=== PATIENT | male | born 1990 | race Two or more races ===

== ENCOUNTER 2020-05-30 14:29 | Inpatient (IN) | payer MEDICAID ==
[~2020-05-30] VITALS: Ht 177.8 cm; Wt 74.0 kg
[2020-05-30] MEDS ORDERED: CARAFATE1 G1 GT (14:49)
[2020-05-30] MEDS ORDERED: PROPRANOLOL HCL10 MG GT (14:49)
[2020-05-30] MEDS ORDERED: FAMOTIDINE20 MG GT (14:49)
[2020-05-30] MEDS ORDERED: ACIDOPHILUS1 EAC7 GT (14:49)
[2020-05-30] MEDS ORDERED: LOVENOX10 M2 SUBQ (14:49)
[2020-05-30] MEDS ORDERED: LISINOPRIL5 MG GT (14:49)
[2020-05-30] MEDS ORDERED: ARMOUR THYROID30 MG GT (14:49)
[2020-05-30] MEDS ORDERED: levaquin (14:49)
[2020-05-30] MEDS ORDERED: RENAGEL800 MG GT (14:49)
[2020-05-30] MEDS ORDERED: KEPPRA750 MG ORAL (14:49)
[2020-05-30] MEDS ORDERED: VIMPAT50 MG GT (14:49)
[2020-05-30] MEDS ORDERED: Acetaminophen 650mg/20.3ml GT ONE (15:00)
--- NOTE | 2020-05-30 15:00 | NUR ---
ED Nurse Note:pt. was BIBA from SNF with fever,ALOC and tahycardia, pt. was not alert on arrival, has tracheostomy with t-piece at 2L O2, skin is intact with perianal redness, fever 101.2, pt. has right upper arm PICC line with is patent, blood and covid swab with cultures was sent to labs, pt given IV fluids and tylenol
--- NOTE | 2020-05-30 15:10 | NUR ---
ED Nurse Note:pt. has abrasion on left knee from traumatic injury
[2020-05-30 15:17] LABS: HEMATOCRIT 32.4 % (42.0-52.0); HEMOGLOBIN 10.8 G/DL (14.2-18.0); MEAN CORPUSCULAR VOLUME 88 FL (80-99); PLATELET COUNT 315 K/UL (150-450); RED CELL DISTRIBUTION WIDTH 14.8 % (11.6-14.8)
[2020-05-30 15:18] VITALS: BP 102/68
[2020-05-30 15:18] LABS: WHITE BLOOD COUNT 25.7 K/UL (4.8-10.8)
[2020-05-30 15:27] LABS: INR 1.2 (0.9-1.1)
[2020-05-30 15:29] LABS: ANION GAP 14 mmol/L (5-15); BLOOD UREA NITROGEN 32 mg/dL (7-18); CALCIUM 9.3 MG/DL (8.5-10.1); CARBON DIOXIDE 23 MMOL/L (21-32); CHLORIDE 94 MMOL/L (98-107); CREATININE 1.2 MG/DL (0.55-1.30); POTASSIUM 4.7 MMOL/L (3.5-5.1); SODIUM 131 MMOL/L (136-145)
--- NOTE | 2020-05-30 15:30 | NUR ---
ED Nurse Note:condom catheter placed on pt for urine collection
[2020-05-30 15:45] LABS: ALANINE AMINOTRANSFERASE 80 U/L (12-78); ALBUMIN 2.9 G/DL (3.4-5.0); ALBUMIN/GLOBULIN RATIO 0.6 (1.0-2.7); ALKALINE PHOSPHATASE 211 U/L (46-116); ASPARTATE AMINO TRANSFERASE 40 U/L (15-37); BILIRUBIN,TOTAL 0.8 MG/DL (0.2-1.0); FERRITIN 1470 NG/ML (8-388); LACTATE DEHYDROGENASE 289 U/L (81-234)
[2020-05-30] MEDS ORDERED: Piperacillin/Tazobactam 3.375 GM in NS 110 ML IVPB ONE (15:45)
[2020-05-30] MEDS ORDERED: Azithromycin 500 MG in NS 275 ML IV ONE (15:45)
--- NOTE | 2020-05-30 16:35 | NUR ---
ED Nurse Note:swabs and lactic reflax sent to labs
[2020-05-30 16:45] VITALS: BP 107/73
--- NOTE | 2020-05-30 17:00 | NUR ---
ED Nurse Note:placed morales cath for urinary retention, urine sent to labs
[2020-05-30 17:14] LABS: APPEARANCE,URINE SLIGHTLY CLOUDY; BILIRUBIN, URINE NEGATIVE (NEGATIVE); GLUCOSE, URINE (UA) NEGATIVE (NEGATIVE); KETONES,URINE NEGATIVE (NEGATIVE); LEUKOCYTE ESTERASE ,URINE 1+ (NEGATIVE); NITRITE,URINE NEGATIVE (NEGATIVE); PH,URINE 5 (4.5-8.0); PROTEIN,URINE 2+ (NEGATIVE); UROBILINOGEN,URINE NORMAL MG/DL (0.0-1.0)
[2020-05-30 17:16] LABS: COLOR,URINE YELLOW
--- NOTE | 2020-05-30 17:22 | NUR ---
ED Nurse Note:called report to tele- given to wil Adame. is stable for transfer to [facility]
--- NOTE | 2020-05-30 17:23 | Emergency Room Report ---
History of Present Illness General Chief Complaint: Altered Mental Status Source: Patient, Medical Record, EMS Present Illness HPI 29-year-old male presents the ED for evaluation. Brought in by EMS for tachycardia. From senior care facility. Status post TBI. Nonverbal. Trach to collar. Noted by nursing staff today to be tachycardic. Patient unable to provide any additional history at this time. No signs of distress on arrival. No other aggravating relieving factors. No other associated symptoms Allergies: Coded Allergies: No Known Allergies (Unverified , 05/30/20) COVID-19 Screening Contact w/high risk pt: No Experienced COVID-19 symptoms?: No COVID-19 Testing performed CAR JOCKEY: No Patient History Past Medical History: GERD, other - TBI Pertinent Family History: none Social History: Denies: smoking, alcohol use, drug use Immunizations: UTD Reviewed Nursing Documentation: PMH: Agreed; PSxH: Agreed Nursing Documentation-PMH Hx Gastrointestinal Problems: Yes - GERD, hypothyroidism Hx Neurological Problems: Yes Hx Seizures: Yes Review of Systems All Other Systems: limited Physical Exam Vital Signs Date Time Temp Pulse Resp B/P (MAP) Pulse Ox O2 Delivery O2 Flow Rate FiO2 05/30/20 14:37 97.9 120 22 102/68 (79 96 T-piece 2.0 Sp02 EP Interpretation: reviewed, normal General Appearance: no apparent distress, other - nonverbal Head: normocephalic Eyes: bilateral eye normal inspection, bilateral eye PERRL ENT: normal ENT inspection Neck: tracheotomy Respiratory: chest non-tender, crackles Cardiovascular #1: no edema, tachycardia Gastrointestinal: normal bowel sounds, non tender, soft, non-distended, no guarding, no rebound Rectal: deferred Genitourinary: no CVA tenderness Musculoskeletal: back normal Neurologic: other - nonverbal Psychiatric: other - nonverbal Skin: other - see nursing notes Lymphatic: normal inspection Procedures Critical Care Time Critical Care Time i. I feel this is a highly complex case requiring extensive working including EKG/Rhythm strip, Xray/CT/US, Blood/urine lab work, repeat exams while in ED, and administration of strong opiates/narcotics for pain control, admission to hospital or close patient follow up. Total time: 45 min bedside evaluation and treatment excludes procedures (EKG). Reason for critical care: tachycardia, sepsis Possible complications: hypotension, hypertension, NM, shock, arrhythmias, metabolic acidosis, end organ damage, respiratory failure. Interventions: labs, IVFs, EKG, tylenol, COVID swab, broad spectrum abx Course: Presenting with tachycardia. Fever. Status post TBI from senior care facility. Given via G-tube. Given 30 cc/kg fluid bolus. Significant leukocytosis. Hemoglobin/hematocrit within normal limits. Lactic 2.4. LFTs elevated. UA shows UTI. covid negative. given fluids. given abx. tachycardia improving. EKG - sinus tachycardia no acute ischemic changes interpreted by me CXR - no consolidation noted Consultations: nursing staff, EMS, family Performed by: Dr Hickman Tolerated well condition = serious j. because of unstable vital signs this patient had a condition that could potentially threaten life or limb. I feel this is a critical patient who required my full attention while patient was considered critical. Total Critical Care Time excluding procedures was greater than 35 minutes Medical Decision Making Diagnostic Impression: Primary Impression: Sepsis Qualified Codes: A41.9 - Sepsis, unspecified organism Additional Impression: Tachycardia ER Course Hospital Course 29-year-old male presenting to ED with tachycardia fever Differential diagnoses include: Pneumonia, UTI, sepsis, dehydration, NM/unstable angina Clinical course Patient placed on stretcher. in isolation. I wore full PPE. On color television console monitor with tachycardia. After initial history and physical, I ordered labs, IV fluids, EKG, chest x-ray, blood cultures, UA. given tylenol. given 30cc/kg fluid bolus Labs - electrolytes ok, marked leukocytosis, LFTS elevated, lactic elevated UA grossly positive for UTI EKG -sinus tachycardia no acute ischemic change sinterpreed by me CXR - no acute process COVID negative broad spectrum Abx given. Given 30 cc/kg fluid bolus. Tachycardia improving. Case discussed with Dr Higgins and they agreed to admit patient to their service for further care and support I feel this is a highly complex case requiring extensive working including EKG/Rhythm strip, Xray/CT/US, Blood/urine lab work, repeat exams while in ED, and administration of strong opiates/narcotics for pain control, admission to hospital or close patient follow up. Diagnosis - sepsis, tachycardia Patient admitted to telemetry in serious condition Laboratory Tests Test 05/30/20 15:00 05/30/20 16:30 05/30/20 17:00 White Blood Count 25.7 K/UL (4.8-10.8) *H Red Blood Count 3.70 M/UL (4.70-6.10) L Hemoglobin 10.8 G/DL (14.2-18.0) L Hematocrit 32.4 % (42.0-52.0) L Mean Corpuscular Volume 88 FL (80-99) Mean Corpuscular Hemoglobin 29.1 PG (27.0-31.0) Mean Corpuscular Hemoglobin Concent 33.3 G/DL (32.0-36.0) Red Cell Distribution Width 14.8 % (11.6-14.8) Platelet Count 315 K/UL (150-450) Mean Platelet Volume 8.1 FL (6.5-10.1) Neutrophils (%) (Auto) % (45.0-75.0) Lymphocytes (%) (Auto) % (20.0-45.0) Monocytes (%) (Auto) % (1.0-10.0) Eosinophils (%) (Auto) % (0.0-3.0) Basophils (%) (Auto) % (0.0-2.0) Differential Total Cells Counted 100 Neutrophils % (Manual) 86 % (45-75) H Lymphocytes % (Manual) 8 % (20-45) L Monocytes % (Manual) 2 % (1-10) Eosinophils % (Manual) 0 % (0-3) Basophils % (Manual) 0 % (0-2) Band Neutrophils 4 % (0-8) Platelet Estimate Adequate Platelet Morphology Normal Polychromasia 1+ Anisocytosis 1+ Prothrombin Time 13.4 SEC (9.30-11.50) H Prothromb Time International Ratio 1.2 (0.9-1.1) H Activated Partial Thromboplast Time 34 SEC (23-33) H D-Dimer 2.43 mg/L FEU (0.00-0.49) H Sodium Level 131 MMOL/L (136-145) L Potassium Level 4.7 MMOL/L (3.5-5.1) Chloride Level 94 MMOL/L (98-107) L Carbon Dioxide Level 23 MMOL/L (21-32) Anion Gap 14 mmol/L (5-15) Blood Urea Nitrogen 32 mg/dL (7-18) H Creatinine 1.2 MG/DL (0.55-1.30) Estimat Glomerular Filtration Rate > 60 mL/min (>60) Glucose Level 131 MG/DL (74-106) H Lactic Acid Level 2.40 mmol/L (0.4-2.0) H Pending Calcium Level 9.3 MG/DL (8.5-10.1) Ferritin 1470 NG/ML (8-388) H Total Bilirubin 0.8 MG/DL (0.2-1.0) Aspartate Amino Transf (AST/SGOT) 40 U/L (15-37) H Alanine Aminotransferase (ALT/SGPT) 80 U/L (12-78) H Alkaline Phosphatase 211 U/L (46-116) H Lactate Dehydrogenase 289 U/L (81-234) H Troponin I 0.000 ng/mL (0.000-0.056) C-Reactive Protein, Quantitative 4.4 mg/dL (0.00-0.90) H Pro-B-Type Natriuretic Peptide 74 pg/mL (0-125) Total Protein 7.4 G/DL (6.4-8.2) Albumin 2.9 G/DL (3.4-5.0) L Globulin 4.5 g/dL Albumin/Globulin Ratio 0.6 (1.0-2.7) L Lipase 106 U/L (73-393) Urine Color Pending Urine Appearance Pending Urine pH Pending Urine Specific [place] Pending Urine Protein Pending Urine Glucose (UA) Pending Urine Ketones Pending Urine Blood Pending Urine Nitrite Pending Urine Bilirubin Pending Urine Urobilinogen Pending Urine Leukocyte Esterase Pending EKG Diagnostic Results Rate: tachycardiac Rhythm: NSR ST Segments: no acute changes ASA given to the pt in ED: No Rhythm Strip Diag. Results EP Interpretation: yes Rhythm: NSR, no PVC's Chest X-Ray Diagnostic Results Chest X-Ray Diagnostic Results : Chest X-Ray Ordered: Yes # of Views/Limited/Complete: 1 View Indication: Other EP Interpretation: Yes Interpretation: no consolidation, no effusion, no pneumothorax, no acute cardiopulmonary disease Impression: No acute disease Electronically Signed by: Electronically signed by Dawit Hickman MD Last Vital Signs Date Time Temp Pulse Resp B/P (MAP) Pulse Ox O2 Delivery O2 Flow Rate FiO2 05/30/20 16:47 99.9 9/28/20 16:45 120 35 107/73 97 T-piece 2.0 Status: improved Disposition: ADMITTED INPATIENT Condition: Serious Referrals: Aime Higgins MD (PCP) Dawit Hickman MD May 30, 2020 17:23
--- NOTE | 2020-05-30 17:45 | NUR ---
NURSE NOTES: Pt arrived in the unit, receive report from Carole ED RN. Pt awake, A/O x0, non-verbal, no s/sx of acute distress, on 4L t-piece. Pt has PICC line, patent and asymptomatic. VS checked (O2 99%, HR 123, BP 122/69, Temp 98.4, RR 26). Admission assessment performed. Pt has GT and morales cath. Pt noted to have sacral DTI, and wounds on B knees, L dunn, L elbow, r/t accident, WCP uploaded. Bed on lowest position, call light within reach. Will get admission orders from .
--- NOTE | 2020-05-30 17:59 | Diagnostic Imaging Report ---
Indication: Cough Technique: One view of the chest Comparison: none Findings: The heart is borderline enlarged. There is a right arm PICC, tip of which projects somewhat deep within the right atrium. There is a tracheostomy. Lungs pleural spaces are clear. Impression: No acute process
--- NOTE | 2020-05-30 18:35 | History & Physical ---
History and Physical History & Physicial History and Physical HPI 29-year-old male presents the ED for evaluation. Prior history of AMS, seizures, admitted with sepsis, tachycardia. Lives in a fdc facility. Status post TBI. Nonverbal. Trach to collar. Noted by nursing staff today to be tachycardic. Patient unable to provide any additional history at this time. No signs of distress on arrival. No other aggravating relieving factors. No other associated symptoms Allergies: No Known Allergies Past Medical History: GERD, TBI, Seizures, Hypothyroidism Social History: NA Family History: NA All Other Systems: limited Physical Exam Vital Signs noted Date Time Temp Pulse Resp B/P (MAP) Pulse Ox O2 Delivery O2 Flow Rate FiO2 05/30/20 14:37 97.9 120 22 102/68 (79) 96 T-piece 2.0 General Appearance: no apparent distress, other - nonverbal Head: normocephalic Eyes: bilateral eye normal inspection, bilateral eye PERRL ENT: normal ENT inspection, moist mm Neck: tracheotomy Respiratory: chest non-tender, CTAB Cardiovascular : HS1, HS2, RRR, no edema, tachycardia Gastrointestinal: normal bowel sounds, non tender, soft, non-distended, no guarding, no rebound, gtube noted cdi Genitourinary: no CVA tenderness Musculoskeletal: back normal Neurologic: other - nonverbal EKG - sinus tachycardia no acute ischemic changes interpreted by me CXR - no consolidation noted Consultations: nursing staff, EMS, family Performed by: Dr Hickman Tolerated well condition = serious Impression: Sepsis Urinary Tract Infection Sepsis, unspecified organism TBI Seizures Hypothyroidism Sinus Tachycardia Hypertension Plan: IV Antibiotics IVF O2 PRN TC PPX Monitor labs [employer] medications Laboratory Tests COVID negative UA grossly positive for UTI Test 05/30/20 15:00 05/30/20 16:30 05/30/20 17:00 White Blood Count 25.7 K/UL (4.8-10.8) *H Red Blood Count 3.70 M/UL (4.70-6.10) L Hemoglobin 10.8 G/DL (14.2-18.0) L Hematocrit 32.4 % (42.0-52.0) L Mean Corpuscular Volume 88 FL (80-99) Mean Corpuscular Hemoglobin 29.1 PG (27.0-31.0) Mean Corpuscular Hemoglobin Concent 33.3 G/DL (32.0-36.0) Red Cell Distribution Width 14.8 % (11.6-14.8) Platelet Count 315 K/UL (150-450) Mean Platelet Volume 8.1 FL (6.5-10.1) Neutrophils (%) (Auto) % (45.0-75.0) Lymphocytes (%) (Auto) % (20.0-45.0) Monocytes (%) (Auto) % (1.0-10.0) Eosinophils (%) (Auto) % (0.0-3.0) Basophils (%) (Auto) % (0.0-2.0) Differential Total Cells Counted 100 Neutrophils % (Manual) 86 % (45-75) H Lymphocytes % (Manual) 8 % (20-45) L Monocytes % (Manual) 2 % (1-10) Eosinophils % (Manual) 0 % (0-3) Basophils % (Manual) 0 % (0-2) Band Neutrophils 4 % (0-8) Platelet Estimate Adequate Platelet Morphology Normal Polychromasia 1+ Anisocytosis 1+ Prothrombin Time 13.4 SEC (9.30-11.50) H Prothromb Time International Ratio 1.2 (0.9-1.1) H Activated Partial Thromboplast Time 34 SEC (23-33) H D-Dimer 2.43 mg/L FEU (0.00-0.49) H Sodium Level 131 MMOL/L (136-145) L Potassium Level 4.7 MMOL/L (3.5-5.1) Chloride Level 94 MMOL/L (98-107) L Carbon Dioxide Level 23 MMOL/L (21-32) Anion Gap 14 mmol/L (5-15) Blood Urea Nitrogen 32 mg/dL (7-18) H Creatinine 1.2 MG/DL (0.55-1.30) Estimat Glomerular Filtration Rate > 60 mL/min (>60) Glucose Level 131 MG/DL (74-106) H Lactic Acid Level 2.40 mmol/L (0.4-2.0) H Pending Calcium Level 9.3 MG/DL (8.5-10.1) Ferritin 1470 NG/ML (8-388) H Total Bilirubin 0.8 MG/DL (0.2-1.0) Aspartate Amino Transf (AST/SGOT) 40 U/L (15-37) H Alanine Aminotransferase (ALT/SGPT) 80 U/L (12-78) H Alkaline Phosphatase 211 U/L (46-116) H Lactate Dehydrogenase 289 U/L (81-234) H Troponin I 0.000 ng/mL (0.000-0.056) C-Reactive Protein, Quantitative 4.4 mg/dL (0.00-0.90) H Pro-B-Type Natriuretic Peptide 74 pg/mL (0-125) Total Protein 7.4 G/DL (6.4-8.2) Albumin 2.9 G/DL (3.4-5.0) L Globulin 4.5 g/dL Albumin/Globulin Ratio 0.6 (1.0-2.7) L Lipase 106 U/L (73-393) Urine Color Pending Urine Appearance Pending Urine pH Pending Urine Specific [place] Pending Urine Protein Pending Urine Glucose (UA) Pending Urine Ketones Pending Urine Blood Pending Urine Nitrite Pending Urine Bilirubin Pending Urine Urobilinogen Pending Urine Leukocyte Esterase Pending EKG: Rate: tachycardiac Rhythm: NSR ST Segments: no acute changes Chest X-Ray: no consolidation, no effusion, no pneumothorax, no acute cardiopulmonary disease Garcia Vasquez MD May 30, 2020 18:35
[2020-05-30] MEDS ORDERED: KEPPRA750 MG GT (18:38)
--- NOTE | 2020-05-30 19:40 | NUR ---
NURSE NOTES: Received report from KADEEM Ireland. Pt in bed, on trach collar with O2 at 4L/min, no resp distress noted. Trach in place & patent. radiology transcriptionist in place. GT n place & patent. F/C in place &patent darning to gravity, yellow urine. PICC line in place & patent on right upper arm flushed. Bed in low position & locked, side rails up x2. bed alarm on. Call light with in reach.
--- NOTE | 2020-05-30 19:57 | NUR ---
NURSE HAND-OFF REPORT: Important Events on Shift: New admit Patient Status: stable Diet: jevity 1.2 at 70 Pending Orders: labs tomorrow Pending Results/Labs: Pending MD notification: Latest Vital Signs: Temperature 99.9 , Pulse 120 , B/P 107 /73 , Respiratory Rate 35 , O2 SAT 97 , T-piece, O2 Flow Rate 4.0 . Vital Sign Comment: EKG Rhythm: Rhythm change?: MD Notified?: - MD Response: Latest Whitley Fall Score: 50 Fall Risk: High Risk Safety Measures: Call light Within Reach, Bed Alarm Zone 1, Side Rails Side Rails x3, Bed position Low and Locked. Fall Precautions: Yellow Socks Yellow Gown Door Sign Patient Fall Education Report given to KADEEM Soto
[2020-05-30 20:00] VITALS: BP 109/64
[2020-05-30] MEDS ORDERED: Vancomycin 1.5gm/NS Premix IVPB ONE (20:00)
[2020-05-30] MEDS ORDERED: Sodium Chloride 550 ML IV ONE (20:00)
[2020-05-30] MEDS: Enoxaparin 80mg Inj SUBQ SCH (20:51)
--- NOTE | 2020-05-30 23:00 | NUR ---
NURSE NOTES: Notified Dr. Mccarthy about temp of 102.9 & heart rate of 140. No new orders noted given at this time.
[2020-05-30] MEDS: Piperacillin/Tazobactam 3.375 GM in NS 110 ML IVPB SCH (23:04)
[2020-05-31] VITALS: BP 119/75
[2020-05-31 04:00] VITALS: BP 144/89
[2020-05-31] MEDS: Piperacillin/Tazobactam 3.375 GM in NS 110 ML IVPB SCH ×3 (05:00→22:01)
[2020-05-31 06:07] LABS: HEMOGLOBIN 9.6 G/DL (14.2-18.0); MEAN CORPUSCULAR VOLUME 85 FL (80-99); PLATELET COUNT 245 K/UL (150-450); RED BLOOD COUNT 3.18 M/UL (4.70-6.10); RED CELL DISTRIBUTION WIDTH 14.2 % (11.6-14.8)
[2020-05-31 06:12] LABS: ANION GAP 13 mmol/L (5-15); CHLORIDE 99 MMOL/L (98-107); POTASSIUM 4.2 MMOL/L (3.5-5.1); SODIUM 134 MMOL/L (136-145)
[2020-05-31 06:13] LABS: CARBON DIOXIDE 23 MMOL/L (21-32)
[2020-05-31 06:46] LABS: ALANINE AMINOTRANSFERASE 67 U/L (12-78); ALBUMIN 2.7 G/DL (3.4-5.0); ALBUMIN/GLOBULIN RATIO 0.6 (1.0-2.7); ALKALINE PHOSPHATASE 180 U/L (46-116); ASPARTATE AMINO TRANSFERASE 35 U/L (15-37); BILIRUBIN,TOTAL 0.8 MG/DL (0.2-1.0); BLOOD UREA NITROGEN 23 mg/dL (7-18); CALCIUM 8.9 MG/DL (8.5-10.1); CREATININE 0.8 MG/DL (0.55-1.30)
--- NOTE | 2020-05-31 07:00 | NUR ---
NURSE NOTES: Notified Dr. Alvarenga regarding WBC results, HR of 142, new orders noted and carried out.
[2020-05-31] MEDS ORDERED: Ipratropium 0.02% Inh Soln 2.5ml UD HHN PRN (07:15)
--- NOTE | 2020-05-31 07:15 | NUR ---
NURSE NOTES: pt in bed and on cooling blanket t100.3. HR 143, pt on school bus monitor. No signs of respiratory distress. Pt AOx0 opens up eyes but is non verbal. Bed locked and in lowest position, call light within reach. will continue to monitor pt.
--- NOTE | 2020-05-31 07:31 | Pulmonology Progress Note ---
Subjective ROS Limited/Unobtainable: Yes Allergies: Coded Allergies: No Known Allergies (Unverified , 05/30/20) Subjective d/w sister Objective Last 24 Hour Vital Signs Date Time Temp Pulse Resp B/P (MAP) Pulse Ox O2 Delivery O2 Flow Rate FiO2 05/31/20 04:00 102.0 140 22 144/89 (107) 99 05/31/20 04:00 131 05/31/20 00:00 137 05/31/20 00:00 101.7 136 18 119/75 (90) 96 05/30/20 22:39 101.9 05/30/20 21:00 Trach Collar 4.0 05/30/20 20:00 99.1 130 18 109/64 (79) 96 05/30/20 20:00 134 05/30/20 18:12 T-Piece 4.0 05/30/20 17:21 99.9 120 35 107/73 97 T-piece 4.0 05/30/20 16:47 99.9 05/30/20 16:45 99.9 120 35 107/73 97 T-piece 2.0 05/30/20 15:18 101.2 123 24 102/68 96 T-piece 2.0 05/30/20 15:14 120 22 T-piece 2.0 05/30/20 14:37 97.9 120 22 102/68 (79) 96 T-piece 2.0 Intake and Output 05/30/20 05/31/20 19:00 07:00 Output Total 220 ml 1100 ml Balance -220 ml -1100 ml Output Urine Total 220 ml 1100 ml # Voids 1 # Bowel Movements 1 Objective WDWN NAD clear breath sounds bilaterally without rhonchi or wheeze [id number] tachy without MRG NABS nontender GT no CCE nonfocal trach poor LOC Microbiology Date/Time Source Procedure Growth Status 05/30/20 17:00 Urine,Clean Catch Urine Culture - Preliminary NO GROWTH Resulted 05/30/20 15:00 Nasopharynx SARS-CoV-2 RdRp Gene Assay - Final Complete 05/30/20 00:00 Rectum Ordered Laboratory Tests 05/30/20 15:00: White Blood Count 25.7*H, Red Blood Count 3.70L, Hemoglobin 10.8L, Hematocrit 32.4L, Mean Corpuscular Volume 88, Mean Corpuscular Hemoglobin 29.1, Mean Corpuscular Hemoglobin Concent 33.3, Red Cell Distribution Width 14.8, Platelet Count 315, Mean Platelet Volume 8.1, Neutrophils (%) (Auto) , Lymphocytes (%) (Auto) , Monocytes (%) (Auto) , Eosinophils (%) (Auto) , Basophils (%) (Auto) , Differential Total Cells Counted 100, Neutrophils % (Manual) 86H, Lymphocytes % (Manual) 8L, Monocytes % (Manual) 2, Eosinophils % (Manual) 0, Basophils % (Manual) 0, Band Neutrophils 4, Platelet Estimate Adequate, Platelet Morphology Normal, Polychromasia 1+, Anisocytosis 1+, Prothrombin Time 13.4H, Prothromb Time International Ratio 1.2H, Activated Partial Thromboplast Time 34H, D-Dimer 2.43H, Sodium Level 131L, Potassium Level 4.7, Chloride Level 94L, Carbon Dioxide Level 23, Anion Gap 14, Blood Urea Nitrogen 32H, Creatinine 1.2, Estimat Glomerular Filtration Rate > 60, Glucose Level 131H, Lactic Acid Level 2.40H, Calcium Level 9.3, Ferritin 1470H, Total Bilirubin 0.8, Aspartate Amino Transf (AST/SGOT) 40H, Alanine Aminotransferase (ALT/SGPT) 80H, Alkaline Phosphatase 211H, Lactate Dehydrogenase 289H, Troponin I 0.000, C-Reactive Protein, Quantitative 4.4H, Pro-B-Type Natriuretic Peptide 74, Total Protein 7.4, Albumin 2.9L, Globulin 4.5, Albumin/Globulin Ratio 0.6L, Lipase 106 05/30/20 16:30: Lactic Acid Level 2.70H 05/30/20 17:00: Urine Color Yellow, Urine Appearance Slightly cloudy, Urine pH 5, Urine Specific [place] 1.020, Urine Protein 2+H, Urine Glucose (UA) Negative, Urine Ketones Negative, Urine Blood 2+H, Urine Nitrite Negative, Urine Bilirubin Negative, Urine Urobilinogen Normal, Urine Leukocyte Esterase 1+H, Urine RBC 5-10H, Urine WBC 0-2, Urine Squamous Epithelial Cells None, Urine Amorphous Sediment ModerateH, Urine Bacteria ModerateH 05/31/20 04:10: White Blood Count 25.0*H, Red Blood Count 3.18L, Hemoglobin 9.6L, Hematocrit 27.0L, Mean Corpuscular Volume 85, Mean Corpuscular Hemoglobin 30.2, Mean Corpuscular Hemoglobin Concent 35.7, Red Cell Distribution Width 14.2, Platelet Count 245, Mean Platelet Volume 7.2, Neutrophils (%) (Auto) , Lymphocytes (%) (Auto) , Monocytes (%) (Auto) , Eosinophils (%) (Auto) , Basophils (%) (Auto) , Neutrophils % (Manual) [Pending], Lymphocytes % (Manual) [Pending], Platelet Estimate [Pending], Platelet Morphology [Pending], Sodium Level 134L, Potassium Level 4.2, Chloride Level 99, Carbon Dioxide Level 23, Anion Gap 13, Blood Urea Nitrogen 23H, Creatinine 0.8, Estimat Glomerular Filtration Rate > 60, Glucose Level 135H, Lactic Acid Level 1.90, Calcium Level 8.9, Total Bilirubin 0.8, Aspartate Amino Transf (AST/SGOT) 35, Alanine Aminotransferase (ALT/SGPT) 67, Alkaline Phosphatase 180H, Total Protein 6.9, Albumin 2.7L, Globulin 4.3, Albumin/Globulin Ratio 0.6L, Thyroid Stimulating Hormone (TSH) [Pending], Levetiracetam (Keppra) Level [Pending] Current Medications Medications (Trade) Dose Ordered Sig/Anuj Route PRN Reason Start Time Stop Time Status Last Admin Dose Admin Acetaminophen (Tylenol) 650 mg Q6H PRN ORAL Temp >100.5 05/30/20 18:45 06/29/20 18:44 05/31/20 04:58 Enoxaparin Sodium (Lovenox) 80 mg EVERY 12 HOURS SUBQ 05/30/20 21:00 08/28/20 20:59 05/30/20 20:51 Famotidine (Pepcid) 20 mg DAILY GT 05/31/20 09:00 08/29/20 08:59 Ipratropium [place] (Atrovent) 500 mcg Q6H PRN HHN Shortness of Breath 05/31/20 07:15 06/05/20 07:14 Lacosamide (Vimpat) 50 mg BID ORAL 05/31/20 09:00 08/29/20 08:59 Lactobacillus Acidophilus (Culturelle) 1 tab DAILY GT 05/31/20 09:00 08/29/20 08:59 Lisinopril (ZestriL) 5 mg BID GT 05/31/20 18:00 06/30/20 17:59 Piperacillin Sod/ Tazobactam Sod 3.375 gm/Sodium Chloride 110 ml @ 27.5 mls/hr Q8HR IVPB 05/30/20 22:00 06/06/20 21:59 05/31/20 05:00 Propranolol HCl (Inderal) 10 mg THREE TIMES A DAY ORAL 05/31/20 09:00 06/30/20 08:59 Sevelamer Carbonate (Renvela) 800 mg THREE TIMES A DAY GT 05/31/20 09:00 08/29/20 08:59 Sodium Chloride 1,000 ml @ 100 mls/hr Q10H IV 05/31/20 00:00 06/30/20 00:00 05/31/20 00:31 Sucralfate (Carafate) 1 gm BID ORAL 05/31/20 09:00 08/29/20 08:59 Thyroid ([place] Thyroid) 15 mg DAILY GT 05/31/20 09:00 06/30/20 08:59 Vancomycin HCl (Vanco pharmacy to dose) 1 ea DAILY PRN MISC Per rx protocol 05/30/20 18:45 06/29/20 18:44 Vancomycin HCl 750 mg/Sodium Chloride 275 ml @ 183.333 mls/hr Q12H IVPB 05/31/20 08:00 06/05/20 07:59 Assessment/Plan Assessment/Plan Impression: Sepsis Urinary Tract Infection TBI Seizures Hypothyroidism Sinus Tachycardia Hypertension Plan: IV Antibiotics IVF O2 PRN TC PPX Monitor labs adjust beta blockade DVT prophylaxis ID evaluation impression, plan, and exam edited and reviewed in detail care discussed with Aime Browne MD May 31, 2020 07:31
--- NOTE | 2020-05-31 07:45 | NUR ---
NURSE HAND-OFF REPORT: Important Events on Shift:[eleavted temp, heart rate in 140's Patient Status: stable Diet: jevity 1.2 at 70cc Pending Orders: [] Pending Results/Labs:[] Pending MD notification:[] Latest Vital Signs: Temperature 101.2 , Pulse 140 , B/P 144 /89 , Respiratory Rate 22 , O2 SAT 99 , Trach Collar, O2 Flow Rate 4.0 . Vital Sign Comment: [] EKG Rhythm: Sinus Tachycardia Rhythm change?: N MD Notified?: Zeynep WAGNER MD Response: No New Orders Received Latest Whitley Fall Score: 50 Fall Risk: High Risk Safety Measures: Call light Within Reach, Bed Alarm Zone 2, Side Rails Side Rails x2, Bed position Low and Locked. Fall Precautions: Yellow Socks Yellow Gown Door Sign Patient Fall Education Report given to
[2020-05-31 08:00] VITALS: BP 118/72
[2020-05-31] MEDS: Sucralfate 1gm tab ORAL SCH ×2 (08:49→18:14)
[2020-05-31] MEDS: Propranolol 10mg tab ORAL SCH ×3 (08:51→18:15)
[2020-05-31] MEDS: Lacosamide 50mg tablet ORAL SCH ×2 (08:51→18:15)
[2020-05-31] MEDS: Lactobacillus-GG tablet GT SCH (08:51)
[2020-05-31] MEDS: Renvela 800mg Pkt GT SCH ×3 (08:51→18:13)
[2020-05-31] MEDS: Enoxaparin 80mg Inj SUBQ SCH ×2 (08:54→20:45)
[2020-05-31] MEDS: Vancomycin 750mg/NS 275ml IVPB SCH ×4 (08:55→20:44)
[2020-05-31] MEDS ORDERED: Propranolol 10mg tab ORAL SCH (09:00)
--- NOTE | 2020-05-31 09:13 | NUR ---
RD ASSESSMENT & RECOMMENDATIONS SEE CARE ACTIVITY FOR COMPLETE ASSESSMENT DAILY ESTIMATED NEEDS: Needs based on Pulmonary, 68kg 25-30 kcals/kg 4760-5186 total kcals 1.25-1.5 g protein/kg 85-102 g total protein 25-30 mL/kg 3277-1037 total fluid mLs NUTRITION DIAGNOSIS: Swallowing difficulty r/t TBI and resp distress, as evidenced by pt is vent dep via T-collar, PEG dep. CURRENT TF:Jevity 1.2 @70 ml x20 hrs ENTERAL NUTRITION RECOMMENDATIONS: Increase TF to goal of 75ml/hr x20 hrs to provide 1500ml, 1800 kcal, 83g pro, 1211ml free H2O - Rec to INCREASE TF by 5ml/hr to better meet est kcal and pro needs. - Flush per MD/ HOB over 30 degrees ADDITIONAL RECOMMENDATIONS: 1) Skin integrity: add CATALINA BID via PEG (added 5g pro to meet est pro needs) 2) Wound care eval 3) Per SNF: 5'5" and 150#, maintain calibrated bed scale wts 4) F/up w/ H&P
--- NOTE | 2020-05-31 11:30 | NUR ---
NURSE NOTES: pt on cooling blanket T99.2 room is too hot.
[2020-05-31 12:00] VITALS: BP 141/90
--- NOTE | 2020-05-31 12:18 | NUR ---
CASE MANAGEMENT: INITIAL REVIEW 29 YR OLD MALE BIBA FROM [facility] CC:AMS .FEVER . TACHY ; PICC LINE IN PLACE WHEN ARRIVED TO ER SI:SEPSIS . 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
[2020-05-31] MEDS ORDERED: Lice Treatment Shampoo 4oz Bottle TOPIC SCH (13:00)
--- NOTE | 2020-05-31 13:44 | Cardiology Report ---
APPROVED REPORT EKG Measurement Heart [id number] NC [id number] [id number] <Conclusion> Sinus tachycardia Otherwise normal ECG
--- NOTE | 2020-05-31 14:12 | Consultation ---
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 Patient was identified to have tachycardia abnormal labs and admitted further care and management. On admission identified to have sutures around his tracheostomy and some drainage. Surgery was called to evaluate and assist with care. Patient seen, patient evaluated, chart reviewed. Patient identified to have deep tissue injury in the sacral region. Patient unable to provide history or participate examination. His eyes were open but he does not respond to command. He has significant secretions. Labs and chest x- rays reviewed Allergies: Coded Allergies: No Known Allergies (Unverified , 05/30/20) Medication History Scheduled Enoxaparin* (Lovenox*), 80 MG SUBQ EVERY 12 HOURS, (Reported) Famotidine* (Pepcid 20mg tablet*), 20 MG ORAL DAILY, (Reported) Lacosamide (Vimpat), 50 MG PO BID, (Reported) Levetiracetam (Keppra), 750 MG ORAL BID, (Reported) Levetiracetam (Keppra), 750 MG GT BID, (Reported) Lisinopril (Lisinopril*), 5 MG ORAL BID, (Reported) Propranolol Hcl* (Inderal*), 10 MG ORAL THREE TIMES A DAY, (Reported) Sevelamer Hcl (Renagel), 800 MG ORAL THREE TIMES A DAY, (Reported) Sucralfate* (Carafate*), 1 GM ORAL BID, (Reported) Thyroid* ([place] Thyroid*), 15 MG ORAL DAILY, (Reported) [levaquin], 750 MG BID, (Reported) Miscellaneous Medications Lactobacillus Acidophilus (Acidophilus), 1 EACH PO, (Reported) Patient History Limited by: medical condition History Provided By: Medical Record, PMD Healthcare decision maker N Resuscitation status Advanced Directive on File Past Medical/Surgical History Past Medical/Surgical History: (1) Sepsis (2) Tachycardia Review of Systems ROS Narrative Unable to obtain from patient given his current medical condition Physical Exam General Appearance: no apparent distress Lines, tubes and drains: peripheral HEENT: other - Right cranial elevation Neck: trach Respiratory/Chest: decreased breath sounds, other - Tracheostomy secretions Cardiovascular/Chest: tachycardia Abdomen: soft, no organomegaly, no mass, feeding tube Extremities: normal inspection, no calf tenderness, other Skin Exam: warm/dry Neurologic: unresponsiveness, aphasia Last 24 Hour Vital Signs Date Time Temp Pulse Resp B/P (MAP) Pulse Ox O2 Delivery O2 Flow Rate FiO2 05/31/20 09:00 Trach Collar 4.0 05/31/20 08:51 144 118/72 05/31/20 08:00 101.5 144 21 118/72 (87) 100 05/31/20 07:00 98 T-Piece 2.0 28 05/31/20 05:28 100.5 05/31/20 04:00 102.0 140 22 144/89 (107) 99 05/31/20 04:00 131 05/31/20 00:00 137 05/31/20 00:00 101.7 136 18 119/75 (90) 96 05/30/20 22:39 101.9 05/30/20 21:00 Trach Collar 4.0 05/30/20 20:00 99.1 130 18 109/64 (79) 96 05/30/20 20:00 134 05/30/20 18:12 T-Piece 4.0 05/30/20 17:21 99.9 120 35 107/73 97 T-piece 4.0 05/30/20 16:47 99.9 05/30/20 16:45 99.9 120 35 107/73 97 T-piece 2.0 05/30/20 15:18 101.2 123 24 102/68 96 T-piece 2.0 05/30/20 15:14 120 22 T-piece 2.0 05/30/20 14:37 97.9 120 22 102/68 (79) 96 T-piece 2.0 Intake and Output 05/30/20 05/31/20 18:59 06:59 Output Total 220 ml 1100 ml Balance -220 ml -1100 ml Output Urine Total 220 ml 1100 ml # Voids 1 # Bowel Movements 1 Laboratory Tests Test 05/30/20 15:00 05/30/20 16:30 05/30/20 17:00 05/31/20 04:10 White Blood Count 25.7 K/UL (4.8-10.8) *H 25.0 K/UL (4.8-10.8) *H Red Blood Count 3.70 M/UL (4.70-6.10) L 3.18 M/UL (4.70-6.10) L Hemoglobin 10.8 G/DL (14.2-18.0) L 9.6 G/DL (14.2-18.0) L Hematocrit 32.4 % (42.0-52.0) L 27.0 % (42.0-52.0) L Mean Corpuscular Volume 88 FL (80-99) 85 FL (80-99) Mean Corpuscular Hemoglobin 29.1 PG (27.0-31.0) 30.2 PG (27.0-31.0) Mean Corpuscular Hemoglobin Concent 33.3 G/DL (32.0-36.0) 35.7 G/DL (32.0-36.0) Red Cell Distribution Width 14.8 % (11.6-14.8) 14.2 % (11.6-14.8) Platelet Count 315 K/UL (150-450) 245 K/UL (150-450) Mean Platelet Volume 8.1 FL (6.5-10.1) 7.2 FL (6.5-10.1) Neutrophils (%) (Auto) % (45.0-75.0) % (45.0-75.0) Lymphocytes (%) (Auto) % (20.0-45.0) % (20.0-45.0) Monocytes (%) (Auto) % (1.0-10.0) % (1.0-10.0) Eosinophils (%) (Auto) % (0.0-3.0) % (0.0-3.0) Basophils (%) (Auto) % (0.0-2.0) % (0.0-2.0) Differential Total Cells Counted 100 100 Neutrophils % (Manual) 86 % (45-75) H 89 % (45-75) H Lymphocytes % (Manual) 8 % (20-45) L 8 % (20-45) L Monocytes % (Manual) 2 % (1-10) 3 % (1-10) Eosinophils % (Manual) 0 % (0-3) 0 % (0-3) Basophils % (Manual) 0 % (0-2) 0 % (0-2) Band Neutrophils 4 % (0-8) 0 % (0-8) Platelet Estimate Adequate Adequate Platelet Morphology Normal Normal Polychromasia 1+ Anisocytosis 1+ 1+ Prothrombin Time 13.4 SEC (9.30-11.50) H Prothromb Time International Ratio 1.2 (0.9-1.1) H Activated Partial Thromboplast Time 34 SEC (23-33) H D-Dimer 2.43 mg/L FEU (0.00-0.49) H Sodium Level 131 MMOL/L (136-145) L 134 MMOL/L (136-145) L Potassium Level 4.7 MMOL/L (3.5-5.1) 4.2 MMOL/L (3.5-5.1) Chloride Level 94 MMOL/L (98-107) L 99 MMOL/L (98-107) Carbon Dioxide Level 23 MMOL/L (21-32) 23 MMOL/L (21-32) Anion Gap 14 mmol/L (5-15) 13 mmol/L (5-15) Blood Urea Nitrogen 32 mg/dL (7-18) H 23 mg/dL (7-18) H Creatinine 1.2 MG/DL (0.55-1.30) 0.8 MG/DL (0.55-1.30) Estimat Glomerular Filtration Rate > 60 mL/min (>60) > 60 mL/min (>60) Glucose Level 131 MG/DL (74-106) H 135 MG/DL (74-106) H Lactic Acid Level 2.40 mmol/L (0.4-2.0) H 2.70 mmol/L (0.66-2.22) H 1.90 mmol/L (0.4-2.0) Calcium Level 9.3 MG/DL (8.5-10.1) 8.9 MG/DL (8.5-10.1) Ferritin 1470 NG/ML (8-388) H Total Bilirubin 0.8 MG/DL (0.2-1.0) 0.8 MG/DL (0.2-1.0) Aspartate Amino Transf (AST/SGOT) 40 U/L (15-37) H 35 U/L (15-37) Alanine Aminotransferase (ALT/SGPT) 80 U/L (12-78) H 67 U/L (12-78) Alkaline Phosphatase 211 U/L (46-116) H 180 U/L (46-116) H Lactate Dehydrogenase 289 U/L (81-234) H Troponin I 0.000 ng/mL (0.000-0.056) C-Reactive Protein, Quantitative 4.4 mg/dL (0.00-0.90) H Pro-B-Type Natriuretic Peptide 74 pg/mL (0-125) Total Protein 7.4 G/DL (6.4-8.2) 6.9 G/DL (6.4-8.2) Albumin 2.9 G/DL (3.4-5.0) L 2.7 G/DL (3.4-5.0) L Globulin 4.5 g/dL 4.3 g/dL Albumin/Globulin Ratio 0.6 (1.0-2.7) L 0.6 (1.0-2.7) L Lipase 106 U/L (73-393) Urine Color Yellow Urine Appearance Slightly cloudy Urine pH 5 (4.5-8.0) Urine Specific Clay 1.020 (1.005-1.035) Urine Protein 2+ (NEGATIVE) H Urine Glucose (UA) Negative (NEGATIVE) Urine Ketones Negative (NEGATIVE) Urine Blood 2+ (NEGATIVE) H Urine Nitrite Negative (NEGATIVE) Urine Bilirubin Negative (NEGATIVE) Urine Urobilinogen Normal MG/DL (0.0-1.0) Urine Leukocyte Esterase 1+ (NEGATIVE) H Urine RBC 5-10 /HPF (0 - 0) H Urine WBC 0-2 /HPF (0 - 0) Urine Squamous Epithelial Cells None /LPF (NONE/OCC) Urine Amorphous Sediment Moderate /LPF (NONE) H Urine Bacteria Moderate /HPF (NONE) H Thyroid Stimulating Hormone (TSH) 1.255 uiU/mL (0.358-3.740) Levetiracetam (Keppra) Level Pending Test 05/31/20 08:59 Arterial Blood pH 7.479 (7.350-7.450) Arterial Blood Partial Pressure CO2 28.9 mmHg (35.0-45.0) L Arterial Blood Partial Pressure O2 79.6 mmHg (75.0-100.0) Arterial Blood HCO3 21.0 mmol/L (22.0-26.0) L Arterial Blood Oxygen Saturation 95.1 % (95-100) Arterial Blood Base Excess -1.7 (-2-2) Seth Test Positive Microbiology Date/Time Source Procedure Growth Status 05/30/20 17:00 Urine,Clean Catch Urine Culture - Preliminary NO GROWTH Resulted 05/30/20 15:00 Nasopharynx SARS-CoV-2 RdRp Gene Assay - Final Complete Height (Feet): 5 Height (Inches): 10.00 Weight (Pounds): 160 Medications Current Medications Medications (Trade) Dose Ordered Sig/Anuj Route PRN Reason Start Time Stop Time Status Last Admin Dose Admin Acetaminophen (Tylenol) 650 mg Q6H PRN ORAL Temp >100.5 05/30/20 18:45 06/29/20 18:44 05/31/20 04:58 Enoxaparin Sodium (Lovenox) 80 mg EVERY 12 HOURS SUBQ 05/30/20 21:00 08/28/20 20:59 05/31/20 08:54 Famotidine (Pepcid) 20 mg DAILY GT 05/31/20 09:00 08/29/20 08:59 05/31/20 08:49 Ipratropium Abie (Atrovent) 500 mcg Q6H PRN HHN Shortness of Breath 05/31/20 07:15 06/05/20 07:14 Lacosamide (Vimpat) 50 mg BID ORAL 05/31/20 09:00 08/29/20 08:59 05/31/20 08:51 Lactobacillus Acidophilus (Culturelle) 1 tab DAILY GT 05/31/20 09:00 08/29/20 08:59 05/31/20 08:51 Lisinopril (ZestriL) 5 mg BID GT 05/31/20 18:00 06/30/20 17:59 Piperacillin Sod/ Tazobactam Sod 3.375 gm/Sodium Chloride 110 ml @ 27.5 mls/hr Q8HR IVPB 05/30/20 22:00 06/06/20 21:59 05/31/20 05:00 Propranolol HCl (Inderal) 20 mg THREE TIMES A DAY ORAL 05/31/20 09:00 06/30/20 08:59 05/31/20 08:51 Pyrethrins/ Piperonyl Butoxide (Lice Treatment Soln) 1 applic ONCE TOPIC 05/31/20 13:00 05/31/20 23:59 Sevelamer Carbonate (Renvela) 800 mg THREE TIMES A DAY GT 05/31/20 09:00 08/29/20 08:59 05/31/20 08:51 Sodium Chloride 1,000 ml @ 100 mls/hr Q10H IV 05/31/20 00:00 06/30/20 00:00 05/31/20 11:06 Sucralfate (Carafate) 1 gm BID ORAL 05/31/20 09:00 08/29/20 08:59 05/31/20 08:49 Thyroid ([place] Thyroid) 15 mg DAILY GT 05/31/20 09:00 06/30/20 08:59 05/31/20 08:49 Vancomycin HCl (Vanco pharmacy to dose) 1 ea DAILY PRN MISC Per rx protocol 05/30/20 18:45 06/29/20 18:44 Vancomycin HCl 750 mg/Sodium Chloride 275 ml @ 183.333 mls/hr Q12H IVPB 05/31/20 08:00 06/05/20 07:59 05/31/20 08:55 Assessment/Plan Problem List: (1) Tachycardia ICD Codes: R00.0 - Tachycardia, unspecified SNOMED: 2332792 (2) Sepsis Assessment & Plan: 29-year-old male with leukocytosis anemia lactic acidosis. Patient admitted further care management identified to have significant secretions from tracheostomy trach collar with sutures in place causing distortion. Abdominal G-tube in place. Patient forming deep tissue injury. BMI 22 labs noted. Patient a phasic unable to respond to commands and in a vegetative state at this time. Patient with a UTI on antibiotics. Right PIC in place may need to be replaced. Turn every 2 hours offload pressure with air mattress and pillows. Trach sutures removed trach tie evaluated trach in place secretions suction. Continue with secretions chest x-ray reviewed no acute infiltrative process Leukocytosis trending down lactic acid is improving continue fluid resuscitation IV antibiotics Thank you will follow with recommendations DAILY ESTIMATED NEEDS: Needs based on Pulmonary, 68kg 25-30 kcals/kg 0059-0706 total kcals 1.25-1.5 g protein/kg 85-102 g total protein 25-30 mL/kg 3616-9572 total fluid mLs NUTRITION DIAGNOSIS: Swallowing difficulty r/t TBI and resp distress, as evidenced by pt is vent dep via T-collar, PEG dep. CURRENT TF:Jevity 1.2 @70 ml x20 hrs ENTERAL NUTRITION RECOMMENDATIONS: Increase TF to goal of 75ml/hr x20 hrs to provide 1500ml, 1800 kcal, 83g pro, 1211ml free H2O - Rec to INCREASE TF by 5ml/hr to better meet est kcal and pro needs. - Flush per MD/ HOB over 30 degrees ADDITIONAL RECOMMENDATIONS: 1) Skin integrity: add CATALINA BID via PEG (added 5g pro to meet est pro needs) 2) Wound care eval 3) Per SNF: 5'5" and 150#, maintain calibrated bed scale wts ICD Codes: A41.9 - Sepsis, unspecified organism SNOMED: 12887649 Qualifiers: Qualified Codes: A41.9 - Sepsis, unspecified organism Carl Hernandez May 31, 2020 14:12
--- NOTE | 2020-05-31 14:45 | Consultation ---
DATE OF CONSULTATION: 05/31/2020 INFECTIOUS DISEASE CONSULTATION CONSULTING PHYSICIAN: Dl Mcgowan MD. REFERRING PHYSICIAN: Aime Higgins MD. REASON FOR CONSULTATION: Urinary tract infection. HISTORY OF PRESENTING ILLNESS: This is a 29-year-old gentleman with history of traumatic brain injury, seizures, hypothyroidism, GERD, who came in with tachycardia. He was found to have an urinary tract infection and an Infectious Diseases consultation has been obtained for antibiotics. PAST MEDICAL HISTORY: 1. History of traumatic brain injury. 2. GERD. 3. Seizures. 4. Hypothyroidism. SOCIAL HISTORY: Unknown. FAMILY HISTORY: Unknown. REVIEW OF SYSTEMS: Unable to obtain currently. MEDICATIONS: As an inpatient, he is on lisinopril, propranolol, Renvela, Lactobacillus, [place] Thyroid, sucralfate, lacosamide, famotidine, IV vancomycin, Atrovent, Zosyn, enoxaparin, Tylenol. ALLERGIES: No known drug allergies. PHYSICAL EXAMINATION: VITAL SIGNS: Temperature 101.5, T-max of 102, pulse of 144, respiratory rate 21, blood pressure 118/72, O2 saturation of 100%. HEENT: Pupils equally reactive to light and accommodation. Mouth appears clean without thrush. NECK: Supple. No adenopathy. No JVD. CARDIOVASCULAR: Regular rate and rhythm. No murmurs. LUNGS: Clear to auscultation bilaterally. No crackles. No wheezes. ABDOMEN: Soft, nontender. G-tube site appears clean. EXTREMITIES: No cyanosis, no clubbing, no edema. SKIN: Erythematous rash noted on the chest and legs. LABORATORY AND DIAGNOSTIC DATA: White count 25, hemoglobin 9.6, hematocrit 27, MCV 85, platelet count 245. Sodium 134, potassium 4.2, chloride 99, bicarb 23, BUN 23, creatinine 0.8, glucose 135, calcium 8.9. Total bilirubin 0.8. AST 35, ALT 67, alkaline phosphatase . Total protein 6.9. Albumin 2.7. UA showing 0 to 2 white cells. Urine cultures are negative. COVID-19 test is negative. Chest x-ray is showing no acute process. ASSESSMENT: This is a 29-year-old gentleman with history of traumatic brain injury, seizures, GERD, hypothyroidism, who comes in with tachycardia and was found to have. 1. Fever, would like to rule out urinary tract infection as a possibility. He does not have any sign of pneumonia currently. 2. Traumatic brain injury. 3. Seizures. 4. Leukocytosis. 5. Possible scabies. PLAN: 1. Continue IV vancomycin and Zosyn. 2. We will treat with Elimite. 3. Continue isolation. I would like to thank, Dr. Higgins for this consultation. Dl Mcgowan M.D. DR: JONAS JOB#: [id number] CC: Aime Higgins MD.; Fax#: [phone]
--- NOTE | 2020-05-31 15:45 | NUR ---
NURSE NOTES: pt on cooling blanket T 99.2 when blanket is turned off pt temperature increases. Pt was given a special bath for lies and scabies.
[2020-05-31 16:00] VITALS: BP 143/87
[2020-05-31] MEDS: Lisinopril 2.5mg tab GT SCH (18:14)
--- NOTE | 2020-05-31 19:47 | NUR ---
NURSE NOTES: Received report from KADEEM Guadarrama. Patient is awake on bed, alert and oriented x 0, non-verbal and open her eyes spontaneously. security monitor is in place, shows sinus tachycardia. With trache collar to t-piece @ 4Liters, sating 95%. With g-tube, jevity goal of 70cc/hour, at this time running 55 cc/hour. With rectal tube. On fall and aspiration precaution, padded side rails. Patient is on cooling blanket. With double PICC line on right upper arm. Safety measures are in place, bed in lowest and locked position, side rails up x 2. Bed alarm is on. Will continue plan of care.
[2020-05-31 20:00] VITALS: BP 136/86
--- NOTE | 2020-05-31 20:09 | NUR ---
NURSE HAND-OFF REPORT: Important Events on Shift:pt was given a bath for lies, and scabies, pt needs to be suctioned frequently, on cooling blanket t 99.6 Patient Status: full code Diet: gtube Jevity,55ml goal is 70ml. Increasing 5ml pt had residual earlier Pending Orders: Pending Results/Labs: Pending MD notification: Latest Vital Signs: Temperature 99.7 , Pulse 116 , B/P 143 /87 , Respiratory Rate 21 , O2 SAT 100 , Trach Collar, O2 Flow Rate 2.0 . Vital Sign Comment: EKG Rhythm: Sinus Tachycardia Rhythm change?: N MD Notified?: Zeynep Valverde MD Response: No New Orders Received Latest Whitley Fall Score: 50 Fall Risk: High Risk Safety Measures: Call light Within Reach, Bed Alarm Zone 2, Side Rails Side Rails x2, Bed position Low and Locked. Fall Precautions: y Yellow Socks y Yellow Gown y Door Sign Patient Fall Education Report given to Aleida/RN.
[2020-06-01] VITALS: BP 121/67
--- NOTE | 2020-06-01 01:00 | NUR ---
NURSE NOTES: Noted that patient has loose bowel movement. Brownish in color, moderate in amount. Collected specimen and sent to lab. for C.diff. Will follow up.
[2020-06-01 04:00] VITALS: BP 145/95
[2020-06-01] MEDS: Piperacillin/Tazobactam 3.375 GM in NS 110 ML IVPB SCH ×3 (05:41→22:00)
--- NOTE | 2020-06-01 07:15 | NUR ---
NURSE HAND-OFF REPORT: Important Events on Shift: Patient had a losse bowel movement, specimen collected and sent to lab. Patient has been sinus tachycardia since the start of the shift. Patient Status: Patient is awake om bed, in stable condition, laterst temp 100.1, Plan of care endorsed. Diet: Jevity 1.2 @ 70 cc/hour Pending Orders: none Pending Results/Labs:Amylase, lipase, BMP, CBC, PT,PTT, Lactic, vanco through, xray of abdomen and chest Pending MD notification:none Latest Vital Signs: Temperature 100.2 , Pulse 137 , B/P 145 /95 , Respiratory Rate 22 , O2 SAT 96 , Trach Collar, O2 Flow Rate 2.0 . Vital Sign Comment: stable EKG Rhythm: Sinus Tachycardia Rhythm change?: N Notified?: Zeynep WAGNER MD Response: No New Orders Received Latest Whitley Fall Score: 70 Fall Risk: High Risk Safety Measures: Call light Within Reach, Bed Alarm Zone 1, Side Rails Side Rails x2, Bed position Low and Locked. Fall Precautions: Yellow Socks Yellow Gown Door Sign Patient Fall Education Report given to KADEEM Gracia.
--- NOTE | 2020-06-01 07:30 | NUR ---
NURSE NOTES: Received patient in bed. Patient is nonverbal. On T-piece oxygen. No signs of pain noted at this time. Gt patent and flushed, running feeding as ordered, sitting in semi-fowlers. PICC line in HELIO, infusing IVF as ordered. F/C in place draining yellow urine. Patient is a high fall risk d/t Whitley fall score of 70. Patient placed close to the nurse's station for safety and close monitoring. Yellow socks on, yellow gown on, bed placed at the lowest position, bed alarm on high sensitivity, side rails up x3, call light within reach - unable to return demonstration.
[2020-06-01 08:00] VITALS: BP 151/93
[2020-06-01 08:08] LABS: HEMATOCRIT 27.1 % (42.0-52.0); HEMOGLOBIN 9.4 G/DL (14.2-18.0); MEAN CORPUSCULAR VOLUME 85 FL (80-99); PLATELET COUNT 255 K/UL (150-450); RED BLOOD COUNT 3.19 M/UL (4.70-6.10); RED CELL DISTRIBUTION WIDTH 14.5 % (11.6-14.8); WHITE BLOOD COUNT 20.3 K/UL (4.8-10.8)
[2020-06-01 08:16] LABS: INR 1.1 (0.9-1.1)
[2020-06-01 08:25] LABS: ALANINE AMINOTRANSFERASE 48 U/L (12-78); ALBUMIN 2.5 G/DL (3.4-5.0); ALBUMIN/GLOBULIN RATIO 0.5 (1.0-2.7); ALKALINE PHOSPHATASE 185 U/L (46-116); ANION GAP 10 mmol/L (5-15); ASPARTATE AMINO TRANSFERASE 23 U/L (15-37); BILIRUBIN,TOTAL 0.6 MG/DL (0.2-1.0); BLOOD UREA NITROGEN 14 mg/dL (7-18); CALCIUM 8.6 MG/DL (8.5-10.1); CARBON DIOXIDE 25 MMOL/L (21-32); CHLORIDE 100 MMOL/L (98-107); CREATININE 0.6 MG/DL (0.55-1.30); POTASSIUM 4.2 MMOL/L (3.5-5.1); SODIUM 135 MMOL/L (136-145)
[2020-06-01] MEDS: Sucralfate 1gm tab ORAL SCH ×2 (08:55→17:03)
[2020-06-01] MEDS: Lisinopril 2.5mg tab GT SCH ×2 (08:55→17:03)
[2020-06-01] MEDS: Renvela 800mg Pkt GT SCH ×3 (08:56→17:03)
[2020-06-01] MEDS: Lactobacillus-GG tablet GT SCH (08:56)
[2020-06-01] MEDS: Lacosamide 50mg tablet ORAL SCH ×2 (08:56→17:03)
[2020-06-01] MEDS: Propranolol 10mg tab ORAL SCH ×3 (08:56→17:03)
[2020-06-01] MEDS: Enoxaparin 80mg Inj SUBQ SCH ×2 (08:57→20:41)
[2020-06-01] MEDS: Vancomycin 1gm in Dextrose 275ml IVPB SCH ×2 (09:50→17:03)
--- NOTE | 2020-06-01 10:36 | NUR ---
RADIOLOGY DEPT., CHEST AND ABDOMEN X-RAYS COMPLETED.-P.DYE
[2020-06-01 12:00] VITALS: BP 143/94
--- NOTE | 2020-06-01 12:36 | Surgery Progress Note ---
Surgery Progress Note Subjective Additional Comments febrile wbc trending down thick secretions no n/v Objective Last 24 Hour Vital Signs Date Time Temp Pulse Resp B/P (MAP) Pulse Ox O2 Delivery O2 Flow Rate FiO2 06/01/20 08:56 123 151/93 06/01/20 08:55 151/93 06/01/20 08:00 98.1 123 18 151/93 (112) 100 06/01/20 08:00 Trach Collar 4.0 06/01/20 08:00 125 06/01/20 07:25 100 T-Piece 2.0 28 06/01/20 04:34 100.2 06/01/20 04:00 100.8 137 22 145/95 (112) 96 06/01/20 03:50 138 06/01/20 01:08 99 T-Piece 2.0 28 06/01/20 00:00 111 06/01/20 00:00 99.9 115 18 121/67 (85) 96 05/31/20 21:14 100.1 05/31/20 21:00 Trach Collar 4.0 05/31/20 20:00 122 05/31/20 20:00 101.8 116 16 136/86 (103) 100 05/31/20 18:32 100 T-Piece 2.0 28 05/31/20 18:15 116 143/87 05/31/20 18:14 143/87 05/31/20 16:00 99.7 116 21 143/87 (105) 97 05/31/20 16:00 121 05/31/20 14:17 132 148/82 05/31/20 13:00 98 T-Piece 2.0 28 I&O Intake and Output 05/31/20 06/01/20 18:59 06:59 Intake Total 235 ml 1630 ml Output Total 825 ml Balance -590 ml 1630 ml Intake Free Water 180 ml 100 ml IV Total 900 ml Tube Feeding 55 ml 630 ml Output Urine Total 825 ml # Bowel Movements 1 Dressing: saturated Cardiovascular: RSR Respiratory: decreased breath sounds Abdomen: soft, non-tender, present bowel sounds Extremities: no edema, no tenderness, no cyanosis Laboratory Tests Test 06/01/20 07:20 White Blood Count 20.3 K/UL (4.8-10.8) H Red Blood Count 3.19 M/UL (4.70-6.10) L Hemoglobin 9.4 G/DL (14.2-18.0) L Hematocrit 27.1 % (42.0-52.0) L Mean Corpuscular Volume 85 FL (80-99) Mean Corpuscular Hemoglobin 29.6 PG (27.0-31.0) Mean Corpuscular Hemoglobin Concent 34.8 G/DL (32.0-36.0) Red Cell Distribution Width 14.5 % (11.6-14.8) Platelet Count 255 K/UL (150-450) Mean Platelet Volume 6.8 FL (6.5-10.1) Neutrophils (%) (Auto) % (45.0-75.0) Lymphocytes (%) (Auto) % (20.0-45.0) Monocytes (%) (Auto) % (1.0-10.0) Eosinophils (%) (Auto) % (0.0-3.0) Basophils (%) (Auto) % (0.0-2.0) Differential Total Cells Counted 100 Neutrophils % (Manual) 90 % (45-75) H Lymphocytes % (Manual) 6 % (20-45) L Monocytes % (Manual) 1 % (1-10) Eosinophils % (Manual) 3 % (0-3) Basophils % (Manual) 0 % (0-2) Band Neutrophils 0 % (0-8) Platelet Estimate Adequate Platelet Morphology Normal [place] Bodies Erythrocyte Sedimentation Rate 110 MM/HR (0-15) H Prothrombin Time 12.0 SEC (9.30-11.50) H Prothromb Time International Ratio 1.1 (0.9-1.1) Activated Partial Thromboplast Time 25 SEC (23-33) Sodium Level 135 MMOL/L (136-145) L Potassium Level 4.2 MMOL/L (3.5-5.1) Chloride Level 100 MMOL/L (98-107) Carbon Dioxide Level 25 MMOL/L (21-32) Anion Gap 10 mmol/L (5-15) Blood Urea Nitrogen 14 mg/dL (7-18) Creatinine 0.6 MG/DL (0.55-1.30) Estimat Glomerular Filtration Rate > 60 mL/min (>60) Glucose Level 118 MG/DL (74-106) H Lactic Acid Level 1.70 mmol/L (0.4-2.0) Calcium Level 8.6 MG/DL (8.5-10.1) Total Bilirubin 0.6 MG/DL (0.2-1.0) Aspartate Amino Transf (AST/SGOT) 23 U/L (15-37) Alanine Aminotransferase (ALT/SGPT) 48 U/L (12-78) Alkaline Phosphatase 185 U/L (46-116) H C-Reactive Protein, Quantitative 21.2 mg/dL (0.00-0.90) H Total Protein 7.6 G/DL (6.4-8.2) Albumin 2.5 G/DL (3.4-5.0) L Globulin 5.1 g/dL Albumin/Globulin Ratio 0.5 (1.0-2.7) L Amylase Level 60 U/L (25-115) Lipase 179 U/L (73-393) Vancomycin Level Trough 4.8 ug/mL (5.0-12.0) L Plan Problems: (1) Tachycardia (2) Sepsis Assessment & Plan: 29-year-old male with leukocytosis anemia lactic acidosis. Patient admitted further care management identified to have significant secretions from tracheostomy trach collar with sutures in place causing distortion. Abdominal G-tube in place. Patient forming deep tissue injury. BMI 22 labs noted. Patient a phasic unable to respond to commands and in a vegetative state at this time. Patient with a UTI on antibiotics. Right PIC in place may need to be replaced. Turn every 2 hours offload pressure with air mattress and pillows. Trach sutures removed trach tie evaluated trach in place secretions suction. Continue with secretions chest x-ray reviewed no acute infiltrative process Leukocytosis trending down lactic acid is improving continue fluid resuscitation IV antibiotics Thank you will follow with recommendations DAILY ESTIMATED NEEDS: Needs based on Pulmonary, 68kg 25-30 kcals/kg 7793-3202 total kcals 1.25-1.5 g protein/kg 85-102 g total protein 25-30 mL/kg 9949-0064 total fluid mLs NUTRITION DIAGNOSIS: Swallowing difficulty r/t TBI and resp distress, as evidenced by pt is vent dep via T-collar, PEG dep. CURRENT TF:Jevity 1.2 @70 ml x20 hrs ENTERAL NUTRITION RECOMMENDATIONS: Increase TF to goal of 75ml/hr x20 hrs to provide 1500ml, 1800 kcal, 83g pro, 1211ml free H2O - Rec to INCREASE TF by 5ml/hr to better meet est kcal and pro needs. - Flush per MD/ HOB over 30 degrees ADDITIONAL RECOMMENDATIONS: 1) Skin integrity: add CATALINA BID via PEG (added 5g pro to meet est pro needs) 2) Wound care eval 3) Per SNF: 5'5" and 150#, maintain calibrated bed scale wts Carl Hernanedz Jun 01, 2020 12:36
--- NOTE | 2020-06-01 13:36 | NUR ---
NURSE NOTES:WOUND ASSESSMENT PATIENT UNABLE TO REPOSITION SELF IN BED. LEFT KNEE -SKIN ABRASION 10x7.0x0.1cm. NO DRAINAGE NOTED. RIGHT KNEE - SKIN ABRASION 3.5x5.0x0.1cm NO DRAINAGE NOTED RECOMMEND - KEEP AREAS CLEAN AND DRY. SACRUM/LEFT BUTTOCK - DEEP TISSUE INJURY 3.5x1.5X0.1cm. SKIN DARK PURPLE, NON-BLANCHABLE. RECOMMEND - CLEAN WITH SALINE, PAT DRY, APPLY CALAZINE AND COVER WITH OPTIFOAM. EXAMINE DAILY REPLACE DRESSING EVERY 3 DAYS AND PRN. APM/TITI MATTRESS OVERLAY, OFF-LOAD/FLOAT HEELS WITH PILLOWS. REPOSITION AT LEAST EVERY 2 HOURS TOLERATED.
--- NOTE | 2020-06-01 14:15 | NUR ---
CASE MANAGEMENT:REVIEW 06/01/20 SI: SEPSIS 101.4 123 18 143/94 100% ON T-PIECE WBC+20.3 ESR+110 IS: IV VANCOMYCIN Q8HRS IV ZOSYN Q8HRS LISINOPRIL GT BID INDERAL GT TID LACTOBACILLUS GT QD THYROID GT QD CARAFATE GT BID VIMPAT PO BID LOVENOX SQ Q12 : TELEMETRY STATUS DCP; FROM [facility]
--- NOTE | 2020-06-01 15:28 | Diagnostic Imaging Report ---
Indication: Abdominal tenderness Technique: One view of the abdomen Comparison: none Findings: There is a gastrostomy in place. There is what appears to be a rectal catheter in place. Bowel gas pattern is unremarkable. No masses or unusual calcifications. The included thorax demonstrates bilateral parenchymal disease and a PICC Impression: No acute process. Findings as noted
--- NOTE | 2020-06-01 15:29 | Diagnostic Imaging Report ---
Indication: Shortness of breath Technique: One view of the chest Comparison: 05/30/2020 Findings: Tracheostomy remains. Right arm PICC remains. The lungs and pleural spaces remain clear. The heart size is normal. No significant change Impression: Unchanged, over one day, findings as above.
[2020-06-01 16:00] VITALS: BP 157/81
--- NOTE | 2020-06-01 17:19 | Pulmonology Progress Note ---
Subjective ROS Limited/Unobtainable: Yes Allergies: Coded Allergies: No Known Allergies (Unverified , 05/30/20) Subjective d/w RN Objective Last 24 Hour Vital Signs Date Time Temp Pulse Resp B/P (MAP) Pulse Ox O2 Delivery O2 Flow Rate FiO2 06/01/20 17:03 108 157/81 06/01/20 17:03 157/81 06/01/20 16:00 108 06/01/20 16:00 99.5 108 20 157/81 (106) 100 06/01/20 13:16 99.0 06/01/20 12:46 102 143/94 06/01/20 12:21 99 T-Piece 2.0 28 06/01/20 12:00 101.4 102 18 143/94 (110) 100 06/01/20 12:00 112 06/01/20 08:56 123 151/93 06/01/20 08:55 151/93 06/01/20 08:00 98.1 123 18 151/93 (112) 100 06/01/20 08:00 Trach Collar 4.0 06/01/20 08:00 125 06/01/20 07:25 100 T-Piece 2.0 28 06/01/20 04:34 100.2 06/01/20 04:00 100.8 137 22 145/95 (112) 96 06/01/20 03:50 138 06/01/20 01:08 99 T-Piece 2.0 28 06/01/20 00:00 111 06/01/20 00:00 99.9 115 18 121/67 (85) 96 05/31/20 21:14 100.1 05/31/20 21:00 Trach Collar 4.0 05/31/20 20:00 122 05/31/20 20:00 101.8 116 16 136/86 (103) 100 05/31/20 18:32 100 T-Piece 2.0 28 05/31/20 18:15 116 143/87 05/31/20 18:14 143/87 Intake and Output 05/31/20 06/01/20 19:00 07:00 Intake Total 405 ml 1460 ml Output Total 825 ml Balance -420 ml 1460 ml Intake Free Water 180 ml 100 ml IV Total 100 ml 800 ml Tube Feeding 125 ml 560 ml Output Urine Total 825 ml # Bowel Movements 1 Objective WDWN NAD clear breath sounds bilaterally without rhonchi or wheeze S1S2RR tachy without MRG NABS nontender GT no CCE nonfocal trach poor LOC Microbiology Date/Time Source Procedure Growth Status 05/30/20 17:00 Urine,Clean Catch Urine Culture - Final NO GROWTH AFTER 48 HOURS Complete 05/30/20 16:28 Nasal Nares MRSA Culture - Final NO METHICILLIN RESISTANT STAPH AUREUS... Complete 05/30/20 15:00 Nasopharynx SARS-CoV-2 RdRp Gene Assay - Final Complete 05/30/20 15:00 Blood Blood Culture - Preliminary NO GROWTH AFTER 24 HOURS Resulted 05/30/20 14:50 Blood Blood Culture - Preliminary NO GROWTH AFTER 24 HOURS Resulted 05/30/20 00:00 Rectum VRE Culture - Final NO VANCOMYCIN RESISTANT ENTEROCOCCUS ... Complete Laboratory Tests 06/01/20 07:20: White Blood Count 20.3H, Red Blood Count 3.19L, Hemoglobin 9.4L, Hematocrit 27.1L, Mean Corpuscular Volume 85, Mean Corpuscular Hemoglobin 29.6, Mean Corpuscular Hemoglobin Concent 34.8, Red Cell Distribution Width 14.5, Platelet Count 255, Mean Platelet Volume 6.8, Neutrophils (%) (Auto) , Lymphocytes (%) (Auto) , Monocytes (%) (Auto) , Eosinophils (%) (Auto) , Basophils (%) (Auto) , Differential Total Cells Counted 100, Neutrophils % (Manual) 90H, Lymphocytes % (Manual) 6L, Monocytes % (Manual) 1, Eosinophils % (Manual) 3, Basophils % (Manual) 0, Band Neutrophils 0, Platelet Estimate Adequate, Platelet Morphology Normal, [place] Bodies , Erythrocyte Sedimentation Rate 110H, Prothrombin Time 12.0H, Prothromb Time International Ratio 1.1, Activated Partial Thromboplast Time 25, Sodium Level 135L, Potassium Level 4.2, Chloride Level 100, Carbon Dioxide Level 25, Anion Gap 10, Blood Urea Nitrogen 14, Creatinine 0.6, Estimat Glomerular Filtration Rate > 60, Glucose Level 118H, Lactic Acid Level 1.70, Calcium Level 8.6, Total Bilirubin 0.6, Aspartate Amino Transf (AST/SGOT) 23, Alanine Aminotransferase (ALT/SGPT) 48, Alkaline Phosphatase 185H , C-Reactive Protein, Quantitative 21.2H, Total Protein 7.6, Albumin 2.5L, Globulin 5.1, Albumin/Globulin Ratio 0.5L, Amylase Level 60, Lipase 179, Vancomycin Level Trough 4.8L Current Medications Medications (Trade) Dose Ordered Sig/Anuj Route PRN Reason Start Time Stop Time Status Last Admin Dose Admin Acetaminophen (Tylenol) 650 mg Q6H PRN ORAL Temp >100.5 05/30/20 18:45 06/29/20 18:44 06/01/20 12:46 Enoxaparin Sodium (Lovenox) 80 mg EVERY 12 HOURS SUBQ 05/30/20 21:00 08/28/20 20:59 06/01/20 08:57 Famotidine (Pepcid) 20 mg DAILY GT 05/31/20 09:00 08/29/20 08:59 06/01/20 08:55 Ipratropium [place] (Atrovent) 500 mcg Q6H PRN HHN Shortness of Breath 05/31/20 07:15 06/05/20 07:14 Lacosamide (Vimpat) 50 mg BID ORAL 05/31/20 09:00 08/29/20 08:59 06/01/20 17:03 Lactobacillus Acidophilus (Culturelle) 1 tab DAILY GT 05/31/20 09:00 08/29/20 08:59 06/01/20 08:56 Lisinopril (ZestriL) 5 mg BID GT 05/31/20 18:00 06/30/20 17:59 06/01/20 17:03 Piperacillin Sod/ Tazobactam Sod 3.375 gm/Sodium Chloride 110 ml @ 27.5 mls/hr Q8HR IVPB 05/30/20 22:00 06/06/20 21:59 06/01/20 13:32 Propranolol HCl (Inderal) 20 mg THREE TIMES A DAY ORAL 05/31/20 09:00 06/30/20 08:59 06/01/20 17:03 Sevelamer Carbonate (Renvela) 800 mg THREE TIMES A DAY GT 05/31/20 09:00 08/29/20 08:59 06/01/20 17:03 Sodium Chloride 1,000 ml @ 100 mls/hr Q10H IV 05/31/20 00:00 06/30/20 00:00 06/01/20 15:24 Sucralfate (Carafate) 1 gm BID ORAL 05/31/20 09:00 08/29/20 08:59 06/01/20 17:03 Thyroid ([place] Thyroid) 15 mg DAILY GT 05/31/20 09:00 06/30/20 08:59 06/01/20 08:55 Vancomycin HCl (Vanco pharmacy to dose) 1 ea DAILY PRN MISC Per rx protocol 05/30/20 18:45 06/29/20 18:44 Vancomycin HCl 1 gm/Dextrose 275 ml @ 183.708 mls/hr Q8H IVPB 06/01/20 10:00 06/06/20 09:59 06/01/20 17:03 Assessment/Plan Assessment/Plan Impression: Sepsis Urinary Tract Infection TBI Seizures Hypothyroidism Sinus Tachycardia Hypertension Plan: IV Antibiotics IVF O2 PRN TC PPX Monitor labs adjust beta blockade DVT prophylaxis ID evaluation noted await cultures repeat wbc full dose lovenox impression, plan, and exam edited and reviewed in detail care discussed with Aime Browne MD Jun 01, 2020 17:19
[2020-06-01] MEDS ORDERED: Propranolol 10mg tab ORAL SCH ×2 (17:45→18:00)
--- NOTE | 2020-06-01 18:58 | NUR ---
NURSE HAND-OFF REPORT: Important Events on Shift:[wound eval, fever - tylenol given] Patient Status: [FULL CODE] Diet: [jevity 1.2 at 70 cc/hr x20 hours] Pending Orders: [] Pending Results/Labs:[] Pending MD notification:[] Latest Vital Signs: Temperature 99.5 , Pulse 108 , B/P 157 /81 , Respiratory Rate 20 , O2 SAT 100 , Trach Collar, O2 Flow Rate 2.0 . Vital Sign Comment: [] EKG Rhythm: Sinus Tachycardia Rhythm change?: N MD Notified?: Zeynep WAGNER MD Response: No New Orders Received Latest Whitley Fall Score: 70 Fall Risk: High Risk Safety Measures: Call light Within Reach, Bed Alarm Zone 1, Side Rails Side Rails x3, Bed position Low and Locked. Fall Precautions: Yellow Socks Yellow Gown Door Sign Patient Fall Education Report given to [SHIREEN QUAN].
--- NOTE | 2020-06-01 19:58 | NUR ---
NURSE NOTES: Received pt from KADEEM Gracia. Pt asleep and connected to cooling blanket. Bed in lowest position. Call light within reach. IV fluids running into central line. Will continue to monitor.
[2020-06-01 20:00] VITALS: BP 141/93
[2020-06-01] MEDS: Dyna-Hex 2% Top Sol 2oz TOPIC SCH (20:40)
[2020-06-02] VITALS: BP 148/90
[2020-06-02] MEDS: Vancomycin 1gm in Dextrose 275ml IVPB SCH (02:00)
--- NOTE | 2020-06-02 03:28 | Cardiology Progress Note ---
Subjective DATE OF SERVICE: Jun 01, 2020 Remains tachycardic On anti-microbials Still with significant leukocytosis Objective Last 24 Hour Vital Signs Date Time Temp Pulse Resp B/P (MAP) Pulse Ox O2 Delivery O2 Flow Rate FiO2 06/02/20 00:00 115 06/02/20 00:00 99.8 111 22 148/90 (109) 100 06/01/20 21:00 Trach Collar 4.0 06/01/20 20:00 104 06/01/20 20:00 100.0 105 20 141/93 (109) 99 06/01/20 19:21 99 T-Piece 2.0 28 06/01/20 17:58 108 157/81 06/01/20 17:03 108 157/81 06/01/20 17:03 157/81 06/01/20 16:00 108 06/01/20 16:00 99.5 108 20 157/81 (106) 100 06/01/20 13:16 99.0 06/01/20 12:46 102 143/94 06/01/20 12:21 99 T-Piece 2.0 28 06/01/20 12:00 101.4 102 18 143/94 (110) 100 06/01/20 12:00 112 06/01/20 08:56 123 151/93 06/01/20 08:55 151/93 06/01/20 08:00 98.1 123 18 151/93 (112) 100 06/01/20 08:00 Trach Collar 4.0 06/01/20 08:00 125 06/01/20 07:25 100 T-Piece 2.0 28 06/01/20 04:34 100.2 06/01/20 04:00 100.8 137 22 145/95 (112) 96 06/01/20 03:50 138 HEENT: Thin Trach secretions RHYTHM: ST LUNGS: lungs clear bilaterally CARDIAC: normal S1 and S2, rapid rate, tachycardia ABDOMEN: normal bowel sounds, non tender, no organomegaly, no mass EXTREMITIES: no calf tenderness, No edema Laboratory Tests Test 06/01/20 07:20 White Blood Count 20.3 K/UL (4.8-10.8) H Red Blood Count 3.19 M/UL (4.70-6.10) L Hemoglobin 9.4 G/DL (14.2-18.0) L Hematocrit 27.1 % (42.0-52.0) L Mean Corpuscular Volume 85 FL (80-99) Mean Corpuscular Hemoglobin 29.6 PG (27.0-31.0) Mean Corpuscular Hemoglobin Concent 34.8 G/DL (32.0-36.0) Red Cell Distribution Width 14.5 % (11.6-14.8) Platelet Count 255 K/UL (150-450) Mean Platelet Volume 6.8 FL (6.5-10.1) Neutrophils (%) (Auto) % (45.0-75.0) Lymphocytes (%) (Auto) % (20.0-45.0) Monocytes (%) (Auto) % (1.0-10.0) Eosinophils (%) (Auto) % (0.0-3.0) Basophils (%) (Auto) % (0.0-2.0) Differential Total Cells Counted 100 Neutrophils % (Manual) 90 % (45-75) H Lymphocytes % (Manual) 6 % (20-45) L Monocytes % (Manual) 1 % (1-10) Eosinophils % (Manual) 3 % (0-3) Basophils % (Manual) 0 % (0-2) Band Neutrophils 0 % (0-8) Platelet Estimate Adequate Platelet Morphology Normal [place] Bodies Erythrocyte Sedimentation Rate 110 MM/HR (0-15) H Prothrombin Time 12.0 SEC (9.30-11.50) H Prothromb Time International Ratio 1.1 (0.9-1.1) Activated Partial Thromboplast Time 25 SEC (23-33) Sodium Level 135 MMOL/L (136-145) L Potassium Level 4.2 MMOL/L (3.5-5.1) Chloride Level 100 MMOL/L (98-107) Carbon Dioxide Level 25 MMOL/L (21-32) Anion Gap 10 mmol/L (5-15) Blood Urea Nitrogen 14 mg/dL (7-18) Creatinine 0.6 MG/DL (0.55-1.30) Estimat Glomerular Filtration Rate > 60 mL/min (>60) Glucose Level 118 MG/DL (74-106) H Lactic Acid Level 1.70 mmol/L (0.4-2.0) Calcium Level 8.6 MG/DL (8.5-10.1) Total Bilirubin 0.6 MG/DL (0.2-1.0) Aspartate Amino Transf (AST/SGOT) 23 U/L (15-37) Alanine Aminotransferase (ALT/SGPT) 48 U/L (12-78) Alkaline Phosphatase 185 U/L (46-116) H C-Reactive Protein, Quantitative 21.2 mg/dL (0.00-0.90) H Total Protein 7.6 G/DL (6.4-8.2) Albumin 2.5 G/DL (3.4-5.0) L Globulin 5.1 g/dL Albumin/Globulin Ratio 0.5 (1.0-2.7) L Amylase Level 60 U/L (25-115) Lipase 179 U/L (73-393) Vancomycin Level Trough 4.8 ug/mL (5.0-12.0) L Microbiology Date/Time Source Procedure Growth Status 06/01/20 01:15 Stool Clostridium difficile Toxin Assay - Final Complete 05/30/20 17:00 Urine,Clean Catch Urine Culture - Final NO GROWTH AFTER 48 HOURS Complete 05/30/20 16:28 Nasal Nares MRSA Culture - Final NO METHICILLIN RESISTANT STAPH AUREUS... Complete 05/30/20 15:00 Nasopharynx SARS-CoV-2 RdRp Gene Assay - Final Complete 05/30/20 15:00 Blood Blood Culture - Preliminary NO GROWTH AFTER 48 HOURS Resulted 05/30/20 14:50 Blood Blood Culture - Preliminary NO GROWTH AFTER 48 HOURS Resulted Assessment/Plan Assessment/Plan Severe sepsis Sinus tachycardia Hypertension/HHD Hx hypothyroidism Toxic encephalopathy IVF hydration Antimicrobials Titrate antiHTN regimen Maintain beta jocelyn and titrate Full thyroid panel DVT prophyl Continue cardiac monitoring Garcia Valverde MD Jun 02, 2020 03:28
[2020-06-02 04:00] VITALS: BP 120/56
[2020-06-02] MEDS: Piperacillin/Tazobactam 3.375 GM in NS 110 ML IVPB SCH ×3 (06:11→21:05)
--- NOTE | 2020-06-02 07:08 | NUR ---
NURSE HAND-OFF REPORT: Important Events on Shift: pt remained stable. No new updates Patient Status: stable Diet: tube feeding Pending Orders: y Pending Results/Labs:y Pending notification:y Latest Vital Signs: Temperature 97.6 , Pulse 111 , B/P 120 /56 , Respiratory Rate 22 , O2 SAT 98 , Trach Collar, O2 Flow Rate 4.0 . Vital Sign Comment: stable EKG Rhythm: Sinus Tachycardia Rhythm change?: N MD Notified?: Y -DR.BALFE BO Response: No New Orders Received Latest Whitley Fall Score: 70 Fall Risk: High Risk Safety Measures: Call light Within Reach, Bed Alarm Zone 1, Side Rails Side Rails x3, Bed position Low and Locked. Fall Precautions: Yellow Socks Yellow Gown Door Sign Patient Fall Education y Report given to KADEEM Henson. Pt stable.
--- NOTE | 2020-06-02 07:30 | NUR ---
NURSE NOTES: Received patient in bed. Patient is nonverbal. On T-piece oxygen, 2 L. No signs of pain noted. GT patent and flushed, running feeding as ordered, sitting in semi-fowlers. PICC line in HELIO, infusing IVF as ordered. F/C in place draining yellow urine, Daniels anchor in place. Patient is a high fall risk d/t Whitley fall score of 70. Patient placed close to the nurse's station for safety and close monitoring. Yellow socks on, yellow gown on, bed placed at the lowest position, bed alarm on high sensitivity, side rails up x2, call light within reach - unable to return demonstration.
[2020-06-02 08:00] VITALS: BP 157/79
[2020-06-02] MEDS ORDERED: LEVOFLOXACIN750 MG GT (08:15)
[2020-06-02] MEDS: Sucralfate 1gm tab ORAL SCH ×2 (08:48→17:51)
[2020-06-02] MEDS: Renvela 800mg Pkt GT SCH ×3 (08:48→17:51)
[2020-06-02] MEDS: Lisinopril 10mg tab GT SCH ×2 (08:49→17:51)
[2020-06-02] MEDS: Lactobacillus-GG tablet GT SCH (08:49)
[2020-06-02] MEDS: Lacosamide 50mg tablet ORAL SCH ×2 (08:49→17:51)
[2020-06-02] MEDS: Propranolol 10mg tab ORAL SCH ×3 (08:50→17:51)
[2020-06-02] MEDS: Enoxaparin 80mg Inj SUBQ SCH ×2 (08:51→21:06)
[2020-06-02 09:59] LABS: HEMATOCRIT 27.6 % (42.0-52.0); HEMOGLOBIN 9.6 G/DL (14.2-18.0); MEAN CORPUSCULAR VOLUME 83 FL (80-99); PLATELET COUNT 304 K/UL (150-450); RED BLOOD COUNT 3.31 M/UL (4.70-6.10); RED CELL DISTRIBUTION WIDTH 13.7 % (11.6-14.8); WHITE BLOOD COUNT 13.4 K/UL (4.8-10.8)
--- NOTE | 2020-06-02 10:27 | Pulmonology Progress Note ---
Subjective ROS Limited/Unobtainable: Yes Allergies: Coded Allergies: No Known Allergies (Unverified , 05/30/20) Subjective d/w RN Objective Last 24 Hour Vital Signs Date Time Temp Pulse Resp B/P (MAP) Pulse Ox O2 Delivery O2 Flow Rate FiO2 06/02/20 08:50 120 141/84 06/02/20 08:49 141/84 06/02/20 08:00 98.5 96 18 157/79 (105) 100 06/02/20 07:20 98 T-Piece 2.0 28 06/02/20 06:24 97.6 06/02/20 04:00 111 06/02/20 04:00 100.2 97 22 120/56 (77) 98 06/02/20 00:00 115 06/02/20 00:00 99.8 111 22 148/90 (109) 100 06/01/20 21:00 Trach Collar 4.0 06/01/20 20:00 104 06/01/20 20:00 100.0 105 20 141/93 (109) 99 06/01/20 19:21 99 T-Piece 2.0 28 06/01/20 17:58 108 157/81 06/01/20 17:03 108 157/81 06/01/20 17:03 157/81 06/01/20 16:00 108 06/01/20 16:00 99.5 108 20 157/81 (106) 100 06/01/20 13:16 99.0 06/01/20 12:46 102 143/94 06/01/20 12:21 99 T-Piece 2.0 28 06/01/20 12:00 101.4 102 18 143/94 (110) 100 06/01/20 12:00 112 Intake and Output 06/01/20 06/02/20 19:00 07:00 Intake Total 1690 ml Output Total 900 ml 3400 ml Balance 790 ml -3400 ml Intake Free Water 300 ml IV Total 900 ml Tube Feeding 490 ml Output Urine Total 900 ml 3400 ml # Voids 1 # Bowel Movements 1 Objective WDWN NAD clear breath sounds bilaterally without rhonchi or wheeze S1S2RR tachy without MRG NABS nontender GT no CCE nonfocal trach poor LOC Microbiology Date/Time Source Procedure Growth Status 06/01/20 01:15 Stool Clostridium difficile Toxin Assay - Final Complete 05/30/20 17:00 Urine,Clean Catch Urine Culture - Final NO GROWTH AFTER 48 HOURS Complete 05/30/20 16:28 Rectum - Final NO CARBAPENEM-RESISTANT ENTEROBACTERI... Complete 05/30/20 16:28 Nasal Nares MRSA Culture - Final NO METHICILLIN RESISTANT STAPH AUREUS... Complete 05/30/20 15:00 Nasopharynx SARS-CoV-2 RdRp Gene Assay - Final Complete 05/30/20 15:00 Blood Blood Culture - Preliminary NO GROWTH AFTER 48 HOURS Resulted 05/30/20 14:50 Blood Blood Culture - Preliminary NO GROWTH AFTER 48 HOURS Resulted Laboratory Tests 06/02/20 09:15: White Blood Count 13.4H, Red Blood Count 3.31L, Hemoglobin 9.6L, Hematocrit 27.6L, Mean Corpuscular Volume 83, Mean Corpuscular Hemoglobin 29.1, Mean Corpuscular Hemoglobin Concent 35.0, Red Cell Distribution Width 13.7, Platelet Count 304, Mean Platelet Volume 7.5, Neutrophils (%) (Auto) , Lymphocytes (%) (Auto) , Monocytes (%) (Auto) , Eosinophils (%) (Auto) , Basophils (%) (Auto) , Neutrophils % (Manual) [Pending], Lymphocytes % (Manual) [Pending], Platelet Estimate [Pending], Platelet Morphology [Pending], Vancomycin Level Trough 11.8 Current Medications Medications (Trade) Dose Ordered Sig/Anuj Route PRN Reason Start Time Stop Time Status Last Admin Dose Admin Acetaminophen (Tylenol) 650 mg Q6H PRN ORAL Temp >100.5 05/30/20 18:45 06/29/20 18:44 06/01/20 12:46 Chlorhexidine Gluconate (Laura-Hex 2%) 1 applic DAILY@1999 TOPIC 06/01/20 20:00 08/30/20 19:59 06/01/20 20:40 Enoxaparin Sodium (Lovenox) 80 mg EVERY 12 HOURS SUBQ 05/30/20 21:00 08/28/20 20:59 06/02/20 08:51 Famotidine (Pepcid) 20 mg DAILY GT 05/31/20 09:00 08/29/20 08:59 06/02/20 08:48 Ipratropium [place] (Atrovent) 500 mcg Q6H PRN HHN Shortness of Breath 05/31/20 07:15 06/05/20 07:14 Lacosamide (Vimpat) 50 mg BID ORAL 05/31/20 09:00 08/29/20 08:59 06/02/20 08:49 Lactobacillus Acidophilus (Culturelle) 1 tab DAILY GT 05/31/20 09:00 08/29/20 08:59 06/02/20 08:49 Lisinopril (ZestriL) 10 mg BID GT 06/02/20 09:00 07/02/20 08:59 06/02/20 08:49 Piperacillin Sod/ Tazobactam Sod 3.375 gm/Sodium Chloride 110 ml @ 27.5 mls/hr Q8HR IVPB 05/30/20 22:00 06/06/20 21:59 06/02/20 06:11 Propranolol HCl (Inderal) 30 mg THREE TIMES A DAY ORAL 06/02/20 09:00 07/02/20 08:59 06/02/20 08:50 Sevelamer Carbonate (Renvela) 800 mg THREE TIMES A DAY GT 05/31/20 09:00 08/29/20 08:59 06/02/20 08:48 Sodium Chloride 1,000 ml @ 100 mls/hr Q10H IV 05/31/20 00:00 06/30/20 00:00 06/02/20 02:00 Sucralfate (Carafate) 1 gm BID ORAL 05/31/20 09:00 08/29/20 08:59 06/02/20 08:48 Thyroid ([place] Thyroid) 15 mg DAILY GT 05/31/20 09:00 06/30/20 08:59 06/02/20 08:49 Vancomycin HCl (Vanco pharmacy to dose) 1 ea DAILY PRN MISC Per rx protocol 05/30/20 18:45 06/29/20 18:44 Vancomycin HCl 1 gm/Dextrose 275 ml @ 183.708 mls/hr Q8H IVPB 06/01/20 10:00 06/06/20 09:59 06/02/20 02:00 Assessment/Plan Assessment/Plan Impression: Sepsis Urinary Tract Infection TBI Seizures Hypothyroidism Sinus Tachycardia Hypertension Plan: IV Antibiotics IVF O2 PRN TC PPX Monitor labs adjust beta blockade DVT prophylaxis ID evaluation noted await cultures repeat wbc full dose lovenox impression, plan, and exam edited and reviewed in detail care discussed with Aime Browne MD Jun 02, 2020 10:27
[2020-06-02] MEDS ORDERED: Vancomycin 1gm in Dextrose 275ml IVPB SCH (11:00)
--- NOTE | 2020-06-02 11:48 | NUR ---
CASE MANAGEMENT: REVIEW SI: SEPSIS . SEIZURE T 98.5 HR 120 RR 18 BP 141/84 SAT 98% TRACH COLLAR FIO2 28 WBC 13.4 H/H 9.6/27.6 IS: VANCOMYCIN IV Q8HR ZOSYN IV Q8HR LOVENOX SUBQ Q12HR NS IVF @ 100ML/HR ATROVENT HHN Q6HR PRN TELEMETRY UNIT STATUS DCP: PATIENT IS FROM [facility]
--- NOTE | 2020-06-02 11:48 | Surgery Progress Note ---
Surgery Progress Note Subjective Additional Comments afebrile HD stable improved wbc trending down comfortable secretions improved Objective Last 24 Hour Vital Signs Date Time Temp Pulse Resp B/P (MAP) Pulse Ox O2 Delivery O2 Flow Rate FiO2 06/02/20 09:00 Trach Collar 2.0 06/02/20 08:50 120 141/84 06/02/20 08:49 141/84 06/02/20 08:00 98.5 96 18 157/79 (105) 100 06/02/20 07:20 98 T-Piece 2.0 28 06/02/20 06:24 97.6 06/02/20 04:00 111 06/02/20 04:00 100.2 97 22 120/56 (77) 98 06/02/20 00:00 115 06/02/20 00:00 99.8 111 22 148/90 (109) 100 06/01/20 21:00 Trach Collar 4.0 06/01/20 20:00 104 06/01/20 20:00 100.0 105 20 141/93 (109) 99 06/01/20 19:21 99 T-Piece 2.0 28 06/01/20 17:58 108 157/81 06/01/20 17:03 108 157/81 06/01/20 17:03 157/81 06/01/20 16:00 108 06/01/20 16:00 99.5 108 20 157/81 (106) 100 06/01/20 13:16 99.0 06/01/20 12:46 102 143/94 06/01/20 12:21 99 T-Piece 2.0 28 06/01/20 12:00 101.4 102 18 143/94 (110) 100 06/01/20 12:00 112 I&O Intake and Output 06/01/20 06/02/20 19:00 07:00 Intake Total 1690 ml Output Total 900 ml 3400 ml Balance 790 ml -3400 ml Intake Free Water 300 ml IV Total 900 ml Tube Feeding 490 ml Output Urine Total 900 ml 3400 ml # Voids 1 # Bowel Movements 1 Dressing: other Wound: other Cardiovascular: RSR Respiratory: decreased breath sounds Abdomen: soft, non-tender, present bowel sounds Extremities: no tenderness, no cyanosis Laboratory Tests Test 06/02/20 09:15 White Blood Count 13.4 K/UL (4.8-10.8) H Red Blood Count 3.31 M/UL (4.70-6.10) L Hemoglobin 9.6 G/DL (14.2-18.0) L Hematocrit 27.6 % (42.0-52.0) L Mean Corpuscular Volume 83 FL (80-99) Mean Corpuscular Hemoglobin 29.1 PG (27.0-31.0) Mean Corpuscular Hemoglobin Concent 35.0 G/DL (32.0-36.0) Red Cell Distribution Width 13.7 % (11.6-14.8) Platelet Count 304 K/UL (150-450) Mean Platelet Volume 7.5 FL (6.5-10.1) Neutrophils (%) (Auto) % (45.0-75.0) Lymphocytes (%) (Auto) % (20.0-45.0) Monocytes (%) (Auto) % (1.0-10.0) Eosinophils (%) (Auto) % (0.0-3.0) Basophils (%) (Auto) % (0.0-2.0) Differential Total Cells Counted 100 Neutrophils % (Manual) 83 % (45-75) H Lymphocytes % (Manual) 8 % (20-45) L Monocytes % (Manual) 2 % (1-10) Eosinophils % (Manual) 6 % (0-3) H Basophils % (Manual) 1 % (0-2) Band Neutrophils 0 % (0-8) Platelet Estimate Adequate Platelet Morphology Normal Hypochromasia 2+ Anisocytosis 1+ Vancomycin Level Trough 11.8 ug/mL (5.0-12.0) Plan Problems: (1) Tachycardia (2) Sepsis Assessment & Plan: 29-year-old male with leukocytosis anemia lactic acidosis. Patient admitted further care management identified to have significant secretions from tracheostomy trach collar with sutures in place causing distortion. Abdominal G-tube in place. Patient forming deep tissue injury. BMI 22 labs noted. Patient a phasic unable to respond to commands and in a vegetative state at this time. Patient with a UTI on antibiotics. Right PIC in place may need to be replaced. Turn every 2 hours offload pressure with air mattress and pillows. Trach sutures removed trach tie evaluated trach in place secretions suction. Continue with secretions chest x-ray reviewed no acute infiltrative process Leukocytosis trending down lactic acid is improving continue fluid resuscitation IV antibiotics improving labs improved cont current care trach care Thank you will follow with recommendations DAILY ESTIMATED NEEDS: Needs based on Pulmonary, 68kg 25-30 kcals/kg [phone] total kcals 1.25-1.5 g protein/kg 85-102 g total protein 25-30 mL/kg [id number] total fluid mLs NUTRITION DIAGNOSIS: Swallowing difficulty r/t TBI and resp distress, as evidenced by pt is vent dep via T-collar, PEG dep. CURRENT TF:Jevity 1.2 @70 ml x20 hrs ENTERAL NUTRITION RECOMMENDATIONS: Increase TF to goal of 75ml/hr x20 hrs to provide 1500ml, 1800 kcal, 83g pro, 1211ml free H2O - Rec to INCREASE TF by 5ml/hr to better meet est kcal and pro needs. - Flush per MD/ HOB over 30 degrees ADDITIONAL RECOMMENDATIONS: 1) Skin integrity: add CATALINA BID via PEG (added 5g pro to meet est pro needs) 2) Wound care eval 3) Per SNF: 5'5" and 150#, maintain calibrated bed scale Carl Francois Jun 02, 2020 11:47
[2020-06-02 12:00] VITALS: BP 146/99
[2020-06-02] MEDS ORDERED: Vancomycin 1.25gm/NS Premix q24h IVPB SCH (12:00)
--- NOTE | 2020-06-02 12:31 | Infectious Diseases Prog Note ---
Assessment/Plan Assessment/Plan A; 1. Fever,improving 2. Traumatic brain injury. 3. Seizures. 4. Leukocytosis, improving 5. Possible scabies, treated 6. Anemia PLAN: 1. Discontinue IV vancomycin 2. Continue Zosyn. Subjective ROS Limited/Unobtainable: Yes Constitutional: Reports: fever, other - Ay=260.2 Allergies: Coded Allergies: No Known Allergies (Unverified , 05/30/20) Objective Last 24 Hour Vital Signs Date Time Temp Pulse Resp B/P (MAP) Pulse Ox O2 Delivery O2 Flow Rate FiO2 06/02/20 09:00 Trach Collar 2.0 06/02/20 08:50 120 141/84 06/02/20 08:49 141/84 06/02/20 08:00 98.5 96 18 157/79 (105) 100 06/02/20 07:20 98 T-Piece 2.0 28 06/02/20 06:24 97.6 06/02/20 04:00 111 06/02/20 04:00 100.2 97 22 120/56 (77) 98 06/02/20 00:00 115 06/02/20 00:00 99.8 111 22 148/90 (109) 100 06/01/20 21:00 Trach Collar 4.0 06/01/20 20:00 104 06/01/20 20:00 100.0 105 20 141/93 (109) 99 06/01/20 19:21 99 T-Piece 2.0 28 06/01/20 17:58 108 157/81 06/01/20 17:03 108 157/81 06/01/20 17:03 157/81 06/01/20 16:00 108 06/01/20 16:00 99.5 108 20 157/81 (106) 100 06/01/20 13:16 99.0 06/01/20 12:46 102 143/94 Height (Feet): 5 Height (Inches): 10.00 Weight (Pounds): 160 HEENT: status post trach, other - s/p craniotomyin R side Respiratory/Chest: lungs clear, other - on T bar Cardiovascular: normal rate Abdomen: soft, non tender, other - GT feeding Extremities: no edema Neurologic/Psychiatric: unresponsiveness, other - left hemiplegia Microbiology Date/Time Source Procedure Growth Status 06/01/20 01:15 Stool Clostridium difficile Toxin Assay - Final Complete 05/30/20 17:00 Urine,Clean Catch Urine Culture - Final NO GROWTH AFTER 48 HOURS Complete 05/30/20 16:28 Rectum - Final NO CARBAPENEM-RESISTANT ENTEROBACTERI... Complete 05/30/20 16:28 Nasal Nares MRSA Culture - Final NO METHICILLIN RESISTANT STAPH AUREUS... Complete 05/30/20 15:00 Nasopharynx SARS-CoV-2 RdRp Gene Assay - Final Complete 05/30/20 15:00 Blood Blood Culture - Preliminary NO GROWTH AFTER 48 HOURS Resulted 05/30/20 14:50 Blood Blood Culture - Preliminary NO GROWTH AFTER 48 HOURS Resulted Laboratory Tests Test 06/02/20 09:15 White Blood Count 13.4 K/UL (4.8-10.8) H Red Blood Count 3.31 M/UL (4.70-6.10) L Hemoglobin 9.6 G/DL (14.2-18.0) L Hematocrit 27.6 % (42.0-52.0) L Mean Corpuscular Volume 83 FL (80-99) Mean Corpuscular Hemoglobin 29.1 PG (27.0-31.0) Mean Corpuscular Hemoglobin Concent 35.0 G/DL (32.0-36.0) Red Cell Distribution Width 13.7 % (11.6-14.8) Platelet Count 304 K/UL (150-450) Mean Platelet Volume 7.5 FL (6.5-10.1) Neutrophils (%) (Auto) % (45.0-75.0) Lymphocytes (%) (Auto) % (20.0-45.0) Monocytes (%) (Auto) % (1.0-10.0) Eosinophils (%) (Auto) % (0.0-3.0) Basophils (%) (Auto) % (0.0-2.0) Differential Total Cells Counted 100 Neutrophils % (Manual) 83 % (45-75) H Lymphocytes % (Manual) 8 % (20-45) L Monocytes % (Manual) 2 % (1-10) Eosinophils % (Manual) 6 % (0-3) H Basophils % (Manual) 1 % (0-2) Band Neutrophils 0 % (0-8) Platelet Estimate Adequate Platelet Morphology Normal Hypochromasia 2+ Anisocytosis 1+ Vancomycin Level Trough 11.8 ug/mL (5.0-12.0) Current Medications Medications (Trade) Dose Ordered Sig/Anuj Route PRN Reason Start Time Stop Time Status Last Admin Dose Admin Acetaminophen (Tylenol) 650 mg Q6H PRN ORAL Temp >100.5 05/30/20 18:45 06/29/20 18:44 06/01/20 12:46 Chlorhexidine Gluconate (Laura-Hex 2%) 1 applic DAILY@2000 TOPIC 06/01/20 20:00 08/30/20 19:59 06/01/20 20:40 Enoxaparin Sodium (Lovenox) 80 mg EVERY 12 HOURS SUBQ 05/30/20 21:00 08/28/20 20:59 06/02/20 08:51 Famotidine (Pepcid) 20 mg DAILY GT 05/31/20 09:00 08/29/20 08:59 06/02/20 08:48 Ipratropium [place] (Atrovent) 500 mcg Q6H PRN HHN Shortness of Breath 05/31/20 07:15 06/05/20 07:14 Lacosamide (Vimpat) 50 mg BID ORAL 05/31/20 09:00 08/29/20 08:59 06/02/20 08:49 Lactobacillus Acidophilus (Culturelle) 1 tab DAILY GT 05/31/20 09:00 08/29/20 08:59 06/02/20 08:49 Lisinopril (ZestriL) 10 mg BID GT 06/02/20 09:00 07/02/20 08:59 06/02/20 08:49 Piperacillin Sod/ Tazobactam Sod 3.375 gm/Sodium Chloride 110 ml @ 27.5 mls/hr Q8HR IVPB 05/30/20 22:00 06/06/20 21:59 06/02/20 06:11 Propranolol HCl (Inderal) 30 mg THREE TIMES A DAY ORAL 06/02/20 09:00 07/02/20 08:59 06/02/20 08:50 Sevelamer Carbonate (Renvela) 800 mg THREE TIMES A DAY GT 05/31/20 09:00 08/29/20 08:59 06/02/20 08:48 Sodium Chloride 1,000 ml @ 100 mls/hr Q10H IV 05/31/20 00:00 06/30/20 00:00 06/02/20 12:00 Sucralfate (Carafate) 1 gm BID ORAL 05/31/20 09:00 08/29/20 08:59 06/02/20 08:48 Thyroid ([place] Thyroid) 15 mg DAILY GT 05/31/20 09:00 06/30/20 08:59 06/02/20 08:49 Vancomycin HCl (Vanco pharmacy to dose) 1 ea DAILY PRN MISC Per rx protocol 05/30/20 18:45 06/29/20 18:44 Vancomycin HCl 1 gm/Dextrose 275 ml @ 183.708 mls/hr Q8H IVPB 06/02/20 11:00 06/07/20 10:59 06/02/20 12:00 Tomás Shaffer MD Jun 02, 2020 12:31
[2020-06-02 16:00] VITALS: BP 148/106
--- NOTE | 2020-06-02 19:35 | NUR ---
NURSE NOTES: Patient received from Basil QUAN. Patient is stable. On T-piece @ 2L saturating well. No s/s of distress or pain. Gtube in place patent and intact running Jevity 1.2 @70cc/hr. Daniels catheter in place for retention patent and intact draining well to gravity. PICC line on Right upper arm running NS @ 100 mls /hr. Bed in lowest position and locked. Will continue plan of care.
--- NOTE | 2020-06-02 19:35 | NUR ---
NURSE HAND-OFF REPORT: Important Events on Shift:[incontinence care, TF] Patient Status: [FULL CODE] Diet: [jevity 1.2 at 70 mL/hr] Pending Orders: [] Pending Results/Labs:[] Pending MD notification:[] Latest Vital Signs: Temperature 99.0 , Pulse 108 , B/P 148 /106 , Respiratory Rate 17 , O2 SAT 95 , Trach Collar, O2 Flow Rate 2.0 . Vital Sign Comment: [] EKG Rhythm: Sinus Tachycardia Rhythm change?: N MD Notified?: Zeynep WAGNER MD Response: No New Orders Received Latest Whitley Fall Score: 70 Fall Risk: High Risk Safety Measures: Call light Within Reach, Bed Alarm Zone 1, Side Rails Side Rails x2, Bed position Low and Locked. Fall Precautions: Yellow Socks Yellow Gown Door Sign Patient Fall Education Report given to [Elvira RN].
[2020-06-02 20:00] VITALS: BP 136/96
[2020-06-02] MEDS: Dyna-Hex 2% Top Sol 2oz TOPIC SCH (21:04)
--- NOTE | 2020-06-02 23:00 | Cardiology Progress Note ---
Subjective DATE OF SERVICE: Jun 02, 2020 Remains tachycardic with rising BP parameters On anti-microbials Still with significant leukocytosis Objective Last 24 Hour Vital Signs Date Time Temp Pulse Resp B/P (MAP) Pulse Ox O2 Delivery O2 Flow Rate FiO2 06/02/20 20:00 98.9 117 24 136/96 (109) 100 06/02/20 20:00 117 06/02/20 19:42 100 T-Piece 2.0 28 06/02/20 17:51 148/106 06/02/20 17:51 108 148/106 06/02/20 16:00 108 06/02/20 16:00 99.0 108 17 148/106 (120) 95 06/02/20 13:00 98 T-Piece 2.0 28 06/02/20 12:28 111 146/99 06/02/20 12:00 98.7 111 21 146/99 (115) 97 06/02/20 12:00 106 06/02/20 09:00 Trach Collar 2.0 06/02/20 08:50 120 141/84 06/02/20 08:49 141/84 06/02/20 08:00 130 06/02/20 08:00 98.5 96 18 157/79 (105) 100 06/02/20 07:20 98 T-Piece 2.0 28 06/02/20 06:24 97.6 06/02/20 04:00 111 06/02/20 04:00 100.2 97 22 120/56 (77) 98 06/02/20 00:00 115 06/02/20 00:00 99.8 111 22 148/90 (109) 100 HEENT: Thin Trach secretions RHYTHM: ST LUNGS: lungs clear bilaterally CARDIAC: normal S1 and S2, rapid rate, tachycardia ABDOMEN: normal bowel sounds, non tender, no organomegaly, no mass EXTREMITIES: no calf tenderness, No edema Laboratory Tests Test 06/02/20 09:15 White Blood Count 13.4 K/UL (4.8-10.8) H Red Blood Count 3.31 M/UL (4.70-6.10) L Hemoglobin 9.6 G/DL (14.2-18.0) L Hematocrit 27.6 % (42.0-52.0) L Mean Corpuscular Volume 83 FL (80-99) Mean Corpuscular Hemoglobin 29.1 PG (27.0-31.0) Mean Corpuscular Hemoglobin Concent 35.0 G/DL (32.0-36.0) Red Cell Distribution Width 13.7 % (11.6-14.8) Platelet Count 304 K/UL (150-450) Mean Platelet Volume 7.5 FL (6.5-10.1) Neutrophils (%) (Auto) % (45.0-75.0) Lymphocytes (%) (Auto) % (20.0-45.0) Monocytes (%) (Auto) % (1.0-10.0) Eosinophils (%) (Auto) % (0.0-3.0) Basophils (%) (Auto) % (0.0-2.0) Differential Total Cells Counted 100 Neutrophils % (Manual) 83 % (45-75) H Lymphocytes % (Manual) 8 % (20-45) L Monocytes % (Manual) 2 % (1-10) Eosinophils % (Manual) 6 % (0-3) H Basophils % (Manual) 1 % (0-2) Band Neutrophils 0 % (0-8) Platelet Estimate Adequate Platelet Morphology Normal Hypochromasia 2+ Anisocytosis 1+ Vancomycin Level Trough 11.8 ug/mL (5.0-12.0) Microbiology Date/Time Source Procedure Growth Status 06/01/20 01:15 Stool Clostridium difficile Toxin Assay - Final Complete Assessment/Plan Assessment/Plan Severe sepsis Sinus tachycardia Hypertension/HHD Hx hypothyroidism Toxic encephalopathy Respiratory Failure with trach IVF hydration adjusted. Antimicrobials Titrate antiHTN regimen - meds advanced Maintain beta jocelyn and titrate upward DVT prophyl Continue cardiac monitoring Trach [facility] Garcia Valverde MD Jun 02, 2020 23:00
[2020-06-03] VITALS: BP 115/75
[2020-06-03 04:00] VITALS: BP 147/91
[2020-06-03] MEDS: Piperacillin/Tazobactam 3.375 GM in NS 110 ML IVPB SCH ×3 (05:23→22:28)
--- NOTE | 2020-06-03 05:52 | NUR ---
RD ASSESSMENT & RECOMMENDATIONS SEE CARE ACTIVITY FOR COMPLETE ASSESSMENT DAILY ESTIMATED NEEDS: Needs based on Pulmonary, 68kg 25-30 kcals/kg 2818-9656 total kcals 1.25-1.5 g protein/kg 85-102 g total protein 25-30 mL/kg 9267-5889 total fluid mLs NUTRITION DIAGNOSIS: Swallowing difficulty r/t TBI and resp distress, as evidenced by pt is vent dep via T-collar, PEG dep. CURRENT TF:Jevity 1.2 @70 ml x20 hrs ENTERAL NUTRITION RECOMMENDATIONS: Increase TF to goal of 75ml/hr x20 hrs to provide 1500ml, 1800 kcal, 83g pro, 1211ml free H2O - Rec to INCREASE TF by 5ml/hr to better meet esy kcal and pro needs. - Flush per MD/ HOB over 30 degrees ADDITIONAL RECOMMENDATIONS: 1) Wound Care: TF @ goal provides 100% RDI add CATALINA BID via PEG (also provides added 5g prot to meet est prot needs) add Vit C 250mg QD 2) Per SNF: 5'5" and 150#, maintain calibrated bed scale wts 3) Check phos level: pt on Renvela TID, renal fxn wnl
[2020-06-03 07:35] LABS: BASOPHILS % (AUTO) 0.6 % (0.0-2.0); EOSINOPHILS % (AUTO) 1.4 % (0.0-3.0); HEMATOCRIT 28.6 % (42.0-52.0); HEMOGLOBIN 10.1 G/DL (14.2-18.0); LYMPHOCYTES % (AUTO) 9.6 % (20.0-45.0); MEAN CORPUSCULAR VOLUME 84 FL (80-99); MONOCYTES % (AUTO) 6.4 % (1.0-10.0); NEUTROPHILS % (AUTO) 81.9 % (45.0-75.0); PLATELET COUNT 294 K/UL (150-450); RED BLOOD COUNT 3.42 M/UL (4.70-6.10); WHITE BLOOD COUNT 8.9 K/UL (4.8-10.8)
--- NOTE | 2020-06-03 07:35 | NUR ---
NURSE HAND-OFF REPORT: Important Events on Shift:[None] Patient Status: [Stale] Diet: [Jevity 1.2 @ 70cc/hr] Pending Orders: [] Pending Results/Labs:[] Pending MD notification:[] Latest Vital Signs: Temperature 98.9 , Pulse 127 , B/P 147 /91 , Respiratory Rate 30 , O2 SAT 100 , Trach Collar, O2 Flow Rate 2.0 . Vital Sign Comment: [] EKG Rhythm: Sinus Tachycardia Rhythm change?: N MD Notified?: Zeynep WAGNER MD Response: No New Orders Received Latest Whitley Fall Score: 70 Fall Risk: High Risk Safety Measures: Call light Within Reach, Bed Alarm Zone 1, Side Rails Side Rails x2, Bed position Low and Locked. Fall Precautions: Yellow Socks Yellow Gown Door Sign Patient Fall Education Report given to [Rahat RN].
[2020-06-03 07:37] LABS: ANION GAP 11 mmol/L (5-15); BLOOD UREA NITROGEN 10 mg/dL (7-18); CALCIUM 8.7 MG/DL (8.5-10.1); CARBON DIOXIDE 26 MMOL/L (21-32); CHLORIDE 98 MMOL/L (98-107); CREATININE 0.6 MG/DL (0.55-1.30); POTASSIUM 3.8 MMOL/L (3.5-5.1); SODIUM 135 MMOL/L (136-145)
[2020-06-03 08:00] VITALS: BP 140/105
--- NOTE | 2020-06-03 08:40 | Pulmonology Progress Note ---
Subjective ROS Limited/Unobtainable: Yes Constitutional: Reports: fever, other - Qj=687.2 Allergies: Coded Allergies: No Known Allergies (Unverified , 05/30/20) Subjective d/w RN Objective Last 24 Hour Vital Signs Date Time Temp Pulse Resp B/P (MAP) Pulse Ox O2 Delivery O2 Flow Rate FiO2 06/03/20 08:00 99.1 126 20 140/105 (117) 98 06/03/20 07:56 99 T-Piece 2.0 28 06/03/20 04:00 127 06/03/20 04:00 98.9 127 30 147/91 (109) 100 06/03/20 01:33 100 T-Piece 2.0 28 06/03/20 00:00 112 06/03/20 00:00 98.5 112 24 115/75 (88) 100 06/02/20 21:00 Trach Collar 2.0 06/02/20 20:00 98.9 117 24 136/96 (109) 100 06/02/20 20:00 117 06/02/20 19:42 100 T-Piece 2.0 28 06/02/20 17:51 148/106 06/02/20 17:51 108 148/106 06/02/20 16:00 108 06/02/20 16:00 99.0 108 17 148/106 (120) 95 06/02/20 13:00 98 T-Piece 2.0 28 06/02/20 12:28 111 146/99 06/02/20 12:00 98.7 111 21 146/99 (115) 97 06/02/20 12:00 106 06/02/20 09:00 Trach Collar 2.0 06/02/20 08:50 120 141/84 06/02/20 08:49 141/84 Intake and Output 06/02/20 06/03/20 19:00 07:00 Intake Total 70 ml Output Total 2200 ml 1800 ml Balance -2200 ml -1730 ml Tube Feeding 70 ml Output Urine Total 2200 ml 1800 ml # Bowel Movements 3 1 Objective WDWN NAD clear breath sounds bilaterally without rhonchi or wheeze [id number] tachy without MRG NABS nontender GT no CCE nonfocal trach poor LOC Microbiology Date/Time Source Procedure Growth Status 06/01/20 01:15 Stool Clostridium difficile Toxin Assay - Final Complete Laboratory Tests 06/02/20 09:15: White Blood Count 13.4H, Red Blood Count 3.31L, Hemoglobin 9.6L, Hematocrit 27.6L, Mean Corpuscular Volume 83, Mean Corpuscular Hemoglobin 29.1, Mean Corpuscular Hemoglobin Concent 35.0, Red Cell Distribution Width 13.7, Platelet Count 304, Mean Platelet Volume 7.5, Neutrophils (%) (Auto) , Lymphocytes (%) (Auto) , Monocytes (%) (Auto) , Eosinophils (%) (Auto) , Basophils (%) (Auto) , Differential Total Cells Counted 100, Neutrophils % (Manual) 83H, Lymphocytes % (Manual) 8L, Monocytes % (Manual) 2, Eosinophils % (Manual) 6H, Basophils % (Manual) 1, Band Neutrophils 0, Platelet Estimate Adequate, Platelet Morphology Normal, Hypochromasia 2+, Anisocytosis 1+, Vancomycin Level Trough 11.8 06/03/20 05:53: White Blood Count 8.9, Red Blood Count 3.42L, Hemoglobin 10.1L, Hematocrit 28.6L , Mean Corpuscular Volume 84, Mean Corpuscular Hemoglobin 29.7, Mean Corpuscular Hemoglobin Concent 35.4, Red Cell Distribution Width 14.0, Platelet Count 294, Mean Platelet Volume 6.6, Neutrophils (%) (Auto) 81.9H, Lymphocytes (%) (Auto) 9.6L, Monocytes (%) (Auto) 6.4, Eosinophils (%) (Auto) 1.4, Basophils (%) (Auto) 0.6, Sodium Level 135L, Potassium Level 3.8, Chloride Level 98, Carbon Dioxide Level 26, Anion Gap 11, Blood Urea Nitrogen 10, Creatinine 0.6, Estimat Glomerular Filtration Rate > 60, Glucose Level 123H, Calcium Level 8.7 Current Medications Medications (Trade) Dose Ordered Sig/Anuj Route PRN Reason Start Time Stop Time Status Last Admin Dose Admin Acetaminophen (Tylenol) 650 mg Q6H PRN ORAL Temp >100.5 05/30/20 18:45 06/29/20 18:44 06/01/20 12:46 Chlorhexidine Gluconate (Laura-Hex 2%) 1 applic DAILY@2000 TOPIC 06/01/20 20:00 08/30/20 19:59 06/02/20 21:04 Clonidine HCl (Catapres Tab) 0.1 mg Q4H PRN ORAL SBP above 150; DBP above 95 06/02/20 23:00 08/31/20 22:59 Enoxaparin Sodium (Lovenox) 80 mg EVERY 12 HOURS SUBQ 05/30/20 21:00 08/28/20 20:59 06/02/20 21:06 Famotidine (Pepcid) 20 mg DAILY GT 05/31/20 09:00 08/29/20 08:59 06/02/20 08:48 Ipratropium [place] (Atrovent) 500 mcg Q6H PRN HHN Shortness of Breath 05/31/20 07:15 06/05/20 07:14 Lacosamide (Vimpat) 50 mg BID ORAL 05/31/20 09:00 08/29/20 08:59 06/02/20 17:51 Lactobacillus Acidophilus (Culturelle) 1 tab DAILY GT 05/31/20 09:00 08/29/20 08:59 06/02/20 08:49 Lisinopril (ZestriL) 20 mg BID GT 06/03/20 09:00 07/03/20 08:59 Piperacillin Sod/ Tazobactam Sod 3.375 gm/Sodium Chloride 110 ml @ 27.5 mls/hr Q8HR IVPB 05/30/20 22:00 06/06/20 21:59 06/03/20 05:23 Propranolol HCl (Inderal) 40 mg THREE TIMES A DAY ORAL 06/03/20 09:00 07/03/20 08:59 Sevelamer Carbonate (Renvela) 800 mg THREE TIMES A DAY GT 05/31/20 09:00 08/29/20 08:59 06/02/20 17:51 Sodium Chloride 1,000 ml @ 50 mls/hr Q20H IV 05/31/20 00:00 06/30/20 00:00 06/02/20 21:05 Sucralfate (Carafate) 1 gm BID ORAL 05/31/20 09:00 08/29/20 08:59 06/02/20 17:51 Thyroid ([place] Thyroid) 15 mg DAILY GT 05/31/20 09:00 06/30/20 08:59 06/02/20 08:49 Assessment/Plan Assessment/Plan Impression: Sepsis Urinary Tract Infection TBI Seizures Hypothyroidism Sinus Tachycardia Hypertension Plan: IV Antibiotics IVF O2 PRN TC PPX Monitor labs adjust beta blockade as pulse and bp still high; consider cardizem DVT prophylaxis- full dose ID evaluation noted await cultures- negative repeat wbc- normal full dose lovenox impression, plan, and exam edited and reviewed in detail care discussed with Aime Browne MD Jun 03, 2020 08:40
[2020-06-03] MEDS: Propranolol 10mg tab ORAL SCH ×4 (08:44→21:11)
[2020-06-03] MEDS: Lactobacillus-GG tablet GT SCH (09:00)
[2020-06-03] MEDS: Enoxaparin 80mg Inj SUBQ SCH ×2 (09:00→22:27)
[2020-06-03] MEDS: Sucralfate 1gm tab ORAL SCH ×2 (09:00→17:37)
[2020-06-03] MEDS: Lacosamide 50mg tablet ORAL SCH ×2 (09:00→17:38)
[2020-06-03] MEDS: Renvela 800mg Pkt GT SCH ×3 (09:00→17:36)
[2020-06-03] MEDS: Lisinopril 10mg tab GT SCH ×2 (09:00→17:37)
[2020-06-03] MEDS ORDERED: Propranolol 10mg tab ORAL SCH (09:00)
--- NOTE | 2020-06-03 10:46 | Infectious Diseases Prog Note ---
Assessment/Plan Assessment/Plan antibiotics : zosyn A 1. fever improving COVID 19 negative 2. ? scabies s/p rx 3. leucocytosis improving 4. traumatic brain injury 5. seizures P 1. continue zosyn 2 more days 2. will follow up cultures Subjective Allergies: Coded Allergies: No Known Allergies (Unverified , 05/30/20) Objective Last 24 Hour Vital Signs Date Time Temp Pulse Resp B/P (MAP) Pulse Ox O2 Delivery O2 Flow Rate FiO2 06/03/20 09:00 140/105 06/03/20 08:44 126 140/105 06/03/20 08:35 Trach Collar 2.0 06/03/20 08:00 99.1 126 20 140/105 (117) 98 06/03/20 07:56 99 T-Piece 2.0 28 06/03/20 04:00 127 06/03/20 04:00 98.9 127 30 147/91 (109) 100 06/03/20 01:33 100 T-Piece 2.0 28 06/03/20 00:00 112 06/03/20 00:00 98.5 112 24 115/75 (88) 100 06/02/20 21:00 Trach Collar 2.0 06/02/20 20:00 98.9 117 24 136/96 (109) 100 06/02/20 20:00 117 06/02/20 19:42 100 T-Piece 2.0 28 06/02/20 17:51 148/106 06/02/20 17:51 108 148/106 06/02/20 16:00 108 06/02/20 16:00 99.0 108 17 148/106 (120) 95 06/02/20 13:00 98 T-Piece 2.0 28 06/02/20 12:28 111 146/99 06/02/20 12:00 98.7 111 21 146/99 (115) 97 06/02/20 12:00 106 Height (Feet): 5 Height (Inches): 10.00 Weight (Pounds): 160 HEENT: status post trach Respiratory/Chest: lungs clear Cardiovascular: normal rate, regular rhythm, no gallop/murmur Abdomen: soft, non tender, other - GT Extremities: no edema Microbiology Date/Time Source Procedure Growth Status 06/01/20 01:15 Stool Clostridium difficile Toxin Assay - Final Complete Laboratory Tests Test 06/03/20 05:53 White Blood Count 8.9 K/UL (4.8-10.8) Red Blood Count 3.42 M/UL (4.70-6.10) L Hemoglobin 10.1 G/DL (14.2-18.0) L Hematocrit 28.6 % (42.0-52.0) L Mean Corpuscular Volume 84 FL (80-99) Mean Corpuscular Hemoglobin 29.7 PG (27.0-31.0) Mean Corpuscular Hemoglobin Concent 35.4 G/DL (32.0-36.0) Red Cell Distribution Width 14.0 % (11.6-14.8) Platelet Count 294 K/UL (150-450) Mean Platelet Volume 6.6 FL (6.5-10.1) Neutrophils (%) (Auto) 81.9 % (45.0-75.0) H Lymphocytes (%) (Auto) 9.6 % (20.0-45.0) L Monocytes (%) (Auto) 6.4 % (1.0-10.0) Eosinophils (%) (Auto) 1.4 % (0.0-3.0) Basophils (%) (Auto) 0.6 % (0.0-2.0) Sodium Level 135 MMOL/L (136-145) L Potassium Level 3.8 MMOL/L (3.5-5.1) Chloride Level 98 MMOL/L (98-107) Carbon Dioxide Level 26 MMOL/L (21-32) Anion Gap 11 mmol/L (5-15) Blood Urea Nitrogen 10 mg/dL (7-18) Creatinine 0.6 MG/DL (0.55-1.30) Estimat Glomerular Filtration Rate > 60 mL/min (>60) Glucose Level 123 MG/DL (74-106) H Calcium Level 8.7 MG/DL (8.5-10.1) Current Medications Medications (Trade) Dose Ordered Sig/Anuj Route PRN Reason Start Time Stop Time Status Last Admin Dose Admin Acetaminophen (Tylenol) 650 mg Q6H PRN ORAL Temp >100.5 05/30/20 18:45 06/29/20 18:44 06/01/20 12:46 Chlorhexidine Gluconate (Laura-Hex 2%) 1 applic DAILY@1999 TOPIC 06/01/20 20:00 08/30/20 19:59 06/02/20 21:04 Clonidine HCl (Catapres Tab) 0.1 mg Q4H PRN ORAL SBP above 150; DBP above 95 06/02/20 23:00 08/31/20 22:59 Enoxaparin Sodium (Lovenox) 80 mg EVERY 12 HOURS SUBQ 05/30/20 21:00 08/28/20 20:59 06/03/20 09:00 Famotidine (Pepcid) 20 mg DAILY GT 05/31/20 09:00 08/29/20 08:59 06/03/20 09:00 Ipratropium [place] (Atrovent) 500 mcg Q6H PRN HHN Shortness of Breath 05/31/20 07:15 06/05/20 07:14 Lacosamide (Vimpat) 50 mg BID ORAL 05/31/20 09:00 08/29/20 08:59 06/03/20 09:00 Lactobacillus Acidophilus (Culturelle) 1 tab DAILY GT 05/31/20 09:00 08/29/20 08:59 06/03/20 09:00 Lisinopril (ZestriL) 20 mg BID GT 06/03/20 09:00 07/03/20 08:59 06/03/20 09:00 Piperacillin Sod/ Tazobactam Sod 3.375 gm/Sodium Chloride 110 ml @ 27.5 mls/hr Q8HR IVPB 05/30/20 22:00 06/06/20 21:59 06/03/20 05:23 Propranolol HCl (Inderal) 40 mg FOUR TIMES A DAY ORAL 06/03/20 08:44 07/03/20 08:43 06/03/20 08:44 Sevelamer Carbonate (Renvela) 800 mg THREE TIMES A DAY GT 05/31/20 09:00 08/29/20 08:59 06/03/20 09:00 Sodium Chloride 1,000 ml @ 50 mls/hr Q20H IV 05/31/20 00:00 06/30/20 00:00 06/02/20 21:05 Sucralfate (Carafate) 1 gm BID ORAL 05/31/20 09:00 08/29/20 08:59 06/03/20 09:00 Thyroid ([place] Thyroid) 15 mg DAILY GT 05/31/20 09:00 06/30/20 08:59 06/03/20 09:00 Dl Mcgowan MD Jun 03, 2020 10:46
--- NOTE | 2020-06-03 11:25 | Surgery Progress Note ---
Surgery Progress Note Subjective Additional Comments fevers resolved wbc resolved comfortable secretions improved comfortable Objective Last 24 Hour Vital Signs Date Time Temp Pulse Resp B/P (MAP) Pulse Ox O2 Delivery O2 Flow Rate FiO2 06/03/20 09:00 140/105 06/03/20 08:44 126 140/105 06/03/20 08:35 Trach Collar 2.0 06/03/20 08:00 99.1 126 20 140/105 (117) 98 06/03/20 08:00 127 06/03/20 07:56 99 T-Piece 2.0 28 06/03/20 04:00 127 06/03/20 04:00 98.9 127 30 147/91 (109) 100 06/03/20 01:33 100 T-Piece 2.0 28 06/03/20 00:00 112 06/03/20 00:00 98.5 112 24 115/75 (88) 100 06/02/20 21:00 Trach Collar 2.0 06/02/20 20:00 98.9 117 24 136/96 (109) 100 06/02/20 20:00 117 06/02/20 19:42 100 T-Piece 2.0 28 06/02/20 17:51 148/106 06/02/20 17:51 108 148/106 06/02/20 16:00 108 06/02/20 16:00 99.0 108 17 148/106 (120) 95 06/02/20 13:00 98 T-Piece 2.0 28 06/02/20 12:28 111 146/99 06/02/20 12:00 98.7 111 21 146/99 (115) 97 06/02/20 12:00 106 I&O Intake and Output 06/02/20 06/03/20 19:00 07:00 Intake Total 70 ml Output Total 2200 ml 1800 ml Balance -2200 ml -1730 ml Tube Feeding 70 ml Output Urine Total 2200 ml 1800 ml # Bowel Movements 3 1 Dressing: saturated Cardiovascular: RSR Respiratory: decreased breath sounds Abdomen: soft, non-tender, present bowel sounds Extremities: no edema, no tenderness, no cyanosis Laboratory Tests Test 06/03/20 05:53 White Blood Count 8.9 K/UL (4.8-10.8) Red Blood Count 3.42 M/UL (4.70-6.10) L Hemoglobin 10.1 G/DL (14.2-18.0) L Hematocrit 28.6 % (42.0-52.0) L Mean Corpuscular Volume 84 FL (80-99) Mean Corpuscular Hemoglobin 29.7 PG (27.0-31.0) Mean Corpuscular Hemoglobin Concent 35.4 G/DL (32.0-36.0) Red Cell Distribution Width 14.0 % (11.6-14.8) Platelet Count 294 K/UL (150-450) Mean Platelet Volume 6.6 FL (6.5-10.1) Neutrophils (%) (Auto) 81.9 % (45.0-75.0) H Lymphocytes (%) (Auto) 9.6 % (20.0-45.0) L Monocytes (%) (Auto) 6.4 % (1.0-10.0) Eosinophils (%) (Auto) 1.4 % (0.0-3.0) Basophils (%) (Auto) 0.6 % (0.0-2.0) Sodium Level 135 MMOL/L (136-145) L Potassium Level 3.8 MMOL/L (3.5-5.1) Chloride Level 98 MMOL/L (98-107) Carbon Dioxide Level 26 MMOL/L (21-32) Anion Gap 11 mmol/L (5-15) Blood Urea Nitrogen 10 mg/dL (7-18) Creatinine 0.6 MG/DL (0.55-1.30) Estimat Glomerular Filtration Rate > 60 mL/min (>60) Glucose Level 123 MG/DL (74-106) H Calcium Level 8.7 MG/DL (8.5-10.1) Plan Problems: (1) Tachycardia (2) Sepsis Assessment & Plan: 29-year-old male with leukocytosis anemia lactic acidosis. Patient admitted further care management identified to have significant secretions from tracheostomy trach collar with sutures in place causing distortion. Abdominal G-tube in place. Patient forming deep tissue injury. BMI 22 labs noted. Patient a phasic unable to respond to commands and in a vegetative state at this time. Patient with a UTI on antibiotics. Right PIC in place may need to be replaced. Turn every 2 hours offload pressure with air mattress and pillows. Trach sutures removed trach tie evaluated trach in place secretions suction. Continue with secretions chest x-ray reviewed no acute infiltrative process Leukocytosis trending down lactic acid is improving continue fluid resuscitation IV antibiotics improving labs improved cont current care trach care fevers resolved wbc resolved improved Thank you will follow with recommendations DAILY ESTIMATED NEEDS: Needs based on Pulmonary, 68kg 25-30 kcals/kg 5625-3491 total kcals 1.25-1.5 g protein/kg 85-102 g total protein 25-30 mL/kg 6883-6642 total fluid mLs NUTRITION DIAGNOSIS: Swallowing difficulty r/t TBI and resp distress, as evidenced by pt is vent dep via T-collar, PEG dep. CURRENT TF:Jevity 1.2 @70 ml x20 hrs ENTERAL NUTRITION RECOMMENDATIONS: Increase TF to goal of 75ml/hr x20 hrs to provide 1500ml, 1800 kcal, 83g pro, 1211ml free H2O - Rec to INCREASE TF by 5ml/hr to better meet est kcal and pro needs. - Flush per MD/ HOB over 30 degrees ADDITIONAL RECOMMENDATIONS: 1) Skin integrity: add CATALINA BID via PEG (added 5g pro to meet est pro needs) 2) Wound care eval 3) Per SNF: 5'5" and 150#, maintain calibrated bed scale wts Carl Hernandez Jun 03, 2020 11:25
[2020-06-03 12:00] VITALS: BP 125/77
--- NOTE | 2020-06-03 13:48 | NUR ---
CASE MANAGEMENT:REVIEW 06/03/20 SI: SEPSIS 99.1 126 20 140/105 100% ON T-PIECE H/H-.09/29.6 GLUCOSE+123 IS: IVF@50/HR IV ZOSYN Q8HRS LISINOPRIL GT BID INDERAL GT TID LACTOBACILLUS GT QD THYROID GT QD CARAFATE GT BID VIMPAT PO BID LOVENOX SQ Q12 : TELEMETRY STATUS DCP; FROM [facility]
[2020-06-03 15:46] VITALS: BP 138/100
--- NOTE | 2020-06-03 17:20 | Diagnostic Imaging Report ---
Indication: Leg pain Technique: Grayscale and duplex images of the bilateral lower extremity veins Comparison: Findings: Bilaterally, grayscale and duplex images demonstrate no evidence of intraluminal thrombus. Normal phasic Doppler waveforms, demonstrating normal augmentation response and no evidence of valvular insufficiency. Greater saphenous vein(s) and tibial veins are patent. Normal compressibility. Impression: Negative for evidence of lower extremity deep venous thrombosis bilaterally
--- NOTE | 2020-06-03 19:59 | Diagnostic Imaging Report ---
EXAM: CT Head Without Intravenous Contrast CLINICAL HISTORY: SWELL TECHNIQUE: Axial computed tomography images of the head/brain without intravenous contrast. CTDI is 7.5 mGy and DLP is 443 mGy-cm. One or more of the following dose reduction techniques were used: automated exposure control, adjustment of the mA and/or kV according to patient size, use of iterative reconstruction technique. COMPARISON: None available. FINDINGS: Brain: Extensive right hemispheric parenchymal volume loss and edema. Increased hyperdense of the right frontal parenchyma. Hypodensities of the left frontal, parietal, and temporal regions which may be sequela of prior infarct. No hemorrhage. No significant white matter disease. Midline shift: Mild, 6 mm, right to left midline shift. Ventricles: Exvacuodilatation of the ventricles. Bones/joints: Postsurgical changes from extensive prior right craniotomy. Large extra-axial fluid collection extending beyond the calvarium in region of prior craniotomy. The fluid extends beyond the calvarial region by approximately 4.0 cm in axial dimension No acute fracture. Soft tissues: Unremarkable. Sinuses: Unremarkable as visualized. No acute sinusitis. Mastoid air cells: Unremarkable as visualized. No mastoid effusion. IMPRESSION: 1. Large extra-axial fluid collection of the right hemisphere extending beyond the region of large frontal craniotomy. There is mild right to left midline shift measuring approximately 6 mm. 2. Hyperdensity of the residual right parenchyma suggestive of parenchymal contusion. 3. Extensive right parenchymal volume loss. May be sequela of prior infarct versus postsurgical change. 4. Hyperdensities throughout the left cerebellum, suggestive of prior ischemic process. <MYCVCSECTION> Communications: 06/03/20 20:34 Verify Receipt Verified receipt with KADEEM Ward on Tele on 06/03 20:34 (-07:00)
[2020-06-03 20:00] VITALS: BP 131/91
--- NOTE | 2020-06-03 20:00 | NUR ---
Patient received from Rahat. Patient had a CT of the head done due to head swelling. Patient is A/O x 0. Responds when physical stimulus is performed. Patient is on trach collar at 2 L/min. GT is patent and flushed with Jevity 1.2 running. Daniels is patent and flushed. P200 bed was placed on the patient. Patient has PICC line on his right upper arm, patent and running with NS at 50 ml/hr. Patient is on a cooling blanket. Bed is in the lowest position, call light within reach. Will continue to monitor.
[2020-06-03] MEDS: Dyna-Hex 2% Top Sol 2oz TOPIC SCH (21:04)
--- NOTE | 2020-06-03 21:09 | NUR ---
NURSE NOTES: Called and left a message to Dr. Higgins. Awaiting for call back.
[2020-06-04] VITALS: BP 143/88
--- NOTE | 2020-06-04 01:05 | Cardiology Progress Note ---
Subjective DATE OF SERVICE: Jun 03, 2020 Remains tachycardic with rising BP parameters On anti-microbials CT brain reveals fluid collection with shift; post surgical changes Objective Last 24 Hour Vital Signs Date Time Temp Pulse Resp B/P (MAP) Pulse Ox O2 Delivery O2 Flow Rate FiO2 06/04/20 01:00 99 T-Piece 2.0 28 06/03/20 21:11 100 131/91 06/03/20 21:00 Trach Collar 2.0 06/03/20 20:25 99 T-Piece 2.0 28 06/03/20 20:00 100.6 100 20 131/91 (104) 96 06/03/20 20:00 109 06/03/20 17:38 107 158/100 06/03/20 17:37 158/100 06/03/20 16:42 99.5 06/03/20 16:00 107 06/03/20 15:52 158/100 06/03/20 15:46 101.0 125 19 138/100 (113) 100 06/03/20 13:28 114 140/105 06/03/20 12:24 99 T-Piece 2.0 28 06/03/20 12:00 100.5 113 21 125/77 (93) 100 06/03/20 12:00 114 06/03/20 09:00 140/105 06/03/20 08:44 126 140/105 06/03/20 08:35 Trach Collar 2.0 06/03/20 08:00 99.1 126 20 140/105 (117) 98 06/03/20 08:00 127 06/03/20 07:56 99 T-Piece 2.0 28 06/03/20 04:00 127 06/03/20 04:00 98.9 127 30 147/91 (109) 100 06/03/20 01:33 100 T-Piece 2.0 28 HEENT: Thin Trach secretions RHYTHM: ST LUNGS: lungs clear bilaterally CARDIAC: normal S1 and S2, rapid rate, tachycardia ABDOMEN: normal bowel sounds, non tender, no organomegaly, no mass EXTREMITIES: no calf tenderness, No edema Laboratory Tests Test 06/03/20 05:53 White Blood Count 8.9 K/UL (4.8-10.8) Red Blood Count 3.42 M/UL (4.70-6.10) L Hemoglobin 10.1 G/DL (14.2-18.0) L Hematocrit 28.6 % (42.0-52.0) L Mean Corpuscular Volume 84 FL (80-99) Mean Corpuscular Hemoglobin 29.7 PG (27.0-31.0) Mean Corpuscular Hemoglobin Concent 35.4 G/DL (32.0-36.0) Red Cell Distribution Width 14.0 % (11.6-14.8) Platelet Count 294 K/UL (150-450) Mean Platelet Volume 6.6 FL (6.5-10.1) Neutrophils (%) (Auto) 81.9 % (45.0-75.0) H Lymphocytes (%) (Auto) 9.6 % (20.0-45.0) L Monocytes (%) (Auto) 6.4 % (1.0-10.0) Eosinophils (%) (Auto) 1.4 % (0.0-3.0) Basophils (%) (Auto) 0.6 % (0.0-2.0) Sodium Level 135 MMOL/L (136-145) L Potassium Level 3.8 MMOL/L (3.5-5.1) Chloride Level 98 MMOL/L (98-107) Carbon Dioxide Level 26 MMOL/L (21-32) Anion Gap 11 mmol/L (5-15) Blood Urea Nitrogen 10 mg/dL (7-18) Creatinine 0.6 MG/DL (0.55-1.30) Estimat Glomerular Filtration Rate > 60 mL/min (>60) Glucose Level 123 MG/DL (74-106) H Calcium Level 8.7 MG/DL (8.5-10.1) Microbiology Date/Time Source Procedure Growth Status 06/01/20 01:15 Stool Clostridium difficile Toxin Assay - Final Complete Assessment/Plan Assessment/Plan Severe sepsis Sinus tachycardia Hypertension/HHD Hx hypothyroidism Toxic encephalopathy Respiratory Failure with trach IVF hydration adjusted. Antimicrobials Titrate antiHTN regimen - meds advanced Maintain beta jocelyn and titrate upward again DVT prophyl Continue cardiac monitoring Trach Garcia Riggs MD Jun 04, 2020 01:05
[2020-06-04 04:00] VITALS: BP 152/83
[2020-06-04 05:13] LABS: BASOPHILS % (AUTO) 1.4 % (0.0-2.0); EOSINOPHILS % (AUTO) 2.9 % (0.0-3.0); HEMATOCRIT 29.1 % (42.0-52.0); HEMOGLOBIN 10.2 G/DL (14.2-18.0); LYMPHOCYTES % (AUTO) 12.8 % (20.0-45.0); MEAN CORPUSCULAR VOLUME 84 FL (80-99); MONOCYTES % (AUTO) 7.9 % (1.0-10.0); PLATELET COUNT 351 K/UL (150-450); RED BLOOD COUNT 3.45 M/UL (4.70-6.10); RED CELL DISTRIBUTION WIDTH 13.4 % (11.6-14.8); WHITE BLOOD COUNT 10.4 K/UL (4.8-10.8)
[2020-06-04 05:28] LABS: ANION GAP 8 mmol/L (5-15); BLOOD UREA NITROGEN 9 mg/dL (7-18); CARBON DIOXIDE 29 MMOL/L (21-32); CHLORIDE 97 MMOL/L (98-107); CREATININE 0.5 MG/DL (0.55-1.30); POTASSIUM 4.2 MMOL/L (3.5-5.1); SODIUM 133 MMOL/L (136-145)
[2020-06-04] MEDS: Piperacillin/Tazobactam 3.375 GM in NS 110 ML IVPB SCH ×3 (06:43→21:20)
[2020-06-04] MEDS: Propranolol 10mg tab ORAL SCH ×3 (06:54→22:00)
--- NOTE | 2020-06-04 07:47 | NUR ---
NURSE NOTES: Received report from KADEEM Whitney. Pt asleep w/ no s/s of acute distress. Noted swelling on right of head. IV fluids running on PICC line on right upper arm. G-tube feeding running. F/c draining by gravity. Cooling blanket on. Bed in low position, side rails up x3 and call light within reach. Will continue to monitor.
--- NOTE | 2020-06-04 07:50 | NUR ---
NURSE HAND-OFF REPORT: Important Events on Shift:[Patient had a stat CT done] Patient Status: [Stable] Diet: [Jevity 1.2 @ 70 ml/hr] Pending Orders: [] Pending Results/Labs:[MRE, VRE, CRE] Pending MD notification:[] Latest Vital Signs: Temperature 98.8 , Pulse 104 , B/P 152 /73 , Respiratory Rate 20 , O2 SAT 100 , Trach Collar, O2 Flow Rate 2.0 . Vital Sign Comment: [] EKG Rhythm: Sinus Rhythm Rhythm change?: N MD Notified?: N -DR.BALFE BO Response: No New Orders Received Latest Whitley Fall Score: 50 Fall Risk: High Risk Safety Measures: Call light Within Reach, Bed Alarm Zone 1, Side Rails Side Rails x2, Bed position Low and Locked. Fall Precautions: Yellow Socks Yellow Gown Door Sign Patient Fall Education Report given to [KADEEM Haynes].
[2020-06-04 08:00] VITALS: BP 152/83
[2020-06-04] MEDS: Enoxaparin 80mg Inj SUBQ SCH ×2 (08:48→21:20)
[2020-06-04] MEDS: Lacosamide 50mg tablet ORAL SCH ×2 (08:50→18:15)
[2020-06-04] MEDS: Lisinopril 10mg tab GT SCH ×2 (08:50→18:15)
[2020-06-04] MEDS: Sucralfate 1gm tab ORAL SCH ×2 (08:50→18:15)
[2020-06-04] MEDS: Renvela 800mg Pkt GT SCH ×3 (08:51→18:15)
[2020-06-04] MEDS: Lactobacillus-GG tablet GT SCH (08:51)
--- NOTE | 2020-06-04 09:04 | Surgery Progress Note ---
Surgery Progress Note Subjective Additional Comments CT head noted exam stable labs improved Objective Last 24 Hour Vital Signs Date Time Temp Pulse Resp B/P (MAP) Pulse Ox O2 Delivery O2 Flow Rate FiO2 06/04/20 08:50 152/83 06/04/20 08:00 96.4 95 20 152/83 (106) 96 06/04/20 08:00 96 06/04/20 06:54 104 152/73 06/04/20 04:00 98 06/04/20 04:00 98.8 104 20 152/83 (106) 100 06/04/20 01:00 99 T-Piece 2.0 28 06/04/20 00:00 94 06/04/20 00:00 99.4 102 19 143/88 (106) 100 06/03/20 21:11 100 131/91 06/03/20 21:00 Trach Collar 2.0 06/03/20 20:25 99 T-Piece 2.0 28 06/03/20 20:00 100.6 100 20 131/91 (104) 96 06/03/20 20:00 109 06/03/20 17:38 107 158/100 06/03/20 17:37 158/100 06/03/20 16:42 99.5 06/03/20 16:00 107 06/03/20 15:52 158/100 06/03/20 15:46 101.0 125 19 138/100 (113) 100 06/03/20 13:28 114 140/105 06/03/20 12:24 99 T-Piece 2.0 28 06/03/20 12:00 100.5 113 21 125/77 (93) 100 06/03/20 12:00 114 I&O Intake and Output 06/03/20 06/04/20 19:00 07:00 Intake Total 70 ml 770 ml Output Total 3400 ml 2000 ml Balance -3330 ml -1230 ml Tube Feeding 70 ml 770 ml Output Urine Total 3400 ml 2000 ml # Voids 1 2 Dressing: saturated Cardiovascular: RSR Respiratory: decreased breath sounds Abdomen: soft, non-tender, present bowel sounds Extremities: no edema, no tenderness, no cyanosis Laboratory Tests Test 06/04/20 04:30 White Blood Count 10.4 K/UL (4.8-10.8) Red Blood Count 3.45 M/UL (4.70-6.10) L Hemoglobin 10.2 G/DL (14.2-18.0) L Hematocrit 29.1 % (42.0-52.0) L Mean Corpuscular Volume 84 FL (80-99) Mean Corpuscular Hemoglobin 29.5 PG (27.0-31.0) Mean Corpuscular Hemoglobin Concent 35.0 G/DL (32.0-36.0) Red Cell Distribution Width 13.4 % (11.6-14.8) Platelet Count 351 K/UL (150-450) Mean Platelet Volume 6.2 FL (6.5-10.1) L Neutrophils (%) (Auto) 75.0 % (45.0-75.0) Lymphocytes (%) (Auto) 12.8 % (20.0-45.0) L Monocytes (%) (Auto) 7.9 % (1.0-10.0) Eosinophils (%) (Auto) 2.9 % (0.0-3.0) Basophils (%) (Auto) 1.4 % (0.0-2.0) Sodium Level 133 MMOL/L (136-145) L Potassium Level 4.2 MMOL/L (3.5-5.1) Chloride Level 97 MMOL/L (98-107) L Carbon Dioxide Level 29 MMOL/L (21-32) Anion Gap 8 mmol/L (5-15) Blood Urea Nitrogen 9 mg/dL (7-18) Creatinine 0.5 MG/DL (0.55-1.30) L Estimat Glomerular Filtration Rate > 60 mL/min (>60) Glucose Level 133 MG/DL (74-106) H Calcium Level 9.0 MG/DL (8.5-10.1) Plan Problems: (1) Tachycardia (2) Sepsis Assessment & Plan: 29-year-old male with leukocytosis anemia lactic acidosis. Patient admitted further care management identified to have significant secretions from tracheostomy trach collar with sutures in place causing distortion. Abdominal G-tube in place. Patient forming deep tissue injury. BMI 22 labs noted. Patient a phasic unable to respond to commands and in a vegetative state at this time. Patient with a UTI on antibiotics. Right PIC in place may need to be replaced. Turn every 2 hours offload pressure with air mattress and pillows. Trach sutures removed trach tie evaluated trach in place secretions suction. Continue with secretions chest x-ray reviewed no acute infiltrative process Leukocytosis trending down lactic acid is improving continue fluid resuscitation IV antibiotics improving labs improved cont current care trach care fevers resolved wbc resolved improved CT head noted neurosurg eval Thank you will follow with recommendations Brain: Extensive right hemispheric parenchymal volume loss and edema. Increased hyperdense of the right frontal parenchyma. Hypodensities of the left frontal, parietal, and temporal regions which may be sequela of prior infarct. No hemorrhage. No significant white matter disease. Midline shift: Mild, 6 mm, right to left midline shift. Ventricles: Exvacuodilatation of the ventricles. Bones/joints: Postsurgical changes from extensive prior right craniotomy. Large extra-axial fluid collection extending beyond the calvarium in region of prior craniotomy. The fluid extends beyond the calvarial region by approximately 4.0 cm in axial dimension No acute fracture. Soft tissues: Unremarkable. Sinuses: Unremarkable as visualized. No acute sinusitis. Mastoid air cells: Unremarkable as visualized. No mastoid effusion. IMPRESSION: 1. Large extra-axial fluid collection of the right hemisphere extending beyond the region of large frontal craniotomy. There is mild right to left midline shift measuring approximately 6 mm. 2. Hyperdensity of the residual right parenchyma suggestive of parenchymal contusion. 3. Extensive right parenchymal volume loss. May be sequela of prior infarct versus postsurgical change. 4. Hyperdensities throughout the left cerebellum, suggestive of prior ischemic process. DAILY ESTIMATED NEEDS: Needs based on Pulmonary, 68kg 25-30 kcals/kg 7301-7060 total kcals 1.25-1.5 g protein/kg 85-102 g total protein 25-30 mL/kg 4039-6540 total fluid mLs NUTRITION DIAGNOSIS: Swallowing difficulty r/t TBI and resp distress, as evidenced by pt is vent dep via T-collar, PEG dep. CURRENT TF:Jevity 1.2 @70 ml x20 hrs ENTERAL NUTRITION RECOMMENDATIONS: Increase TF to goal of 75ml/hr x20 hrs to provide 1500ml, 1800 kcal, 83g pro, 1211ml free H2O - Rec to INCREASE TF by 5ml/hr to better meet est kcal and pro needs. - Flush per MD/ HOB over 30 degrees ADDITIONAL RECOMMENDATIONS: 1) Skin integrity: add CATALINA BID via PEG (added 5g pro to meet est pro needs) 2) Wound care eval 3) Per SNF: 5'5" and 150#, maintain calibrated bed scale wts Carl Hernandez Jun 04, 2020 09:04
--- NOTE | 2020-06-04 09:49 | Pulmonology Progress Note ---
Subjective ROS Limited/Unobtainable: No Constitutional: Reports: fever, other - Fn=816.2 Allergies: Coded Allergies: No Known Allergies (Unverified , 05/30/20) Objective Last 24 Hour Vital Signs Date Time Temp Pulse Resp B/P (MAP) Pulse Ox O2 Delivery O2 Flow Rate FiO2 06/04/20 08:50 152/83 06/04/20 08:00 96.4 95 20 152/83 (106) 96 06/04/20 08:00 96 06/04/20 06:54 104 152/73 06/04/20 04:00 98 06/04/20 04:00 98.8 104 20 152/83 (106) 100 06/04/20 01:00 99 T-Piece 2.0 28 06/04/20 00:00 94 06/04/20 00:00 99.4 102 19 143/88 (106) 100 06/03/20 21:11 100 131/91 06/03/20 21:00 Trach Collar 2.0 06/03/20 20:25 99 T-Piece 2.0 28 06/03/20 20:00 100.6 100 20 131/91 (104) 96 06/03/20 20:00 109 06/03/20 17:38 107 158/100 06/03/20 17:37 158/100 06/03/20 16:42 99.5 06/03/20 16:00 107 06/03/20 15:52 158/100 06/03/20 15:46 101.0 125 19 138/100 (113) 100 06/03/20 13:28 114 140/105 06/03/20 12:24 99 T-Piece 2.0 28 06/03/20 12:00 100.5 113 21 125/77 (93) 100 06/03/20 12:00 114 Intake and Output 06/03/20 06/04/20 19:00 07:00 Intake Total 70 ml 770 ml Output Total 3400 ml 2000 ml Balance -3330 ml -1230 ml Tube Feeding 70 ml 770 ml Output Urine Total 3400 ml 2000 ml # Voids 1 2 Laboratory Tests 06/04/20 04:30: White Blood Count 10.4, Red Blood Count 3.45L, Hemoglobin 10.2L, Hematocrit 29.1L, Mean Corpuscular Volume 84, Mean Corpuscular Hemoglobin 29.5, Mean Corpuscular Hemoglobin Concent 35.0, Red Cell Distribution Width 13.4, Platelet Count 351, Mean Platelet Volume 6.2L, Neutrophils (%) (Auto) 75.0, Lymphocytes (%) (Auto) 12.8L, Monocytes (%) (Auto) 7.9, Eosinophils (%) (Auto) 2.9, Basophils (%) (Auto) 1.4, Sodium Level 133L, Potassium Level 4.2, Chloride Level 97L, Carbon Dioxide Level 29, Anion Gap 8, Blood Urea Nitrogen 9, Creatinine 0.5L, Estimat Glomerular Filtration Rate > 60, Glucose Level 133H, Calcium Level 9.0 Current Medications Medications (Trade) Dose Ordered Sig/Anuj Route PRN Reason Start Time Stop Time Status Last Admin Dose Admin Acetaminophen (Tylenol) 650 mg Q6H PRN ORAL Temp >100.5 05/30/20 18:45 06/29/20 18:44 06/03/20 15:50 Chlorhexidine Gluconate (Laura-Hex 2%) 1 applic DAILY@1999 TOPIC 06/01/20 20:00 08/30/20 19:59 06/03/20 21:04 Clonidine HCl (Catapres Tab) 0.1 mg Q4H PRN ORAL SBP above 150; DBP above 95 06/02/20 23:00 08/31/20 22:59 06/03/20 15:52 Enoxaparin Sodium (Lovenox) 80 mg EVERY 12 HOURS SUBQ 05/30/20 21:00 08/28/20 20:59 06/04/20 08:48 Famotidine (Pepcid) 20 mg DAILY GT 05/31/20 09:00 08/29/20 08:59 06/04/20 08:51 Ipratropium Wayan (Atrovent) 500 mcg Q6H PRN HHN Shortness of Breath 05/31/20 07:15 06/05/20 07:14 Lacosamide (Vimpat) 50 mg BID ORAL 05/31/20 09:00 08/29/20 08:59 06/04/20 08:50 Lactobacillus Acidophilus (Culturelle) 1 tab DAILY GT 05/31/20 09:00 08/29/20 08:59 06/04/20 08:51 Lisinopril (ZestriL) 20 mg BID GT 06/03/20 09:00 07/03/20 08:59 06/04/20 08:50 Piperacillin Sod/ Tazobactam Sod 3.375 gm/Sodium Chloride 110 ml @ 27.5 mls/hr Q8HR IVPB 05/30/20 22:00 06/06/20 21:59 06/04/20 06:43 Propranolol HCl (Inderal) 80 mg EVERY 8 HOURS ORAL 06/04/20 06:00 07/04/20 05:59 06/04/20 06:54 Sevelamer Carbonate (Renvela) 800 mg THREE TIMES A DAY GT 05/31/20 09:00 08/29/20 08:59 06/04/20 08:51 Sodium Chloride 1,000 ml @ 50 mls/hr Q20H IV 05/31/20 00:00 06/30/20 00:00 06/03/20 16:46 Sucralfate (Carafate) 1 gm BID ORAL 05/31/20 09:00 08/29/20 08:59 06/04/20 08:50 Thyroid (Law[place] Thyroid) 15 mg DAILY GT 05/31/20 09:00 06/30/20 08:59 06/04/20 08:51 Assessment/Plan Assessment/Plan Pulmonary Progress Note Subjective ROS Limited/Unobtainable: Yes Constitutional: Reports: fever, other - Yk=873.2 Allergies: Coded Allergies: No Known Allergies (Unverified , 05/30/20) Subjective d/w RN Objective Vital Signs noted Objective WDWN NAD clear breath sounds bilaterally without rhonchi or wheeze [id number] tachy without MRG NABS nontender GT no CCE nonfocal trach poor LOC Microbiology Date/Time Source Procedure Growth Status 06/01/20 01:15 Stool Clostridium difficile Toxin Assay - Final Complete Laboratory Tests noted Assessment/Plan Impression: Sepsis Urinary Tract Infection TBI Seizures Hypothyroidism Sinus Tachycardia Hypertension Plan: Neurology Consultation,case d/w Dr Kuhn IV Antibiotics IVF O2 PRN TC PPX Monitor labs adjust beta blockade as pulse and bp still high; consider cardizem DVT prophylaxis- full dose ID evaluation noted await cultures- negative repeat wbc- normal impression, plan, and exam edited and reviewed in detail care discussed with Garcia Hare MD Jun 04, 2020 09:49
[2020-06-04 12:00] VITALS: BP 147/83
[2020-06-04] MEDS ORDERED: Gadavist 7.5mMol/7.5ml vial IV PRN (13:00)
[2020-06-04 16:00] VITALS: BP 154/87
--- NOTE | 2020-06-04 18:58 | Diagnostic Imaging Report ---
EXAM: MR Head Without and With Intravenous Contrast CLINICAL HISTORY: AMS TECHNIQUE: Magnetic resonance images of the head/brain without and with intravenous contrast in multiple planes. COMPARISON: Head CT dated 06/03/2020 FINDINGS: Artifacts: Blooming artifact is noted within the right peripheral residual parenchyma likely representing hemosiderin deposition. Brain: Extensive right hemispheric parenchymal volume loss and edema. Mild encephalomalacia of the left hemisphere with expansion of the CSF containing spaces. No hemorrhage. Midline shift: There is proximal is 7 mm of right to left midline shift. Ventricles: Unremarkable. No ventriculomegaly. Bones/joints: There is significant expansion of the CSF containing spaces of the right hemisphere with extension beyond the calvarium through a craniotomy defect measuring approximately 4.3 cm. Sinuses: Unremarkable as visualized. No acute sinusitis. Mastoid air cells: Unremarkable as visualized. No mastoid effusion. Orbits: Unremarkable as visualized. Other vasculature: Following demonstration of intravenous contrast, there is no evidence of abnormal enhancement. IMPRESSION: 1. No obvious hemorrhage or stroke. Artifact on DWI sequence partially limits evaluation. Otherwise, no significant interval change from recent CT. 2. Large extra-axial fluid collection pending through craniotomy defect. There is mild right to left midline shift measuring in proximal 7 mm. 3. Extensive right parenchymal volume loss. May be sequela of prior infarct versus postsurgical/post traumatic change. 4. Encephalization of the left hemisphere with expansion of CSF containing spaces.
--- NOTE | 2020-06-04 19:23 | NUR ---
RESPIRATORY NOTE: Received pt on T-Piece via O2 line on 2L. Pt placed on 28% Cool Aerosol for humidification. Pt is trach-dependent w/ a cuffed, Shiley 8 tube. Cuff is currently deflated. Pt obtunded, responds to stimuli. B/S joseph. rhonchi, sxn moderate to large amounts of thick, lee-bloody secretions. [place] at bedside. RN aware of cool aerosol set up. Pt resting comfortably, in no apparent distress at this time. Will continue plan of care.
--- NOTE | 2020-06-04 19:27 | NUR ---
NURSE HAND-OFF REPORT: Important Events on Shift:[] Patient Status: [] Diet: [] Pending Orders: [] Pending Results/Labs:[] Pending MD notification:[] Latest Vital Signs: Temperature 98.1 , Pulse 115 , B/P 147 /83 , Respiratory Rate 22 , O2 SAT 98 , Trach Collar, O2 Flow Rate 2.0 . Vital Sign Comment: [] EKG Rhythm: Sinus Rhythm Rhythm change?: N MD Notified?: N -DR.BALFE BO Response: No New Orders Received Latest Whitley Fall Score: 50 Fall Risk: High Risk Safety Measures: Call light Within Reach, Bed Alarm Zone 1, Side Rails Side Rails x2, Bed position Low and Locked. Fall Precautions: Yellow Socks Yellow Gown Door Sign Patient Fall Education Report given to [KADEEM Marin].
[2020-06-04 20:00] VITALS: BP 117/45
[2020-06-04] MEDS: Dyna-Hex 2% Top Sol 2oz TOPIC SCH (21:19)
[2020-06-05] VITALS: BP 131/80
--- NOTE | 2020-06-05 02:05 | NUR ---
NURSE NOTES: Left voicemail for Dr Negro carbajal 18 beats of [facility], will also inform in the morning. Addendum: 06/05/20 at 0650 by Tania Cardozo RN wrong patient
--- NOTE | 2020-06-05 03:10 | Cardiology Progress Note ---
Subjective DATE OF SERVICE: Jun 05, 2020 Remains tachycardic withstable BP parameters On anti-microbials MRI brain confirms fluid collection with shift; post surgical changes Objective Last 24 Hour Vital Signs Date Time Temp Pulse Resp B/P (MAP) Pulse Ox O2 Delivery O2 Flow Rate FiO2 06/05/20 01:30 100 06/05/20 00:41 98 T-Piece 5.0 28 06/05/20 00:30 100 06/05/20 00:00 134 06/05/20 00:00 98.6 135 20 131/80 (97) 100 06/04/20 22:00 126 117/45 06/04/20 21:52 99.5 06/04/20 21:00 99.5 06/04/20 20:00 125 06/04/20 20:00 101.8 126 26 117/45 (69) 100 06/04/20 19:20 99 T-Piece 5.0 28 06/04/20 18:15 147/83 06/04/20 16:00 98.1 116 22 154/87 (109) 98 06/04/20 16:00 115 06/04/20 13:07 89 147/83 06/04/20 12:07 98 T-Piece 2.0 28 06/04/20 12:00 96.1 97 20 147/83 (104) 99 06/04/20 12:00 89 06/04/20 09:00 Trach Collar 2.0 06/04/20 08:50 152/83 06/04/20 08:00 96.4 95 20 152/83 (106) 96 06/04/20 08:00 96 06/04/20 06:54 104 152/73 06/04/20 04:00 98 06/04/20 04:00 98.8 104 20 152/83 (106) 100 HEENT: Thin Trach secretions RHYTHM: ST LUNGS: lungs clear bilaterally CARDIAC: normal S1 and S2, rapid rate, tachycardia ABDOMEN: normal bowel sounds, non tender, no organomegaly, no mass EXTREMITIES: no calf tenderness, No edema Laboratory Tests Test 06/04/20 04:30 White Blood Count 10.4 K/UL (4.8-10.8) Red Blood Count 3.45 M/UL (4.70-6.10) L Hemoglobin 10.2 G/DL (14.2-18.0) L Hematocrit 29.1 % (42.0-52.0) L Mean Corpuscular Volume 84 FL (80-99) Mean Corpuscular Hemoglobin 29.5 PG (27.0-31.0) Mean Corpuscular Hemoglobin Concent 35.0 G/DL (32.0-36.0) Red Cell Distribution Width 13.4 % (11.6-14.8) Platelet Count 351 K/UL (150-450) Mean Platelet Volume 6.2 FL (6.5-10.1) L Neutrophils (%) (Auto) 75.0 % (45.0-75.0) Lymphocytes (%) (Auto) 12.8 % (20.0-45.0) L Monocytes (%) (Auto) 7.9 % (1.0-10.0) Eosinophils (%) (Auto) 2.9 % (0.0-3.0) Basophils (%) (Auto) 1.4 % (0.0-2.0) Sodium Level 133 MMOL/L (136-145) L Potassium Level 4.2 MMOL/L (3.5-5.1) Chloride Level 97 MMOL/L (98-107) L Carbon Dioxide Level 29 MMOL/L (21-32) Anion Gap 8 mmol/L (5-15) Blood Urea Nitrogen 9 mg/dL (7-18) Creatinine 0.5 MG/DL (0.55-1.30) L Estimat Glomerular Filtration Rate > 60 mL/min (>60) Glucose Level 133 MG/DL (74-106) H Calcium Level 9.0 MG/DL (8.5-10.1) Vitamin B12 Level 644 PG/ML (193-986) Methylmalonic Acid Pending Assessment/Plan Assessment/Plan Severe sepsis Sinus tachycardia Hypertension/HHD Hx hypothyroidism Toxic encephalopathy Respiratory Failure with trach Intracerebral fluid collection with mdline shift IVF hydration adjusted. Antimicrobials Titrate antiHTN regimen - meds advanced Maintain beta jocelyn and titrate upward again - will switch to beta jocelyn with more cardiac effects DVT prophyl Continue cardiac monitoring Trach care Consider neuro Garcia Carrero MD Jun 05, 2020 03:10
[2020-06-05 04:00] VITALS: BP 112/67
[2020-06-05] MEDS: Piperacillin/Tazobactam 3.375 GM in NS 110 ML IVPB SCH ×2 (06:36→13:03)
--- NOTE | 2020-06-05 07:25 | NUR ---
NURSE HAND-OFF REPORT: Important Events on Shift:[Patient had a stat CT done] Patient Status: [Stable] Diet: [Jevity 1.2 @ 70 ml/hr- stopped at this time, had 120 ml residual, frequent trach suctioning Vital Sign Comment: temperature was 100.8 gave tylenol aakash reassess and reinsert rectal probe for temp monitoring EKG Rhythm: Sinus Rhythm to sinus tachycardia up to 125-130 overnight, now 100 /hour Latest Whitley Fall Score: 50 Fall Risk: High Risk Safety Measures: Call light Within Reach, Bed Alarm Zone 1, Side Rails Side Rails x2, Bed position Low and Locked. Fall Precautions: Yellow Socks Yellow Gown Door Sign Patient Fall Education Report given to [KADEEM Haynes]. Addendum: 06/05/20 at 0729 by Tania Cardozo RN incorrect info
--- NOTE | 2020-06-05 07:28 | NUR ---
NURSE HAND-OFF REPORT: Important Events on Shift: EEG done and showed R to left midline shift no seizure activity, temp upt to 101.8 down to 98.6, then 100.8 to 99.5 Patient Status: [Stable] Diet: [Jevity 1.2 @ 70 ml/hr- stopped at this time, had 120 ml residual, frequent trach suctioning Vital Sign Comment: temperature was 100.8 gave tylenol aakash reassess and reinsert rectal probe for temp monitoring EKG Rhythm: Sinus Rhythm to sinus tachycardia up to 125-130 overnight, now 100 /hour Latest Whitley Fall Score: 50 Fall Risk: High Risk Safety Measures: Call light Within Reach, Bed Alarm Zone 1, Side Rails Side Rails x2, Bed position Low and Locked. Fall Precautions: Yellow Socks Yellow Gown Door Sign Patient Fall Education Report given to [Ivy RN].
--- NOTE | 2020-06-05 07:55 | NUR ---
NURSE NOTES: Received pt from KADEEM Sethi. Pt obtunded. No s/s of acute distress. On trachea collar. Swelling on right head noted. G-tube feeding currently on hold. IVF infusing on HELIO PICC line. F/C draining by gravity. Bed in low position, side rails up x3 and call light within reach. Will continue to monitor.
[2020-06-05 08:00] VITALS: BP 127/77
[2020-06-05] MEDS: Metoprolol Tartrate 100mg tab ORAL SCH ×2 (08:55→20:33)
[2020-06-05] MEDS: Lacosamide 50mg tablet ORAL SCH ×2 (08:55→17:14)
[2020-06-05] MEDS: Lactobacillus-GG tablet GT SCH (08:55)
[2020-06-05] MEDS: Lisinopril 10mg tab GT SCH ×2 (08:55→17:14)
[2020-06-05] MEDS: Renvela 800mg Pkt GT SCH ×3 (08:56→17:14)
[2020-06-05] MEDS: Enoxaparin 80mg Inj SUBQ SCH ×2 (08:57→20:34)
[2020-06-05] MEDS: Sucralfate 1gm tab ORAL SCH ×2 (09:14→17:14)
[2020-06-05 11:53] VITALS: BP 153/109
--- NOTE | 2020-06-05 13:25 | NUR ---
AUTO BODY SERVICE MECHANIC NOTES RECIEVED ORDER FOR A HIGHER LEVEL OF CARE TO [facility] FOR ABNORMAL MRI. TRANSFER REQUEST COMPLETED AND FAXED TO [phone]. DR CALI MADE AWARE OF THE TRANSFER REQUESTED.WILL FOLLOW UP WITH ACCEPTANCE.
--- NOTE | 2020-06-05 13:28 | NUR ---
DESIGNER AND PATTERNMAKER NOTES SPOKE WITH SIRI FROM [facility], [facility] FACILITIES ARE CURRENTLY AT CAPACITY. HE WILL REVIEW THE CASE AND SEND TO NEURO. NO ACCEPTING MD OR FACILITY AT THIS TIME.
--- NOTE | 2020-06-05 15:17 | Infectious Diseases Prog Note ---
Assessment/Plan Assessment/Plan A; 1. Fever, 2. Traumatic brain injury. 3. Seizures. 4. Leukocytosis, improving 5. Possible scabies, treated 6. Anemia PLAN: 1. Discontinue Zosyn. 2. Repeat CXR, UA ,urine culture Subjective ROS Limited/Unobtainable: Yes Constitutional: Reports: fever, other - Fp=575.8 last night Allergies: Coded Allergies: No Known Allergies (Unverified , 05/30/20) Objective Last 24 Hour Vital Signs Date Time Temp Pulse Resp B/P (MAP) Pulse Ox O2 Delivery O2 Flow Rate FiO2 06/05/20 13:10 99 Cool Aerosol 5.0 28 06/05/20 12:00 99 06/05/20 11:53 99.3 113 26 153/109 (124) 96 06/05/20 09:00 Trach Collar 2.0 06/05/20 08:55 112 127/77 06/05/20 08:55 127/77 06/05/20 08:00 98.8 112 20 127/77 (94) 98 06/05/20 08:00 110 06/05/20 07:15 98 Cool Aerosol 5.0 28 06/05/20 07:06 99.0 06/05/20 04:00 100.8 101 18 112/67 (82) 99 06/05/20 04:00 98 06/05/20 01:30 100 06/05/20 00:41 98 T-Piece 5.0 28 06/05/20 00:30 100 06/05/20 00:00 134 06/05/20 00:00 98.6 135 20 131/80 (97) 100 06/04/20 22:00 126 117/45 06/04/20 21:52 99.5 06/04/20 21:00 Trach Collar 5.0 06/04/20 21:00 99.5 06/04/20 20:00 125 06/04/20 20:00 101.8 126 26 117/45 (69) 100 06/04/20 19:20 99 T-Piece 5.0 28 06/04/20 18:15 147/83 06/04/20 16:00 98.1 116 22 154/87 (109) 98 06/04/20 16:00 115 Height (Feet): 5 Height (Inches): 10.00 Weight (Pounds): 160 HEENT: status post trach, other - right craniotomy Respiratory/Chest: lungs clear, other - on Tbar Cardiovascular: tachycardia Abdomen: soft, non tender, other - GT feeding Extremities: no edema Neurologic/Psychiatric: unresponsiveness Current Medications Medications (Trade) Dose Ordered Sig/Anuj Route PRN Reason Start Time Stop Time Status Last Admin Dose Admin Acetaminophen (Tylenol) 650 mg Q6H PRN ORAL Temp >100.5 05/30/20 18:45 06/29/20 18:44 06/05/20 06:36 Chlorhexidine Gluconate (Laura-Hex 2%) 1 applic DAILY@1999 TOPIC 06/01/20 20:00 08/30/20 19:59 06/04/20 21:19 Clonidine HCl (Catapres Tab) 0.1 mg Q4H PRN ORAL SBP above 150; DBP above 95 06/02/20 23:00 08/31/20 22:59 06/03/20 15:52 Enoxaparin Sodium (Lovenox) 80 mg EVERY 12 HOURS SUBQ 05/30/20 21:00 08/28/20 20:59 06/05/20 08:57 Famotidine (Pepcid) 20 mg DAILY GT 05/31/20 09:00 08/29/20 08:59 06/05/20 08:55 Gadobutrol (Gadavist) 7.5 mmol NOW PRN IV Radiology Procedure 06/04/20 13:00 06/08/20 12:59 Lacosamide (Vimpat) 50 mg BID ORAL 05/31/20 09:00 08/29/20 08:59 06/05/20 08:55 Lactobacillus Acidophilus (Culturelle) 1 tab DAILY GT 05/31/20 09:00 08/29/20 08:59 06/05/20 08:55 Lisinopril (ZestriL) 20 mg BID GT 06/03/20 09:00 07/03/20 08:59 06/05/20 08:55 Metoprolol Tartrate (Lopressor) 100 mg EVERY 12 HOURS ORAL 06/05/20 09:00 09/03/20 08:59 06/05/20 08:55 Piperacillin Sod/ Tazobactam Sod 3.375 gm/Sodium Chloride 110 ml @ 27.5 mls/hr Q8HR IVPB 05/30/20 22:00 06/06/20 21:59 06/05/20 13:03 Sevelamer Carbonate (Renvela) 800 mg THREE TIMES A DAY GT 05/31/20 09:00 08/29/20 08:59 06/05/20 12:44 Sodium Chloride 1,000 ml @ 50 mls/hr Q20H IV 05/31/20 00:00 06/30/20 00:00 06/04/20 13:06 Sucralfate (Carafate) 1 gm BID ORAL 05/31/20 09:00 08/29/20 08:59 06/05/20 09:14 Thyroid (Wenden Thyroid) 15 mg DAILY GT 05/31/20 09:00 06/30/20 08:59 06/05/20 08:56 Tomás Shaffer MD Jun 05, 2020 15:17
--- NOTE | 2020-06-05 15:52 | Surgery Progress Note ---
Surgery Progress Note Subjective Additional Comments febrile 101.8 tachy MRI noted Objective Last 24 Hour Vital Signs Date Time Temp Pulse Resp B/P (MAP) Pulse Ox O2 Delivery O2 Flow Rate FiO2 06/05/20 13:10 99 Cool Aerosol 5.0 28 06/05/20 12:00 99 06/05/20 11:53 99.3 113 26 153/109 (124) 96 06/05/20 09:00 Trach Collar 2.0 06/05/20 08:55 112 127/77 06/05/20 08:55 127/77 06/05/20 08:00 98.8 112 20 127/77 (94) 98 06/05/20 08:00 110 06/05/20 07:15 98 Cool Aerosol 5.0 28 06/05/20 07:06 99.0 06/05/20 04:00 100.8 101 18 112/67 (82) 99 06/05/20 04:00 98 06/05/20 01:30 100 06/05/20 00:41 98 T-Piece 5.0 28 06/05/20 00:30 100 06/05/20 00:00 134 06/05/20 00:00 98.6 135 20 131/80 (97) 100 06/04/20 22:00 126 117/45 06/04/20 21:52 99.5 06/04/20 21:00 Trach Collar 5.0 06/04/20 21:00 99.5 06/04/20 20:00 125 06/04/20 20:00 101.8 126 26 117/45 (69) 100 06/04/20 19:20 99 T-Piece 5.0 28 06/04/20 18:15 147/83 06/04/20 16:00 98.1 116 22 154/87 (109) 98 06/04/20 16:00 115 I&O Intake and Output 06/04/20 06/05/20 19:00 07:00 Intake Total 700 ml Output Total 1400 ml 600 ml Balance -700 ml -600 ml Tube Feeding 700 ml Output Urine Total 1400 ml 600 ml # Bowel Movements 2 Dressing: saturated Cardiovascular: RSR Respiratory: decreased breath sounds Abdomen: soft, non-tender, present bowel sounds Extremities: no tenderness, no cyanosis Plan Problems: (1) Tachycardia (2) Sepsis Assessment & Plan: 29-year-old male with leukocytosis anemia lactic acidosis. Patient admitted further care management identified to have significant secretions from tracheostomy trach collar with sutures in place causing distortion. Abdominal G-tube in place. Patient forming deep tissue injury. BMI 22 labs noted. Patient a phasic unable to respond to commands and in a vegetative state at this time. Patient with a UTI on antibiotics. Right PIC in place may need to be replaced. Turn every 2 hours offload pressure with air mattress and pillows. Trach sutures removed trach tie evaluated trach in place secretions suction. Continue with secretions chest x-ray reviewed no acute infiltrative process Leukocytosis trending down lactic acid is improving continue fluid resuscitation IV antibiotics improving labs improved cont current care trach care fevers resolved wbc resolved improved CT head noted neurosurg eval Thank you will follow with recommendations Brain: Extensive right hemispheric parenchymal volume loss and edema. Increased hyperdense of the right frontal parenchyma. Hypodensities of the left frontal, parietal, and temporal regions which may be sequela of prior infarct. No hemorrhage. No significant white matter disease. Midline shift: Mild, 6 mm, right to left midline shift. Ventricles: Exvacuodilatation of the ventricles. Bones/joints: Postsurgical changes from extensive prior right craniotomy. Large extra-axial fluid collection extending beyond the calvarium in region of prior craniotomy. The fluid extends beyond the calvarial region by approximately 4.0 cm in axial dimension No acute fracture. Soft tissues: Unremarkable. Sinuses: Unremarkable as visualized. No acute sinusitis. Mastoid air cells: Unremarkable as visualized. No mastoid effusion. IMPRESSION: 1. Large extra-axial fluid collection of the right hemisphere extending beyond the region of large frontal craniotomy. There is mild right to left midline shift measuring approximately 6 mm. 2. Hyperdensity of the residual right parenchyma suggestive of parenchymal contusion. 3. Extensive right parenchymal volume loss. May be sequela of prior infarct versus postsurgical change. 4. Hyperdensities throughout the left cerebellum, suggestive of prior ischemic process. Artifacts: Blooming artifact is noted within the right peripheral residual parenchyma likely representing hemosiderin deposition. Brain: Extensive right hemispheric parenchymal volume loss and edema. Mild encephalomalacia of the left hemisphere with expansion of the CSF containing spaces. No hemorrhage. Midline shift: There is proximal is 7 mm of right to left midline shift. Ventricles: Unremarkable. No ventriculomegaly. Bones/joints: There is significant expansion of the CSF containing spaces of the right hemisphere with extension beyond the calvarium through a craniotomy defect measuring approximately 4.3 cm. Sinuses: Unremarkable as visualized. No acute sinusitis. Mastoid air cells: Unremarkable as visualized. No mastoid effusion. Orbits: Unremarkable as visualized. Other vasculature: Following demonstration of intravenous contrast, there is no evidence of abnormal enhancement. IMPRESSION: 1. No obvious hemorrhage or stroke. Artifact on DWI sequence partially limits evaluation. Otherwise, no significant interval change from recent CT. 2. Large extra-axial fluid collection pending through craniotomy defect. There is mild right to left midline shift measuring in proximal 7 mm. 3. Extensive right parenchymal volume loss. May be sequela of prior infarct versus postsurgical/post traumatic change. 4. Encephalization of the left hemisphere with expansion of CSF containing spaces. DAILY ESTIMATED NEEDS: Needs based on Pulmonary, 68kg 25-30 kcals/kg 7469-3748 total kcals 1.25-1.5 g protein/kg 85-102 g total protein 25-30 mL/kg 6227-2851 total fluid mLs NUTRITION DIAGNOSIS: Swallowing difficulty r/t TBI and resp distress, as evidenced by pt is vent dep via T-collar, PEG dep. CURRENT TF:Jevity 1.2 @70 ml x20 hrs ENTERAL NUTRITION RECOMMENDATIONS: Increase TF to goal of 75ml/hr x20 hrs to provide 1500ml, 1800 kcal, 83g pro, 1211ml free H2O - Rec to INCREASE TF by 5ml/hr to better meet est kcal and pro needs. - Flush per MD/ HOB over 30 degrees ADDITIONAL RECOMMENDATIONS: 1) Skin integrity: add CATALINA BID via PEG (added 5g pro to meet est pro needs) 2) Wound care eval 3) Per SNF: 5'5" and 150#, maintain calibrated bed scale wts Carl Hernandez Jun 05, 2020 15:52
[2020-06-05 16:00] VITALS: BP 159/108
--- NOTE | 2020-06-05 16:00 | Electroencephalogram ---
DATE OF PROCEDURE: 06/04/2020 REQUESTING PHYSICIAN: Glenn Kuhn MD READING PHYSICIAN: Harshad Hughes MD PROCEDURE PERFORMED: EEG. HISTORY: This EEG was performed on a 29-year-old gentleman with history of significant head trauma and a seizure disorder. The purpose of this EEG was to evaluate the patient for ongoing ictal or interictal phenomena. TECHNICAL NOTE: This EEG was performed on a [employer] Digital [employer] Unit with electrodes placed on the scalp according to the International 10-20 system. [id number] and [id number] montages were used. The EEG was technically satisfactory and was performed while the patient was in the reportedly awake state. OBSERVATIONS: In the reportedly awake state, the background activity consisted of 4-5 Hz theta with intermixed delta frequencies over the left hemisphere and 2-3 Hz delta activity of a significantly lower amplitude over the right hemisphere. No significant change in the EEG background was noted throughout the tracing. No definite epileptiform discharges were seen. IMPRESSION: This is an abnormal EEG characterized by: 1. Slowing of the background in the 4-5 Hz theta range with intermixed delta frequencies over the left hemisphere. 2. Slowing of the background in the 2-3 Hz delta range with significantly lower amplitudes over the right hemisphere. COMMENT: This study is consistent with: 1. Generalized cerebral dysfunction compatible with a significant generalized encephalopathy. 2. Right greater than left hemispheric dysfunction. Please note that no interictal discharges were seen during this EEG. Harshad Hughes M.D. M.S.P.H. Clinical Neurophysiologist DR: VIRAL/bela JOB#: [id number] MTDD
--- NOTE | 2020-06-05 16:23 | Pulmonology Progress Note ---
Subjective ROS Limited/Unobtainable: Yes Constitutional: Reports: fever, other - Pz=433.8 last night Allergies: Coded Allergies: No Known Allergies (Unverified , 05/30/20) Objective Last 24 Hour Vital Signs Date Time Temp Pulse Resp B/P (MAP) Pulse Ox O2 Delivery O2 Flow Rate FiO2 06/05/20 16:00 99.5 120 22 159/108 (125) 98 06/05/20 13:10 99 Cool Aerosol 5.0 28 06/05/20 12:00 99 06/05/20 11:53 99.3 113 26 153/109 (124) 96 06/05/20 09:00 Trach Collar 2.0 06/05/20 08:55 112 127/77 06/05/20 08:55 127/77 06/05/20 08:00 98.8 112 20 127/77 (94) 98 06/05/20 08:00 110 06/05/20 07:15 98 Cool Aerosol 5.0 28 06/05/20 07:06 99.0 06/05/20 04:00 100.8 101 18 112/67 (82) 99 06/05/20 04:00 98 06/05/20 01:30 100 06/05/20 00:41 98 T-Piece 5.0 28 06/05/20 00:30 100 06/05/20 00:00 134 06/05/20 00:00 98.6 135 20 131/80 (97) 100 06/04/20 22:00 126 117/45 06/04/20 21:52 99.5 06/04/20 21:00 Trach Collar 5.0 06/04/20 21:00 99.5 06/04/20 20:00 125 06/04/20 20:00 101.8 126 26 117/45 (69) 100 06/04/20 19:20 99 T-Piece 5.0 28 06/04/20 18:15 147/83 Intake and Output 06/04/20 06/05/20 19:00 07:00 Intake Total 700 ml Output Total 1400 ml 600 ml Balance -700 ml -600 ml Tube Feeding 700 ml Output Urine Total 1400 ml 600 ml # Bowel Movements 2 Current Medications Medications (Trade) Dose Ordered Sig/Anuj Route PRN Reason Start Time Stop Time Status Last Admin Dose Admin Acetaminophen (Tylenol) 650 mg Q6H PRN ORAL Temp >100.5 05/30/20 18:45 06/29/20 18:44 06/05/20 06:36 Chlorhexidine Gluconate (Laura-Hex 2%) 1 applic DAILY@2000 TOPIC 06/01/20 20:00 08/30/20 19:59 06/04/20 21:19 Clonidine HCl (Catapres Tab) 0.1 mg Q4H PRN ORAL SBP above 150; DBP above 95 06/02/20 23:00 08/31/20 22:59 06/03/20 15:52 Enoxaparin Sodium (Lovenox) 80 mg EVERY 12 HOURS SUBQ 05/30/20 21:00 08/28/20 20:59 06/05/20 08:57 Famotidine (Pepcid) 20 mg DAILY GT 05/31/20 09:00 08/29/20 08:59 06/05/20 08:55 Gadobutrol (Gadavist) 7.5 mmol NOW PRN IV Radiology Procedure 06/04/20 13:00 06/08/20 12:59 Lacosamide (Vimpat) 50 mg BID ORAL 05/31/20 09:00 08/29/20 08:59 06/05/20 08:55 Lactobacillus Acidophilus (Culturelle) 1 tab DAILY GT 05/31/20 09:00 08/29/20 08:59 06/05/20 08:55 Lisinopril (ZestriL) 20 mg BID GT 06/03/20 09:00 07/03/20 08:59 06/05/20 08:55 Metoprolol Tartrate (Lopressor) 100 mg EVERY 12 HOURS ORAL 06/05/20 09:00 09/03/20 08:59 06/05/20 08:55 Sevelamer Carbonate (Renvela) 800 mg THREE TIMES A DAY GT 05/31/20 09:00 08/29/20 08:59 06/05/20 12:44 Sodium Chloride 1,000 ml @ 50 mls/hr Q20H IV 05/31/20 00:00 06/30/20 00:00 06/04/20 13:06 Sucralfate (Carafate) 1 gm BID ORAL 05/31/20 09:00 08/29/20 08:59 06/05/20 09:14 Thyroid (Erick Thyroid) 15 mg DAILY GT 05/31/20 09:00 06/30/20 08:59 06/05/20 08:56 Assessment/Plan Assessment/Plan Pulmonary Progress Note Subjective ROS Limited/Unobtainable: Yes Constitutional: Allergies: Coded Allergies: No Known Allergies (Unverified , 05/30/20) Subjective d/w RN d/wNeurology Awaiting transfer to [facility] Neurosurgery when bed available Objective Vital Signs noted Objective WDWN NAD clear breath sounds bilaterally without rhonchi or wheeze [id number] tachy without MRG NABS nontender GT no CCE nonfocal trach poor LOC Microbiology Date/Time Source Procedure Growth Status 06/01/20 01:15 Stool Clostridium difficile Toxin Assay - Final Complete Laboratory Tests noted MRI: IMPRESSION: 1. No obvious hemorrhage or stroke. Artifact on DWI sequence partially limits evaluation. Otherwise, no significant interval change from recent CT. 2. Large extra-axial fluid collection pending through craniotomy defect. There is mild right to left midline shift measuring in proximal 7 mm. 3. Extensive right parenchymal volume loss. May be sequela of prior infarct versus postsurgical/post traumatic change. 4. Encephalization of the left hemisphere with expansion of CSF containing spaces. Assessment/Plan Impression: Sepsis Urinary Tract Infection TBI Extraaxial collection Seizures Hypothyroidism Sinus Tachycardia Hypertension Plan: Neurology Consultation,case d/w Dr Kuhn,awaiting to [facility] IV Antibiotics IVF O2 PRN TC PPX Monitor labs adjust beta blockade as pulse and bp still high; consider cardizem DVT prophylaxis- full dose ID evaluation noted await cultures- negative repeat wbc- normal impression, plan, and exam edited and reviewed in detail care discussed with Garcia Hare MD Jun 05, 2020 16:23
--- NOTE | 2020-06-05 16:58 | Diagnostic Imaging Report ---
FILM CXR 1 VIEW INDICATION: Infection COMPARISON: June 01, 2020 FINDINGS: Single frontal view demonstrates a normal cardiomediastinal silhouette. Improved appearance of the lungs from the prior exam with bilateral lower lobe infiltrates. No pleural effusions. The visualized osseous structures are within normal limits. Tracheostomy tube in place. Right-sided PICC line with tip in the superior vena cava. IMPRESSION: Bilateral lower lobe infiltrates with improved appearance from the prior study.
--- NOTE | 2020-06-05 19:16 | NUR ---
NURSE NOTES: Received report from KADEEM Haynes. Patient is on bed, alert and oriented x 0, obtunded, withdraws to pain. assurance senior manager is in place, shows sinus tachycardia. Patient is on t-piece, fio2 25%, 4Lpm. G-tube is in place, on jevity 1.2 @ 70 cc/hour for 20 hours. Off 8 a.m to 12 noon. Daniels catheter is in place, f-16, drained via gravity with yellow color urine output. With double lumen PICC line, running NS @ 50 cc/hour. With cooling blanket on. Safety measures are in place, bed in lowest and locked position, side rails up x 2. Will continue plan of care.
--- NOTE | 2020-06-05 19:22 | NUR ---
NURSE HAND-OFF REPORT: Important Events on Shift:[] Patient Status: [] Diet: [] Pending Orders: [] Pending Results/Labs:[] Pending MD notification:[] Latest Vital Signs: Temperature 99.5 , Pulse 99 , B/P 159 /108 , Respiratory Rate 22 , O2 SAT 98 , Trach Collar, O2 Flow Rate 5.0 . Vital Sign Comment: [] EKG Rhythm: Sinus Tachycardia Rhythm change?: Y MD Notified?: N -DR.BALFE BO Response: No New Orders Received Latest Whitley Fall Score: 50 Fall Risk: High Risk Safety Measures: Call light Within Reach, Bed Alarm Zone 1, Side Rails Side Rails x2, Bed position Low and Locked. Fall Precautions: Yellow Socks Yellow Gown Door Sign Patient Fall Education Report given to [KADEEM Mora].
[2020-06-05 20:00] VITALS: BP 143/99
[2020-06-05] MEDS: Dyna-Hex 2% Top Sol 2oz TOPIC SCH (20:32)
--- NOTE | 2020-06-05 21:30 | NUR ---
NURSE NOTES: Patient's sister called (Nusrat) and asking for a detailed explanation of MRI of the brain result that was done 06/04. Infromed Dr. Higgins/Dr. Vasquez, provided patient's sister contact number, and Dr. Vasquez states that he will call.
--- NOTE | 2020-06-05 21:35 | NUR ---
NURSE NOTES: Received an order from Dr. Vasquez, Will carry out.
[2020-06-06] VITALS: BP 155/92
[2020-06-06 04:00] VITALS: BP 152/93
[2020-06-06 07:15] LABS: BASOPHILS % (AUTO) 1.2 % (0.0-2.0); EOSINOPHILS % (AUTO) 2.5 % (0.0-3.0); HEMATOCRIT 33.5 % (42.0-52.0); HEMOGLOBIN 11.5 G/DL (14.2-18.0); LYMPHOCYTES % (AUTO) 13.6 % (20.0-45.0); MEAN CORPUSCULAR VOLUME 86 FL (80-99); MONOCYTES % (AUTO) 8.4 % (1.0-10.0); NEUTROPHILS % (AUTO) 74.4 % (45.0-75.0); PLATELET COUNT 444 K/UL (150-450); RED CELL DISTRIBUTION WIDTH 14.1 % (11.6-14.8); WHITE BLOOD COUNT 13.3 K/UL (4.8-10.8)
[2020-06-06 07:19] LABS: ANION GAP 7 mmol/L (5-15); BLOOD UREA NITROGEN 9 mg/dL (7-18); CALCIUM 9.2 MG/DL (8.5-10.1); CARBON DIOXIDE 27 MMOL/L (21-32); CHLORIDE 96 MMOL/L (98-107); CREATININE 0.5 MG/DL (0.55-1.30); POTASSIUM 4.3 MMOL/L (3.5-5.1); SODIUM 130 MMOL/L (136-145)
--- NOTE | 2020-06-06 07:25 | NUR ---
NURSE HAND-OFF REPORT: Important Events on Shift: Patient has on/off episode of fever. Sinus tachycardia Patient Status: Patient is on bed, had fever yesterday eveining. Diet: Jevity 1.2 @ 70 cc/hour for 20 hours Pending Orders: none Pending Results/Labs: Pending MD notification:none Latest Vital Signs: Temperature 99.5 , Pulse 121 , B/P 152 /93 , Respiratory Rate 18 , O2 SAT 100 , Trach Collar, O2 Flow Rate 2.0 . Vital Sign Comment: stable EKG Rhythm: Sinus Tachycardia Rhythm change?: N MD Notified?: N -DR.BALFE BO Response: No New Orders Received Latest Whitley Fall Score: 70 Fall Risk: High Risk Safety Measures: Call light Within Reach, Bed Alarm Zone 1, Side Rails Side Rails x2, Bed position Low and Locked. Fall Precautions: Yellow Socks Yellow Gown Door Sign Patient Fall Education Report given to KADEEM Leonardo.
[2020-06-06 08:00] VITALS: BP 155/102
--- NOTE | 2020-06-06 08:00 | Pulmonology Progress Note ---
Subjective ROS Limited/Unobtainable: Yes Constitutional: Reports: fever, other - Py=799.8 last night Allergies: Coded Allergies: No Known Allergies (Unverified , 05/30/20) Subjective weekend events noted neuro appreciated Objective Last 24 Hour Vital Signs Date Time Temp Pulse Resp B/P (MAP) Pulse Ox O2 Delivery O2 Flow Rate FiO2 06/06/20 04:00 120 06/06/20 04:00 99.5 121 18 152/93 (112) 100 06/06/20 00:58 155/92 06/06/20 00:00 114 06/06/20 00:00 99.2 116 18 155/92 (113) 96 06/05/20 21:33 100.1 06/05/20 21:00 100.5 06/05/20 21:00 Trach Collar 2.0 06/05/20 20:33 129 143/99 06/05/20 20:00 128 06/05/20 20:00 99.9 129 18 143/99 (114) 99 06/05/20 19:45 98 Cool Aerosol 5.0 28 06/05/20 17:14 159/108 06/05/20 16:00 99.5 120 22 159/108 (125) 98 06/05/20 16:00 99 06/05/20 13:10 99 Cool Aerosol 5.0 28 06/05/20 12:00 99 06/05/20 11:53 99.3 113 26 153/109 (124) 96 06/05/20 09:00 Trach Collar 2.0 06/05/20 08:55 112 127/77 06/05/20 08:55 127/77 06/05/20 08:00 98.8 112 20 127/77 (94) 98 06/05/20 08:00 110 Intake and Output 06/05/20 06/06/20 19:00 07:00 Intake Total 730 ml 1010 ml Output Total 1700 ml Balance -970 ml 1010 ml Intake Free Water 100 ml IV Total 660 ml 350 ml Tube Feeding 70 ml 560 ml Output Urine Total 1700 ml Objective WDWN bulging noted scalp clear breath sounds bilaterally without rhonchi or wheeze [id number] tachy without MRG NABS nontender GT no CCE nonfocal trach poor LOC Laboratory Tests 06/06/20 05:46: White Blood Count 13.3H, Red Blood Count 3.90L, Hemoglobin 11.5L, Hematocrit 33.5L, Mean Corpuscular Volume 86, Mean Corpuscular Hemoglobin 29.5, Mean Corpuscular Hemoglobin Concent 34.4, Red Cell Distribution Width 14.1, Platelet Count 444, Mean Platelet Volume 5.6L, Neutrophils (%) (Auto) 74.4, Lymphocytes (%) (Auto) 13.6L, Monocytes (%) (Auto) 8.4, Eosinophils (%) (Auto) 2.5, Basophils (%) (Auto) 1.2, Sodium Level 130L, Potassium Level 4.3, Chloride Level 96L, Carbon Dioxide Level 27, Anion Gap 7, Blood Urea Nitrogen 9, Creatinine 0.5L, Estimat Glomerular Filtration Rate > 60, Glucose Level 109H, Calcium Level 9.2 Current Medications Medications (Trade) Dose Ordered Sig/Anuj Route PRN Reason Start Time Stop Time Status Last Admin Dose Admin Acetaminophen (Tylenol) 650 mg Q6H PRN ORAL Temp >100.5 05/30/20 18:45 06/29/20 18:44 06/05/20 21:03 Chlorhexidine Gluconate (Laura-Hex 2%) 1 applic DAILY@1999 TOPIC 06/01/20 20:00 08/30/20 19:59 06/05/20 20:32 Clonidine HCl (Catapres Tab) 0.1 mg Q4H PRN ORAL SBP above 150; DBP above 95 06/02/20 23:00 08/31/20 22:59 06/06/20 00:58 Enoxaparin Sodium (Lovenox) 80 mg EVERY 12 HOURS SUBQ 05/30/20 21:00 08/28/20 20:59 06/05/20 20:34 Famotidine (Pepcid) 20 mg DAILY GT 05/31/20 09:00 08/29/20 08:59 06/05/20 08:55 Gadobutrol (Gadavist) 7.5 mmol NOW PRN IV Radiology Procedure 06/04/20 13:00 06/08/20 12:59 Lacosamide (Vimpat) 50 mg BID ORAL 05/31/20 09:00 08/29/20 08:59 06/05/20 17:14 Lactobacillus Acidophilus (Culturelle) 1 tab DAILY GT 05/31/20 09:00 08/29/20 08:59 06/05/20 08:55 Lisinopril (ZestriL) 20 mg BID GT 06/03/20 09:00 07/03/20 08:59 06/05/20 17:14 Metoprolol Tartrate (Lopressor) 100 mg EVERY 12 HOURS ORAL 06/05/20 09:00 09/03/20 08:59 06/05/20 20:33 Sevelamer Carbonate (Renvela) 800 mg THREE TIMES A DAY GT 05/31/20 09:00 08/29/20 08:59 06/05/20 17:14 Sodium Chloride 1,000 ml @ 50 mls/hr Q20H IV 05/31/20 00:00 06/30/20 00:00 06/05/20 20:36 Sucralfate (Carafate) 1 gm BID ORAL 05/31/20 09:00 08/29/20 08:59 06/05/20 17:14 Thyroid ([place] Thyroid) 15 mg DAILY GT 05/31/20 09:00 06/30/20 08:59 06/05/20 08:56 Assessment/Plan Assessment/Plan Impression: Sepsis Urinary Tract Infection TBI Seizures Hypothyroidism Sinus Tachycardia Hypertension abnormal MRI/ CT Plan: IV Antibiotics IVF O2 PRN TC PPX Monitor labs adjust bp and beta blockade as needed transfer to [facility] [place] for neurosurgery - d/w CM will update sister DVT prophylaxis- full dose ID evaluation noted await cultures- negative repeat wbc- normal full dose lovenox impression, plan, and exam edited and reviewed in detail care discussed with Aime Browne MD Jun 06, 2020 08:00
[2020-06-06] MEDS: Sucralfate 1gm tab ORAL SCH ×2 (08:21→17:38)
[2020-06-06] MEDS: Lactobacillus-GG tablet GT SCH (08:21)
[2020-06-06] MEDS: Lisinopril 10mg tab GT SCH ×2 (08:21→17:38)
[2020-06-06] MEDS: Metoprolol Tartrate 100mg tab ORAL SCH ×2 (08:22→20:49)
[2020-06-06] MEDS: Lacosamide 50mg tablet ORAL SCH ×2 (08:22→17:38)
[2020-06-06] MEDS: Renvela 800mg Pkt GT SCH ×3 (08:22→17:38)
[2020-06-06] MEDS: Enoxaparin 80mg Inj SUBQ SCH ×2 (08:23→20:48)
--- NOTE | 2020-06-06 08:30 | Consultation ---
DATE OF CONSULTATION: 06/04/2020 NEUROLOGICAL CONSULTATION CONSULTING PHYSICIAN: Glenn Kuhn MD HISTORY OF PRESENT ILLNESS: This is the first [facility] admission for this 29-year-old man with status post traumatic brain injury, with right-sided craniotomy, seizures, in a vegetative state. The patient was admitted from a long-term facility with altered mental status, sepsis, and tachycardia. He has a history of hypothyroidism mental status. The patient was admitted with a white count of over 20,000, hemoglobin of 9.4, normochromic normocytic indices with normal platelets, sedimentation rate of 110, and elevated C-reactive protein. Today his white count is normal. His initial chemistries revealed a sodium of 121 with a chloride of 94, BUN 22, creatinine of 1.2, elevated ferritin, elevated liver function tests including LDH, low albumin, normal lipase. The patient is on Keppra with a drug level of 4 on 05/30/2020. Urinalysis revealed some moderate bacteria in the urine 0-2 wbc's per high power field, leukocyte esterase, protein was +2. Rest of the study is unremarkable. ProTime is elevated at 38.4 with an INR of 1.2, aPTT is 34, D-dimer is 2.42. On 06/01/20, the aPTT was 25. Blood cultures had no growth after 48 hours. sarsnegative. Chest x-rays on 05/30/2020 were pretty much clear. The CT scan of the brain done yesterday was significantly abnormal. Of note, there is a brvyn-oh-ytor shift of 6 mm and a large extra-axial fluid collection extending beyond the calvaria in the region of the frontal craniotomy. No acute fracture is noted. There is extensive right hemispheric parenchymal volume loss and edema with increased hypodensities at the right frontal, parietal, and temporal regions were noted, which may be sequelae of prior infarct. No hemorrhage noted. Venous duplex scan negative for any lower extremity deep venous thrombosis bilaterally. Abdominal x-ray revealed a gastrostomy in place, rectal catheter in place. There is no acute process noted. Blood gas revealed low pCO2 of 28.9 and pO2 of 79.6, pH is 7.479 The patient acetaminophen, clonidine for hypertension, Lovenox 30 mg subcu every 12 hours, famotidine 20 mg daily, Vimpat 50 mg b.i.d., propranolol 80 mg q.8h., Renvela _ The patient is on keppra PAST MEDICAL HISTORY: 1. GERD. 2. Seizures, no obvious active seizures at this time. 3. Hypothyroidism. 4. Hypertension. ALLERGIES: No known allergies. HABITS: None available. FAMILY HISTORY: None available. REVIEW OF SYSTEMS: Unavailable. PHYSICAL EXAMINATION: GENERAL: He is a well-developed, well-nourished male with multiple tattoos, currently in the bed, intubated, traumatized with a bulging temporoparietal area. VITAL SIGNS: Temperature is 96.1 degrees, pulse is 97 and regular, respirations 20, blood pressure is 147/82, pulse oximetry is 98. HEENT: He has a large surgical scar on the top right parietal head and bulging right parietotemporal area. Poor dentition. NECK: He has a tracheostomy tube. His neck is stiff auscultated. LUNGS: Bilateral rhonchi noted . CARDIOVASCULAR: Heart tones not auscultated. ABDOMEN: He has a gastrostomy tube. There is no obvious tenderness, masses, or organomegaly. BACK: Could not be examined. EXTREMITIES: Multiple damages on his knees multiple tattoos noted. NEUROLOGIC: Mental Status: The patient is unresponsive to voice and pain CRANIAL NERVE EXAMINATION: CRANIAL NERVE II: Could not be examined. CRANIAL NERVES III, IV, AND : roving eye movements, especially the left side CRANIAL NERVE V: Corneals appeared to be decreased bilaterally. CRANIAL NERVE VII: Could not be determined. CRANIAL NERVE VIII: Could not be determined. CRANIAL NERVES IX AND X: Gagging response noted. CRANIAL NERVE XI: Could not be determined. CRANIAL NERVE XII: Could not be determined. MUSCLE EXAMINATION: Muscle tone was minimally increased in the left upper and both lower extremities, increased in the right upper extremity Reflexes, +1 in the biceps, brachioradialis, .0 at ankles and knees SENSORY EXAMINATION: little reaction todeep pain IMPRESSION: 1. The patient has altered mental status tbi mild idbjy-xh-mliu shift. possily to fluid collection 2. sepsisdue toabdominal sepsis of the biliary tract or hepatic sepsis He could also have infection in the area of the surgery. Did respond to antibiotics. The patient could be having nonconvulsive seizures, but I doubt as I could not see any flutter in his eyelids or a significant nystagmus. The question is what to do with this patient. He is responding to antibiotics, but continues to have a neurosurgical evaluation . He might need an EEG. However, we would like to transfer this patient if possible. PLAN: 1. Keppra 750 mg b.i.d. to continue mri before trying to get the patient transferred. 2. Neurosurgical evaluation. 3. B12, methylmalonic acid level. 4.EEG, which can be done after transfer . Thank you for this interesting case. Glenn Kuhn MD DR: RIKY JOB#: [id number] CC: NADEEM
--- NOTE | 2020-06-06 11:01 | Infectious Diseases Prog Note ---
Assessment/Plan Assessment/Plan antibiotics : none A 1. fever improving COVID 19 negative 2. ? scabies s/p rx 3. leucocytosis improving 4. traumatic brain injury 5. seizures P 1. continue off antibiotics 2. will follow up clinically Subjective ROS Limited/Unobtainable: Yes Allergies: Coded Allergies: No Known Allergies (Unverified , 05/30/20) Objective Last 24 Hour Vital Signs Date Time Temp Pulse Resp B/P (MAP) Pulse Ox O2 Delivery O2 Flow Rate FiO2 06/06/20 09:00 Trach Collar 2.0 06/06/20 08:22 129 155/102 06/06/20 08:21 155/102 06/06/20 08:16 155/102 06/06/20 08:00 123 06/06/20 08:00 99.2 129 20 155/102 (119) 100 06/06/20 07:59 98 Cool Aerosol 5.0 28 06/06/20 04:00 120 06/06/20 04:00 99.5 121 18 152/93 (112) 100 06/06/20 00:58 155/92 06/06/20 00:00 114 06/06/20 00:00 99.2 116 18 155/92 (113) 96 06/05/20 21:33 100.1 06/05/20 21:00 100.5 06/05/20 21:00 Trach Collar 2.0 06/05/20 20:33 129 143/99 06/05/20 20:00 128 06/05/20 20:00 99.9 129 18 143/99 (114) 99 06/05/20 19:45 98 Cool Aerosol 5.0 28 06/05/20 17:14 159/108 06/05/20 16:00 99.5 120 22 159/108 (125) 98 06/05/20 16:00 99 06/05/20 13:10 99 Cool Aerosol 5.0 28 06/05/20 12:00 99 06/05/20 11:53 99.3 113 26 153/109 (124) 96 Height (Feet): 5 Height (Inches): 10.00 Weight (Pounds): 160 HEENT: status post trach Respiratory/Chest: lungs clear Cardiovascular: normal rate, regular rhythm, no gallop/murmur Abdomen: soft, non tender, other - GT Extremities: no edema Laboratory Tests Test 06/06/20 05:46 White Blood Count 13.3 K/UL (4.8-10.8) H Red Blood Count 3.90 M/UL (4.70-6.10) L Hemoglobin 11.5 G/DL (14.2-18.0) L Hematocrit 33.5 % (42.0-52.0) L Mean Corpuscular Volume 86 FL (80-99) Mean Corpuscular Hemoglobin 29.5 PG (27.0-31.0) Mean Corpuscular Hemoglobin Concent 34.4 G/DL (32.0-36.0) Red Cell Distribution Width 14.1 % (11.6-14.8) Platelet Count 444 K/UL (150-450) Mean Platelet Volume 5.6 FL (6.5-10.1) L Neutrophils (%) (Auto) 74.4 % (45.0-75.0) Lymphocytes (%) (Auto) 13.6 % (20.0-45.0) L Monocytes (%) (Auto) 8.4 % (1.0-10.0) Eosinophils (%) (Auto) 2.5 % (0.0-3.0) Basophils (%) (Auto) 1.2 % (0.0-2.0) Sodium Level 130 MMOL/L (136-145) L Potassium Level 4.3 MMOL/L (3.5-5.1) Chloride Level 96 MMOL/L (98-107) L Carbon Dioxide Level 27 MMOL/L (21-32) Anion Gap 7 mmol/L (5-15) Blood Urea Nitrogen 9 mg/dL (7-18) Creatinine 0.5 MG/DL (0.55-1.30) L Estimat Glomerular Filtration Rate > 60 mL/min (>60) Glucose Level 109 MG/DL (74-106) H Calcium Level 9.2 MG/DL (8.5-10.1) Current Medications Medications (Trade) Dose Ordered Sig/Anuj Route PRN Reason Start Time Stop Time Status Last Admin Dose Admin Acetaminophen (Tylenol) 650 mg Q6H PRN ORAL Temp >100.5 05/30/20 18:45 06/29/20 18:44 06/05/20 21:03 Chlorhexidine Gluconate (Laura-Hex 2%) 1 applic DAILY@2000 TOPIC 06/01/20 20:00 08/30/20 19:59 06/05/20 20:32 Clonidine HCl (Catapres Tab) 0.1 mg Q4H PRN ORAL SBP above 150; DBP above 95 06/02/20 23:00 08/31/20 22:59 06/06/20 08:16 Enoxaparin Sodium (Lovenox) 80 mg EVERY 12 HOURS SUBQ 05/30/20 21:00 08/28/20 20:59 06/06/20 08:23 Famotidine (Pepcid) 20 mg DAILY GT 05/31/20 09:00 08/29/20 08:59 06/06/20 08:21 Gadobutrol (Gadavist) 7.5 mmol NOW PRN IV Radiology Procedure 06/04/20 13:00 06/08/20 12:59 Lacosamide (Vimpat) 50 mg BID ORAL 05/31/20 09:00 08/29/20 08:59 06/06/20 08:22 Lactobacillus Acidophilus (Culturelle) 1 tab DAILY GT 05/31/20 09:00 08/29/20 08:59 06/06/20 08:21 Lisinopril (ZestriL) 20 mg BID GT 06/03/20 09:00 07/03/20 08:59 06/06/20 08:21 Metoprolol Tartrate (Lopressor) 100 mg EVERY 12 HOURS ORAL 06/05/20 09:00 09/03/20 08:59 06/06/20 08:22 Sevelamer Carbonate (Renvela) 800 mg THREE TIMES A DAY GT 05/31/20 09:00 08/29/20 08:59 06/06/20 08:22 Sodium Chloride 1,000 ml @ 50 mls/hr Q20H IV 05/31/20 00:00 06/30/20 00:00 06/05/20 20:36 Sucralfate (Carafate) 1 gm BID ORAL 05/31/20 09:00 08/29/20 08:59 06/06/20 08:21 Thyroid ([place] Thyroid) 15 mg DAILY GT 05/31/20 09:00 06/30/20 08:59 06/06/20 08:24 Dl Mcgowan MD Jun 06, 2020 11:01
--- NOTE | 2020-06-06 11:23 | NUR ---
SPEECH THERAPY ASSISTANT NOTES [place]PO[place] MITZI [place] [facility] [place] [facility] ARE AT CAPACITY[place] [id number]WILL CONTINUE TO DCP TO AN ACCEPTING FACILITY. Addendum: 06/06/20 at 1145 by EVANS NAJERA RN RN SPOKE WITH KURT FROM [facility]SF[facility] FAXED. WAITING FOR CALL BACK. Addendum: 06/06/20 at 1216 by EVANS NAJERA RN RN SPOKE WITH LAUREN FROM [facility],FAX RECEIVED.LAUREN WILL PRESENT TO THE NEURO TEAM FOR ACCEPTANCE. WILL FOLLOW UP. Addendum: 06/06/20 at 1406 by EVANS NAJERA RN RN SPOKE WITH LAUREN FROM [facility], INQUIRY STILL UNDER REVIEW WITH . WILL FOLLOW UP.
[2020-06-06 12:00] VITALS: BP 145/90
--- NOTE | 2020-06-06 13:59 | Surgery Progress Note ---
Surgery Progress Note Subjective Additional Comments remains febrile. leukocytosis transfer to [facility] for neurosurgery eval initiated Objective Last 24 Hour Vital Signs Date Time Temp Pulse Resp B/P (MAP) Pulse Ox O2 Delivery O2 Flow Rate FiO2 06/06/20 12:00 99.5 106 22 145/90 (108) 100 06/06/20 09:00 Trach Collar 2.0 06/06/20 08:22 129 155/102 06/06/20 08:21 155/102 06/06/20 08:16 155/102 06/06/20 08:00 123 06/06/20 08:00 99.2 129 20 155/102 (119) 100 06/06/20 07:59 98 Cool Aerosol 5.0 28 06/06/20 04:00 120 06/06/20 04:00 99.5 121 18 152/93 (112) 100 06/06/20 00:58 155/92 06/06/20 00:00 114 06/06/20 00:00 99.2 116 18 155/92 (113) 96 06/05/20 21:33 100.1 06/05/20 21:00 100.5 06/05/20 21:00 Trach Collar 2.0 06/05/20 20:33 129 143/99 06/05/20 20:00 128 06/05/20 20:00 99.9 129 18 143/99 (114) 99 06/05/20 19:45 98 Cool Aerosol 5.0 28 06/05/20 17:14 159/108 06/05/20 16:00 99.5 120 22 159/108 (125) 98 06/05/20 16:00 99 I&O Intake and Output 06/05/20 06/06/20 19:00 07:00 Intake Total 730 ml 1010 ml Output Total 1700 ml Balance -970 ml 1010 ml Intake Free Water 100 ml IV Total 660 ml 350 ml Tube Feeding 70 ml 560 ml Output Urine Total 1700 ml Dressing: saturated Cardiovascular: RSR Respiratory: decreased breath sounds Abdomen: soft, non-tender, present bowel sounds, other, non-distended Extremities: no edema, no tenderness, no cyanosis Laboratory Tests Test 06/06/20 05:46 White Blood Count 13.3 K/UL (4.8-10.8) H Red Blood Count 3.90 M/UL (4.70-6.10) L Hemoglobin 11.5 G/DL (14.2-18.0) L Hematocrit 33.5 % (42.0-52.0) L Mean Corpuscular Volume 86 FL (80-99) Mean Corpuscular Hemoglobin 29.5 PG (27.0-31.0) Mean Corpuscular Hemoglobin Concent 34.4 G/DL (32.0-36.0) Red Cell Distribution Width 14.1 % (11.6-14.8) Platelet Count 444 K/UL (150-450) Mean Platelet Volume 5.6 FL (6.5-10.1) L Neutrophils (%) (Auto) 74.4 % (45.0-75.0) Lymphocytes (%) (Auto) 13.6 % (20.0-45.0) L Monocytes (%) (Auto) 8.4 % (1.0-10.0) Eosinophils (%) (Auto) 2.5 % (0.0-3.0) Basophils (%) (Auto) 1.2 % (0.0-2.0) Sodium Level 130 MMOL/L (136-145) L Potassium Level 4.3 MMOL/L (3.5-5.1) Chloride Level 96 MMOL/L (98-107) L Carbon Dioxide Level 27 MMOL/L (21-32) Anion Gap 7 mmol/L (5-15) Blood Urea Nitrogen 9 mg/dL (7-18) Creatinine 0.5 MG/DL (0.55-1.30) L Estimat Glomerular Filtration Rate > 60 mL/min (>60) Glucose Level 109 MG/DL (74-106) H Calcium Level 9.2 MG/DL (8.5-10.1) Plan Problems: (1) Tachycardia (2) Sepsis Assessment & Plan: 29-year-old male with leukocytosis anemia lactic acidosis. Patient admitted further care management identified to have significant secretions from tracheostomy trach collar with sutures in place causing distortion. Abdominal G-tube in place. Patient forming deep tissue injury. BMI 22 labs noted. Patient a phasic unable to respond to commands and in a vegetative state at this time. Patient with a UTI on antibiotics. Right PIC in place may need to be replaced. Turn every 2 hours offload pressure with air mattress and pillows. Trach sutures removed trach tie evaluated trach in place secretions suction. Continue with secretions chest x-ray reviewed no acute infiltrative process Leukocytosis trending down lactic acid is improving continue fluid resuscitation IV antibiotics improving labs improved cont current care trach care fevers resolved wbc resolved improved CT head noted neurosurg eval cxr improved fevers cont leukocytosis neuro input appreciate. possible infected collection transfer to neurosurgery hospital pending Thank you will follow with recommendations Brain: Extensive right hemispheric parenchymal volume loss and edema. Increased hyperdense of the right frontal parenchyma. Hypodensities of the left frontal, parietal, and temporal regions which may be sequela of prior infarct. No hemorrhage. No significant white matter disease. Midline shift: Mild, 6 mm, right to left midline shift. Ventricles: Exvacuodilatation of the ventricles. Bones/joints: Postsurgical changes from extensive prior right craniotomy. Large extra-axial fluid collection extending beyond the calvarium in region of prior craniotomy. The fluid extends beyond the calvarial region by approximately 4.0 cm in axial dimension No acute fracture. Soft tissues: Unremarkable. Sinuses: Unremarkable as visualized. No acute sinusitis. Mastoid air cells: Unremarkable as visualized. No mastoid effusion. IMPRESSION: 1. Large extra-axial fluid collection of the right hemisphere extending beyond the region of large frontal craniotomy. There is mild right to left midline shift measuring approximately 6 mm. 2. Hyperdensity of the residual right parenchyma suggestive of parenchymal contusion. 3. Extensive right parenchymal volume loss. May be sequela of prior infarct versus postsurgical change. 4. Hyperdensities throughout the left cerebellum, suggestive of prior ischemic process. Artifacts: Blooming artifact is noted within the right peripheral residual parenchyma likely representing hemosiderin deposition. Brain: Extensive right hemispheric parenchymal volume loss and edema. Mild encephalomalacia of the left hemisphere with expansion of the CSF containing spaces. No hemorrhage. Midline shift: There is proximal is 7 mm of right to left midline shift. Ventricles: Unremarkable. No ventriculomegaly. Bones/joints: There is significant expansion of the CSF containing spaces of the right hemisphere with extension beyond the calvarium through a craniotomy defect measuring approximately 4.3 cm. Sinuses: Unremarkable as visualized. No acute sinusitis. Mastoid air cells: Unremarkable as visualized. No mastoid effusion. Orbits: Unremarkable as visualized. Other vasculature: Following demonstration of intravenous contrast, there is no evidence of abnormal enhancement. IMPRESSION: 1. No obvious hemorrhage or stroke. Artifact on DWI sequence partially limits evaluation. Otherwise, no significant interval change from recent CT. 2. Large extra-axial fluid collection pending through craniotomy defect. There is mild right to left midline shift measuring in proximal 7 mm. 3. Extensive right parenchymal volume loss. May be sequela of prior infarct versus postsurgical/post traumatic change. 4. Encephalization of the left hemisphere with expansion of CSF containing spaces. DAILY ESTIMATED NEEDS: Needs based on Pulmonary, 68kg 25-30 kcals/kg 2313-6272 total kcals 1.25-1.5 g protein/kg 85-102 g total protein 25-30 mL/kg 3495-9483 total fluid mLs NUTRITION DIAGNOSIS: Swallowing difficulty r/t TBI and resp distress, as evidenced by pt is vent dep via T-collar, PEG dep. CURRENT TF:Jevity 1.2 @70 ml x20 hrs ENTERAL NUTRITION RECOMMENDATIONS: Increase TF to goal of 75ml/hr x20 hrs to provide 1500ml, 1800 kcal, 83g pro, 1211ml free H2O - Rec to INCREASE TF by 5ml/hr to better meet est kcal and pro needs. - Flush per MD/ HOB over 30 degrees ADDITIONAL RECOMMENDATIONS: 1) Skin integrity: add CATALINA BID via PEG (added 5g pro to meet est pro needs) 2) Wound care eval 3) Per SNF: 5'5" and 150#, maintain calibrated bed scale wts Carl Hernandez Jun 06, 2020 13:59
--- NOTE | 2020-06-06 14:52 | NUR ---
CASE MANAGEMENT: REVIEW SI: SEPSIS . SEIZURE T 99.5 HR 129 RR 22 BP 155/102 SAT 100% TRACH COLLAR 2.0 WBC 13.3 H/H 11.5/33.5 NA 130 CR 0.5 IS: NS IVF @ 50ML/HR LISINOPRIL GT BID LACOSAMIDE GT BID LOPRESSOR GT Q12HR LOVENOX SUBQ Q12HR NEUROSURGICAL EVALUATION TELEMETRY UNIT STATUS DCP: PATIENT IS FROM [facility]. AWAITING TRANSFER TO [facility] WHEN BED BECOMES AVAILABLE
[2020-06-06 16:00] VITALS: BP 146/58
--- NOTE | 2020-06-06 19:33 | NUR ---
NURSE HAND-OFF REPORT: Important Events on Shift: Temp continue to be 99.5 to 101.2 Patient Status: Stable Diet: Gtube Jevity 1.2 @70 Pending Orders: Pending Results/Labs: Pending MD notification: Latest Vital Signs: Temperature 99.5 , Pulse 120 , B/P 145 /90 , Respiratory Rate 22 , O2 SAT 100 , Trach Collar, O2 Flow Rate 5.0 . Vital Sign Comment: EKG Rhythm: Sinus Tachycardia Rhythm change?: N Notified?: N -DR.BALFE BO Response: No New Orders Received Latest Whitley Fall Score: 70 Fall Risk: High Risk Safety Measures: Call light Within Reach, Bed Alarm Zone 1, Side Rails Side Rails x2, Bed position Low and Locked. Fall Precautions: Yellow Socks Yellow Gown Door Sign Patient Fall Education Report given to
--- NOTE | 2020-06-06 19:38 | NUR ---
NURSE NOTES: Received patient from KADEEM Leonardo. Patient AOx0. On 2L oxygen per t-piece, fiO2 @ 25%. With double lumen PICC on right upper arm, with IVF running at a prescribed rate. Both lumens flushed and patent. On GT feeding, flushed and patent. Tube feeding also running at a prescribed rate, no residuals. Bed in lowest position, brakes engaged and bed alarm on. Bed rails raised x2. Call light placed within reach. With cooling blanket and rectal thermometer in place. Will continue to closely monitor.
[2020-06-06 20:00] VITALS: BP 138/84
[2020-06-06] MEDS: Dyna-Hex 2% Top Sol 2oz TOPIC SCH (20:20)
--- NOTE | 2020-06-06 20:55 | NUR ---
NURSE NOTES: Patient still febrile. Cooling measures initiated. Cannot give tylenol yet due to insufficient time from previous dose. Will continue to closely monitor.
[2020-06-07] VITALS: BP 161/95
[2020-06-07 04:00] VITALS: BP 155/106
[2020-06-07 06:45] LABS: BASOPHILS % (AUTO) 1.3 % (0.0-2.0); EOSINOPHILS % (AUTO) 1.5 % (0.0-3.0); HEMATOCRIT 32.7 % (42.0-52.0); HEMOGLOBIN 11.5 G/DL (14.2-18.0); LYMPHOCYTES % (AUTO) 11.5 % (20.0-45.0); MEAN CORPUSCULAR VOLUME 84 FL (80-99); MONOCYTES % (AUTO) 7.1 % (1.0-10.0); NEUTROPHILS % (AUTO) 78.6 % (45.0-75.0); PLATELET COUNT 524 K/UL (150-450); RED BLOOD COUNT 3.88 M/UL (4.70-6.10); RED CELL DISTRIBUTION WIDTH 13.8 % (11.6-14.8); WHITE BLOOD COUNT 14.3 K/UL (4.8-10.8)
[2020-06-07 07:16] LABS: ALANINE AMINOTRANSFERASE 80 U/L (12-78); ALBUMIN 2.9 G/DL (3.4-5.0); ALBUMIN/GLOBULIN RATIO 0.6 (1.0-2.7); ALKALINE PHOSPHATASE 195 U/L (46-116); BILIRUBIN,TOTAL 0.6 MG/DL (0.2-1.0); BLOOD UREA NITROGEN 13 mg/dL (7-18); CALCIUM 9.6 MG/DL (8.5-10.1); CHLORIDE 90 MMOL/L (98-107); CREATININE 0.6 MG/DL (0.55-1.30); POTASSIUM 4.2 MMOL/L (3.5-5.1); SODIUM 126 MMOL/L (136-145)
[2020-06-07 07:32] LABS: CARBON DIOXIDE 23 MMOL/L (21-32)
--- NOTE | 2020-06-07 07:48 | NUR ---
NURSE HAND-OFF REPORT: Important Events on Shift:[Still with febrile episodes. Clonidine given during the shift for elevated BP. Still waiting for updates from [facility]] Patient Status: [FC] Diet: [Jevity 1.2] Pending Orders: [] Pending Results/Labs:[] Pending MD notification:[] Latest Vital Signs: Temperature 100.4 , Pulse 140 , B/P 155 /106 , Respiratory Rate 24 , O2 SAT 97 , Trach Collar, O2 Flow Rate 5.0 . Vital Sign Comment: [] EKG Rhythm: Sinus Tachycardia Rhythm change?: N MD Notified?: N -DR.BALFE BO Response: No New Orders Received Latest Whitley Fall Score: 70 Fall Risk: High Risk Safety Measures: Call light Within Reach, Bed Alarm Zone 1, Side Rails Side Rails x2, Bed position Low and Locked. Fall Precautions: Yellow Socks Yellow Gown Door Sign Patient Fall Education Report given to [KADEEM Mandel].
--- NOTE | 2020-06-07 07:55 | NUR ---
NURSE NOTES: RECEIVED PATIENT FROM [facility] IN BED. NO S/S OF PAIN NOTED, NO S/S OF SHORTNESS OF BREATH NOTED. NOTED PATIENT HAS A T-PIECE ON 2L @ 25% FI02. PATIENT HAS G-TUBE RUNNING JEVITY 1.2 AT 70CC/HR, WITH RESIDUAL OF 10CC. G-TUBE IS TURNE OFF AT THIS TIME FROM 8AM - 12PM ORDERED. SKIN IS INTACT. NOTED PATIENT HAS RIGHT UPPER ARM DOUBLE LUMEN PICC WITH NS RUNNING AT 50CC/HR. NOTED RIGHT HEAD ENLARGED POSSIBLY DUE TO THE TRAUMATIC BRAIN INJURY THE PATIENT HAD SUFFERED. UPON READING THE CASE MANAGEMENT NOTE, AWAITING BED FOR PATIENT AT [facility]. BED IS ON LOWER EXTREMITIES WITH BEDSIDE RAILS UP X3 AND PADDED DUE TO SEIZURE PRECAUTION. BRAKES ENGAGED FOR SAFETY, CALL LIGHT IS WITHIN REACH. WILL CONTINUE WITH THE PLAN OF CARE.
--- NOTE | 2020-06-07 07:57 | Pulmonology Progress Note ---
Subjective ROS Limited/Unobtainable: Yes Constitutional: Reports: fever, other - Br=091.8 last night Allergies: Coded Allergies: No Known Allergies (Unverified , 05/30/20) Subjective still with fevers and tachycardia Objective Last 24 Hour Vital Signs Date Time Temp Pulse Resp B/P (MAP) Pulse Ox O2 Delivery O2 Flow Rate FiO2 06/07/20 04:00 100.4 140 24 155/106 (122) 97 06/07/20 04:00 136 06/07/20 01:10 99 Cool Aerosol 5.0 28 06/07/20 00:53 161/95 06/07/20 00:00 126 06/07/20 00:00 99.9 127 22 161/95 (117) 97 06/06/20 21:00 Trach Collar 2.0 06/06/20 20:49 136 138/84 06/06/20 20:17 99 Cool Aerosol 5.0 28 06/06/20 20:00 148 06/06/20 20:00 100.6 136 22 138/84 (102) 100 06/06/20 18:59 99.5 06/06/20 17:38 145/90 06/06/20 16:00 99.9 120 22 146/58 (87) 100 06/06/20 16:00 124 06/06/20 13:20 97 Cool Aerosol 5.0 28 06/06/20 12:00 99.5 106 22 145/90 (108) 100 06/06/20 12:00 100 06/06/20 09:00 Trach Collar 2.0 06/06/20 08:22 129 155/102 06/06/20 08:21 155/102 06/06/20 08:16 155/102 06/06/20 08:00 123 06/06/20 08:00 99.2 129 20 155/102 (119) 100 06/06/20 07:59 98 Cool Aerosol 5.0 28 Intake and Output 06/06/20 06/07/20 19:00 07:00 Intake Total 660 ml Output Total 1100 ml 1100 ml Balance -440 ml -1100 ml Intake Free Water 100 ml Tube Feeding 560 ml Output Urine Total 1100 ml 1100 ml # Voids 1 # Bowel Movements 1 Objective WDWN bulging noted scalp clear breath sounds bilaterally without rhonchi or wheeze [id number] tachy without MRG NABS nontender GT no CCE nonfocal trach poor LOC Laboratory Tests 06/07/20 05:50: White Blood Count 14.3H, Red Blood Count 3.88L, Hemoglobin 11.5L, Hematocrit 32.7L, Mean Corpuscular Volume 84, Mean Corpuscular Hemoglobin 29.6, Mean Corpuscular Hemoglobin Concent 35.0, Red Cell Distribution Width 13.8, Platelet Count 524H, Mean Platelet Volume 5.5L, Neutrophils (%) (Auto) 78.6H, Lymphocytes (%) (Auto) 11.5L, Monocytes (%) (Auto) 7.1, Eosinophils (%) (Auto) 1.5, Basophils (%) (Auto) 1.3, Erythrocyte Sedimentation Rate [Pending], Sodium Level 126L, Potassium Level 4.2, Chloride Level 90L, Carbon Dioxide Level 23, Blood Urea Nitrogen 13, Creatinine 0.6, Estimat Glomerular Filtration Rate > 60, Glucose Level 106, Calcium Level 9.6, Total Bilirubin 0.6, Aspartate Amino Transf (AST/SGOT) [Pending], Alanine Aminotransferase (ALT/SGPT) 80H, Alkaline Phosphatase 195H, C-Reactive Protein, Quantitative 2.6H, Total Protein 7.4, Albumin 2.9L, Globulin 4.5, Albumin/Globulin Ratio 0.6L Current Medications Medications (Trade) Dose Ordered Sig/Anuj Route PRN Reason Start Time Stop Time Status Last Admin Dose Admin Acetaminophen (Tylenol) 650 mg Q6H PRN ORAL Temp >100.5 05/30/20 18:45 06/29/20 18:44 06/06/20 18:29 Chlorhexidine Gluconate (Laura-Hex 2%) 1 applic DAILY@1999 TOPIC 06/01/20 20:00 08/30/20 19:59 06/06/20 20:20 Clonidine HCl (Catapres Tab) 0.1 mg Q4H PRN ORAL SBP above 150; DBP above 95 06/02/20 23:00 08/31/20 22:59 06/07/20 00:53 Enoxaparin Sodium (Lovenox) 80 mg EVERY 12 HOURS SUBQ 05/30/20 21:00 08/28/20 20:59 06/06/20 20:48 Famotidine (Pepcid) 20 mg DAILY GT 05/31/20 09:00 08/29/20 08:59 06/06/20 08:21 Gadobutrol (Gadavist) 7.5 mmol NOW PRN IV Radiology Procedure 06/04/20 13:00 06/08/20 12:59 Lacosamide (Vimpat) 50 mg BID ORAL 05/31/20 09:00 08/29/20 08:59 06/06/20 17:38 Lactobacillus Acidophilus (Culturelle) 1 tab DAILY GT 05/31/20 09:00 08/29/20 08:59 06/06/20 08:21 Lisinopril (ZestriL) 20 mg BID GT 06/03/20 09:00 07/03/20 08:59 06/06/20 17:38 Metoprolol Tartrate (Lopressor) 100 mg EVERY 12 HOURS ORAL 06/05/20 09:00 09/03/20 08:59 06/06/20 20:49 Sevelamer Carbonate (Renvela) 800 mg THREE TIMES A DAY GT 05/31/20 09:00 08/29/20 08:59 06/06/20 17:38 Sodium Chloride 1,000 ml @ 50 mls/hr Q20H IV 05/31/20 00:00 06/30/20 00:00 06/05/20 20:36 Sucralfate (Carafate) 1 gm BID ORAL 05/31/20 09:00 08/29/20 08:59 06/06/20 17:38 Thyroid (Geismar Thyroid) 15 mg DAILY GT 05/31/20 09:00 06/30/20 08:59 06/06/20 08:24 Assessment/Plan Assessment/Plan Impression: Sepsis Urinary Tract Infection TBI Seizures Hypothyroidism Sinus Tachycardia Hypertension abnormal MRI/ CT Plan: IV Antibiotics IVF O2 PRN TC PPX Monitor labs adjust bp and beta blockade as needed transfer to [facility] for neurosurgery - d/w CM updated sister DVT prophylaxis- full dose ID evaluation noted- off antibiotics await cultures- negative repeat wbc- normal full dose lovenox impression, plan, and exam edited and reviewed in detail care discussed with Aime Browne MD Jun 07, 2020 07:57
[2020-06-07 08:00] VITALS: BP 155/97
[2020-06-07 08:53] LABS: ASPARTATE AMINO TRANSFERASE 28 U/L (15-37)
[2020-06-07] MEDS: Lisinopril 10mg tab GT SCH (09:55)
[2020-06-07] MEDS: Metoprolol Tartrate 100mg tab ORAL SCH ×2 (09:55→21:04)
[2020-06-07] MEDS: Lactobacillus-GG tablet GT SCH (09:55)
[2020-06-07] MEDS: Lacosamide 50mg tablet ORAL SCH ×2 (09:56→17:53)
[2020-06-07] MEDS: Sucralfate 1gm tab ORAL SCH ×2 (09:56→17:53)
[2020-06-07] MEDS: Renvela 800mg Pkt GT SCH ×3 (09:56→17:54)
[2020-06-07] MEDS: Enoxaparin 80mg Inj SUBQ SCH ×2 (09:57→21:06)
--- NOTE | 2020-06-07 10:48 | NUR ---
RD ASSESSMENT & RECOMMENDATIONS SEE CARE ACTIVITY FOR COMPLETE ASSESSMENT DAILY ESTIMATED NEEDS: Needs based on Pulmonary, 68kg 25-30 kcals/kg 6377-9516 total kcals 1.25-1.5 g protein/kg 85-102 g total protein 25-30 mL/kg 9958-5937 total fluid mLs NUTRITION DIAGNOSIS: Swallowing difficulty r/t TBI and resp distress, as evidenced by pt is vent dep via T-collar, PEG dep. CURRENT TF:Jevity 1.2 @70 ml x20 hrs ENTERAL NUTRITION RECOMMENDATIONS: TF change to Osmolite 1.5 @ 50ml/hr x 24 hrs + Prosource 1pkt QD to provide 1200ml, 1800kcal, 75g +11g prot, 914ml free water - Rec TF change to Osmolite 1.5 for less free fluids: Na low, trending down - Initiate Osmolite 1.5 @ 30ml/hr x 4hrs, advance 10ml q 4hrs as tolerated to goal - Add Prosource 1pkt QD to meet protein needs - Flush per MD/ HOB over 30 degrees ADDITIONAL RECOMMENDATIONS: 1) Wound Care: TF @ goal provides 100% RDI add CATALINA BID via PEG (also provides added 5g prot to meet est prot needs) add Vit C 250mg QD 2) Per SNF: 5'5" and 150#, maintain calibrated bed scale wts 3) Check phos level: pt on Renvela TID, renal fxn wnl
--- NOTE | 2020-06-07 10:50 | Infectious Diseases Prog Note ---
Assessment/Plan Assessment/Plan antibiotics : none A 1. fever COVID 19 negative 2. ? scabies s/p rx 3. leucocytosis improving 4. traumatic brain injury 5. seizures 6. ? brain abscess 7. aspiration pneumonia P 1. start iv vancomycin, cefepime 2. will follow up clinically Subjective ROS Limited/Unobtainable: Yes Allergies: Coded Allergies: No Known Allergies (Unverified , 05/30/20) Objective Last 24 Hour Vital Signs Date Time Temp Pulse Resp B/P (MAP) Pulse Ox O2 Delivery O2 Flow Rate FiO2 06/07/20 09:55 136 155/97 06/07/20 09:55 155/97 06/07/20 07:02 98 Cool Aerosol 5.0 28 06/07/20 04:00 100.4 140 24 155/106 (122) 97 06/07/20 04:00 136 06/07/20 01:10 99 Cool Aerosol 5.0 28 06/07/20 00:53 161/95 06/07/20 00:00 126 06/07/20 00:00 99.9 127 22 161/95 (117) 97 06/06/20 21:00 Trach Collar 2.0 06/06/20 20:49 136 138/84 06/06/20 20:17 99 Cool Aerosol 5.0 28 06/06/20 20:00 148 06/06/20 20:00 100.6 136 22 138/84 (102) 100 06/06/20 18:59 99.5 06/06/20 17:38 145/90 06/06/20 16:00 99.9 120 22 146/58 (87) 100 06/06/20 16:00 124 06/06/20 13:20 97 Cool Aerosol 5.0 28 06/06/20 12:00 99.5 106 22 145/90 (108) 100 06/06/20 12:00 100 Height (Feet): 5 Height (Inches): 10.00 Weight (Pounds): 160 HEENT: status post trach Respiratory/Chest: crackles/rales Cardiovascular: normal rate, regular rhythm, no gallop/murmur Abdomen: soft, non tender, other - GT Extremities: no edema Laboratory Tests Test 06/07/20 05:50 White Blood Count 14.3 K/UL (4.8-10.8) H Red Blood Count 3.88 M/UL (4.70-6.10) L Hemoglobin 11.5 G/DL (14.2-18.0) L Hematocrit 32.7 % (42.0-52.0) L Mean Corpuscular Volume 84 FL (80-99) Mean Corpuscular Hemoglobin 29.6 PG (27.0-31.0) Mean Corpuscular Hemoglobin Concent 35.0 G/DL (32.0-36.0) Red Cell Distribution Width 13.8 % (11.6-14.8) Platelet Count 524 K/UL (150-450) H Mean Platelet Volume 5.5 FL (6.5-10.1) L Neutrophils (%) (Auto) 78.6 % (45.0-75.0) H Lymphocytes (%) (Auto) 11.5 % (20.0-45.0) L Monocytes (%) (Auto) 7.1 % (1.0-10.0) Eosinophils (%) (Auto) 1.5 % (0.0-3.0) Basophils (%) (Auto) 1.3 % (0.0-2.0) Erythrocyte Sedimentation Rate 97 MM/HR (0-15) H Sodium Level 126 MMOL/L (136-145) L Potassium Level 4.2 MMOL/L (3.5-5.1) Chloride Level 90 MMOL/L (98-107) L Carbon Dioxide Level 23 MMOL/L (21-32) Blood Urea Nitrogen 13 mg/dL (7-18) Creatinine 0.6 MG/DL (0.55-1.30) Estimat Glomerular Filtration Rate > 60 mL/min (>60) Glucose Level 106 MG/DL (74-106) Calcium Level 9.6 MG/DL (8.5-10.1) Total Bilirubin 0.6 MG/DL (0.2-1.0) Aspartate Amino Transf (AST/SGOT) 28 U/L (15-37) Alanine Aminotransferase (ALT/SGPT) 80 U/L (12-78) H Alkaline Phosphatase 195 U/L (46-116) H C-Reactive Protein, Quantitative 2.6 mg/dL (0.00-0.90) H Total Protein 7.4 G/DL (6.4-8.2) Albumin 2.9 G/DL (3.4-5.0) L Globulin 4.5 g/dL Albumin/Globulin Ratio 0.6 (1.0-2.7) L Current Medications Medications (Trade) Dose Ordered Sig/Anuj Route PRN Reason Start Time Stop Time Status Last Admin Dose Admin Acetaminophen (Tylenol) 650 mg Q6H PRN ORAL Temp >100.5 05/30/20 18:45 06/29/20 18:44 06/06/20 18:29 Chlorhexidine Gluconate (Laura-Hex 2%) 1 applic DAILY@2000 TOPIC 06/01/20 20:00 08/30/20 19:59 06/06/20 20:20 Clonidine HCl (Catapres Tab) 0.1 mg Q4H PRN ORAL SBP above 150; DBP above 95 06/02/20 23:00 08/31/20 22:59 06/07/20 00:53 Enoxaparin Sodium (Lovenox) 80 mg EVERY 12 HOURS SUBQ 05/30/20 21:00 08/28/20 20:59 06/07/20 09:57 Famotidine (Pepcid) 20 mg DAILY GT 05/31/20 09:00 08/29/20 08:59 06/07/20 10:04 Gadobutrol (Gadavist) 7.5 mmol NOW PRN IV Radiology Procedure 06/04/20 13:00 06/08/20 12:59 Lacosamide (Vimpat) 50 mg BID ORAL 05/31/20 09:00 08/29/20 08:59 06/07/20 09:56 Lactobacillus Acidophilus (Culturelle) 1 tab DAILY GT 05/31/20 09:00 08/29/20 08:59 06/07/20 09:55 Lisinopril (ZestriL) 20 mg BID GT 06/03/20 09:00 07/03/20 08:59 06/07/20 09:55 Metoprolol Tartrate (Lopressor) 100 mg EVERY 12 HOURS ORAL 06/05/20 09:00 09/03/20 08:59 06/07/20 09:55 Sevelamer Carbonate (Renvela) 800 mg THREE TIMES A DAY GT 05/31/20 09:00 08/29/20 08:59 06/07/20 09:56 Sodium Chloride 1,000 ml @ 50 mls/hr Q20H IV 05/31/20 00:00 06/30/20 00:00 06/05/20 20:36 Sucralfate (Carafate) 1 gm BID ORAL 05/31/20 09:00 08/29/20 08:59 06/07/20 09:56 Thyroid (Holcomb Thyroid) 15 mg DAILY GT 05/31/20 09:00 06/30/20 08:59 06/07/20 09:54 Dl Mcgowan MD Jun 07, 2020 10:50
[2020-06-07 12:00] VITALS: BP 148/109
[2020-06-07] MEDS: Cefepime HCl 2 GM in D5W 55 ML IVPB SCH ×2 (13:37→20:22)
--- NOTE | 2020-06-07 14:15 | Surgery Progress Note ---
Surgery Progress Note Subjective Additional Comments low grade fevers, leukocytosis, esr/crp noted exam stable Objective Last 24 Hour Vital Signs Date Time Temp Pulse Resp B/P (MAP) Pulse Ox O2 Delivery O2 Flow Rate FiO2 06/07/20 09:55 136 155/97 06/07/20 09:55 155/97 06/07/20 09:00 Trach Collar 2.0 06/07/20 08:00 140 06/07/20 08:00 98.1 140 22 155/97 (116) 97 06/07/20 07:02 98 Cool Aerosol 5.0 28 06/07/20 04:00 100.4 140 24 155/106 (122) 97 06/07/20 04:00 136 06/07/20 01:10 99 Cool Aerosol 5.0 28 06/07/20 00:53 161/95 06/07/20 00:00 126 06/07/20 00:00 99.9 127 22 161/95 (117) 97 06/06/20 21:00 Trach Collar 2.0 06/06/20 20:49 136 138/84 06/06/20 20:17 99 Cool Aerosol 5.0 28 06/06/20 20:00 148 06/06/20 20:00 100.6 136 22 138/84 (102) 100 06/06/20 18:59 99.5 06/06/20 17:38 145/90 06/06/20 16:00 99.9 120 22 146/58 (87) 100 06/06/20 16:00 124 I&O Intake and Output 06/06/20 06/07/20 19:00 07:00 Intake Total 660 ml Output Total 1100 ml 1100 ml Balance -440 ml -1100 ml Intake Free Water 100 ml Tube Feeding 560 ml Output Urine Total 1100 ml 1100 ml # Voids 1 # Bowel Movements 1 Cardiovascular: RSR Respiratory: decreased breath sounds Abdomen: soft, non-tender, present bowel sounds Extremities: no edema, no tenderness, no cyanosis Laboratory Tests Test 06/07/20 05:50 White Blood Count 14.3 K/UL (4.8-10.8) H Red Blood Count 3.88 M/UL (4.70-6.10) L Hemoglobin 11.5 G/DL (14.2-18.0) L Hematocrit 32.7 % (42.0-52.0) L Mean Corpuscular Volume 84 FL (80-99) Mean Corpuscular Hemoglobin 29.6 PG (27.0-31.0) Mean Corpuscular Hemoglobin Concent 35.0 G/DL (32.0-36.0) Red Cell Distribution Width 13.8 % (11.6-14.8) Platelet Count 524 K/UL (150-450) H Mean Platelet Volume 5.5 FL (6.5-10.1) L Neutrophils (%) (Auto) 78.6 % (45.0-75.0) H Lymphocytes (%) (Auto) 11.5 % (20.0-45.0) L Monocytes (%) (Auto) 7.1 % (1.0-10.0) Eosinophils (%) (Auto) 1.5 % (0.0-3.0) Basophils (%) (Auto) 1.3 % (0.0-2.0) Erythrocyte Sedimentation Rate 97 MM/HR (0-15) H Sodium Level 126 MMOL/L (136-145) L Potassium Level 4.2 MMOL/L (3.5-5.1) Chloride Level 90 MMOL/L (98-107) L Carbon Dioxide Level 23 MMOL/L (21-32) Blood Urea Nitrogen 13 mg/dL (7-18) Creatinine 0.6 MG/DL (0.55-1.30) Estimat Glomerular Filtration Rate > 60 mL/min (>60) Glucose Level 106 MG/DL (74-106) Calcium Level 9.6 MG/DL (8.5-10.1) Total Bilirubin 0.6 MG/DL (0.2-1.0) Aspartate Amino Transf (AST/SGOT) 28 U/L (15-37) Alanine Aminotransferase (ALT/SGPT) 80 U/L (12-78) H Alkaline Phosphatase 195 U/L (46-116) H C-Reactive Protein, Quantitative 2.6 mg/dL (0.00-0.90) H Total Protein 7.4 G/DL (6.4-8.2) Albumin 2.9 G/DL (3.4-5.0) L Globulin 4.5 g/dL Albumin/Globulin Ratio 0.6 (1.0-2.7) L Plan Problems: (1) Tachycardia (2) Sepsis Assessment & Plan: 29-year-old male with leukocytosis anemia lactic acidosis. Patient admitted further care management identified to have significant secretions from tracheostomy trach collar with sutures in place causing distortion. Abdominal G-tube in place. Patient forming deep tissue injury. BMI 22 labs noted. Patient a phasic unable to respond to commands and in a vegetative state at this time. Patient with a UTI on antibiotics. Right PIC in place may need to be replaced. Turn every 2 hours offload pressure with air mattress and pillows. Trach sutures removed trach tie evaluated trach in place secretions suction. Continue with secretions chest x-ray reviewed no acute infiltrative process Leukocytosis trending down lactic acid is improving continue fluid resuscitation IV antibiotics improving labs improved cont current care trach care fevers resolved wbc resolved improved CT head noted neurosurg eval cxr improved fevers cont leukocytosis neuro input appreciate. possible infected collection transfer to neurosurgery hospital pending Thank you will follow with recommendations Brain: Extensive right hemispheric parenchymal volume loss and edema. Increased hyperdense of the right frontal parenchyma. Hypodensities of the left frontal, parietal, and temporal regions which may be sequela of prior infarct. No hemorrhage. No significant white matter disease. Midline shift: Mild, 6 mm, right to left midline shift. Ventricles: Exvacuodilatation of the ventricles. Bones/joints: Postsurgical changes from extensive prior right craniotomy. Large extra-axial fluid collection extending beyond the calvarium in region of prior craniotomy. The fluid extends beyond the calvarial region by approximately 4.0 cm in axial dimension No acute fracture. Soft tissues: Unremarkable. Sinuses: Unremarkable as visualized. No acute sinusitis. Mastoid air cells: Unremarkable as visualized. No mastoid effusion. IMPRESSION: 1. Large extra-axial fluid collection of the right hemisphere extending beyond the region of large frontal craniotomy. There is mild right to left midline shift measuring approximately 6 mm. 2. Hyperdensity of the residual right parenchyma suggestive of parenchymal contusion. 3. Extensive right parenchymal volume loss. May be sequela of prior infarct versus postsurgical change. 4. Hyperdensities throughout the left cerebellum, suggestive of prior ischemic process. Artifacts: Blooming artifact is noted within the right peripheral residual parenchyma likely representing hemosiderin deposition. Brain: Extensive right hemispheric parenchymal volume loss and edema. Mild encephalomalacia of the left hemisphere with expansion of the CSF containing spaces. No hemorrhage. Midline shift: There is proximal is 7 mm of right to left midline shift. Ventricles: Unremarkable. No ventriculomegaly. Bones/joints: There is significant expansion of the CSF containing spaces of the right hemisphere with extension beyond the calvarium through a craniotomy defect measuring approximately 4.3 cm. Sinuses: Unremarkable as visualized. No acute sinusitis. Mastoid air cells: Unremarkable as visualized. No mastoid effusion. Orbits: Unremarkable as visualized. Other vasculature: Following demonstration of intravenous contrast, there is no evidence of abnormal enhancement. IMPRESSION: 1. No obvious hemorrhage or stroke. Artifact on DWI sequence partially limits evaluation. Otherwise, no significant interval change from recent CT. 2. Large extra-axial fluid collection pending through craniotomy defect. There is mild right to left midline shift measuring in proximal 7 mm. 3. Extensive right parenchymal volume loss. May be sequela of prior infarct versus postsurgical/post traumatic change. 4. Encephalization of the left hemisphere with expansion of CSF containing spaces. DAILY ESTIMATED NEEDS: Needs based on Pulmonary, 68kg 25-30 kcals/kg 5604-4119 total kcals 1.25-1.5 g protein/kg 85-102 g total protein 25-30 mL/kg 8140-9598 total fluid mLs NUTRITION DIAGNOSIS: Swallowing difficulty r/t TBI and resp distress, as evidenced by pt is vent dep via T-collar, PEG dep. CURRENT TF:Jevity 1.2 @70 ml x20 hrs ENTERAL NUTRITION RECOMMENDATIONS: Increase TF to goal of 75ml/hr x20 hrs to provide 1500ml, 1800 kcal, 83g pro, 1211ml free H2O - Rec to INCREASE TF by 5ml/hr to better meet est kcal and pro needs. - Flush per MD/ HOB over 30 degrees ADDITIONAL RECOMMENDATIONS: 1) Skin integrity: add CATALINA BID via PEG (added 5g pro to meet est pro needs) 2) Wound care eval 3) Per SNF: 5'5" and 150#, maintain calibrated bed scale wts Carl Hernandez Jun 07, 2020 14:15
[2020-06-07] MEDS: Vancomycin 1gm in Dextrose 275ml IVPB SCH ×2 (14:21→22:17)
[2020-06-07 16:00] VITALS: BP 154/107
--- NOTE | 2020-06-07 16:02 | Cardiology Report ---
APPROVED REPORT EXAM: Two-dimensional and M-mode echocardiogram with Doppler and color Doppler. INDICATION Hypertensive heart disease M-Mode DIMENSIONS IVSd1.3 (0.7-1.1cm)Left Atrium (MM)2.8 (1.6-4.0cm) LVDd4.1 (3.5-5.6cm)Aortic Root3.6 (2.0-3.7cm) PWd1.5 (0.7-1.1cm)Aortic Cusp Exc.1.7 (1.5-2.0cm) IVSs1.9 cmEPSS0.8 (>1.0cm) LVDs3.1 (2.5-4.0cm) PWs1.9 cm <Conclusion> Normal left ventricular chamber size, systolic function and wall motion. Left ventricular ejection fraction estimated to be 60-65%. Mild left ventricular hypertrophy. No evidence of pericardial effusion. All other cardiac chamber sizes are within normal limits. Focal aortic valve sclerosis with adequate cusp excursion. Thickened mitral valve leaflets with normal excursion. Mitral annulus and aortic root calcification. Normal pulmonic valve structure. Normal tricuspid valve structure. IVC measured at 1.8 cm and non-collapsing with respiration. A color flow and spectral Doppler study was performed and revealed: No aortic insufficiency. No sig mitral regurgitation. Cannot determine left ventricular diastolic function by mitral diastolic velocities due to tachycardia. Trace tricuspid regurgitation. Tricuspid systolic velocities suggests peak right ventricular systolic pressure of 14 mmHg. No pulmonic regurgitation present.
--- NOTE | 2020-06-07 16:23 | NUR ---
CASE MANAGEMENT: REVIEW SI: SEPSIS . SEIZURE T 98.7 HR 127 RR 22 BP 155/97 SAT 97% TRACH COLLAR 2.0 WBC 14.3 H/H 11.5/32.7 NA 126 ALT 80 ALK PHOS 195 IS: VANCOMYCIN IV Q8HR CEFEPIME IV Q12HR FLAGYL IV Q12HR NS IVF @ 50ML/HR TELEMETRY UNIT STATUS DCP: PATIENT IS FROM [facility]. AWAITING TRANSFER TO [facility] WHEN BED BECOMES AVAILABLE
[2020-06-07] MEDS: Lisinopril 20mg tab GT SCH (17:54)
--- NOTE | 2020-06-07 19:35 | NUR ---
NURSE HAND-OFF REPORT: Important Events on Shift:N Patient Status: Diet: Pending Orders: Pending Results/Labs: Pending MD notification: Latest Vital Signs: Temperature 97.1 , Pulse 109 , B/P 154 /107 , Respiratory Rate 21 , O2 SAT 99 , Trach Collar, O2 Flow Rate 5.0 . Vital Sign Comment: EKG Rhythm: Sinus Tachycardia Rhythm change?: N MD Notified?: N -DR.BALFE BO Response: No New Orders Received Latest Whitley Fall Score: 70 Fall Risk: High Risk Safety Measures: Call light Within Reach, Bed Alarm Zone 1, Side Rails Side Rails x2, Bed position Low and Locked. Fall Precautions: Yellow Socks Yellow Gown Door Sign Patient Fall Education Report given to .
[2020-06-07 20:00] VITALS: BP 138/96
--- NOTE | 2020-06-07 20:04 | NUR ---
NURSE NOTES: Received report from KADEEM Mandel. AOx0, aphasic. On trach collar, 2L oxygen, 25% fiO2, with suctioning PRN. With double lumen PICC, both with IVFs running at this time. Noted to have new orders of IV antibiotics during the shift. On GT feeding, running at a prescribed rate. GT flushed and patent with residual of 10cc. Patient still on cooling blanket. Bed in lowest position, brakes engaged and bed alarm on. Bed rails raised x2. Call light placed within reach. Environment kept clean and organized. Will continue to monitor.
[2020-06-07] MEDS: Dyna-Hex 2% Top Sol 2oz TOPIC SCH (20:22)
--- NOTE | 2020-06-07 23:30 | Cardiology Progress Note ---
Subjective DATE OF SERVICE: Jun 07, 2020 Remains tachycardic with high-normal BP parameters On anti-microbials MRI brain confirms fluid collection with shift; post surgical changes Neuro eval appreciated Objective Last 24 Hour Vital Signs Date Time Temp Pulse Resp B/P (MAP) Pulse Ox O2 Delivery O2 Flow Rate FiO2 06/07/20 21:04 129 138/96 06/07/20 21:04 138/96 06/07/20 21:00 Trach Collar 2.0 06/07/20 20:00 99.1 129 23 138/96 (110) 98 129 06/07/20 20:00 123 06/07/20 19:38 96 Cool Aerosol 5.0 28 06/07/20 17:54 154/107 06/07/20 16:00 127 06/07/20 16:00 97.1 109 21 154/107 (123) 99 109 06/07/20 14:18 148/109 06/07/20 13:02 99 Cool Aerosol 5.0 28 06/07/20 12:00 105 06/07/20 12:00 98.7 105 20 148/109 (122) 99 06/07/20 09:55 136 155/97 06/07/20 09:55 155/97 06/07/20 09:00 Trach Collar 2.0 06/07/20 08:00 140 06/07/20 08:00 98.1 140 22 155/97 (116) 97 06/07/20 07:02 98 Cool Aerosol 5.0 28 06/07/20 04:00 100.4 140 24 155/106 (122) 97 06/07/20 04:00 136 06/07/20 01:10 99 Cool Aerosol 5.0 28 06/07/20 00:53 161/95 06/07/20 00:00 126 06/07/20 00:00 99.9 127 22 161/95 (117) 97 HEENT: Thin Trach secretions RHYTHM: ST LUNGS: lungs clear bilaterally CARDIAC: normal S1 and S2, rapid rate, tachycardia ABDOMEN: normal bowel sounds, non tender, no organomegaly, no mass EXTREMITIES: no calf tenderness, No edema Laboratory Tests Test 06/07/20 05:50 White Blood Count 14.3 K/UL (4.8-10.8) H Red Blood Count 3.88 M/UL (4.70-6.10) L Hemoglobin 11.5 G/DL (14.2-18.0) L Hematocrit 32.7 % (42.0-52.0) L Mean Corpuscular Volume 84 FL (80-99) Mean Corpuscular Hemoglobin 29.6 PG (27.0-31.0) Mean Corpuscular Hemoglobin Concent 35.0 G/DL (32.0-36.0) Red Cell Distribution Width 13.8 % (11.6-14.8) Platelet Count 524 K/UL (150-450) H Mean Platelet Volume 5.5 FL (6.5-10.1) L Neutrophils (%) (Auto) 78.6 % (45.0-75.0) H Lymphocytes (%) (Auto) 11.5 % (20.0-45.0) L Monocytes (%) (Auto) 7.1 % (1.0-10.0) Eosinophils (%) (Auto) 1.5 % (0.0-3.0) Basophils (%) (Auto) 1.3 % (0.0-2.0) Erythrocyte Sedimentation Rate 97 MM/HR (0-15) H Sodium Level 126 MMOL/L (136-145) L Potassium Level 4.2 MMOL/L (3.5-5.1) Chloride Level 90 MMOL/L (98-107) L Carbon Dioxide Level 23 MMOL/L (21-32) Blood Urea Nitrogen 13 mg/dL (7-18) Creatinine 0.6 MG/DL (0.55-1.30) Estimat Glomerular Filtration Rate > 60 mL/min (>60) Glucose Level 106 MG/DL (74-106) Calcium Level 9.6 MG/DL (8.5-10.1) Total Bilirubin 0.6 MG/DL (0.2-1.0) Aspartate Amino Transf (AST/SGOT) 28 U/L (15-37) Alanine Aminotransferase (ALT/SGPT) 80 U/L (12-78) H Alkaline Phosphatase 195 U/L (46-116) H C-Reactive Protein, Quantitative 2.6 mg/dL (0.00-0.90) H Total Protein 7.4 G/DL (6.4-8.2) Albumin 2.9 G/DL (3.4-5.0) L Globulin 4.5 g/dL Albumin/Globulin Ratio 0.6 (1.0-2.7) L Assessment/Plan Assessment/Plan Severe sepsis Sinus tachycardia Hypertension/HHD Hx hypothyroidism Hyponatremia Toxic encephalopathy Respiratory Failure with trach Intracerebral fluid collection with mdline shift IVF hydration cont'd. Antimicrobials Titrate antiHTN regimen - meds advanced Maintain beta jcoelyn and titrate upward again. DVT prophyl Continue cardiac monitoring Trach care Possible transfer to higher level of care. Garcia Valverde MD Jun 07, 2020 23:30
[2020-06-08] VITALS: BP 118/82
--- NOTE | 2020-06-08 00:57 | NUR ---
NURSE NOTES: Lab auto-cancelled a urine culture ordered by Dr. Shaffer. Order re-entered. Urine sample brought down to lab.
[2020-06-08 04:00] VITALS: BP 166/92
[2020-06-08] MEDS: Vancomycin 1gm in Dextrose 275ml IVPB SCH (06:04)
[2020-06-08 06:38] LABS: BASOPHILS % (AUTO) 1.2 % (0.0-2.0); EOSINOPHILS % (AUTO) 1.8 % (0.0-3.0); HEMATOCRIT 29.2 % (42.0-52.0); HEMOGLOBIN 10.3 G/DL (14.2-18.0); LYMPHOCYTES % (AUTO) 10.1 % (20.0-45.0); MEAN CORPUSCULAR VOLUME 83 FL (80-99); NEUTROPHILS % (AUTO) 80.9 % (45.0-75.0); PLATELET COUNT 444 K/UL (150-450); RED BLOOD COUNT 3.51 M/UL (4.70-6.10); RED CELL DISTRIBUTION WIDTH 13.6 % (11.6-14.8); WHITE BLOOD COUNT 12.7 K/UL (4.8-10.8)
[2020-06-08 06:55] LABS: ANION GAP 11 mmol/L (5-15); BLOOD UREA NITROGEN 13 mg/dL (7-18); CALCIUM 8.4 MG/DL (8.5-10.1); CARBON DIOXIDE 23 MMOL/L (21-32); CHLORIDE 91 MMOL/L (98-107); CREATININE 0.5 MG/DL (0.55-1.30); POTASSIUM 3.8 MMOL/L (3.5-5.1); SODIUM 125 MMOL/L (136-145)
--- NOTE | 2020-06-08 07:13 | NUR ---
NURSE HAND-OFF REPORT: Important Events on Shift:[Urine sample sent to lab. No febrile episode during the shift. Endorsed Kitchen Porter's recs regarding a change in patient's tube feeding. Check Nutrition notes 06/06/20] Patient Status: [FC] Diet: [Jevity 1.2 @65] Pending Orders: [] Pending Results/Labs:[] Pending MD notification:[] Latest Vital Signs: Temperature 98.1 , Pulse 103 , B/P 166 /92 , Respiratory Rate 23 , O2 SAT 98 , Trach Collar, O2 Flow Rate 5.0 . Vital Sign Comment: [] EKG Rhythm: Sinus Tachycardia Rhythm change?: N Notified?: N -DR.BALFE BO Response: No New Orders Received Latest Whitley Fall Score: 70 Fall Risk: High Risk Safety Measures: Call light Within Reach, Bed Alarm Zone 1, Side Rails Side Rails x2, Bed position Low and Locked. Fall Precautions: Yellow Socks Yellow Gown Door Sign Patient Fall Education Report given to [KADEEM Mandel].
--- NOTE | 2020-06-08 07:25 | NUR ---
NURSE NOTES: RECEIVED PATIENT FROM RICHARD QUAN IN BED. NO S/S OF PAIN NOTED, PATIENT OPENS EYES, NO S/S OF SHORTNESS OF BREATH NOTED.PATIENT HAS A T-PIECE ON 2L @ 25% FI02. PATIENT HAS G-TUBE RUNNING JEVITY 1.2 AT 65CC/HR AT THIS TIME, WITH RESIDUAL OF 15CC. G-TUBE WILL BE TURNED OFF FROM 8AM - 12PM ORDERED. PATIENT HAS RIGHT UPPER ARM DOUBLE LUMEN PICC WITH NS RUNNING AT 50CC/HR. BED IS ON LOWER EXTREMITIES WITH BEDSIDE RAILS UP X3 AND PADDED DUE TO SEIZURE PRECAUTION. BRAKES ENGAGED FOR SAFETY, CALL LIGHT IS WITHIN REACH. WILL CONTINUE WITH THE PLAN OF CARE.
[2020-06-08 08:00] VITALS: BP 140/97
[2020-06-08] MEDS: Lacosamide 50mg tablet ORAL SCH ×2 (09:03→18:21)
[2020-06-08] MEDS: Sucralfate 1gm tab ORAL SCH ×2 (09:03→18:21)
[2020-06-08] MEDS: Lactobacillus-GG tablet GT SCH (09:03)
[2020-06-08] MEDS: Lisinopril 20mg tab GT SCH ×2 (09:05→18:21)
[2020-06-08] MEDS: Metoprolol Tartrate 100mg tab ORAL SCH ×2 (09:05→21:09)
[2020-06-08] MEDS: Renvela 800mg Pkt GT SCH ×3 (09:05→18:22)
[2020-06-08] MEDS: Enoxaparin 80mg Inj SUBQ SCH ×2 (09:07→21:16)
[2020-06-08] MEDS: Cefepime HCl 2 GM in D5W 55 ML IVPB SCH ×2 (09:19→21:00)
--- NOTE | 2020-06-08 09:22 | Pulmonology Progress Note ---
Subjective ROS Limited/Unobtainable: Yes Constitutional: Reports: fever, other - Zq=275.8 last night Allergies: Coded Allergies: No Known Allergies (Unverified , 05/30/20) Subjective no recent fevers + tachycardia Objective Last 24 Hour Vital Signs Date Time Temp Pulse Resp B/P (MAP) Pulse Ox O2 Delivery O2 Flow Rate FiO2 06/08/20 09:05 136 140/97 06/08/20 09:05 140/97 06/08/20 07:53 96 Cool Aerosol 5.0 28 06/08/20 04:56 166/92 06/08/20 04:00 103 06/08/20 04:00 98.1 118 23 166/92 (116) 98 118 06/08/20 01:02 98 Cool Aerosol 5.0 28 06/08/20 00:00 103 06/08/20 00:00 98.2 89 25 118/82 (94) 98 89 06/07/20 21:04 129 138/96 06/07/20 21:04 138/96 06/07/20 21:00 Trach Collar 2.0 06/07/20 20:00 99.1 129 23 138/96 (110) 98 129 06/07/20 20:00 123 06/07/20 19:38 96 Cool Aerosol 5.0 28 06/07/20 17:54 154/107 06/07/20 16:00 127 06/07/20 16:00 97.1 109 21 154/107 (123) 99 109 06/07/20 14:18 148/109 06/07/20 13:02 99 Cool Aerosol 5.0 28 06/07/20 12:00 105 06/07/20 12:00 98.7 105 20 148/109 (122) 99 06/07/20 09:55 136 155/97 06/07/20 09:55 155/97 Intake and Output 06/07/20 06/08/20 19:00 07:00 Intake Total 430 ml Output Total 600 ml 1100 ml Balance -600 ml -670 ml IV Total 430 ml Output Urine Total 600 ml 1100 ml # Voids 1 # Bowel Movements 2 Objective WDWN bulging noted scalp clear breath sounds bilaterally without rhonchi or wheeze [id number] tachy without MRG NABS nontender GT no CCE nonfocal trach poor LOC Laboratory Tests 06/08/20 05:53: White Blood Count 12.7H, Red Blood Count 3.51L, Hemoglobin 10.3L, Hematocrit 29.2L, Mean Corpuscular Volume 83, Mean Corpuscular Hemoglobin 29.4, Mean Corpuscular Hemoglobin Concent 35.4, Red Cell Distribution Width 13.6, Platelet Count 444, Mean Platelet Volume 5.5L, Neutrophils (%) (Auto) 80.9H, Lymphocytes (%) (Auto) 10.1L, Monocytes (%) (Auto) 6.0, Eosinophils (%) (Auto) 1.8, Basophils (%) (Auto) 1.2, Sodium Level 125L, Potassium Level 3.8, Chloride Level 91L, Carbon Dioxide Level 23, Anion Gap 11, Blood Urea Nitrogen 13, Creatinine 0.5L, Estimat Glomerular Filtration Rate > 60, Glucose Level 131H, Calcium Level 8.4L Current Medications Medications (Trade) Dose Ordered Sig/Anuj Route PRN Reason Start Time Stop Time Status Last Admin Dose Admin Acetaminophen (Tylenol) 650 mg Q6H PRN ORAL Temp >100.5 05/30/20 18:45 06/29/20 18:44 06/06/20 18:29 Cefepime HCl 2 gm/ Dextrose 55 ml @ 110 mls/hr EVERY 12 HOURS IVPB 06/07/20 12:00 06/14/20 11:59 06/08/20 09:19 Chlorhexidine Gluconate (Laura-Hex 2%) 1 applic DAILY@2000 TOPIC 06/01/20 20:00 08/30/20 19:59 06/07/20 20:22 Clonidine HCl (Catapres Tab) 0.1 mg Q4H PRN ORAL SBP above 150; DBP above 95 06/02/20 23:00 08/31/20 22:59 06/08/20 04:56 Enoxaparin Sodium (Lovenox) 80 mg EVERY 12 HOURS SUBQ 05/30/20 21:00 08/28/20 20:59 06/08/20 09:07 Famotidine (Pepcid) 20 mg DAILY GT 05/31/20 09:00 08/29/20 08:59 06/08/20 09:04 Gadobutrol (Gadavist) 7.5 mmol NOW PRN IV Radiology Procedure 06/04/20 13:00 06/08/20 12:59 Lacosamide (Vimpat) 50 mg BID ORAL 05/31/20 09:00 08/29/20 08:59 06/08/20 09:03 Lactobacillus Acidophilus (Culturelle) 1 tab DAILY GT 05/31/20 09:00 08/29/20 08:59 06/08/20 09:03 Lisinopril (PriniviL) 20 mg BID GT 06/07/20 18:00 07/03/20 17:59 06/08/20 09:05 Metoprolol Tartrate (Lopressor) 150 mg EVERY 12 HOURS ORAL 06/08/20 09:00 09/06/20 08:59 06/08/20 09:05 Metronidazole 100 ml @ 100 mls/hr Q8HR IVPB 06/07/20 10:53 06/14/20 10:52 06/08/20 04:58 Sevelamer Carbonate (Renvela) 800 mg THREE TIMES A DAY GT 05/31/20 09:00 08/29/20 08:59 06/08/20 09:05 Sodium Chloride 1,000 ml @ 50 mls/hr Q20H IV 05/31/20 00:00 06/30/20 00:00 06/07/20 18:04 Sucralfate (Carafate) 1 gm BID ORAL 05/31/20 09:00 08/29/20 08:59 06/08/20 09:03 Thyroid ([place] Thyroid) 15 mg DAILY GT 05/31/20 09:00 06/30/20 08:59 06/08/20 09:04 Vancomycin HCl (Vanco pharmacy to dose) 1 ea DAILY PRN MISC Per rx protocol 06/07/20 11:00 07/07/20 10:59 Vancomycin HCl 1 gm/Dextrose 275 ml @ 183.708 mls/hr Q8HR IVPB 06/07/20 14:00 06/12/20 13:59 06/08/20 06:04 Assessment/Plan Assessment/Plan Impression: Sepsis Urinary Tract Infection TBI Seizures Hypothyroidism Sinus Tachycardia Hypertension abnormal MRI/ CT Plan: IV Antibiotics IVF O2 PRN TC PPX Monitor labs adjust bp and beta blockade as needed ? CCB transfer to [facility] for neurosurgery - d/w neurosurgery and neurology update sister ID evaluation noted- on antibiotics await cultures- negative repeat wbc- normal full dose lovenox impression, plan, and exam edited and reviewed in detail care discussed with Aime Browne MD Jun 08, 2020 09:22
--- NOTE | 2020-06-08 10:35 | Infectious Diseases Prog Note ---
Assessment/Plan Assessment/Plan antibiotics : vancomycin iv, cefepime, flagyl A 1. fever improving COVID 19 negative 2. ? scabies s/p rx 3. leucocytosis improving 4. traumatic brain injury 5. seizures 6. ? brain abscess 7. aspiration pneumonia P 1. continue iv vancomycin, cefepime, flagyl 2. will follow up clinically 3. transfer pending Subjective ROS Limited/Unobtainable: Yes Allergies: Coded Allergies: No Known Allergies (Unverified , 05/30/20) Objective Last 24 Hour Vital Signs Date Time Temp Pulse Resp B/P (MAP) Pulse Ox O2 Delivery O2 Flow Rate FiO2 06/08/20 09:05 136 140/97 06/08/20 09:05 140/97 06/08/20 09:00 Trach Collar 2.0 06/08/20 08:00 98.9 126 20 140/97 (111) 98 06/08/20 08:00 126 06/08/20 07:53 96 Cool Aerosol 5.0 28 06/08/20 04:56 166/92 06/08/20 04:00 103 06/08/20 04:00 98.1 118 23 166/92 (116) 98 118 06/08/20 01:02 98 Cool Aerosol 5.0 28 06/08/20 00:00 103 06/08/20 00:00 98.2 89 25 118/82 (94) 98 89 06/07/20 21:04 129 138/96 06/07/20 21:04 138/96 06/07/20 21:00 Trach Collar 2.0 06/07/20 20:00 99.1 129 23 138/96 (110) 98 129 06/07/20 20:00 123 06/07/20 19:38 96 Cool Aerosol 5.0 28 06/07/20 17:54 154/107 06/07/20 16:00 127 06/07/20 16:00 97.1 109 21 154/107 (123) 99 109 06/07/20 14:18 148/109 06/07/20 13:02 99 Cool Aerosol 5.0 28 06/07/20 12:00 105 06/07/20 12:00 98.7 105 20 148/109 (122) 99 Height (Feet): 5 Height (Inches): 10.00 Weight (Pounds): 160 HEENT: status post trach, other - right head swelling Respiratory/Chest: lungs clear Cardiovascular: normal rate, regular rhythm, no gallop/murmur Abdomen: soft, non tender, other - GT Extremities: no edema Laboratory Tests Test 06/08/20 05:53 White Blood Count 12.7 K/UL (4.8-10.8) H Red Blood Count 3.51 M/UL (4.70-6.10) L Hemoglobin 10.3 G/DL (14.2-18.0) L Hematocrit 29.2 % (42.0-52.0) L Mean Corpuscular Volume 83 FL (80-99) Mean Corpuscular Hemoglobin 29.4 PG (27.0-31.0) Mean Corpuscular Hemoglobin Concent 35.4 G/DL (32.0-36.0) Red Cell Distribution Width 13.6 % (11.6-14.8) Platelet Count 444 K/UL (150-450) Mean Platelet Volume 5.5 FL (6.5-10.1) L Neutrophils (%) (Auto) 80.9 % (45.0-75.0) H Lymphocytes (%) (Auto) 10.1 % (20.0-45.0) L Monocytes (%) (Auto) 6.0 % (1.0-10.0) Eosinophils (%) (Auto) 1.8 % (0.0-3.0) Basophils (%) (Auto) 1.2 % (0.0-2.0) Sodium Level 125 MMOL/L (136-145) L Potassium Level 3.8 MMOL/L (3.5-5.1) Chloride Level 91 MMOL/L (98-107) L Carbon Dioxide Level 23 MMOL/L (21-32) Anion Gap 11 mmol/L (5-15) Blood Urea Nitrogen 13 mg/dL (7-18) Creatinine 0.5 MG/DL (0.55-1.30) L Estimat Glomerular Filtration Rate > 60 mL/min (>60) Glucose Level 131 MG/DL (74-106) H Calcium Level 8.4 MG/DL (8.5-10.1) L Current Medications Medications (Trade) Dose Ordered Sig/Anuj Route PRN Reason Start Time Stop Time Status Last Admin Dose Admin Acetaminophen (Tylenol) 650 mg Q6H PRN ORAL Temp >100.5 05/30/20 18:45 06/29/20 18:44 06/06/20 18:29 Cefepime HCl 2 gm/ Dextrose 55 ml @ 110 mls/hr EVERY 12 HOURS IVPB 06/07/20 12:00 06/14/20 11:59 06/08/20 09:19 Chlorhexidine Gluconate (Laura-Hex 2%) 1 applic DAILY@2000 TOPIC 06/01/20 20:00 08/30/20 19:59 06/07/20 20:22 Clonidine HCl (Catapres Tab) 0.1 mg Q4H PRN ORAL SBP above 150; DBP above 95 06/02/20 23:00 08/31/20 22:59 06/08/20 04:56 Enoxaparin Sodium (Lovenox) 80 mg EVERY 12 HOURS SUBQ 05/30/20 21:00 08/28/20 20:59 06/08/20 09:07 Famotidine (Pepcid) 20 mg DAILY GT 05/31/20 09:00 08/29/20 08:59 06/08/20 09:04 Gadobutrol (Gadavist) 7.5 mmol NOW PRN IV Radiology Procedure 06/04/20 13:00 06/08/20 12:59 Lacosamide (Vimpat) 50 mg BID ORAL 05/31/20 09:00 08/29/20 08:59 06/08/20 09:03 Lactobacillus Acidophilus (Culturelle) 1 tab DAILY GT 05/31/20 09:00 08/29/20 08:59 06/08/20 09:03 Lisinopril (PriniviL) 20 mg BID GT 06/07/20 18:00 07/03/20 17:59 06/08/20 09:05 Metoprolol Tartrate (Lopressor) 150 mg EVERY 12 HOURS ORAL 06/08/20 09:00 09/06/20 08:59 06/08/20 09:05 Metronidazole 100 ml @ 100 mls/hr Q8HR IVPB 06/07/20 10:53 06/14/20 10:52 06/08/20 04:58 Sevelamer Carbonate (Renvela) 800 mg THREE TIMES A DAY GT 05/31/20 09:00 08/29/20 08:59 06/08/20 09:05 Sodium Chloride 1,000 ml @ 50 mls/hr Q20H IV 05/31/20 00:00 06/30/20 00:00 06/07/20 18:04 Sucralfate (Carafate) 1 gm BID ORAL 05/31/20 09:00 08/29/20 08:59 06/08/20 09:03 Thyroid ([place] Thyroid) 15 mg DAILY GT 05/31/20 09:00 06/30/20 08:59 06/08/20 09:04 Vancomycin HCl (Vanco pharmacy to dose) 1 ea DAILY PRN MISC Per rx protocol 06/07/20 11:00 07/07/20 10:59 Vancomycin HCl 1 gm/Dextrose 275 ml @ 183.708 mls/hr Q8HR IVPB 06/07/20 14:00 06/12/20 13:59 06/08/20 06:04 Dl Mcgowan MD Jun 08, 2020 10:35
--- NOTE | 2020-06-08 10:50 | NUR ---
BATON TWIRLER NOTES SPOKE WITH LAUREN FROM [facility], DECLINED PATIENT AT THIS TIME. INQUIRY FAXED TO [facility]. WILL FOLLOW UP. Addendum: 06/08/20 at 1333 by EVANS NAJERA RN RN RECEIVED A CALL FROM MONO FROM [facility], REQUESTING ADDITIONAL INFORMATION. DOCUMENTS FAXED. WILL FOLLOW UP. MONO (P) [phone] (F) [phone] Addendum: 06/08/20 at 1557 by EVANS NAJERA RN RN RECEIVED A CALL FROM ASAEL FROM [facility], NO TELE BEDS AT THIS TIME. ASAEL WILL CALL WITH UPDATE ON A TELE BED.
[2020-06-08 12:00] VITALS: BP 130/98
--- NOTE | 2020-06-08 12:03 | NUR ---
*-*DISCHARGE PLANNING*-* PATIENT HAS BEEN REFERRED TO: [facility] P: [phone] S/W ASAEL, WILL CALL BACK. Addendum: 06/08/20 at 1209 by HEAVENLY BARBA CM PLACED A CALL TO ASAEL AT [facility] P:[phone], NO ANSWER, LEFT VOICE MESSAGE.
--- NOTE | 2020-06-08 15:16 | NUR ---
CASE MANAGEMENT: REVIEW SI: SEPSIS . SEIZURE T 98.1 HR 126 RR 20 BP 140/97 SAT 97% TRACH COLLAR 5.0 WBC 12.7 H/H 103./29.2 NA 125 GLUCOSE 131 IS: VANCOMYCIN IV Q8HR CEFEPIME IV Q12HR FLAGYL IV Q12HR NS IVF @ 50ML/HR TELEMETRY UNIT STATUS DCP: PATIENT IS FROM [facility]. AWAITING TRANSFER TO [facility] NEUROS[facility]ERY WHEN BED BECOMES AVAILABLE
[2020-06-08] MEDS: Vancomycin 1.25gm/NS Premix q24h IVPB SCH ×2 (15:50→22:56)
[2020-06-08 16:00] VITALS: BP 139/89
--- NOTE | 2020-06-08 16:14 | Cardiology Report ---
APPROVED REPORT EKG Measurement Heart [id number] <Conclusion> Sinus tachycardia Nonspecific ST and T wave abnormality Abnormal ECG
--- NOTE | 2020-06-08 17:18 | Surgery Progress Note ---
Surgery Progress Note Subjective Additional Comments fevers improved wbc improved exam stable Objective Last 24 Hour Vital Signs Date Time Temp Pulse Resp B/P (MAP) Pulse Ox O2 Delivery O2 Flow Rate FiO2 06/08/20 16:00 98.6 120 21 139/89 (106) 98 109 06/08/20 13:00 97 Cool Aerosol 5.0 28 06/08/20 12:00 112 06/08/20 12:00 98.1 112 20 130/98 (109) 100 06/08/20 09:05 136 140/97 06/08/20 09:05 140/97 06/08/20 09:00 Trach Collar 2.0 06/08/20 08:00 98.9 126 20 140/97 (111) 98 06/08/20 08:00 126 06/08/20 07:53 96 Cool Aerosol 5.0 28 06/08/20 04:56 166/92 06/08/20 04:00 103 06/08/20 04:00 98.1 118 23 166/92 (116) 98 118 06/08/20 01:02 98 Cool Aerosol 5.0 28 06/08/20 00:00 103 06/08/20 00:00 98.2 89 25 118/82 (94) 98 89 06/07/20 21:04 129 138/96 06/07/20 21:04 138/96 06/07/20 21:00 Trach Collar 2.0 06/07/20 20:00 99.1 129 23 138/96 (110) 98 129 06/07/20 20:00 123 06/07/20 19:38 96 Cool Aerosol 5.0 28 06/07/20 17:54 154/107 I&O Intake and Output 06/07/20 06/08/20 19:00 07:00 Intake Total 430 ml Output Total 600 ml 1100 ml Balance -600 ml -670 ml IV Total 430 ml Output Urine Total 600 ml 1100 ml # Voids 1 # Bowel Movements 2 Dressing: saturated Cardiovascular: RSR Respiratory: decreased breath sounds Abdomen: soft, non-tender, present bowel sounds, other Extremities: no tenderness, no cyanosis Laboratory Tests Test 06/08/20 05:53 06/08/20 13:00 White Blood Count 12.7 K/UL (4.8-10.8) H Red Blood Count 3.51 M/UL (4.70-6.10) L Hemoglobin 10.3 G/DL (14.2-18.0) L Hematocrit 29.2 % (42.0-52.0) L Mean Corpuscular Volume 83 FL (80-99) Mean Corpuscular Hemoglobin 29.4 PG (27.0-31.0) Mean Corpuscular Hemoglobin Concent 35.4 G/DL (32.0-36.0) Red Cell Distribution Width 13.6 % (11.6-14.8) Platelet Count 444 K/UL (150-450) Mean Platelet Volume 5.5 FL (6.5-10.1) L Neutrophils (%) (Auto) 80.9 % (45.0-75.0) H Lymphocytes (%) (Auto) 10.1 % (20.0-45.0) L Monocytes (%) (Auto) 6.0 % (1.0-10.0) Eosinophils (%) (Auto) 1.8 % (0.0-3.0) Basophils (%) (Auto) 1.2 % (0.0-2.0) Sodium Level 125 MMOL/L (136-145) L Potassium Level 3.8 MMOL/L (3.5-5.1) Chloride Level 91 MMOL/L (98-107) L Carbon Dioxide Level 23 MMOL/L (21-32) Anion Gap 11 mmol/L (5-15) Blood Urea Nitrogen 13 mg/dL (7-18) Creatinine 0.5 MG/DL (0.55-1.30) L Estimat Glomerular Filtration Rate > 60 mL/min (>60) Glucose Level 131 MG/DL (74-106) H Calcium Level 8.4 MG/DL (8.5-10.1) L Vancomycin Level Trough 12.2 ug/mL (5.0-12.0) H Plan Problems: (1) Tachycardia (2) Sepsis Assessment & Plan: 29-year-old male with leukocytosis anemia lactic acidosis. Patient admitted further care management identified to have significant secretions from tracheostomy trach collar with sutures in place causing distortion. Abdominal G-tube in place. Patient forming deep tissue injury. BMI 22 labs noted. Patient a phasic unable to respond to commands and in a vegetative state at this time. Patient with a UTI on antibiotics. Right PIC in place may need to be replaced. Turn every 2 hours offload pressure with air mattress and pillows. Trach sutures removed trach tie evaluated trach in place secretions suction. Continue with secretions chest x-ray reviewed no acute infiltrative process Leukocytosis trending down lactic acid is improving continue fluid resuscitation IV antibiotics improving labs improved cont current care trach care fevers resolved wbc resolved improved CT head noted neurosurg eval cxr improved fevers cont leukocytosis neuro input appreciate. possible infected collection transfer to neurosurgery hospital pending Thank you will follow with recommendations Brain: Extensive right hemispheric parenchymal volume loss and edema. Increased hyperdense of the right frontal parenchyma. Hypodensities of the left frontal, parietal, and temporal regions which may be sequela of prior infarct. No hemorrhage. No significant white matter disease. Midline shift: Mild, 6 mm, right to left midline shift. Ventricles: Exvacuodilatation of the ventricles. Bones/joints: Postsurgical changes from extensive prior right craniotomy. Large extra-axial fluid collection extending beyond the calvarium in region of prior craniotomy. The fluid extends beyond the calvarial region by approximately 4.0 cm in axial dimension No acute fracture. Soft tissues: Unremarkable. Sinuses: Unremarkable as visualized. No acute sinusitis. Mastoid air cells: Unremarkable as visualized. No mastoid effusion. IMPRESSION: 1. Large extra-axial fluid collection of the right hemisphere extending beyond the region of large frontal craniotomy. There is mild right to left midline shift measuring approximately 6 mm. 2. Hyperdensity of the residual right parenchyma suggestive of parenchymal contusion. 3. Extensive right parenchymal volume loss. May be sequela of prior infarct versus postsurgical change. 4. Hyperdensities throughout the left cerebellum, suggestive of prior ischemic process. Artifacts: Blooming artifact is noted within the right peripheral residual parenchyma likely representing hemosiderin deposition. Brain: Extensive right hemispheric parenchymal volume loss and edema. Mild encephalomalacia of the left hemisphere with expansion of the CSF containing spaces. No hemorrhage. Midline shift: There is proximal is 7 mm of right to left midline shift. Ventricles: Unremarkable. No ventriculomegaly. Bones/joints: There is significant expansion of the CSF containing spaces of the right hemisphere with extension beyond the calvarium through a craniotomy defect measuring approximately 4.3 cm. Sinuses: Unremarkable as visualized. No acute sinusitis. Mastoid air cells: Unremarkable as visualized. No mastoid effusion. Orbits: Unremarkable as visualized. Other vasculature: Following demonstration of intravenous contrast, there is no evidence of abnormal enhancement. IMPRESSION: 1. No obvious hemorrhage or stroke. Artifact on DWI sequence partially limits evaluation. Otherwise, no significant interval change from recent CT. 2. Large extra-axial fluid collection pending through craniotomy defect. There is mild right to left midline shift measuring in proximal 7 mm. 3. Extensive right parenchymal volume loss. May be sequela of prior infarct versus postsurgical/post traumatic change. 4. Encephalization of the left hemisphere with expansion of CSF containing spaces. DAILY ESTIMATED NEEDS: Needs based on Pulmonary, 68kg 25-30 kcals/kg 4417-0832 total kcals 1.25-1.5 g protein/kg 85-102 g total protein 25-30 mL/kg [id number] total fluid mLs NUTRITION DIAGNOSIS: Swallowing difficulty r/t TBI and resp distress, as evidenced by pt is vent dep via T-collar, PEG dep. CURRENT TF:Jevity 1.2 @70 ml x20 hrs ENTERAL NUTRITION RECOMMENDATIONS: Increase TF to goal of 75ml/hr x20 hrs to provide 1500ml, 1800 kcal, 83g pro, 1211ml free H2O - Rec to INCREASE TF by 5ml/hr to better meet est kcal and pro needs. - Flush per MD/ HOB over 30 degrees ADDITIONAL RECOMMENDATIONS: 1) Skin integrity: add CATALINA BID via PEG (added 5g pro to meet est pro needs) 2) Wound care eval 3) Per SNF: 5'5" and 150#, maintain calibrated bed scale wts Carl Hernandez Jun 08, 2020 17:18
[2020-06-08 20:00] VITALS: BP 149/116
--- NOTE | 2020-06-08 20:09 | NUR ---
NURSE NOTES: Pt. received from KADEEM Mandel. Pt. nonverbal, tracks with eyes to name, breathing even and unlabored on t-piece at 2L, no indications of respiratory distress, no indications of pain. Gtube intact, with Jevity 1.2 at 70cc/hr. Daniels intact and patent, draining yellow urine well. Picc HELIO noted, dressing clean dry and intact, with ND at 50cc/hr. Bed low and locked, head of bed elevated, upper side rails padded, side rails x3 up, bed alarm active, and call light in reach.
--- NOTE | 2020-06-08 20:18 | NUR ---
NURSE HAND-OFF REPORT: Important Events on Shift:N Patient Status: Diet: Pending Orders: Pending Results/Labs: Pending MD notification: Latest Vital Signs: Temperature 98.6 , Pulse 127 , B/P 139 /89 , Respiratory Rate 21 , O2 SAT 98 , Trach Collar, O2 Flow Rate 5.0 . Vital Sign Comment: EKG Rhythm: Sinus Tachycardia Rhythm change?: N MD Notified?: N -DR.BALFE BO Response: No New Orders Received Latest Whitley Fall Score: 70 Fall Risk: High Risk Safety Measures: Call light Within Reach, Bed Alarm Zone 1, Side Rails Side Rails x2, Bed position Low and Locked. Fall Precautions: Yellow Socks Yellow Gown Door Sign Patient Fall Education Report given to .
[2020-06-08] MEDS: Dyna-Hex 2% Top Sol 2oz TOPIC SCH (21:00)
[2020-06-09] VITALS (7 sets, daily range): BP systolic 119–156; BP diastolic 80–101
[2020-06-09] MEDS: Vancomycin 1.25gm/NS Premix q24h IVPB SCH ×2 (06:12→13:32)
[2020-06-09 07:05] LABS: BLOOD UREA NITROGEN 7 mg/dL (7-18); CALCIUM 8.3 MG/DL (8.5-10.1); CARBON DIOXIDE 26 MMOL/L (21-32); CHLORIDE 88 MMOL/L (98-107); CREATININE 0.4 MG/DL (0.55-1.30); POTASSIUM 3.7 MMOL/L (3.5-5.1); SODIUM 121 MMOL/L (136-145)
[2020-06-09 07:14] LABS: BASOPHILS % (AUTO) 0.9 % (0.0-2.0); EOSINOPHILS % (AUTO) 1.8 % (0.0-3.0); HEMATOCRIT 27.1 % (42.0-52.0); HEMOGLOBIN 9.9 G/DL (14.2-18.0); LYMPHOCYTES % (AUTO) 9.3 % (20.0-45.0); MEAN CORPUSCULAR VOLUME 82 FL (80-99); NEUTROPHILS % (AUTO) 82.1 % (45.0-75.0); PLATELET COUNT 448 K/UL (150-450); RED CELL DISTRIBUTION WIDTH 13.7 % (11.6-14.8); WHITE BLOOD COUNT 15.1 K/UL (4.8-10.8)
--- NOTE | 2020-06-09 07:25 | NUR ---
NURSE HAND-OFF REPORT: Important Events on Shift:[pt. hypertensive, x2 clonidine PRN given, BP now 139/95, suctioning performed via t-piece] Patient Status: stable Diet: jevity 1.2 at 70cc/hr Pending Orders: na Pending Results/Labs:BMP CBC Pending MD notification:na Latest Vital Signs: Temperature 96.7 , Pulse 109 , B/P 139 /95 , Respiratory Rate 26 , O2 SAT 96 , Trach Collar, O2 Flow Rate 5.0 . Vital Sign Comment: stable EKG Rhythm: Sinus Tachycardia Rhythm change?: N MD Notified?: N -DR.BALFE BO Response: No New Orders Received Latest Whitley Fall Score: 70 Fall Risk: High Risk Safety Measures: Call light Within Reach, Bed Alarm Zone 1, Side Rails Side Rails x2, Bed position Low and Locked. Fall Precautions: Yellow Socks Yellow Gown Door Sign Patient Fall Education Report given to Shu QUAN.
--- NOTE | 2020-06-09 07:51 | NUR ---
NURSE NOTES: Received report from KADEEM Torres. Observed pt sleeping, no s/sx of acute distress. Pt on T-piece 2L with 25% FiO2. PICC line patent and asymptomatic, running IVF as ordered. Pt on tube feeding, running Jevity 1.2 as ordered, will turn off at [phone] as scheduled. Bed on lowest position, call light within reach. Will continue plan of care. Addendum: 06/09/20 at 0821 by Shu Reese RN Pt noted to be on decerebrate posture.
--- NOTE | 2020-06-09 08:31 | Pulmonology Progress Note ---
Subjective ROS Limited/Unobtainable: Yes Constitutional: Reports: fever, other - Ba=916.8 last night Allergies: Coded Allergies: No Known Allergies (Unverified , 05/30/20) Subjective no recent fevers + tachycardia Objective Last 24 Hour Vital Signs Date Time Temp Pulse Resp B/P (MAP) Pulse Ox O2 Delivery O2 Flow Rate FiO2 06/09/20 08:00 96.8 109 20 135/85 (102) 96 06/09/20 06:16 139/95 (110) 06/09/20 05:02 152/93 06/09/20 04:00 109 06/09/20 04:00 96.7 109 26 152/93 (112) 96 06/09/20 01:00 98 Cool Aerosol 5.0 28 06/09/20 00:51 151/101 06/09/20 00:00 109 06/09/20 00:00 97.0 109 27 151/101 (118) 99 06/08/20 21:09 137 149/116 06/08/20 21:00 Trach Collar 2.0 06/08/20 20:00 98.3 136 28 149/116 (127) 98 06/08/20 20:00 137 06/08/20 20:00 99 Cool Aerosol 5.0 28 06/08/20 18:21 139/89 06/08/20 16:00 98.6 120 21 139/89 (106) 98 109 06/08/20 16:00 127 06/08/20 13:00 97 Cool Aerosol 5.0 28 06/08/20 12:00 112 06/08/20 12:00 98.1 112 20 130/98 (109) 100 06/08/20 09:05 136 140/97 06/08/20 09:05 140/97 06/08/20 09:00 Trach Collar 2.0 Intake and Output 06/08/20 06/09/20 18:59 06:59 Intake Total 1620.000 ml Output Total 2200 ml Balance -580.000 ml Intake Free Water 200 ml IV Total 930.000 ml Tube Feeding 490 ml Output Urine Total 2200 ml # Voids 2 Objective WDWN bulging noted scalp clear breath sounds bilaterally without rhonchi or wheeze [id number] tachy without MRG NABS nontender GT no CCE nonfocal trach poor LOC Microbiology Date/Time Source Procedure Growth Status 06/08/20 00:53 Indwelling Cath Urine Culture - Preliminary Gram Negative Misha Yeast Species Resulted 06/07/20 17:40 Sputum Gram Stain - Final Resulted 06/07/20 17:40 Sputum Culture - Preliminary Gram Negative Misha Resulted Laboratory Tests 06/08/20 13:00: Vancomycin Level Trough 12.2H 06/09/20 06:40: White Blood Count 15.1H, Red Blood Count 3.30L, Hemoglobin 9.9L, Hematocrit 27.1L, Mean Corpuscular Volume 82, Mean Corpuscular Hemoglobin 30.0, Mean Corpuscular Hemoglobin Concent 36.6H, Red Cell Distribution Width 13.7, Platelet Count 448, Mean Platelet Volume 5.4L, Neutrophils (%) (Auto) 82.1H, Lymphocytes (%) (Auto) 9.3L, Monocytes (%) (Auto) 6.0, Eosinophils (%) (Auto) 1.8, Basophils (%) (Auto) 0.9, Sodium Level 121L, Potassium Level 3.7, Chloride Level 88L, Carbon Dioxide Level 26, Blood Urea Nitrogen 7, Creatinine 0.4L, Estimat Glomerular Filtration Rate > 60, Glucose Level 138H, Calcium Level 8.3L Current Medications Medications (Trade) Dose Ordered Sig/Anuj Route PRN Reason Start Time Stop Time Status Last Admin Dose Admin Acetaminophen (Tylenol) 650 mg Q6H PRN ORAL Temp >100.5 05/30/20 18:45 06/29/20 18:44 06/06/20 18:29 Cefepime HCl 2 gm/ Dextrose 55 ml @ 110 mls/hr EVERY 12 HOURS IVPB 06/07/20 12:00 06/14/20 11:59 06/08/20 21:00 Chlorhexidine Gluconate (Laura-Hex 2%) 1 applic DAILY@2000 TOPIC 06/01/20 20:00 08/30/20 19:59 06/08/20 21:00 Clonidine HCl (Catapres Tab) 0.1 mg Q4H PRN ORAL SBP above 150; DBP above 95 06/02/20 23:00 08/31/20 22:59 06/09/20 05:02 Enoxaparin Sodium (Lovenox) 80 mg EVERY 12 HOURS SUBQ 05/30/20 21:00 08/28/20 20:59 06/08/20 21:16 Famotidine (Pepcid) 20 mg DAILY GT 05/31/20 09:00 08/29/20 08:59 06/08/20 09:04 Lacosamide (Vimpat) 50 mg BID ORAL 05/31/20 09:00 08/29/20 08:59 06/08/20 18:21 Lactobacillus Acidophilus (Culturelle) 1 tab DAILY GT 05/31/20 09:00 08/29/20 08:59 06/08/20 09:03 Lisinopril (PriniviL) 20 mg BID GT 06/07/20 18:00 07/03/20 17:59 06/08/20 18:21 Metoprolol Tartrate (Lopressor) 150 mg EVERY 12 HOURS ORAL 06/08/20 09:00 09/06/20 08:59 06/08/20 21:09 Metronidazole 100 ml @ 100 mls/hr Q8HR IVPB 06/07/20 10:53 06/14/20 10:52 06/09/20 05:01 Sevelamer Carbonate (Renvela) 800 mg THREE TIMES A DAY GT 05/31/20 09:00 08/29/20 08:59 06/08/20 18:22 Sodium Chloride 1,000 ml @ 50 mls/hr Q20H IV 05/31/20 00:00 06/30/20 00:00 06/08/20 15:57 Sucralfate (Carafate) 1 gm BID ORAL 05/31/20 09:00 08/29/20 08:59 06/08/20 18:21 Thyroid (Maxie Thyroid) 15 mg DAILY GT 05/31/20 09:00 06/30/20 08:59 06/08/20 09:04 Vancomycin HCl (Vanco pharmacy to dose) 1 ea DAILY PRN MISC Per rx protocol 06/07/20 11:00 07/07/20 10:59 Vancomycin/Sodium Chloride 275 ml @ 183.333 mls/hr Q8HR IVPB 06/08/20 15:00 06/13/20 14:59 06/09/20 06:12 Assessment/Plan Assessment/Plan Impression: Sepsis Urinary Tract Infection TBI Seizures Hypothyroidism Sinus Tachycardia Hypertension abnormal MRI/ CT hyponatremia leukocytosis Plan: IV Antibiotics IVF O2 PRN TC PPX Monitor labs monitor vitals renal eval transfer to [facility] for neurosurgery - d/w neurosurgery and neurology update sister ID follow up repeat wbc- now elevated full dose lovenox impression, plan, and exam edited and reviewed in detail care discussed with Aime Browne MD Jun 09, 2020 08:31
[2020-06-09] MEDS: Lisinopril 20mg tab GT SCH ×2 (09:47→18:03)
[2020-06-09] MEDS: Sucralfate 1gm tab ORAL SCH ×2 (09:47→18:02)
[2020-06-09] MEDS: Lacosamide 50mg tablet ORAL SCH ×2 (09:48→18:03)
[2020-06-09] MEDS: Lactobacillus-GG tablet GT SCH (09:48)
[2020-06-09] MEDS: Renvela 800mg Pkt GT SCH ×3 (09:49→18:03)
[2020-06-09] MEDS: Metoprolol Tartrate 100mg tab ORAL SCH ×2 (09:49→21:36)
[2020-06-09] MEDS: Cefepime HCl 2 GM in D5W 55 ML IVPB SCH ×2 (09:50→21:36)
[2020-06-09] MEDS: Enoxaparin 80mg Inj SUBQ SCH ×2 (09:54→21:44)
--- NOTE | 2020-06-09 10:06 | NUR ---
TRANSFER UPDATE SPOKE WITH ASAEL AT [facility] T: [phone] WHO STATED THEY ARE UNABLE TO ACCEPT PATIENT SPOKE WITH STORM [place] [facility] ~ THEY ARE FULL TO CAPACITY AND UNABLE TO ACCEPT ANY PATIENT'S MAC #[id number] SPOKE WITH CORIE AT [facility] T: [phone]...THEIR DR HERBER PAULSON(NEURO SURGEON) SPOKE WITH DR CALI AND EXPLAINED THERE IS NO NEED FOR HIGHER LEVEL OF CARE AND DOES NOT REQUIRE ANY INTERVENTION AT THIS TIME
--- NOTE | 2020-06-09 11:03 | NUR ---
CASE MANAGEMENT: REVIEW SI: SEPSIS . SEIZURE T 96.8 HR 109 RR 20 BP 152/93 SAT 96% ROOM AIR WBC 15.1 H/H 9.9/27.1 NA 121 URINE CULTURE -- GRAM NEGATIVE CHARLA IS: VANCOMYCIN IV Q8HR CEFEPIME IV Q12HR FLAGYL IV Q8HR NS IVF @ 50ML/HR VIMPAT PO BID TELEMETRY UNIT STATUS DCP: PATIENT IS FROM [facility]. AWAITING TRANSFER TO FOR HIGHER LEVEL OF CARE
--- NOTE | 2020-06-09 12:31 | NUR ---
DISCHARGE PLANNING MESSAGE LEFT FOR DR ROSE REGARDING DISCHARGE PLAN
--- NOTE | 2020-06-09 14:35 | Infectious Diseases Prog Note ---
Assessment/Plan Assessment/Plan A; 1. Fever, 2. Traumatic brain injury. 3. Seizures. 4. Leukocytosis, improving 5. Possible scabies, treated 6. Anemia 7. Pneumonia improving PLAN: 1. continue iv vancomycin, cefepime, Flagyl 2. Will f/u cultures Subjective ROS Limited/Unobtainable: Yes Constitutional: Denies: fever Allergies: Coded Allergies: No Known Allergies (Unverified , 05/30/20) Objective Last 24 Hour Vital Signs Date Time Temp Pulse Resp B/P (MAP) Pulse Ox O2 Delivery O2 Flow Rate FiO2 06/09/20 12:00 98.1 75 20 131/93 (106) 96 06/09/20 09:49 109 135/85 06/09/20 09:47 135/85 06/09/20 09:00 Trach Collar 2.0 06/09/20 08:00 96.8 109 20 135/85 (102) 96 06/09/20 07:29 109 06/09/20 07:11 99 Cool Aerosol 5.0 28 06/09/20 06:16 139/95 (110) 06/09/20 05:02 152/93 06/09/20 04:00 109 06/09/20 04:00 96.7 109 26 152/93 (112) 96 06/09/20 01:00 98 Cool Aerosol 5.0 28 06/09/20 00:51 151/101 06/09/20 00:00 109 06/09/20 00:00 97.0 109 27 151/101 (118) 99 06/08/20 21:09 137 149/116 06/08/20 21:00 Trach Collar 2.0 06/08/20 20:00 98.3 136 28 149/116 (127) 98 06/08/20 20:00 137 06/08/20 20:00 99 Cool Aerosol 5.0 28 06/08/20 18:21 139/89 06/08/20 16:00 98.6 120 21 139/89 (106) 98 109 06/08/20 16:00 127 Height (Feet): 5 Height (Inches): 10.00 Weight (Pounds): 160 HEENT: status post trach, other - R craniotomy Respiratory/Chest: lungs clear, other - on T bar Abdomen: soft, non tender, other - GT feeding Extremities: no edema Neurologic/Psychiatric: unresponsiveness Microbiology Date/Time Source Procedure Growth Status 06/08/20 00:53 Indwelling Cath Urine Culture - Preliminary Gram Negative Misha Yeast Species Resulted 06/07/20 17:40 Sputum Gram Stain - Final Resulted 06/07/20 17:40 Sputum Culture - Preliminary Gram Negative Misha Resulted Laboratory Tests Test 06/09/20 06:40 06/09/20 13:00 White Blood Count 15.1 K/UL (4.8-10.8) H Red Blood Count 3.30 M/UL (4.70-6.10) L Hemoglobin 9.9 G/DL (14.2-18.0) L Hematocrit 27.1 % (42.0-52.0) L Mean Corpuscular Volume 82 FL (80-99) Mean Corpuscular Hemoglobin 30.0 PG (27.0-31.0) Mean Corpuscular Hemoglobin Concent 36.6 G/DL (32.0-36.0) H Red Cell Distribution Width 13.7 % (11.6-14.8) Platelet Count 448 K/UL (150-450) Mean Platelet Volume 5.4 FL (6.5-10.1) L Neutrophils (%) (Auto) 82.1 % (45.0-75.0) H Lymphocytes (%) (Auto) 9.3 % (20.0-45.0) L Monocytes (%) (Auto) 6.0 % (1.0-10.0) Eosinophils (%) (Auto) 1.8 % (0.0-3.0) Basophils (%) (Auto) 0.9 % (0.0-2.0) Sodium Level 121 MMOL/L (136-145) L Potassium Level 3.7 MMOL/L (3.5-5.1) Chloride Level 88 MMOL/L (98-107) L Carbon Dioxide Level 26 MMOL/L (21-32) Blood Urea Nitrogen 7 mg/dL (7-18) Creatinine 0.4 MG/DL (0.55-1.30) L Estimat Glomerular Filtration Rate > 60 mL/min (>60) Glucose Level 138 MG/DL (74-106) H Calcium Level 8.3 MG/DL (8.5-10.1) L Vancomycin Level Trough 12.3 ug/mL (5.0-12.0) H Current Medications Medications (Trade) Dose Ordered Sig/Anuj Route PRN Reason Start Time Stop Time Status Last Admin Dose Admin Acetaminophen (Tylenol) 650 mg Q6H PRN ORAL Temp >100.5 05/30/20 18:45 06/29/20 18:44 06/06/20 18:29 Cefepime HCl 2 gm/ Dextrose 55 ml @ 110 mls/hr EVERY 12 HOURS IVPB 06/07/20 12:00 06/14/20 11:59 06/09/20 09:50 Chlorhexidine Gluconate (Laura-Hex 2%) 1 applic DAILY@2000 TOPIC 06/01/20 20:00 08/30/20 19:59 06/08/20 21:00 Clonidine HCl (Catapres Tab) 0.1 mg Q4H PRN ORAL SBP above 150; DBP above 95 06/02/20 23:00 08/31/20 22:59 06/09/20 05:02 Enoxaparin Sodium (Lovenox) 80 mg EVERY 12 HOURS SUBQ 05/30/20 21:00 08/28/20 20:59 06/09/20 09:54 Famotidine (Pepcid) 20 mg DAILY GT 05/31/20 09:00 08/29/20 08:59 06/09/20 09:47 Lacosamide (Vimpat) 50 mg BID ORAL 05/31/20 09:00 08/29/20 08:59 06/09/20 09:48 Lactobacillus Acidophilus (Culturelle) 1 tab DAILY GT 05/31/20 09:00 08/29/20 08:59 06/09/20 09:48 Lisinopril (PriniviL) 20 mg BID GT 06/07/20 18:00 07/03/20 17:59 06/09/20 09:47 Metoprolol Tartrate (Lopressor) 150 mg EVERY 12 HOURS ORAL 06/08/20 09:00 09/06/20 08:59 06/09/20 09:49 Metronidazole 100 ml @ 100 mls/hr Q8HR IVPB 06/07/20 10:53 06/14/20 10:52 06/09/20 13:32 Sevelamer Carbonate (Renvela) 800 mg THREE TIMES A DAY GT 05/31/20 09:00 08/29/20 08:59 06/09/20 13:32 Sodium Chloride 1,000 ml @ 100 mls/hr Q10H IV 06/09/20 08:30 07/09/20 08:29 06/09/20 09:51 Sucralfate (Carafate) 1 gm BID ORAL 05/31/20 09:00 08/29/20 08:59 06/09/20 09:47 Thyroid ([place]urn Thyroid) 15 mg DAILY GT 05/31/20 09:00 06/30/20 08:59 06/09/20 09:48 Vancomycin HCl (Vanco pharmacy to dose) 1 ea DAILY PRN MISC Per rx protocol 06/07/20 11:00 07/07/20 10:59 Vancomycin/Sodium Chloride 250 ml @ 125 mls/hr Q8H IVPB 06/09/20 20:00 06/14/20 19:59 Tomás Shaffer MD Jun 09, 2020 14:35
--- NOTE | 2020-06-09 14:54 | Surgery Progress Note ---
Surgery Progress Note Subjective Symptoms: tolerating diet Additional Comments leukocytosis fever improved case management notes reviewed Objective Last 24 Hour Vital Signs Date Time Temp Pulse Resp B/P (MAP) Pulse Ox O2 Delivery O2 Flow Rate FiO2 06/09/20 12:00 98.1 75 20 131/93 (106) 96 06/09/20 09:49 109 135/85 06/09/20 09:47 135/85 06/09/20 09:00 Trach Collar 2.0 06/09/20 08:00 96.8 109 20 135/85 (102) 96 06/09/20 07:29 109 06/09/20 07:11 99 Cool Aerosol 5.0 28 06/09/20 06:16 139/95 (110) 06/09/20 05:02 152/93 06/09/20 04:00 109 06/09/20 04:00 96.7 109 26 152/93 (112) 96 06/09/20 01:00 98 Cool Aerosol 5.0 28 06/09/20 00:51 151/101 06/09/20 00:00 109 06/09/20 00:00 97.0 109 27 151/101 (118) 99 06/08/20 21:09 137 149/116 06/08/20 21:00 Trach Collar 2.0 06/08/20 20:00 98.3 136 28 149/116 (127) 98 06/08/20 20:00 137 06/08/20 20:00 99 Cool Aerosol 5.0 28 06/08/20 18:21 139/89 06/08/20 16:00 98.6 120 21 139/89 (106) 98 109 06/08/20 16:00 127 I&O Intake and Output 06/08/20 06/09/20 19:00 07:00 Intake Total 1620.000 ml Output Total 2200 ml Balance -580.000 ml Intake Free Water 200 ml IV Total 930.000 ml Tube Feeding 490 ml Output Urine Total 2200 ml # Voids 2 Dressing: dry Cardiovascular: RSR Respiratory: decreased breath sounds Abdomen: soft, non-tender, present bowel sounds Extremities: no tenderness, no cyanosis Laboratory Tests Test 06/09/20 06:40 06/09/20 13:00 White Blood Count 15.1 K/UL (4.8-10.8) H Red Blood Count 3.30 M/UL (4.70-6.10) L Hemoglobin 9.9 G/DL (14.2-18.0) L Hematocrit 27.1 % (42.0-52.0) L Mean Corpuscular Volume 82 FL (80-99) Mean Corpuscular Hemoglobin 30.0 PG (27.0-31.0) Mean Corpuscular Hemoglobin Concent 36.6 G/DL (32.0-36.0) H Red Cell Distribution Width 13.7 % (11.6-14.8) Platelet Count 448 K/UL (150-450) Mean Platelet Volume 5.4 FL (6.5-10.1) L Neutrophils (%) (Auto) 82.1 % (45.0-75.0) H Lymphocytes (%) (Auto) 9.3 % (20.0-45.0) L Monocytes (%) (Auto) 6.0 % (1.0-10.0) Eosinophils (%) (Auto) 1.8 % (0.0-3.0) Basophils (%) (Auto) 0.9 % (0.0-2.0) Sodium Level 121 MMOL/L (136-145) L Potassium Level 3.7 MMOL/L (3.5-5.1) Chloride Level 88 MMOL/L (98-107) L Carbon Dioxide Level 26 MMOL/L (21-32) Blood Urea Nitrogen 7 mg/dL (7-18) Creatinine 0.4 MG/DL (0.55-1.30) L Estimat Glomerular Filtration Rate > 60 mL/min (>60) Glucose Level 138 MG/DL (74-106) H Calcium Level 8.3 MG/DL (8.5-10.1) L Vancomycin Level Trough 12.3 ug/mL (5.0-12.0) H Plan Problems: (1) Tachycardia (2) Sepsis Assessment & Plan: 29-year-old male with leukocytosis anemia lactic acidosis. Patient admitted further care management identified to have significant secretions from tracheostomy trach collar with sutures in place causing distortion. Abdominal G-tube in place. Patient forming deep tissue injury. BMI 22 labs noted. Patient a phasic unable to respond to commands and in a vegetative state at this time. Patient with a UTI on antibiotics. Right PIC in place may need to be replaced. Turn every 2 hours offload pressure with air mattress and pillows. Trach sutures removed trach tie evaluated trach in place secretions suction. Continue with secretions chest x-ray reviewed no acute infiltrative process Leukocytosis trending down lactic acid is improving continue fluid resuscitation IV antibiotics improving labs improved cont current care trach care fevers resolved wbc resolved improved CT head noted neurosurg eval cxr improved fevers cont leukocytosis neuro input appreciate. possible infected collection transfer to neurosurgery hospital pending Thank you will follow with recommendations Brain: Extensive right hemispheric parenchymal volume loss and edema. Increased hyperdense of the right frontal parenchyma. Hypodensities of the left frontal, parietal, and temporal regions which may be sequela of prior infarct. No hemorrhage. No significant white matter disease. Midline shift: Mild, 6 mm, right to left midline shift. Ventricles: Exvacuodilatation of the ventricles. Bones/joints: Postsurgical changes from extensive prior right craniotomy. Large extra-axial fluid collection extending beyond the calvarium in region of prior craniotomy. The fluid extends beyond the calvarial region by approximately 4.0 cm in axial dimension No acute fracture. Soft tissues: Unremarkable. Sinuses: Unremarkable as visualized. No acute sinusitis. Mastoid air cells: Unremarkable as visualized. No mastoid effusion. IMPRESSION: 1. Large extra-axial fluid collection of the right hemisphere extending beyond the region of large frontal craniotomy. There is mild right to left midline shift measuring approximately 6 mm. 2. Hyperdensity of the residual right parenchyma suggestive of parenchymal contusion. 3. Extensive right parenchymal volume loss. May be sequela of prior infarct versus postsurgical change. 4. Hyperdensities throughout the left cerebellum, suggestive of prior ischemic process. Artifacts: Blooming artifact is noted within the right peripheral residual parenchyma likely representing hemosiderin deposition. Brain: Extensive right hemispheric parenchymal volume loss and edema. Mild encephalomalacia of the left hemisphere with expansion of the CSF containing spaces. No hemorrhage. Midline shift: There is proximal is 7 mm of right to left midline shift. Ventricles: Unremarkable. No ventriculomegaly. Bones/joints: There is significant expansion of the CSF containing spaces of the right hemisphere with extension beyond the calvarium through a craniotomy defect measuring approximately 4.3 cm. Sinuses: Unremarkable as visualized. No acute sinusitis. Mastoid air cells: Unremarkable as visualized. No mastoid effusion. Orbits: Unremarkable as visualized. Other vasculature: Following demonstration of intravenous contrast, there is no evidence of abnormal enhancement. IMPRESSION: 1. No obvious hemorrhage or stroke. Artifact on DWI sequence partially limits evaluation. Otherwise, no significant interval change from recent CT. 2. Large extra-axial fluid collection pending through craniotomy defect. There is mild right to left midline shift measuring in proximal 7 mm. 3. Extensive right parenchymal volume loss. May be sequela of prior infarct versus postsurgical/post traumatic change. 4. Encephalization of the left hemisphere with expansion of CSF containing spaces. DAILY ESTIMATED NEEDS: Needs based on Pulmonary, 68kg 25-30 kcals/kg 6818-0977 total kcals 1.25-1.5 g protein/kg 85-102 g total protein 25-30 mL/kg 5369-0992 total fluid mLs NUTRITION DIAGNOSIS: Swallowing difficulty r/t TBI and resp distress, as evidenced by pt is vent dep via T-collar, PEG dep. CURRENT TF:Jevity 1.2 @70 ml x20 hrs ENTERAL NUTRITION RECOMMENDATIONS: Increase TF to goal of 75ml/hr x20 hrs to provide 1500ml, 1800 kcal, 83g pro, 1211ml free H2O - Rec to INCREASE TF by 5ml/hr to better meet est kcal and pro needs. - Flush per MD/ HOB over 30 degrees ADDITIONAL RECOMMENDATIONS: 1) Skin integrity: add CATALINA BID via PEG (added 5g pro to meet est pro needs) 2) Wound care eval 3) Per SNF: 5'5" and 150#, maintain calibrated bed scale wts Carl Hernandez Jun 09, 2020 14:54
--- NOTE | 2020-06-09 19:20 | NUR ---
NURSE HAND-OFF REPORT: Important Events on Shift: IVF changed to NS at 100ml/hr. Patient Status: fair Diet: Jevity 1.2 at 70 Pending Orders: Pending Results/Labs: Pending MD notification: Latest Vital Signs: Temperature 96.7 , Pulse 113 , B/P 119 /80 , Respiratory Rate 19 , O2 SAT 99 , Trach Collar, O2 Flow Rate 5.0 . Vital Sign Comment: EKG Rhythm: Sinus Tachycardia Rhythm change?: N MD Notified?: N -DR.BALFE BO Response: No New Orders Received Latest Whitley Fall Score: 70 Fall Risk: High Risk Safety Measures: Call light Within Reach, Bed Alarm Zone 1, Side Rails Side Rails x2, Bed position Low and Locked. Fall Precautions: Yellow Socks Yellow Gown Door Sign Patient Fall Education Report given to KADEEM Felix.
--- NOTE | 2020-06-09 19:25 | NUR ---
Patient received from Shu QUAN. Patient in stable condition. Saturating well on T-piece A&O x o non verbal. Patient is seen to be decerebrate. Responds to pain. IV site PICC line on Right upper arm patent and intact for the pink hub running NS @ 100mls/hr. Jevity 70cc/hr running for patient too. Sutioned frequently. Bein lowest postiiin. Will continue plan of care.
[2020-06-09] MEDS ORDERED: Vancomycin 1.5 GM in NS 275 ML IVPB SCH (20:00)
[2020-06-09] MEDS ORDERED: VANCOMYCIN IVPB SCH (20:00)
[2020-06-09] MEDS ORDERED: [UNRECOGNIZED DRUG - OTHER] IVPB SCH (20:00)
[2020-06-09] MEDS: Dyna-Hex 2% Top Sol 2oz TOPIC SCH (21:37)
[2020-06-10] VITALS: BP 136/90
[2020-06-10 04:00] VITALS: BP 130/85
[2020-06-10 07:13] LABS: ANION GAP 9 mmol/L (5-15); BLOOD UREA NITROGEN 8 mg/dL (7-18); CALCIUM 8.2 MG/DL (8.5-10.1); CARBON DIOXIDE 25 MMOL/L (21-32); CHLORIDE 88 MMOL/L (98-107); CREATININE 0.5 MG/DL (0.55-1.30); POTASSIUM 3.8 MMOL/L (3.5-5.1); SODIUM 122 MMOL/L (136-145)
--- NOTE | 2020-06-10 07:53 | NUR ---
NURSE HAND-OFF REPORT: Important Events on Shift:[None] Patient Status: [Stable] Diet: [Jevity 1.2 @ 70cc/hr on for 20hrs] Pending Orders: [] Pending Results/Labs:[] Pending MD notification:[] Latest Vital Signs: Temperature 98.3 , Pulse 123 , B/P 130 /85 , Respiratory Rate 30 , O2 SAT 100 , Trach Collar, O2 Flow Rate 5.0 . Vital Sign Comment: [] EKG Rhythm: Sinus Tachycardia Rhythm change?: N MD Notified?: N -DR.BALFE BO Response: No New Orders Received Latest Whitley Fall Score: 70 Fall Risk: High Risk Safety Measures: Call light Within Reach, Bed Alarm Zone 1, Side Rails Side Rails x2, Bed position Low and Locked. Fall Precautions: Yellow Socks Yellow Gown Door Sign Patient Fall Education Report given to [Shu QUAN].
[2020-06-10 08:00] VITALS: BP 154/91
--- NOTE | 2020-06-10 08:02 | NUR ---
NURSE NOTES: Received report from KADEEM Felix. Observed pt sleeping, no s/sx of acute distress, on T-piece 5L with 25% fio2. Tube feeding will be turned off, as ordered, from 0800 to 1200. PICC line patent and asymptomatic, running IVF as ordered. bed on lowest position, call light within reach. Will continue plan of care.
--- NOTE | 2020-06-10 08:23 | Pulmonology Progress Note ---
Subjective ROS Limited/Unobtainable: Yes Constitutional: Denies: fever Allergies: Coded Allergies: No Known Allergies (Unverified , 05/30/20) Subjective still tachycardic elevated wbc low sodium Objective Last 24 Hour Vital Signs Date Time Temp Pulse Resp B/P (MAP) Pulse Ox O2 Delivery O2 Flow Rate FiO2 06/10/20 08:00 98.2 137 22 154/91 (112) 98 06/10/20 04:00 98.3 123 30 130/85 (100) 100 06/10/20 04:00 123 06/10/20 00:42 99 Cool Aerosol 5.0 28 06/10/20 00:00 104 06/10/20 00:00 98.8 104 28 136/90 (105) 99 06/09/20 21:36 128 156/100 06/09/20 21:00 Trach Collar 5.0 06/09/20 20:00 97.2 135 30 156/100 (118) 96 06/09/20 20:00 135 06/09/20 19:01 99 Cool Aerosol 5.0 28 06/09/20 18:03 119/80 06/09/20 16:00 96.7 113 19 119/80 (93) 97 06/09/20 15:42 111 06/09/20 13:20 99 Cool Aerosol 5.0 28 06/09/20 12:00 98.1 75 20 131/93 (106) 96 06/09/20 11:41 90 06/09/20 09:49 109 135/85 06/09/20 09:47 135/85 06/09/20 09:00 Trach Collar 2.0 Intake and Output 06/09/20 06/10/20 19:00 07:00 Intake Total 490 ml 70 ml Output Total 1400 ml 2500 ml Balance -910 ml -2430 ml Tube Feeding 490 ml 70 ml Output Urine Total 1400 ml 2500 ml Objective WDWN bulging noted scalp clear breath sounds bilaterally without rhonchi or wheeze [id number] tachy without MRG NABS nontender GT no CCE nonfocal trach poor LOC Microbiology Date/Time Source Procedure Growth Status 06/08/20 00:53 Indwelling Cath Urine Culture - Preliminary Gram Negative Misha Yeast Species Resulted 06/07/20 17:40 Sputum Gram Stain - Final Resulted 06/07/20 17:40 Sputum Culture - Preliminary Gram Negative Misha Resulted Laboratory Tests 06/09/20 13:00: Vancomycin Level Trough 12.3H 06/10/20 05:40: Sodium Level 122L, Potassium Level 3.8, Chloride Level 88L, Carbon Dioxide Level 25, Anion Gap 9, Blood Urea Nitrogen 8, Creatinine 0.5L, Estimat Glomerular Filtration Rate > 60, Glucose Level 136H, Calcium Level 8.2L Current Medications Medications (Trade) Dose Ordered Sig/Anuj Route PRN Reason Start Time Stop Time Status Last Admin Dose Admin Acetaminophen (Tylenol) 650 mg Q6H PRN ORAL Temp >100.5 05/30/20 18:45 06/29/20 18:44 06/06/20 18:29 Cefepime HCl 2 gm/ Dextrose 55 ml @ 110 mls/hr EVERY 12 HOURS IVPB 06/07/20 12:00 06/14/20 11:59 06/09/20 21:36 Chlorhexidine Gluconate (Alura-Hex 2%) 1 applic DAILY@2000 TOPIC 06/01/20 20:00 08/30/20 19:59 06/09/20 21:37 Clonidine HCl (Catapres Tab) 0.1 mg Q4H PRN ORAL SBP above 150; DBP above 95 06/02/20 23:00 08/31/20 22:59 06/09/20 05:02 Enoxaparin Sodium (Lovenox) 80 mg EVERY 12 HOURS SUBQ 05/30/20 21:00 08/28/20 20:59 06/09/20 21:44 Famotidine (Pepcid) 20 mg DAILY GT 05/31/20 09:00 08/29/20 08:59 06/09/20 09:47 Lacosamide (Vimpat) 50 mg BID ORAL 05/31/20 09:00 08/29/20 08:59 06/09/20 18:03 Lactobacillus Acidophilus (Culturelle) 1 tab DAILY GT 05/31/20 09:00 08/29/20 08:59 06/09/20 09:48 Lisinopril (PriniviL) 20 mg BID GT 06/07/20 18:00 07/03/20 17:59 06/09/20 18:03 Metoprolol Tartrate (Lopressor) 150 mg EVERY 12 HOURS ORAL 06/08/20 09:00 09/06/20 08:59 06/09/20 21:36 Metronidazole 100 ml @ 100 mls/hr Q8HR IVPB 06/07/20 10:53 06/14/20 10:52 06/10/20 06:02 Sevelamer Carbonate (Renvela) 800 mg THREE TIMES A DAY GT 05/31/20 09:00 08/29/20 08:59 06/09/20 18:03 Sodium Chloride 1,000 ml @ 100 mls/hr Q10H IV 06/09/20 08:30 07/09/20 08:29 06/10/20 06:02 Sucralfate (Carafate) 1 gm BID ORAL 05/31/20 09:00 08/29/20 08:59 06/09/20 18:02 Thyroid ([place] Thyroid) 15 mg DAILY GT 05/31/20 09:00 06/30/20 08:59 06/09/20 09:48 Vancomycin HCl (Vanco pharmacy to dose) 1 ea DAILY PRN MISC Per rx protocol 06/07/20 11:00 07/07/20 10:59 Vancomycin/Sodium Chloride 250 ml @ 125 mls/hr Q8H IVPB 06/10/20 08:00 06/15/20 07:59 Assessment/Plan Assessment/Plan Impression: Sepsis Urinary Tract Infection TBI Seizures Hypothyroidism Sinus Tachycardia Hypertension abnormal MRI/ CT hyponatremia ?SIADH leukocytosis Plan: IV Antibiotics IVF and demeclocyline O2 PRN TC PPX Monitor labs monitor vitals renal eval [facility] refused transfer update sister ID follow up repeat wbc- now elevated full dose lovenox add cardizem to beta jocelyn for rate control impression, plan, and exam edited and reviewed in detail care discussed with Aime Browne MD Jun 10, 2020 08:23
--- NOTE | 2020-06-10 08:27 | NUR ---
RD ASSESSMENT & RECOMMENDATIONS SEE CARE ACTIVITY FOR COMPLETE ASSESSMENT DAILY ESTIMATED NEEDS: Needs based on Pulmonary, 68kg 25-30 kcals/kg 1685-6530 total kcals 1.25-1.5 g protein/kg 85-102 g total protein 20-25 mL/kg 6561-0259 total fluid mLs NUTRITION DIAGNOSIS: Swallowing difficulty r/t TBI and resp distress, as evidenced by pt is vent dep via T-collar, PEG dep. CURRENT TF:Jevity 1.2 @70 ml x20 hrs ENTERAL NUTRITION RECOMMENDATIONS: TF change to Two Mikhail HN @ 45ml/hr x 20 hrs + Prosource 1pkt QD to provide 900ml, 1800kcal, 75g prot+11g prot, 630ml free water - Rec TF change to TwoCal HN for less free fluid: consistent hyponatremia, Na trending down, will provide 500ml less free water than current TF - Initiate Two Mikhail HN @ 30ml/hr x 4hrs, advance 10ml q 4hrs as tolerated to goal - Add Prosource 1pkt QD to meet protein needs - Flush per MD/ HOB over 30 degrees ADDITIONAL RECOMMENDATIONS: 1) Wound Care: add MVI x 1 and Vit C 250mg QD add CATALINA BID via PEG (also provides added 5g prot to meet est prot needs) 2) Per SNF: 5'5" and 150#, maintain calibrated bed scale wts 3) Check phos level: pt on Renvela TID, renal fxn wnl .
[2020-06-10] MEDS: [UNRECOGNIZED DRUG - OTHER] IVPB SCH ×2 (08:37→15:52)
[2020-06-10] MEDS: VANCOMYCIN IVPB SCH ×2 (08:37→15:52)
[2020-06-10] MEDS: Sucralfate 1gm tab ORAL SCH ×2 (08:41→18:16)
[2020-06-10] MEDS: Lacosamide 50mg tablet ORAL SCH ×2 (08:41→18:15)
[2020-06-10] MEDS: Lisinopril 20mg tab GT SCH ×2 (08:43→18:15)
[2020-06-10] MEDS: Metoprolol Tartrate 100mg tab ORAL SCH ×2 (08:43→20:56)
[2020-06-10] MEDS: Lactobacillus-GG tablet GT SCH (08:43)
[2020-06-10] MEDS: Renvela 800mg Pkt GT SCH ×3 (08:44→18:16)
[2020-06-10] MEDS: Enoxaparin 80mg Inj SUBQ SCH ×3 (08:46→21:09)
--- NOTE | 2020-06-10 10:20 | Surgery Progress Note ---
Surgery Progress Note Subjective Additional Comments afebrile, remains tachy, no n/v Na 122 stable neuro input appreciated Objective Last 24 Hour Vital Signs Date Time Temp Pulse Resp B/P (MAP) Pulse Ox O2 Delivery O2 Flow Rate FiO2 06/10/20 08:43 137 154/91 06/10/20 08:43 154/91 06/10/20 08:00 98.2 137 22 154/91 (112) 98 06/10/20 04:00 98.3 123 30 130/85 (100) 100 06/10/20 04:00 123 06/10/20 00:42 99 Cool Aerosol 5.0 28 06/10/20 00:00 104 06/10/20 00:00 98.8 104 28 136/90 (105) 99 06/09/20 21:36 128 156/100 06/09/20 21:00 Trach Collar 5.0 06/09/20 20:00 97.2 135 30 156/100 (118) 96 06/09/20 20:00 135 06/09/20 19:01 99 Cool Aerosol 5.0 28 06/09/20 18:03 119/80 06/09/20 16:00 96.7 113 19 119/80 (93) 97 06/09/20 15:42 111 06/09/20 13:20 99 Cool Aerosol 5.0 28 06/09/20 12:00 98.1 75 20 131/93 (106) 96 06/09/20 11:41 90 I&O Intake and Output 06/09/20 06/10/20 19:00 07:00 Intake Total 490 ml 70 ml Output Total 1400 ml 2500 ml Balance -910 ml -2430 ml Tube Feeding 490 ml 70 ml Output Urine Total 1400 ml 2500 ml Cardiovascular: RSR Respiratory: decreased breath sounds Abdomen: soft, non-tender, present bowel sounds Extremities: no tenderness, no cyanosis Laboratory Tests Test 06/09/20 13:00 06/10/20 05:40 Vancomycin Level Trough 12.3 ug/mL (5.0-12.0) H Sodium Level 122 MMOL/L (136-145) L Potassium Level 3.8 MMOL/L (3.5-5.1) Chloride Level 88 MMOL/L (98-107) L Carbon Dioxide Level 25 MMOL/L (21-32) Anion Gap 9 mmol/L (5-15) Blood Urea Nitrogen 8 mg/dL (7-18) Creatinine 0.5 MG/DL (0.55-1.30) L Estimat Glomerular Filtration Rate > 60 mL/min (>60) Glucose Level 136 MG/DL (74-106) H Calcium Level 8.2 MG/DL (8.5-10.1) L Plan Problems: (1) Tachycardia (2) Sepsis Assessment & Plan: 29-year-old male with leukocytosis anemia lactic acidosis. Patient admitted further care management identified to have significant secretions from tracheostomy trach collar with sutures in place causing distortion. Abdominal G-tube in place. Patient forming deep tissue injury. BMI 22 labs noted. Patient a phasic unable to respond to commands and in a vegetative state at this time. Patient with a UTI on antibiotics. Right PIC in place may need to be replaced. Turn every 2 hours offload pressure with air mattress and pillows. Trach sutures removed trach tie evaluated trach in place secretions suction. Continue with secretions chest x-ray reviewed no acute infiltrative process Leukocytosis trending down lactic acid is improving continue fluid resuscitation IV antibiotics improving labs improved cont current care trach care fevers resolved wbc resolved improved CT head noted neurosurg eval cxr improved fevers cont leukocytosis neuro input appreciate. possible infected collection transfer to neurosurgery hospital pending Thank you will follow with recommendations Brain: Extensive right hemispheric parenchymal volume loss and edema. Increased hyperdense of the right frontal parenchyma. Hypodensities of the left frontal, parietal, and temporal regions which may be sequela of prior infarct. No hemorrhage. No significant white matter disease. Midline shift: Mild, 6 mm, right to left midline shift. Ventricles: Exvacuodilatation of the ventricles. Bones/joints: Postsurgical changes from extensive prior right craniotomy. Large extra-axial fluid collection extending beyond the calvarium in region of prior craniotomy. The fluid extends beyond the calvarial region by approximately 4.0 cm in axial dimension No acute fracture. Soft tissues: Unremarkable. Sinuses: Unremarkable as visualized. No acute sinusitis. Mastoid air cells: Unremarkable as visualized. No mastoid effusion. IMPRESSION: 1. Large extra-axial fluid collection of the right hemisphere extending beyond the region of large frontal craniotomy. There is mild right to left midline shift measuring approximately 6 mm. 2. Hyperdensity of the residual right parenchyma suggestive of parenchymal contusion. 3. Extensive right parenchymal volume loss. May be sequela of prior infarct versus postsurgical change. 4. Hyperdensities throughout the left cerebellum, suggestive of prior ischemic process. Artifacts: Blooming artifact is noted within the right peripheral residual parenchyma likely representing hemosiderin deposition. Brain: Extensive right hemispheric parenchymal volume loss and edema. Mild encephalomalacia of the left hemisphere with expansion of the CSF containing spaces. No hemorrhage. Midline shift: There is proximal is 7 mm of right to left midline shift. Ventricles: Unremarkable. No ventriculomegaly. Bones/joints: There is significant expansion of the CSF containing spaces of the right hemisphere with extension beyond the calvarium through a craniotomy defect measuring approximately 4.3 cm. Sinuses: Unremarkable as visualized. No acute sinusitis. Mastoid air cells: Unremarkable as visualized. No mastoid effusion. Orbits: Unremarkable as visualized. Other vasculature: Following demonstration of intravenous contrast, there is no evidence of abnormal enhancement. IMPRESSION: 1. No obvious hemorrhage or stroke. Artifact on DWI sequence partially limits evaluation. Otherwise, no significant interval change from recent CT. 2. Large extra-axial fluid collection pending through craniotomy defect. There is mild right to left midline shift measuring in proximal 7 mm. 3. Extensive right parenchymal volume loss. May be sequela of prior infarct versus postsurgical/post traumatic change. 4. Encephalization of the left hemisphere with expansion of CSF containing spaces. DAILY ESTIMATED NEEDS: Needs based on Pulmonary, 68kg 25-30 kcals/kg 3391-6743 total kcals 1.25-1.5 g protein/kg 85-102 g total protein 25-30 mL/kg 6790-2806 total fluid mLs NUTRITION DIAGNOSIS: Swallowing difficulty r/t TBI and resp distress, as evidenced by pt is vent dep via T-collar, PEG dep. CURRENT TF:Jevity 1.2 @70 ml x20 hrs ENTERAL NUTRITION RECOMMENDATIONS: Increase TF to goal of 75ml/hr x20 hrs to provide 1500ml, 1800 kcal, 83g pro, 1211ml free H2O - Rec to INCREASE TF by 5ml/hr to better meet est kcal and pro needs. - Flush per MD/ HOB over 30 degrees ADDITIONAL RECOMMENDATIONS: 1) Skin integrity: add CATALINA BID via PEG (added 5g pro to meet est pro needs) 2) Wound care eval 3) Per SNF: 5'5" and 150#, maintain calibrated bed scale wts Carl Hernandez Jun 10, 2020 10:20
[2020-06-10] MEDS: Cefepime HCl 2 GM in D5W 55 ML IVPB SCH (10:23)
[2020-06-10] MEDS: Demeclocycline 150mg tab GT SCH ×2 (10:24→18:15)
--- NOTE | 2020-06-10 10:30 | NUR ---
NURSE NOTES: Dr Mcgowan made aware that pt is + for MDR sputum. Also, per beatriz tech, possible ESBL, but to be confirmed tomorrow.
--- NOTE | 2020-06-10 11:00 | Infectious Diseases Prog Note ---
"Assessment/Plan Assessment/Plan antibiotics : vancomycin iv, cefepime, flagyl A 1. fever improving COVID 19 negative 2. ? scabies s/p rx 3. leucocytosis increasing 4. traumatic brain injury 5. seizures 6. ? brain abscess 7. aspiration pneumonia with klebsiella | pseudomonas 8. gram negative | fungal UTI P 1. continue iv vancomycin 2. d/c cefepime, flagyl 3. start meropenem, inhaled colistin, fluconazole 4. will follow up cultures 5. transfer pending Subjective ROS Limited/Unobtainable: Yes Allergies: Coded Allergies: No Known Allergies (Unverified , 05/30/20) Objective Last 24 Hour Vital Signs Date Time Temp Pulse Resp B/P (MAP) Pulse Ox O2 Delivery O2 Flow Rate FiO2 06/10/20 08:43 137 154/91 06/10/20 08:43 154/91 06/10/20 08:00 98.2 137 22 154/91 (112) 98 06/10/20 04:00 98.3 123 30 130/85 (100) 100 06/10/20 04:00 123 06/10/20 00:42 99 Cool Aerosol 5.0 28 06/10/20 00:00 104 06/10/20 00:00 98.8 104 28 136/90 (105) 99 06/09/20 21:36 128 156/100 06/09/20 21:00 Trach Collar 5.0 06/09/20 20:00 97.2 135 30 156/100 (118) 96 06/09/20 20:00 135 06/09/20 19:01 99 Cool Aerosol 5.0 28 06/09/20 18:03 119/80 06/09/20 16:00 96.7 113 19 119/80 (93) 97 06/09/20 15:42 111 06/09/20 13:20 99 Cool Aerosol 5.0 28 06/09/20 12:00 98.1 75 20 131/93 (106) 96 06/09/20 11:41 90 Height (Feet): 5 Height (Inches): 10.00 Weight (Pounds): 160 HEENT: status post trach, other - right head swelling Respiratory/Chest: lungs clear Cardiovascular: normal rate, regular rhythm, no gallop/murmur Abdomen: soft, non tender, other - GT Extremities: no edema, other - right arm PICC Microbiology Date/Time Source Procedure Growth Status 06/08/20 00:53 Indwelling Cath Urine Culture - Preliminary Gram Negative Misha Yeast Species Resulted 06/07/20 17:40 Sputum Gram Stain - Final Resulted 06/07/20 17:40 Sputum Culture - Preliminary Klebsiella Pneumoniae Pseudomonas Aeruginosa - Mdr Resulted Laboratory Tests Test 06/09/20 13:00 06/10/20 05:40 Vancomycin Level Trough 12.3 ug/mL (5.0-12.0) H Sodium Level 122 MMOL/L (136-145) L Potassium Level 3.8 MMOL/L (3.5-5.1) Chloride Level 88 MMOL/L (98-107) L Carbon Dioxide Level 25 MMOL/L (21-32) Anion Gap 9 mmol/L (5-15) Blood Urea Nitrogen 8 mg/dL (7-18) Creatinine 0.5 MG/DL (0.55-1.30) L Estimat Glomerular Filtration Rate > 60 mL/min (>60) Glucose Level 136 MG/DL (74-106) H Calcium Level 8.2 MG/DL (8.5-10.1) L Current Medications Medications (Trade) Dose Ordered Sig/Anuj Route PRN Reason Start Time Stop Time Status Last Admin Dose Admin Acetaminophen (Tylenol) 650 mg Q6H PRN ORAL Temp >100.5 05/30/20 18:45 06/29/20 18:44 06/06/20 18:29 Cefepime HCl 2 gm/ Dextrose 55 ml @ 110 mls/hr EVERY 12 HOURS IVPB 06/07/20 12:00 06/14/20 11:59 06/10/20 10:23 Chlorhexidine Gluconate (Laura-Hex 2%) 1 applic DAILY@1999 TOPIC 06/01/20 20:00 08/30/20 19:59 06/09/20 21:37 Clonidine HCl (Catapres Tab) 0.1 mg Q4H PRN ORAL SBP above 150; DBP above 95 06/02/20 23:00 08/31/20 22:59 06/09/20 05:02 Demeclocycline HCl (Declomycin) 150 mg BID GT 06/10/20 10:00 06/17/20 09:59 06/10/20 10:24 Diltiazem HCl (Cardizem Tab) 30 mg EVERY 8 HOURS GT 06/10/20 14:00 07/10/20 13:59 Enoxaparin Sodium (Lovenox) 80 mg EVERY 12 HOURS SUBQ 05/30/20 21:00 08/28/20 20:59 06/09/20 21:44 Famotidine (Pepcid) 20 mg DAILY GT 05/31/20 09:00 08/29/20 08:59 06/10/20 08:43 Lacosamide (Vimpat) 50 mg BID ORAL 05/31/20 09:00 08/29/20 08:59 06/10/20 08:41 Lactobacillus Acidophilus (Culturelle) 1 tab DAILY GT 05/31/20 09:00 08/29/20 08:59 06/10/20 08:43 Lisinopril (PriniviL) 20 mg BID GT 06/07/20 18:00 07/03/20 17:59 06/10/20 08:43 Metoprolol Tartrate (Lopressor) 150 mg EVERY 12 HOURS ORAL 06/08/20 09:00 09/06/20 08:59 06/10/20 08:43 Metronidazole 100 ml @ 100 mls/hr Q8HR IVPB 06/07/20 10:53 06/14/20 10:52 06/10/20 06:02 Sevelamer Carbonate (Renvela) 800 mg THREE TIMES A DAY GT 05/31/20 09:00 08/29/20 08:59 06/10/20 08:44 Sodium Chloride 1,000 ml @ 100 mls/hr Q10H IV 06/09/20 08:30 07/09/20 08:29 06/10/20 06:02 Sucralfate (Carafate) 1 gm BID ORAL 05/31/20 09:00 08/29/20 08:59 06/10/20 08:41 Thyroid ([place] Thyroid) 15 mg DAILY GT 05/31/20 09:00 06/30/20 08:59 06/10/20 08:43 Vancomycin HCl (Vanco pharmacy to dose) 1 ea DAILY PRN MISC Per rx protocol 06/07/20 11:00 07/07/20 10:59 Vancomycin/Sodium Chloride 250 ml @ 125 mls/hr Q8H IVPB 06/10/20 08:00 06/15/20 07:59 06/10/20 08:37 Dl Mcgowan MD Jun 10, 2020 11:00"
[2020-06-10] MEDS: Fluconazole 100mg tab GT SCH (11:38)
[2020-06-10 12:00] VITALS: BP 154/91
[2020-06-10] MEDS: dilTIAZem HCl 30mg tab GT SCH ×2 (13:48→20:57)
[2020-06-10] MEDS: Meropenem 1 GM in NS 55 ML IVPB SCH ×2 (13:49→20:57)
[2020-06-10 16:00] VITALS: BP 160/96
--- NOTE | 2020-06-10 16:19 | NUR ---
CASE MANAGEMENT:REVIEW 06/10/20 SI: SEPSIS. SEIZURE. KLEBSIELLA PNA 98.4 137 21 154/91 99% ON TRACH COLLAR W/5L 28% FIO2 WBC+15.1 H/H-9.9/27.1 NA-122 IS: COLISTIN INH Q12 IV MEROPENEM Q8HRS IV VANCOMYCIN Q8HRS DECLOMYCIN GT BID IVF@100/HR CARDIZEM GT Q8HRS DIFLUCAN GT QD LOPRESSOR GT Q12 LISINOPRIL GT BID LOVENOX SQ Q12 : TELEMETRY STATUS DCP: FROM [facility]
--- NOTE | 2020-06-10 19:41 | NUR ---
NURSE HAND-OFF REPORT: Important Events on Shift: Pt + for MDR sputum. changed TF to KADEEM Rueda made aware to follow up. Held Lovenox because of blood tinge noted on t-piece. Patient Status: stable Diet: Pending Orders: Pending Results/Labs: Pending MD notification: Latest Vital Signs: Temperature 99.2 , Pulse 126 , B/P 160 /96 , Respiratory Rate 22 , O2 SAT 97 , Trach Collar, O2 Flow Rate 5.0 . Vital Sign Comment: EKG Rhythm: Sinus Tachycardia Rhythm change?: N Notified?: N -DR.BALFE BO Response: No New Orders Received Latest Whitley Fall Score: 70 Fall Risk: High Risk Safety Measures: Call light Within Reach, Bed Alarm Zone 1, Side Rails Side Rails x2, Bed position Low and Locked. Fall Precautions: Yellow Socks Yellow Gown Door Sign Patient Fall Education Report given to KADEEM Hernandez
--- NOTE | 2020-06-10 19:45 | NUR ---
NURSE NOTES: Important Events on Shift: Received report from Shu Magana RN. Pt is obtunded, in bed, eyes closed. PICC line running NS @ 100ml/hr. No signs or symptoms of distress noted at this time. Patient Status: stable Diet: TwoCal @ 45ml/hr x 20 hrs. Pending Orders: Pending Results/Labs: cbc, phos., bmp, vanco trough Pending MD notification: Latest Vital Signs: Temperature 98.4 , Pulse 95 , B/P 141 /59 , Respiratory Rate 20 , O2 SAT 99 , Trach Collar, O2 Flow Rate 5.0 . Vital Sign Comment: stable EKG Rhythm: Sinus Tachycardia Rhythm change?: N MD Notified?: N - MD Response: - Latest Whitley Fall Score: 70 Fall Risk: High Risk Safety Measures: Call light Within Reach, Bed Alarm Zone 1, Side Rails Side Rails x3, Bed position Low and Locked. Fall Precautions: yes Yellow Socks yes Yellow Gown yes Door Sign yes Patient Fall Education yes
[2020-06-10 20:00] VITALS: BP 153/92
[2020-06-10] MEDS: Dyna-Hex 2% Top Sol 2oz TOPIC SCH (20:00)
[2020-06-10] MEDS: Colistin for inhalation INH SCH (22:45)
[2020-06-11] VITALS: BP 141/59
[2020-06-11] MEDS: VANCOMYCIN IVPB SCH ×4 (01:14→16:22)
[2020-06-11] MEDS: [UNRECOGNIZED DRUG - OTHER] IVPB SCH ×4 (01:14→16:22)
[2020-06-11 04:00] VITALS: BP 146/83
[2020-06-11] MEDS: dilTIAZem HCl 30mg tab GT SCH ×3 (06:00→22:47)
[2020-06-11] MEDS: Meropenem 1 GM in NS 55 ML IVPB SCH ×3 (06:00→22:48)
[2020-06-11 07:19] LABS: ANION GAP 7 mmol/L (5-15); BLOOD UREA NITROGEN 5 mg/dL (7-18); CALCIUM 8.3 MG/DL (8.5-10.1); CARBON DIOXIDE 25 MMOL/L (21-32); CHLORIDE 88 MMOL/L (98-107); CREATININE 0.4 MG/DL (0.55-1.30); POTASSIUM 4.1 MMOL/L (3.5-5.1); SODIUM 120 MMOL/L (136-145)
[2020-06-11 07:23] LABS: BASOPHILS % (AUTO) 0.8 % (0.0-2.0); HEMATOCRIT 27.7 % (42.0-52.0); HEMOGLOBIN 9.9 G/DL (14.2-18.0); LYMPHOCYTES % (AUTO) 9.8 % (20.0-45.0); MEAN CORPUSCULAR VOLUME 83 FL (80-99); MONOCYTES % (AUTO) 7.7 % (1.0-10.0); NEUTROPHILS % (AUTO) 80.8 % (45.0-75.0); PLATELET COUNT 451 K/UL (150-450); RED BLOOD COUNT 3.34 M/UL (4.70-6.10); RED CELL DISTRIBUTION WIDTH 13.9 % (11.6-14.8); WHITE BLOOD COUNT 16.5 K/UL (4.8-10.8)
[2020-06-11 08:00] VITALS: BP 108/68
--- NOTE | 2020-06-11 08:00 | NUR ---
NURSE NOTES: Received report from Lauar/KADEEM. Observed patient asleep, lying semi-banegas's, resting comfortably. On 5L t-piece, no acute distress/SOB noted, breathing evenly and unlabored. AAO x0, non-verbal. On cooling blanket. PICC line on right upper arm double lumen patent and intact, NS running at 100cc/hr. Daniels cath draining well to gravity. Bed in low position and locked, Call light within reach. Will continue plan of care.
--- NOTE | 2020-06-11 08:11 | NUR ---
NURSE NOTES: Hand off given to Lora Hernandez RN. Pt in stable condition.
[2020-06-11] MEDS: Enoxaparin 80mg Inj SUBQ SCH ×2 (08:46→21:21)
[2020-06-11] MEDS: Lactobacillus-GG tablet GT SCH (08:47)
[2020-06-11] MEDS: Fluconazole 100mg tab GT SCH (08:47)
[2020-06-11] MEDS: Metoprolol Tartrate 100mg tab ORAL SCH ×2 (08:47→21:22)
[2020-06-11] MEDS: Sucralfate 1gm tab ORAL SCH ×2 (08:47→18:25)
[2020-06-11] MEDS: Renvela 800mg Pkt GT SCH ×3 (08:47→18:25)
[2020-06-11] MEDS: Lisinopril 20mg tab GT SCH (08:47)
[2020-06-11] MEDS: Lacosamide 50mg tablet ORAL SCH ×2 (08:47→18:25)
[2020-06-11] MEDS: Demeclocycline 150mg tab GT SCH (08:47)
--- NOTE | 2020-06-11 09:23 | Pulmonology Progress Note ---
Subjective ROS Limited/Unobtainable: Yes Constitutional: Denies: fever Allergies: Coded Allergies: No Known Allergies (Unverified , 05/30/20) Subjective improved hr and bp elevated wbc low sodium Objective Last 24 Hour Vital Signs Date Time Temp Pulse Resp B/P (MAP) Pulse Ox O2 Delivery O2 Flow Rate FiO2 06/11/20 08:47 113 108/68 06/11/20 08:47 108/68 06/11/20 08:00 98.6 113 18 108/68 (81) 99 06/11/20 07:30 100 Cool Aerosol 5.0 28 06/11/20 06:00 101 146/83 06/11/20 04:00 101 06/11/20 04:00 98.8 108 20 146/83 (104) 99 06/11/20 00:27 99 Cool Aerosol 5.0 28 06/11/20 00:00 98.4 95 20 141/59 (86) 90 06/10/20 22:45 86 20 100 T-Piece 5.0 28 88 20 99 06/10/20 21:00 Trach Collar 2.0 06/10/20 20:57 118 153/92 06/10/20 20:56 118 153/92 06/10/20 20:24 99 Cool Aerosol 5.0 28 06/10/20 20:00 118 06/10/20 20:00 99.3 120 20 153/92 (112) 98 06/10/20 18:15 160/96 06/10/20 18:15 160/96 06/10/20 16:11 126 06/10/20 16:00 99.2 129 22 160/96 (117) 97 06/10/20 13:48 117 154/91 06/10/20 13:10 99 Cool Aerosol 5.0 28 06/10/20 12:00 98.4 117 21 154/91 (112) 99 06/10/20 11:47 112 Intake and Output 06/10/20 06/11/20 19:00 07:00 Intake Total 70 ml Output Total 2700 ml 3000 ml Balance -2630 ml -3000 ml Tube Feeding 70 ml Output Urine Total 2700 ml 3000 ml # Voids 2 1 # Bowel Movements 1 2 Objective WDWN bulging noted scalp clear breath sounds bilaterally without rhonchi or wheeze [id number] tachy without MRG NABS nontender GT no CCE nonfocal trach poor LOC Laboratory Tests 06/10/20 23:00: Phosphorus Level 4.3, Vancomycin Level Trough 16.7H 06/11/20 06:15: White Blood Count 16.5H, Red Blood Count 3.34L, Hemoglobin 9.9L, Hematocrit 27.7L, Mean Corpuscular Volume 83, Mean Corpuscular Hemoglobin 29.6, Mean Corpuscular Hemoglobin Concent 35.7, Red Cell Distribution Width 13.9, Platelet Count 451H, Mean Platelet Volume 5.6L, Neutrophils (%) (Auto) 80.8H, Lymphocytes (%) (Auto) 9.8L, Monocytes (%) (Auto) 7.7, Eosinophils (%) (Auto) 1.0, Basophils (%) (Auto) 0.8, Sodium Level 120L, Potassium Level 4.1, Chloride Level 88L, Carbon Dioxide Level 25, Anion Gap 7, Blood Urea Nitrogen 5L, Creatinine 0.4L, Estimat Glomerular Filtration Rate > 60, Glucose Level 103, Calcium Level 8.3L Current Medications Medications (Trade) Dose Ordered Sig/Anuj Route PRN Reason Start Time Stop Time Status Last Admin Dose Admin Acetaminophen (Tylenol) 650 mg Q6H PRN ORAL Temp >100.5 05/30/20 18:45 06/29/20 18:44 06/06/20 18:29 Chlorhexidine Gluconate (Laura-Hex 2%) 1 applic DAILY@1999 TOPIC 06/01/20 20:00 08/30/20 19:59 06/10/20 20:00 Clonidine HCl (Catapres Tab) 0.1 mg Q4H PRN ORAL SBP above 150; DBP above 95 06/02/20 23:00 08/31/20 22:59 06/10/20 18:15 Colistimethate Sodium (Colistin *inhalation use only*) 75 mg Q12HR@ INH 06/10/20 22:00 06/17/20 21:59 06/10/20 22:45 Demeclocycline HCl (Declomycin) 150 mg BID GT 06/10/20 10:00 06/17/20 09:59 06/11/20 08:47 Diltiazem HCl (Cardizem Tab) 30 mg EVERY 8 HOURS GT 06/10/20 14:00 07/10/20 13:59 06/11/20 06:00 Enoxaparin Sodium (Lovenox) 80 mg EVERY 12 HOURS SUBQ 05/30/20 21:00 08/28/20 20:59 06/11/20 08:46 Famotidine (Pepcid) 20 mg DAILY GT 05/31/20 09:00 08/29/20 08:59 06/11/20 08:47 Fluconazole (Diflucan) 100 mg DAILY GT 06/10/20 11:03 06/17/20 11:02 06/11/20 08:47 Lacosamide (Vimpat) 50 mg BID ORAL 05/31/20 09:00 08/29/20 08:59 06/11/20 08:47 Lactobacillus Acidophilus (Culturelle) 1 tab DAILY GT 05/31/20 09:00 08/29/20 08:59 06/11/20 08:47 Lisinopril (PriniviL) 20 mg BID GT 06/07/20 18:00 07/03/20 17:59 06/11/20 08:47 Meropenem 1 gm/ Sodium Chloride 55 ml @ 110 mls/hr Q8HR IVPB 06/10/20 14:00 06/15/20 13:59 06/11/20 06:00 Metoprolol Tartrate (Lopressor) 150 mg EVERY 12 HOURS ORAL 06/08/20 09:00 09/06/20 08:59 06/11/20 08:47 Sevelamer Carbonate (Renvela) 800 mg THREE TIMES A DAY GT 05/31/20 09:00 08/29/20 08:59 06/11/20 08:47 Sodium Chloride 1,000 ml @ 100 mls/hr Q10H IV 06/09/20 08:30 07/09/20 08:29 06/11/20 00:30 Sucralfate (Carafate) 1 gm BID ORAL 05/31/20 09:00 08/29/20 08:59 06/11/20 08:47 Thyroid ([place] Thyroid) 15 mg DAILY GT 05/31/20 09:00 06/30/20 08:59 06/11/20 08:47 Vancomycin HCl (Vanco pharmacy to dose) 1 ea DAILY PRN MISC Per rx protocol 06/07/20 11:00 11/5/20 10:59 Vancomycin/Sodium Chloride 250 ml @ 125 mls/hr Q8H IVPB 06/10/20 08:00 06/15/20 07:59 06/11/20 08:48 Assessment/Plan Assessment/Plan Impression: Sepsis Urinary Tract Infection TBI Seizures Hypothyroidism Sinus Tachycardia Hypertension abnormal MRI/ CT hyponatremia ?SIADH leukocytosis Plan: IV Antibiotics IVF and demeclocyline O2 PRN TC PPX Monitor labs monitor vitals renal eval [facility] refused transfer update sister ID follow up repeat wbc- now elevated full dose lovenox cardizem to beta jocelyn for rate control dc once sodium improved impression, plan, and exam edited and reviewed in detail care discussed with Aime Browne MD Jun 11, 2020 09:23
[2020-06-11] MEDS: Colistin for inhalation INH SCH ×2 (10:44→22:17)
[2020-06-11 12:00] VITALS: BP 110/66
--- NOTE | 2020-06-11 12:41 | Surgery Progress Note ---
Surgery Progress Note Subjective Additional Comments afebrile HD stable leukocytosis no n/v Objective Last 24 Hour Vital Signs Date Time Temp Pulse Resp B/P (MAP) Pulse Ox O2 Delivery O2 Flow Rate FiO2 06/11/20 12:00 98.6 95 20 110/66 (81) 100 06/11/20 12:00 103 06/11/20 10:54 101 20 100 T-Piece 6.0 28 110 20 99 06/11/20 09:00 Trach Collar 5.0 06/11/20 08:47 113 108/68 06/11/20 08:47 108/68 06/11/20 08:00 98.6 113 18 108/68 (81) 99 06/11/20 08:00 116 06/11/20 07:30 100 Cool Aerosol 5.0 28 06/11/20 06:00 101 146/83 06/11/20 04:00 101 06/11/20 04:00 98.8 108 20 146/83 (104) 99 06/11/20 00:27 99 Cool Aerosol 5.0 28 06/11/20 00:00 98.4 95 20 141/59 (86) 90 06/10/20 22:45 86 20 100 T-Piece 5.0 28 88 20 99 06/10/20 21:00 Trach Collar 2.0 06/10/20 20:57 118 153/92 06/10/20 20:56 118 153/92 06/10/20 20:24 99 Cool Aerosol 5.0 28 06/10/20 20:00 118 06/10/20 20:00 99.3 120 20 153/92 (112) 98 06/10/20 18:15 160/96 06/10/20 18:15 160/96 06/10/20 16:11 126 06/10/20 16:00 99.2 129 22 160/96 (117) 97 06/10/20 13:48 117 154/91 06/10/20 13:10 99 Cool Aerosol 5.0 28 I&O Intake and Output 06/10/20 06/11/20 19:00 07:00 Intake Total 70 ml Output Total 2700 ml 3000 ml Balance -2630 ml -3000 ml Tube Feeding 70 ml Output Urine Total 2700 ml 3000 ml # Voids 2 1 # Bowel Movements 1 2 Dressing: other Wound: other Cardiovascular: RSR Respiratory: decreased breath sounds Abdomen: soft, non-tender, present bowel sounds Extremities: no tenderness, no cyanosis Laboratory Tests Test 06/10/20 23:00 06/11/20 06:15 Phosphorus Level 4.3 MG/DL (2.5-4.9) Vancomycin Level Trough 16.7 ug/mL (5.0-12.0) H White Blood Count 16.5 K/UL (4.8-10.8) H Red Blood Count 3.34 M/UL (4.70-6.10) L Hemoglobin 9.9 G/DL (14.2-18.0) L Hematocrit 27.7 % (42.0-52.0) L Mean Corpuscular Volume 83 FL (80-99) Mean Corpuscular Hemoglobin 29.6 PG (27.0-31.0) Mean Corpuscular Hemoglobin Concent 35.7 G/DL (32.0-36.0) Red Cell Distribution Width 13.9 % (11.6-14.8) Platelet Count 451 K/UL (150-450) H Mean Platelet Volume 5.6 FL (6.5-10.1) L Neutrophils (%) (Auto) 80.8 % (45.0-75.0) H Lymphocytes (%) (Auto) 9.8 % (20.0-45.0) L Monocytes (%) (Auto) 7.7 % (1.0-10.0) Eosinophils (%) (Auto) 1.0 % (0.0-3.0) Basophils (%) (Auto) 0.8 % (0.0-2.0) Sodium Level 120 MMOL/L (136-145) L Potassium Level 4.1 MMOL/L (3.5-5.1) Chloride Level 88 MMOL/L (98-107) L Carbon Dioxide Level 25 MMOL/L (21-32) Anion Gap 7 mmol/L (5-15) Blood Urea Nitrogen 5 mg/dL (7-18) L Creatinine 0.4 MG/DL (0.55-1.30) L Estimat Glomerular Filtration Rate > 60 mL/min (>60) Glucose Level 103 MG/DL (74-106) Calcium Level 8.3 MG/DL (8.5-10.1) L Plan Problems: (1) Tachycardia (2) Sepsis Assessment & Plan: 29-year-old male with leukocytosis anemia lactic acidosis. Patient admitted further care management identified to have significant secretions from tracheostomy trach collar with sutures in place causing distortion. Abdominal G-tube in place. Patient forming deep tissue injury. BMI 22 labs noted. Patient a phasic unable to respond to commands and in a vegetative state at this time. Patient with a UTI on antibiotics. Right PIC in place may need to be replaced. Turn every 2 hours offload pressure with air mattress and pillows. Trach sutures removed trach tie evaluated trach in place secretions suction. Continue with secretions chest x-ray reviewed no acute infiltrative process Leukocytosis trending down lactic acid is improving continue fluid resuscitation IV antibiotics improving labs improved cont current care trach care fevers resolved wbc resolved improved CT head noted neurosurg eval cxr improved fevers cont leukocytosis neuro input appreciate. possible infected collection transfer to neurosurgery hospital pending Thank you will follow with recommendations Brain: Extensive right hemispheric parenchymal volume loss and edema. Increased hyperdense of the right frontal parenchyma. Hypodensities of the left frontal, parietal, and temporal regions which may be sequela of prior infarct. No hemorrhage. No significant white matter disease. Midline shift: Mild, 6 mm, right to left midline shift. Ventricles: Exvacuodilatation of the ventricles. Bones/joints: Postsurgical changes from extensive prior right craniotomy. Large extra-axial fluid collection extending beyond the calvarium in region of prior craniotomy. The fluid extends beyond the calvarial region by approximately 4.0 cm in axial dimension No acute fracture. Soft tissues: Unremarkable. Sinuses: Unremarkable as visualized. No acute sinusitis. Mastoid air cells: Unremarkable as visualized. No mastoid effusion. IMPRESSION: 1. Large extra-axial fluid collection of the right hemisphere extending beyond the region of large frontal craniotomy. There is mild right to left midline shift measuring approximately 6 mm. 2. Hyperdensity of the residual right parenchyma suggestive of parenchymal contusion. 3. Extensive right parenchymal volume loss. May be sequela of prior infarct versus postsurgical change. 4. Hyperdensities throughout the left cerebellum, suggestive of prior ischemic process. Artifacts: Blooming artifact is noted within the right peripheral residual parenchyma likely representing hemosiderin deposition. Brain: Extensive right hemispheric parenchymal volume loss and edema. Mild encephalomalacia of the left hemisphere with expansion of the CSF containing spaces. No hemorrhage. Midline shift: There is proximal is 7 mm of right to left midline shift. Ventricles: Unremarkable. No ventriculomegaly. Bones/joints: There is significant expansion of the CSF containing spaces of the right hemisphere with extension beyond the calvarium through a craniotomy defect measuring approximately 4.3 cm. Sinuses: Unremarkable as visualized. No acute sinusitis. Mastoid air cells: Unremarkable as visualized. No mastoid effusion. Orbits: Unremarkable as visualized. Other vasculature: Following demonstration of intravenous contrast, there is no evidence of abnormal enhancement. IMPRESSION: 1. No obvious hemorrhage or stroke. Artifact on DWI sequence partially limits evaluation. Otherwise, no significant interval change from recent CT. 2. Large extra-axial fluid collection pending through craniotomy defect. There is mild right to left midline shift measuring in proximal 7 mm. 3. Extensive right parenchymal volume loss. May be sequela of prior infarct versus postsurgical/post traumatic change. 4. Encephalization of the left hemisphere with expansion of CSF containing spaces. DAILY ESTIMATED NEEDS: Needs based on Pulmonary, 68kg 25-30 kcals/kg 5671-7334 total kcals 1.25-1.5 g protein/kg 85-102 g total protein 25-30 mL/kg 6372-2236 total fluid mLs NUTRITION DIAGNOSIS: Swallowing difficulty r/t TBI and resp distress, as evidenced by pt is vent dep via T-collar, PEG dep. CURRENT TF:Jevity 1.2 @70 ml x20 hrs ENTERAL NUTRITION RECOMMENDATIONS: Increase TF to goal of 75ml/hr x20 hrs to provide 1500ml, 1800 kcal, 83g pro, 1211ml free H2O - Rec to INCREASE TF by 5ml/hr to better meet est kcal and pro needs. - Flush per MD/ HOB over 30 degrees ADDITIONAL RECOMMENDATIONS: 1) Skin integrity: add CATALINA BID via PEG (added 5g pro to meet est pro needs) 2) Wound care eval 3) Per SNF: 5'5" and 150#, maintain calibrated bed scale wts Carl Hernandez Jun 11, 2020 12:41
[2020-06-11] MEDS: NaCl 3% 500ml 500 ML IV SCH (14:15)
--- NOTE | 2020-06-11 14:58 | NUR ---
CASE MANAGEMENT:REVIEW SI;SEPSIS. SEIZURE. KLEBSIELLA PNA. 98.8 116 20 110/66 99% 6L TRACH COLLAR FIO2 28% WBC 16.5 H/H 9.9/27.7 NA 120 CL 88 IS;IVF NS @ 30 ML/HR MEROPENEM IV Q8 COLISTIN ING Q12 DIFLUCAN GT QD DILTIAZEM GT Q8 VANCOMYCIN IV Q8 LOPRESSOR GT Q12 CULTURELLE GT QD THYROID GT QD TELE STATUS DCP;FROM [facility]
[2020-06-11 16:00] VITALS: BP 104/59
--- NOTE | 2020-06-11 17:00 | Consultation ---
DATE OF CONSULTATION: 06/11/2020 NEPHROLOGY CONSULTATION CONSULTING PHYSICIAN: Valerio Hendrix M.D. ATTENDING PHYSICIAN: Aime Higgins M.D. REASON FOR CONSULTATION: Hyponatremia. HISTORY OF PRESENT ILLNESS: This is an unfortunate 29-year-old male from a subacute facility with anoxic encephalopathy, on the ventilator, who was admitted due to fever and shortness of breath. I am asked to see the patient for hyponatremia. PAST MEDICAL HISTORY: 1. Ventilator-dependent respiratory failure. 2. Seizure disorder. 3. Hypothyroidism. 4. Status post brain injury. 5. Status post gastrostomy. MEDICATIONS: Meropenem IV, IV sodium chloride, vancomycin IV, Tylenol p.r.n., clonidine p.r.n. SBP greater than 150, colistin inhalation, demeclocycline, Diltiazem, enoxaparin, famotidine, Diflucan, lacosamide, Lactobacillus, lisinopril, metoprolol, sevelamer, Carafate, Synthroid. ALLERGIES: No known drug allergies. FAMILY HISTORY: Unable to obtain due to mental status. SOCIAL HISTORY: Unable to obtain due to mental status. REVIEW OF SYSTEMS: Unable to obtain due to mental status. PHYSICAL EXAMINATION: GENERAL: This is a young male, who is in a vegetative state. VITAL SIGNS: Blood pressure 108/68, pulse 110, sinus tachycardia, respirations 20, temperature is 98.6 axillary. HEENT: The head shows signs of previous head trauma and is asymmetric. NECK: He has a tracheostomy with T tube. LUNGS: Bilateral rhonchi. HEART: Tachycardia. S1 and S2. No rubs, murmurs, or gallops. ABDOMEN: Soft and nontender. He has a J-tube. EXTREMITIES: No clubbing, cyanosis, or edema. NEUROLOGICAL: He is obtunded. There were no gross focal findings. LABORATORY AND ANCILLARY DATA: CBC today, white count 16,500, hematocrit 27.7, and platelet count 451,000. Chemistry, his sodium is 120, BUN 5, creatinine 0.4. Brain MRI shows no hemorrhage or stroke, shows large extra-axial fluid collection through craniotomy defect. There is mild [id number]-[id number] midline shift measuring approximately 7 mm. There was extensive right parenchymal volume loss. There is encephalization of the left hemisphere with expansion of CSF-containing spaces. Chest x-ray, bilateral lower lobe infiltrates with improved appearance from previous studies. ASSESSMENT: Most likely, the patient has chronic hyponatremia. Under these circumstances, aggressive correction is not indicated. Unless the patient has seizures, I would continue treating conservatively. I would monitor the patient's sodium and only if it drops below 120, correct with hypertonic saline, and it is advisable to check the urine osmolality for monitoring purposes. Of course, the main reason for this patient's hyponatremia may be neurological, but other etiologies probably need to be ruled out. Thank you, Dr. Higgins, for letting me participate in the care of this patient. Valerio Hendrix M.D. DR: MADIE JOB#: [id number] CC: NADEEM
--- NOTE | 2020-06-11 19:24 | NUR ---
NURSE HAND-OFF REPORT: Important Events on Shift:NA Patient Status: Fever Diet: Tube feeding Pending Orders: NA Pending Results/Labs:Morning labs Pending MD notification:NA Latest Vital Signs: Temperature 102.1 , Pulse 115 , B/P 104 /59 , Respiratory Rate 20 , O2 SAT 99 , Trach Collar, O2 Flow Rate 5.0 . Vital Sign Comment: Fever EKG Rhythm: Sinus Tachycardia Rhythm change?: N MD Notified?: N -DR.BALFE BO Response: No New Orders Received Latest Whitley Fall Score: 70 Fall Risk: High Risk Safety Measures: Call light Within Reach, Bed Alarm Zone 1, Side Rails Side Rails x3, Bed position Low and Locked. Fall Precautions: Yellow Socks Yellow Gown Door Sign Patient Fall Education Report given to Rimma/KADEEM.
--- NOTE | 2020-06-11 19:25 | NUR ---
NURSE NOTES: Received patient from KADEEM Paulino. AOx0, aphasic. On 5L oxygen per trach collar, 25% FiO2, saturating well. Still with febrile episodes, previous RN gave tylenol for fever and cooling measures initiated. Right Upper PICC line, double lumen, only one lumen noted to be patent. IVF running at a prescribed rate. On GT feeding, G-Tube patent and flushed. Feeding running at a prescribed rate, no residual noted at this time. With sacral DTI, protected with optifoam. Daniels catheter patent and draining well. Will reposition Q2H. Bed in lowest position, brakes engaged and bed alarm on. Bed rails raised x2. Padded side rails. Will continue to closely monitor.
[2020-06-11 20:00] VITALS: BP 105/59
--- NOTE | 2020-06-11 20:35 | NUR ---
NURSE NOTES: Both lumens of patient's PICC noted to be clogged. Ports changed and PICC flushed, still clogged. Dr. Higgins aware. Ordered for peripheral IV for now.
[2020-06-11] MEDS: Dyna-Hex 2% Top Sol 2oz TOPIC SCH (20:44)
--- NOTE | 2020-06-11 21:11 | NUR ---
NURSE NOTES: Patient still with febrile episode. Cooling measures initiated. Will continue to monitor.
[2020-06-12] VITALS: BP 113/70
[2020-06-12] MEDS: [UNRECOGNIZED DRUG - OTHER] IVPB SCH ×4 (00:29→23:52)
[2020-06-12] MEDS: VANCOMYCIN IVPB SCH ×4 (00:29→23:52)
[2020-06-12 04:00] VITALS: BP 133/75
[2020-06-12] MEDS: Meropenem 1 GM in NS 55 ML IVPB SCH ×3 (06:39→22:04)
[2020-06-12] MEDS: dilTIAZem HCl 30mg tab GT SCH ×3 (06:40→22:05)
[2020-06-12] MEDS: NaCl 3% 500ml 500 ML IV SCH (06:42)
--- NOTE | 2020-06-12 07:05 | NUR ---
NURSE NOTES: Received report from Rimma/KADEEM. Observed patient asleep, lying semi-banegas's, resting comfortably. On 5L t-piece, no acute distress/SOB noted, breathing evenly and unlabored. AAO x0, non-verbal. On cooling blanket. PICC line on right upper arm double lumen and left FA 22G both patent and intact, NS running at 100cc/hr. Daniels cath draining well to gravity. G-tube feeding running at 45cc/hr. Bed in low position and locked, Call light within reach. Will continue plan of care.
--- NOTE | 2020-06-12 07:10 | NUR ---
NURSE HAND-OFF REPORT: Important Events on Shift:[still with febrile episodes. LFA #22g initiated; vanco and meropenem given.] Patient Status: [FC] Diet: [Twocal @ 45ml/hr] Pending Orders: [] Pending Results/Labs:[] Pending MD notification:[] Latest Vital Signs: Temperature 100.2 , Pulse 118 , B/P 133 /75 , Respiratory Rate 22 , O2 SAT 98 , Trach Collar, O2 Flow Rate 5.0 . Vital Sign Comment: [] EKG Rhythm: Sinus Tachycardia Rhythm change?: N MD Notified?: N -DR.BALFE BO Response: No New Orders Received Latest Whitley Fall Score: 70 Fall Risk: High Risk Safety Measures: Call light Within Reach, Bed Alarm Zone 1, Side Rails Side Rails x3, Bed position Low and Locked. Fall Precautions: Yellow Socks Yellow Gown Door Sign Patient Fall Education Report given to [KADEEM Paulino].
[2020-06-12 07:28] LABS: ANION GAP 8 mmol/L (5-15); BLOOD UREA NITROGEN 5 mg/dL (7-18); CALCIUM 7.7 MG/DL (8.5-10.1); CARBON DIOXIDE 26 MMOL/L (21-32); CHLORIDE 100 MMOL/L (98-107); CREATININE 0.5 MG/DL (0.55-1.30); POTASSIUM 3.6 MMOL/L (3.5-5.1); SODIUM 134 MMOL/L (136-145)
[2020-06-12 08:00] VITALS: BP 102/73
[2020-06-12] MEDS: Colistin for inhalation INH SCH (08:13)
[2020-06-12] MEDS: Lacosamide 50mg tablet ORAL SCH ×2 (08:16→17:21)
[2020-06-12] MEDS: Metoprolol Tartrate 100mg tab ORAL SCH ×2 (08:16→20:29)
[2020-06-12] MEDS: Fluconazole 100mg tab GT SCH (08:16)
[2020-06-12] MEDS: Enoxaparin 80mg Inj SUBQ SCH ×2 (08:17→20:30)
[2020-06-12] MEDS: Renvela 800mg Pkt GT SCH ×3 (08:18→17:21)
[2020-06-12] MEDS: Sucralfate 1gm tab ORAL SCH ×2 (08:18→17:21)
[2020-06-12] MEDS: Lactobacillus-GG tablet GT SCH (08:18)
[2020-06-12] MEDS ORDERED: NS Irrig 1000ml ONE (08:54)
[2020-06-12 12:00] VITALS: BP 112/71
--- NOTE | 2020-06-12 13:03 | Nephrology Progress Note ---
Assessment/Plan Plan Sepsis - IV Abx. Hyponatremia Na corrected to 134. DC 3% NaCal. Subjective Subjective Obtunded Objective Objective Last 24 Hour Vital Signs Date Time Temp Pulse Resp B/P (MAP) Pulse Ox O2 Delivery O2 Flow Rate FiO2 06/12/20 12:00 103.1 89 20 112/71 (85) 99 06/12/20 12:00 92 06/12/20 09:00 Trach Collar 2.0 06/12/20 08:20 99 Cool Aerosol 5.0 28 06/12/20 08:19 113 22 100 T-Piece 5.0 28 111 18 99 06/12/20 08:16 113 102/73 06/12/20 08:00 101.9 113 20 102/73 (83) 99 06/12/20 08:00 112 06/12/20 06:40 118 133/75 06/12/20 04:00 100.2 118 22 133/75 (94) 98 06/12/20 04:00 116 06/12/20 01:40 100 Cool Aerosol 5.0 28 06/12/20 01:16 100.8 06/12/20 00:00 101 06/12/20 00:00 101.3 107 22 113/70 (84) 100 06/11/20 22:47 97 105/59 06/11/20 22:15 100 20 100 T-Piece 5.0 28 109 20 99 06/11/20 21:22 126 105/59 06/11/20 21:00 Trach Collar 2.0 06/11/20 20:00 102.0 126 20 105/59 (74) 100 06/11/20 20:00 127 06/11/20 19:26 98 Cool Aerosol 5.0 28 06/11/20 19:21 102.1 06/11/20 16:00 98.6 108 20 104/59 (74) 99 06/11/20 16:00 115 06/11/20 14:00 103 110/66 Intake and Output 06/11/20 06/12/20 18:59 06:59 Intake Total 1374.5 ml Output Total 2100 ml 2300 ml Balance -2100 ml -925.5 ml IV Total 1329.5 ml Tube Feeding 45 ml Output Urine Total 2100 ml 2300 ml Laboratory Tests 06/11/20 14:00: Urine Osmolality 506H 06/12/20 05:50: Sodium Level 134#L, Potassium Level 3.6, Chloride Level 100, Carbon Dioxide Level 26, Anion Gap 8, Blood Urea Nitrogen 5L, Creatinine 0.5L, Estimat Glomerular Filtration Rate > 60, Glucose Level 109H, Calcium Level 7.7L Height (Feet): 5 Height (Inches): 10.00 Weight (Pounds): 160 Objective Head deformed post op CV RR Neck trach clean Lungs B ronchi Abd SNT. BS + E No CCE Valerio Hendrix MD Jun 12, 2020 13:03
--- NOTE | 2020-06-12 13:30 | NUR ---
NURSE NOTES: Patient has been Febrile, Tylenol given, Put Ice pack under bilateral armpit. Notified
--- NOTE | 2020-06-12 14:05 | Pulmonology Progress Note ---
Subjective ROS Limited/Unobtainable: Yes Constitutional: Denies: fever Allergies: Coded Allergies: No Known Allergies (Unverified , 05/30/20) Subjective improved hr and bp +fever low sodium Objective Last 24 Hour Vital Signs Date Time Temp Pulse Resp B/P (MAP) Pulse Ox O2 Delivery O2 Flow Rate FiO2 06/12/20 13:20 92 112/71 06/12/20 12:00 103.1 89 20 112/71 (85) 99 06/12/20 12:00 92 06/12/20 09:00 Trach Collar 2.0 06/12/20 08:20 99 Cool Aerosol 5.0 28 06/12/20 08:19 113 22 100 T-Piece 5.0 28 111 18 99 06/12/20 08:16 113 102/73 06/12/20 08:00 101.9 113 20 102/73 (83) 99 06/12/20 08:00 112 06/12/20 06:40 118 133/75 06/12/20 04:00 100.2 118 22 133/75 (94) 98 06/12/20 04:00 116 06/12/20 01:40 100 Cool Aerosol 5.0 28 06/12/20 01:16 100.8 06/12/20 00:00 101 06/12/20 00:00 101.3 107 22 113/70 (84) 100 06/11/20 22:47 97 105/59 06/11/20 22:15 100 20 100 T-Piece 5.0 28 109 20 99 06/11/20 21:22 126 105/59 06/11/20 21:00 Trach Collar 2.0 06/11/20 20:00 102.0 126 20 105/59 (74) 100 06/11/20 20:00 127 06/11/20 19:26 98 Cool Aerosol 5.0 28 06/11/20 19:21 102.1 06/11/20 16:00 98.6 108 20 104/59 (74) 99 06/11/20 16:00 115 06/11/20 14:00 103 110/66 Intake and Output 06/11/20 06/12/20 19:00 07:00 Intake Total 142.5 ml 1332 ml Output Total 2100 ml 2300 ml Balance -1957.5 ml -968 ml IV Total 142.5 ml 1287 ml Tube Feeding 45 ml Output Urine Total 2100 ml 2300 ml Objective WDWN bulging noted scalp clear breath sounds bilaterally without rhonchi or wheeze [id number] tachy without MRG NABS nontender GT no CCE nonfocal trach poor LOC Laboratory Tests 06/11/20 14:00: Urine Osmolality 506H 06/12/20 05:50: Sodium Level 134#L, Potassium Level 3.6, Chloride Level 100, Carbon Dioxide Level 26, Anion Gap 8, Blood Urea Nitrogen 5L, Creatinine 0.5L, Estimat Glomerular Filtration Rate > 60, Glucose Level 109H, Calcium Level 7.7L Current Medications Medications (Trade) Dose Ordered Sig/Anuj Route PRN Reason Start Time Stop Time Status Last Admin Dose Admin Acetaminophen (Tylenol) 650 mg Q6H PRN ORAL Temp >100.5 05/30/20 18:45 06/29/20 18:44 06/12/20 13:21 Chlorhexidine Gluconate (Laura-Hex 2%) 1 applic DAILY@1999 TOPIC 06/01/20 20:00 08/30/20 19:59 06/11/20 20:44 Clonidine HCl (Catapres Tab) 0.1 mg Q4H PRN ORAL SBP above 150; DBP above 95 06/02/20 23:00 08/31/20 22:59 06/10/20 18:15 Colistimethate Sodium (Colistin *inhalation use only*) 75 mg Q12HR@ INH 06/10/20 22:00 06/17/20 21:59 06/12/20 08:13 Diltiazem HCl (Cardizem Tab) 30 mg EVERY 8 HOURS GT 06/10/20 14:00 07/10/20 13:59 06/12/20 13:20 Enoxaparin Sodium (Lovenox) 80 mg EVERY 12 HOURS SUBQ 05/30/20 21:00 08/28/20 20:59 06/12/20 08:17 Famotidine (Pepcid) 20 mg DAILY GT 05/31/20 09:00 08/29/20 08:59 06/12/20 08:16 Fluconazole (Diflucan) 100 mg DAILY GT 06/10/20 11:03 06/17/20 11:02 06/12/20 08:16 Lacosamide (Vimpat) 50 mg BID ORAL 05/31/20 09:00 08/29/20 08:59 06/12/20 08:16 Lactobacillus Acidophilus (Culturelle) 1 tab DAILY GT 05/31/20 09:00 08/29/20 08:59 06/12/20 08:18 Metoprolol Tartrate (Lopressor) 150 mg EVERY 12 HOURS ORAL 06/08/20 09:00 09/06/20 08:59 06/12/20 08:16 Sevelamer Carbonate (Renvela) 800 mg THREE TIMES A DAY GT 05/31/20 09:00 08/29/20 08:59 06/12/20 13:20 Sodium Chloride 500 ml @ 30 mls/hr Q16H IV 06/11/20 14:00 06/12/20 13:59 06/12/20 06:42 Sodium Chloride 1,000 ml @ 100 mls/hr Q10H IV 06/09/20 08:30 07/09/20 08:29 06/12/20 00:29 Sucralfate (Carafate) 1 gm BID ORAL 05/31/20 09:00 08/29/20 08:59 06/12/20 08:18 Thyroid ([place] Thyroid) 15 mg DAILY GT 05/31/20 09:00 06/30/20 08:59 06/12/20 08:16 Vancomycin HCl (Vanco pharmacy to dose) 1 ea DAILY PRN MISC Per rx protocol 06/07/20 11:00 07/07/20 10:59 Vancomycin/Sodium Chloride 250 ml @ 125 mls/hr Q8H IVPB 06/10/20 08:00 06/15/20 07:59 06/12/20 08:17 Assessment/Plan Assessment/Plan Impression: Sepsis Urinary Tract Infection TBI Seizures Hypothyroidism Sinus Tachycardia Hypertension abnormal MRI/ CT hyponatremia ?SIADH leukocytosis fever Plan: IV Antibiotics- Meropenema, flucon vanco IVF and demeclocyline O2 PRN TC PPX Monitor labs monitor vitals renal eval noted [facility] refused transfer update sister ID follow up repeat wbc- now elevated full dose lovenox cardizem to beta jocelyn for rate control dc once sodium improved fever work up impression, plan, and exam edited and reviewed in detail care discussed with Aime Browne MD Jun 12, 2020 14:05
--- NOTE | 2020-06-12 14:50 | Infectious Diseases Prog Note ---
Assessment/Plan Assessment/Plan A; 1. Fever, 2. Traumatic brain injury. 3. Seizures. 4. Leukocytosis, improving 5. Possible scabies, treated 6. Anemia 7. Pneumonia with Pseudomonas & Klebsiella PLAN: 1. continue iv vancomycin, inhaled colistin, fluconazole 2. Blood cultures X 2 3. CXR Subjective ROS Limited/Unobtainable: Yes Constitutional: Reports: fever, other - T=103.1 Allergies: Coded Allergies: No Known Allergies (Unverified , 05/30/20) Objective Last 24 Hour Vital Signs Date Time Temp Pulse Resp B/P (MAP) Pulse Ox O2 Delivery O2 Flow Rate FiO2 06/12/20 13:20 92 112/71 06/12/20 13:09 99 Cool Aerosol 5.0 28 06/12/20 12:00 103.1 89 20 112/71 (85) 99 06/12/20 12:00 92 06/12/20 09:00 Trach Collar 2.0 06/12/20 08:20 99 Cool Aerosol 5.0 28 06/12/20 08:19 113 22 100 T-Piece 5.0 28 111 18 99 06/12/20 08:16 113 102/73 06/12/20 08:00 101.9 113 20 102/73 (83) 99 06/12/20 08:00 112 06/12/20 06:40 118 133/75 06/12/20 04:00 100.2 118 22 133/75 (94) 98 06/12/20 04:00 116 06/12/20 01:40 100 Cool Aerosol 5.0 28 06/12/20 01:16 100.8 06/12/20 00:00 101 06/12/20 00:00 101.3 107 22 113/70 (84) 100 06/11/20 22:47 97 105/59 06/11/20 22:15 100 20 100 T-Piece 5.0 28 109 20 99 06/11/20 21:22 126 105/59 06/11/20 21:00 Trach Collar 2.0 06/11/20 20:00 102.0 126 20 105/59 (74) 100 06/11/20 20:00 127 06/11/20 19:26 98 Cool Aerosol 5.0 28 06/11/20 19:21 102.1 06/11/20 16:00 98.6 108 20 104/59 (74) 99 06/11/20 16:00 115 Height (Feet): 5 Height (Inches): 10.00 Weight (Pounds): 160 HEENT: status post trach, other - R craniotomy Respiratory/Chest: lungs clear, other - on Tbar Cardiovascular: normal rate, other - R arm PICC line Abdomen: soft, non tender, other - GT feeding Extremities: no edema Neurologic/Psychiatric: unresponsiveness, aphasia Laboratory Tests Test 06/12/20 05:50 06/12/20 13:45 Sodium Level 134 MMOL/L (136-145) #L Potassium Level 3.6 MMOL/L (3.5-5.1) Chloride Level 100 MMOL/L (98-107) Carbon Dioxide Level 26 MMOL/L (21-32) Anion Gap 8 mmol/L (5-15) Blood Urea Nitrogen 5 mg/dL (7-18) L Creatinine 0.5 MG/DL (0.55-1.30) L Estimat Glomerular Filtration Rate > 60 mL/min (>60) Glucose Level 109 MG/DL (74-106) H Calcium Level 7.7 MG/DL (8.5-10.1) L Urine Osmolality 438 mOsm/kg (429-449) Current Medications Medications (Trade) Dose Ordered Sig/Anuj Route PRN Reason Start Time Stop Time Status Last Admin Dose Admin Acetaminophen (Tylenol) 650 mg Q6H PRN ORAL Temp >100.5 05/30/20 18:45 06/29/20 18:44 06/12/20 13:21 Chlorhexidine Gluconate (Laura-Hex 2%) 1 applic DAILY@1999 TOPIC 06/01/20 20:00 08/30/20 19:59 06/11/20 20:44 Clonidine HCl (Catapres Tab) 0.1 mg Q4H PRN ORAL SBP above 150; DBP above 95 06/02/20 23:00 08/31/20 22:59 06/10/20 18:15 Colistimethate Sodium (Colistin *inhalation use only*) 75 mg Q12HR@ INH 06/10/20 22:00 06/17/20 21:59 06/12/20 08:13 Diltiazem HCl (Cardizem Tab) 30 mg EVERY 8 HOURS GT 06/10/20 14:00 07/10/20 13:59 06/12/20 13:20 Enoxaparin Sodium (Lovenox) 80 mg EVERY 12 HOURS SUBQ 05/30/20 21:00 08/28/20 20:59 06/12/20 08:17 Famotidine (Pepcid) 20 mg DAILY GT 05/31/20 09:00 08/29/20 08:59 06/12/20 08:16 Fluconazole (Diflucan) 100 mg DAILY GT 06/10/20 11:03 06/17/20 11:02 06/12/20 08:16 Lacosamide (Vimpat) 50 mg BID ORAL 05/31/20 09:00 08/29/20 08:59 06/12/20 08:16 Lactobacillus Acidophilus (Culturelle) 1 tab DAILY GT 05/31/20 09:00 08/29/20 08:59 06/12/20 08:18 Metoprolol Tartrate (Lopressor) 150 mg EVERY 12 HOURS ORAL 06/08/20 09:00 09/06/20 08:59 06/12/20 08:16 Sevelamer Carbonate (Renvela) 800 mg THREE TIMES A DAY GT 05/31/20 09:00 08/29/20 08:59 06/12/20 13:20 Sodium Chloride 1,000 ml @ 100 mls/hr Q10H IV 06/09/20 08:30 07/09/20 08:29 06/12/20 00:29 Sucralfate (Carafate) 1 gm BID ORAL 05/31/20 09:00 08/29/20 08:59 06/12/20 08:18 Thyroid ([place] Thyroid) 15 mg DAILY GT 05/31/20 09:00 06/30/20 08:59 06/12/20 08:16 Vancomycin HCl (Vanco pharmacy to dose) 1 ea DAILY PRN MISC Per rx protocol 06/07/20 11:00 07/07/20 10:59 Vancomycin/Sodium Chloride 250 ml @ 125 mls/hr Q8H IVPB 06/10/20 08:00 06/15/20 07:59 06/12/20 08:17 Tomás Shaffer MD Jun 12, 2020 14:50
--- NOTE | 2020-06-12 14:55 | NUR ---
NURSE NOTES: Patient has been Febrile notified Dr. Edmund Whittaker which covering for Dr. Mcgowan.
[2020-06-12 16:00] VITALS: BP 110/66
--- NOTE | 2020-06-12 17:30 | Surgery Progress Note ---
Surgery Progress Note Subjective Additional Comments high fevers >103 ill appearing on support Objective Last 24 Hour Vital Signs Date Time Temp Pulse Resp B/P (MAP) Pulse Ox O2 Delivery O2 Flow Rate FiO2 06/12/20 13:51 102.7 06/12/20 13:20 92 112/71 06/12/20 13:09 99 Cool Aerosol 5.0 28 06/12/20 12:00 103.1 89 20 112/71 (85) 99 06/12/20 12:00 92 06/12/20 09:00 Trach Collar 2.0 06/12/20 08:20 99 Cool Aerosol 5.0 28 06/12/20 08:19 113 22 100 T-Piece 5.0 28 111 18 99 06/12/20 08:16 113 102/73 06/12/20 08:00 101.9 113 20 102/73 (83) 99 06/12/20 08:00 112 06/12/20 06:40 118 133/75 06/12/20 04:00 100.2 118 22 133/75 (94) 98 06/12/20 04:00 116 06/12/20 01:40 100 Cool Aerosol 5.0 28 06/12/20 01:16 100.8 06/12/20 00:00 101 06/12/20 00:00 101.3 107 22 113/70 (84) 100 06/11/20 22:47 97 105/59 06/11/20 22:15 100 20 100 T-Piece 5.0 28 109 20 99 06/11/20 21:22 126 105/59 06/11/20 21:00 Trach Collar 2.0 06/11/20 20:00 102.0 126 20 105/59 (74) 100 06/11/20 20:00 127 06/11/20 19:26 98 Cool Aerosol 5.0 28 06/11/20 19:21 102.1 I&O Intake and Output 06/11/20 06/12/20 19:00 07:00 Intake Total 142.5 ml 1332 ml Output Total 2100 ml 2300 ml Balance -1957.5 ml -968 ml IV Total 142.5 ml 1287 ml Tube Feeding 45 ml Output Urine Total 2100 ml 2300 ml Cardiovascular: RSR Respiratory: decreased breath sounds Abdomen: soft, non-tender, present bowel sounds Extremities: no tenderness, no cyanosis Laboratory Tests Test 06/12/20 05:50 06/12/20 13:45 Sodium Level 134 MMOL/L (136-145) #L Potassium Level 3.6 MMOL/L (3.5-5.1) Chloride Level 100 MMOL/L (98-107) Carbon Dioxide Level 26 MMOL/L (21-32) Anion Gap 8 mmol/L (5-15) Blood Urea Nitrogen 5 mg/dL (7-18) L Creatinine 0.5 MG/DL (0.55-1.30) L Estimat Glomerular Filtration Rate > 60 mL/min (>60) Glucose Level 109 MG/DL (74-106) H Calcium Level 7.7 MG/DL (8.5-10.1) L Urine Osmolality 438 mOsm/kg (429-449) Plan Problems: (1) Tachycardia (2) Sepsis Assessment & Plan: 29-year-old male with leukocytosis anemia lactic acidosis. Patient admitted further care management identified to have significant secretions from tracheostomy trach collar with sutures in place causing distortion. Abdominal G-tube in place. Patient forming deep tissue injury. BMI 22 labs noted. Patient a phasic unable to respond to commands and in a vegetative state at this time. Patient with a UTI on antibiotics. Right PIC in place may need to be replaced. Turn every 2 hours offload pressure with air mattress and pillows. Trach sutures removed trach tie evaluated trach in place secretions suction. Continue with secretions chest x-ray reviewed no acute infiltrative process Leukocytosis trending down lactic acid is improving continue fluid resuscitation IV antibiotics improving labs improved cont current care trach care fevers resolved wbc resolved improved CT head noted neurosurg eval cxr improved fevers cont leukocytosis neuro input appreciate. possible infected collection transfer to neurosurgery hospital pending Thank you will follow with recommendations high fevers leukocytosis needs transfer Brain: Extensive right hemispheric parenchymal volume loss and edema. Increased hyperdense of the right frontal parenchyma. Hypodensities of the left frontal, parietal, and temporal regions which may be sequela of prior infarct. No hemorrhage. No significant white matter disease. Midline shift: Mild, 6 mm, right to left midline shift. Ventricles: Exvacuodilatation of the ventricles. Bones/joints: Postsurgical changes from extensive prior right craniotomy. Large extra-axial fluid collection extending beyond the calvarium in region of prior craniotomy. The fluid extends beyond the calvarial region by approximately 4.0 cm in axial dimension No acute fracture. Soft tissues: Unremarkable. Sinuses: Unremarkable as visualized. No acute sinusitis. Mastoid air cells: Unremarkable as visualized. No mastoid effusion. IMPRESSION: 1. Large extra-axial fluid collection of the right hemisphere extending beyond the region of large frontal craniotomy. There is mild right to left midline shift measuring approximately 6 mm. 2. Hyperdensity of the residual right parenchyma suggestive of parenchymal contusion. 3. Extensive right parenchymal volume loss. May be sequela of prior infarct versus postsurgical change. 4. Hyperdensities throughout the left cerebellum, suggestive of prior ischemic process. Artifacts: Blooming artifact is noted within the right peripheral residual parenchyma likely representing hemosiderin deposition. Brain: Extensive right hemispheric parenchymal volume loss and edema. Mild encephalomalacia of the left hemisphere with expansion of the CSF containing spaces. No hemorrhage. Midline shift: There is proximal is 7 mm of right to left midline shift. Ventricles: Unremarkable. No ventriculomegaly. Bones/joints: There is significant expansion of the CSF containing spaces of the right hemisphere with extension beyond the calvarium through a craniotomy defect measuring approximately 4.3 cm. Sinuses: Unremarkable as visualized. No acute sinusitis. Mastoid air cells: Unremarkable as visualized. No mastoid effusion. Orbits: Unremarkable as visualized. Other vasculature: Following demonstration of intravenous contrast, there is no evidence of abnormal enhancement. IMPRESSION: 1. No obvious hemorrhage or stroke. Artifact on DWI sequence partially limits evaluation. Otherwise, no significant interval change from recent CT. 2. Large extra-axial fluid collection pending through craniotomy defect. There is mild right to left midline shift measuring in proximal 7 mm. 3. Extensive right parenchymal volume loss. May be sequela of prior infarct versus postsurgical/post traumatic change. 4. Encephalization of the left hemisphere with expansion of CSF containing spaces. DAILY ESTIMATED NEEDS: Needs based on Pulmonary, 68kg 25-30 kcals/kg 3275-0461 total kcals 1.25-1.5 g protein/kg 85-102 g total protein 25-30 mL/kg 4502-2252 total fluid mLs NUTRITION DIAGNOSIS: Swallowing difficulty r/t TBI and resp distress, as evidenced by pt is vent dep via T-collar, PEG dep. CURRENT TF:Jevity 1.2 @70 ml x20 hrs ENTERAL NUTRITION RECOMMENDATIONS: Increase TF to goal of 75ml/hr x20 hrs to provide 1500ml, 1800 kcal, 83g pro, 1211ml free H2O - Rec to INCREASE TF by 5ml/hr to better meet est kcal and pro needs. - Flush per MD/ HOB over 30 degrees ADDITIONAL RECOMMENDATIONS: 1) Skin integrity: add CATALINA BID via PEG (added 5g pro to meet est pro needs) 2) Wound care eval 3) Per SNF: 5'5" and 150#, maintain calibrated bed scale wts Carl Hernandez Jun 12, 2020 17:30
--- NOTE | 2020-06-12 19:02 | NUR ---
NURSE HAND-OFF REPORT: Important Events on Shift:NA Patient Status: Febrile Diet: tube feeding Pending Orders: X-ray Pending Results/Labs:Morning labs Pending MD notification:NA Latest Vital Signs: Temperature 102.3 , Pulse 96 , B/P 110 /66 , Respiratory Rate 20 , O2 SAT 98 , Trach Collar, O2 Flow Rate 5.0 . Vital Sign Comment: Febrile EKG Rhythm: Sinus Rhythm Rhythm change?: N MD Notified?: N -DR.BALFE BO Response: No New Orders Received Latest Whitley Fall Score: 70 Fall Risk: High Risk Safety Measures: Call light Within Reach, Bed Alarm Zone 1, Side Rails Side Rails x3, Bed position Low and Locked. Fall Precautions: Yellow Socks Yellow Gown Door Sign Patient Fall Education Report given to Rimma/KADEEM.
--- NOTE | 2020-06-12 19:54 | NUR ---
NURSE NOTES: Received report from KADEEM Paulino. AOx0, aphasic. On 5L oxygen per t-piece, 25% FiO2. With Right UA PICC double lumen, with only pink port patent. Lumens flushed. Also with LFA #22g, patent with IVf running at a prescribed rate. On GT feeding, running at prescribed rate, no residual. GT patent and flushed. Wound care plan to be continued. Repositioning on left side and supine routinely to keep pressure off right side. With cooling blanket. Still with febrile episodes. Bed in lowest position, brakes engaged and bed alarm on. Call light placed within reach. Will continue to monitor.
[2020-06-12 20:00] VITALS: BP 149/83
[2020-06-12] MEDS: Dyna-Hex 2% Top Sol 2oz TOPIC SCH (20:31)
[2020-06-12] MEDS: Gentamicin for inhalation INH SCH (22:38)
[2020-06-13] VITALS: BP 149/82
[2020-06-13 04:00] VITALS: BP 159/86
[2020-06-13] MEDS: Meropenem 1 GM in NS 55 ML IVPB SCH ×3 (05:06→23:34)
[2020-06-13] MEDS: dilTIAZem HCl 30mg tab GT SCH ×2 (05:07→13:03)
[2020-06-13 07:09] LABS: BASOPHILS % (AUTO) 0.8 % (0.0-2.0); EOSINOPHILS % (AUTO) 1.1 % (0.0-3.0); HEMATOCRIT 25.8 % (42.0-52.0); HEMOGLOBIN 8.8 G/DL (14.2-18.0); LYMPHOCYTES % (AUTO) 10.8 % (20.0-45.0); MEAN CORPUSCULAR VOLUME 86 FL (80-99); MONOCYTES % (AUTO) 9.9 % (1.0-10.0); NEUTROPHILS % (AUTO) 77.4 % (45.0-75.0); PLATELET COUNT 382 K/UL (150-450); RED BLOOD COUNT 2.99 M/UL (4.70-6.10); RED CELL DISTRIBUTION WIDTH 14.3 % (11.6-14.8); WHITE BLOOD COUNT 10.5 K/UL (4.8-10.8)
[2020-06-13 07:27] LABS: ALANINE AMINOTRANSFERASE 58 U/L (12-78); ALBUMIN 2.3 G/DL (3.4-5.0); ALBUMIN/GLOBULIN RATIO 0.5 (1.0-2.7); ALKALINE PHOSPHATASE 134 U/L (46-116); ANION GAP 9 mmol/L (5-15); ASPARTATE AMINO TRANSFERASE 29 U/L (15-37); BILIRUBIN,TOTAL 0.4 MG/DL (0.2-1.0); BLOOD UREA NITROGEN 5 mg/dL (7-18); CALCIUM 8.1 MG/DL (8.5-10.1); CARBON DIOXIDE 28 MMOL/L (21-32); CHLORIDE 98 MMOL/L (98-107); CREATININE 0.5 MG/DL (0.55-1.30); SODIUM 135 MMOL/L (136-145)
--- NOTE | 2020-06-13 07:44 | NUR ---
NURSE HAND-OFF REPORT: Important Events on Shift:[still with febrile episodes] Patient Status: [FC] Diet: [[place] @45] Pending Orders: [] Pending Results/Labs:[] Pending MD notification:[] Latest Vital Signs: Temperature 99.0 , Pulse 106 , B/P 159 /86 , Respiratory Rate 22 , O2 SAT 99 , Trach Collar, O2 Flow Rate 5.0 . Vital Sign Comment: [] EKG Rhythm: Sinus Tachycardia Rhythm change?: N MD Notified?: N -DR.BALFE BO Response: No New Orders Received Latest Whit[place] Fall Score: 70 Fall Risk: High Risk Safety Measures: Call light Within Reach, Bed Alarm Zone 1, Side Rails Side Rails x3, Bed position Low and Locked. Fall Precautions: Yellow Socks Yellow Gown Door Sign Patient Fall Education Report given to [KADEEM Jean Baptiste].
[2020-06-13 08:00] VITALS: BP 135/82
[2020-06-13] MEDS: VANCOMYCIN IVPB SCH ×2 (08:30→15:13)
[2020-06-13] MEDS: [UNRECOGNIZED DRUG - OTHER] IVPB SCH ×2 (08:30→15:13)
[2020-06-13] MEDS: Metoprolol Tartrate 100mg tab ORAL SCH ×2 (08:32→21:01)
[2020-06-13] MEDS: Sucralfate 1gm tab ORAL SCH ×2 (08:32→17:20)
[2020-06-13] MEDS: Fluconazole 100mg tab GT SCH (08:32)
[2020-06-13] MEDS: Renvela 800mg Pkt GT SCH ×3 (08:32→17:20)
[2020-06-13] MEDS: Lactobacillus-GG tablet GT SCH (08:33)
[2020-06-13] MEDS: Enoxaparin 80mg Inj SUBQ SCH ×2 (08:40→21:03)
[2020-06-13] MEDS: Lacosamide 50mg tablet ORAL SCH ×2 (09:00→17:20)
[2020-06-13] MEDS: Gentamicin for inhalation INH SCH ×2 (10:16→23:02)
--- NOTE | 2020-06-13 10:36 | Infectious Diseases Prog Note ---
Assessment/Plan Assessment/Plan A; 1. Fever, 2. Traumatic brain injury. 3. Seizures. 4. Leukocytosis, improving 5. Possible scabies, treated 6. Anemia 7. Pneumonia with Pseudomonas & Klebsiella PLAN: 1. continue iv vancomycin, inhaled colistin, fluconazole & meropenem 2. Will f/u cultures & CXR Subjective ROS Limited/Unobtainable: Yes Constitutional: Reports: fever Gastrointestinal/Abdominal: Reports: diarrhea Allergies: Coded Allergies: No Known Allergies (Unverified , 05/30/20) Objective Last 24 Hour Vital Signs Date Time Temp Pulse Resp B/P (MAP) Pulse Ox O2 Delivery O2 Flow Rate FiO2 06/13/20 09:03 100.8 06/13/20 08:32 118 135/82 06/13/20 08:00 101.8 118 20 135/82 (99) 98 06/13/20 07:35 109 06/13/20 07:20 99 Cool Aerosol 5.0 28 06/13/20 05:07 106 159/86 06/13/20 04:08 159/86 06/13/20 04:00 106 06/13/20 04:00 99.0 105 22 159/86 (110) 99 06/13/20 01:00 99 Cool Aerosol 5.0 28 06/13/20 00:00 95 06/13/20 00:00 100.4 91 22 149/82 (104) 99 06/12/20 22:44 112 16 100 T-Piece 5.0 28 108 17 99 06/12/20 22:05 117 149/83 06/12/20 21:00 Trach Collar 2.0 06/12/20 20:59 99.8 06/12/20 20:29 117 149/83 06/12/20 20:00 116 06/12/20 20:00 100.6 117 22 149/83 (105) 98 06/12/20 19:49 100 Cool Aerosol 5.0 28 06/12/20 16:00 96 06/12/20 16:00 102.3 95 20 110/66 (81) 98 06/12/20 13:51 102.7 06/12/20 13:20 92 112/71 06/12/20 13:09 99 Cool Aerosol 5.0 28 06/12/20 12:00 103.1 89 20 112/71 (85) 99 06/12/20 12:00 92 Height (Feet): 5 Height (Inches): 10.00 Weight (Pounds): 160 HEENT: status post trach, other - s/p R craniotomy Respiratory/Chest: lungs clear Cardiovascular: tachycardia Abdomen: soft, non tender, other - Gt feeding Extremities: no edema Neurologic/Psychiatric: unresponsiveness, aphasia Laboratory Tests Test 06/12/20 13:45 06/13/20 06:00 Urine Osmolality 438 mOsm/kg (429-449) White Blood Count 10.5 K/UL (4.8-10.8) Red Blood Count 2.99 M/UL (4.70-6.10) L Hemoglobin 8.8 G/DL (14.2-18.0) L Hematocrit 25.8 % (42.0-52.0) L Mean Corpuscular Volume 86 FL (80-99) Mean Corpuscular Hemoglobin 29.5 PG (27.0-31.0) Mean Corpuscular Hemoglobin Concent 34.3 G/DL (32.0-36.0) Red Cell Distribution Width 14.3 % (11.6-14.8) Platelet Count 382 K/UL (150-450) Mean Platelet Volume 4.9 FL (6.5-10.1) L Neutrophils (%) (Auto) 77.4 % (45.0-75.0) H Lymphocytes (%) (Auto) 10.8 % (20.0-45.0) L Monocytes (%) (Auto) 9.9 % (1.0-10.0) Eosinophils (%) (Auto) 1.1 % (0.0-3.0) Basophils (%) (Auto) 0.8 % (0.0-2.0) Erythrocyte Sedimentation Rate 121 MM/HR (0-15) H Sodium Level 135 MMOL/L (136-145) L Potassium Level 4.0 MMOL/L (3.5-5.1) Chloride Level 98 MMOL/L (98-107) Carbon Dioxide Level 28 MMOL/L (21-32) Anion Gap 9 mmol/L (5-15) Blood Urea Nitrogen 5 mg/dL (7-18) L Creatinine 0.5 MG/DL (0.55-1.30) L Estimat Glomerular Filtration Rate > 60 mL/min (>60) Glucose Level 126 MG/DL (74-106) H Calcium Level 8.1 MG/DL (8.5-10.1) L Total Bilirubin 0.4 MG/DL (0.2-1.0) Aspartate Amino Transf (AST/SGOT) 29 U/L (15-37) Alanine Aminotransferase (ALT/SGPT) 58 U/L (12-78) Alkaline Phosphatase 134 U/L (46-116) H Total Protein 6.5 G/DL (6.4-8.2) Albumin 2.3 G/DL (3.4-5.0) L Globulin 4.2 g/dL Albumin/Globulin Ratio 0.5 (1.0-2.7) L Current Medications Medications (Trade) Dose Ordered Sig/Anuj Route PRN Reason Start Time Stop Time Status Last Admin Dose Admin Acetaminophen (Tylenol) 650 mg Q6H PRN ORAL Temp >100.5 05/30/20 18:45 06/29/20 18:44 06/13/20 08:33 Chlorhexidine Gluconate (Laura-Hex 2%) 1 applic DAILY@1999 TOPIC 06/01/20 20:00 08/30/20 19:59 06/12/20 20:31 Clonidine HCl (Catapres Tab) 0.1 mg Q4H PRN ORAL SBP above 150; DBP above 95 06/02/20 23:00 08/31/20 22:59 06/13/20 04:08 Diltiazem HCl (Cardizem Tab) 30 mg EVERY 8 HOURS GT 06/10/20 14:00 07/10/20 13:59 06/13/20 05:07 Enoxaparin Sodium (Lovenox) 80 mg EVERY 12 HOURS SUBQ 05/30/20 21:00 08/28/20 20:59 06/13/20 08:40 Famotidine (Pepcid) 20 mg DAILY GT 05/31/20 09:00 08/29/20 08:59 06/13/20 08:32 Fluconazole (Diflucan) 100 mg DAILY GT 06/10/20 11:03 06/17/20 11:02 06/13/20 08:32 Gentamicin Sulfate (Gentamicin vial) 300 mg Q12HR@ INH 06/12/20 22:00 06/19/20 21:59 06/13/20 10:16 Lacosamide (Vimpat) 50 mg BID ORAL 05/31/20 09:00 08/29/20 08:59 06/13/20 09:00 Lactobacillus Acidophilus (Culturelle) 1 tab DAILY GT 05/31/20 09:00 08/29/20 08:59 06/13/20 08:33 Meropenem 1 gm/ Sodium Chloride 55 ml @ 110 mls/hr Q8HR IVPB 06/12/20 15:00 06/17/20 14:59 06/13/20 05:06 Metoprolol Tartrate (Lopressor) 150 mg EVERY 12 HOURS ORAL 06/08/20 09:00 09/06/20 08:59 06/13/20 08:32 Sevelamer Carbonate (Renvela) 800 mg THREE TIMES A DAY GT 05/31/20 09:00 08/29/20 08:59 06/13/20 08:32 Sodium Chloride 1,000 ml @ 100 mls/hr Q10H IV 06/09/20 08:30 07/09/20 08:29 06/13/20 02:48 Sucralfate (Carafate) 1 gm BID ORAL 05/31/20 09:00 08/29/20 08:59 06/13/20 08:32 Thyroid ([place] Thyroid) 15 mg DAILY GT 05/31/20 09:00 06/30/20 08:59 06/13/20 08:32 Vancomycin HCl (Vanco pharmacy to dose) 1 ea DAILY PRN MISC Per rx protocol 06/07/20 11:00 07/07/20 10:59 Vancomycin/Sodium Chloride 250 ml @ 125 mls/hr Q8H IVPB 06/10/20 08:00 06/15/20 07:59 06/13/20 08:30 Tomás Shaffer MD Jun 13, 2020 10:35
--- NOTE | 2020-06-13 11:34 | Surgery Progress Note ---
Surgery Progress Note Subjective Additional Comments remains febrile no n/v wbc 10k esr elevated Objective Last 24 Hour Vital Signs Date Time Temp Pulse Resp B/P (MAP) Pulse Ox O2 Delivery O2 Flow Rate FiO2 06/13/20 09:03 100.8 06/13/20 09:00 Trach Collar 5.0 06/13/20 08:32 118 135/82 06/13/20 08:00 101.8 118 20 135/82 (99) 98 06/13/20 07:35 109 06/13/20 07:20 99 Cool Aerosol 5.0 28 06/13/20 05:07 106 159/86 06/13/20 04:08 159/86 06/13/20 04:00 106 06/13/20 04:00 99.0 105 22 159/86 (110) 99 06/13/20 01:00 99 Cool Aerosol 5.0 28 06/13/20 00:00 95 06/13/20 00:00 100.4 91 22 149/82 (104) 99 06/12/20 22:44 112 16 100 T-Piece 5.0 28 108 17 99 06/12/20 22:05 117 149/83 06/12/20 21:00 Trach Collar 2.0 06/12/20 20:59 99.8 06/12/20 20:29 117 149/83 06/12/20 20:00 116 06/12/20 20:00 100.6 117 22 149/83 (105) 98 06/12/20 19:49 100 Cool Aerosol 5.0 28 06/12/20 16:00 96 06/12/20 16:00 102.3 95 20 110/66 (81) 98 06/12/20 13:51 102.7 06/12/20 13:20 92 112/71 06/12/20 13:09 99 Cool Aerosol 5.0 28 06/12/20 12:00 103.1 89 20 112/71 (85) 99 06/12/20 12:00 92 I&O Intake and Output 06/12/20 06/13/20 19:00 07:00 Intake Total 275 ml 1515.04 ml Output Total 3050 ml 1900 ml Balance -2775 ml -384.96 ml IV Total 275 ml 1425.04 ml Tube Feeding 90 ml Output Urine Total 3050 ml 1900 ml Cardiovascular: RSR Respiratory: decreased breath sounds Abdomen: soft, non-tender, present bowel sounds, non-distended Extremities: no edema, no tenderness, no cyanosis Laboratory Tests Test 06/12/20 13:45 06/13/20 06:00 Urine Osmolality 438 mOsm/kg (429-449) White Blood Count 10.5 K/UL (4.8-10.8) Red Blood Count 2.99 M/UL (4.70-6.10) L Hemoglobin 8.8 G/DL (14.2-18.0) L Hematocrit 25.8 % (42.0-52.0) L Mean Corpuscular Volume 86 FL (80-99) Mean Corpuscular Hemoglobin 29.5 PG (27.0-31.0) Mean Corpuscular Hemoglobin Concent 34.3 G/DL (32.0-36.0) Red Cell Distribution Width 14.3 % (11.6-14.8) Platelet Count 382 K/UL (150-450) Mean Platelet Volume 4.9 FL (6.5-10.1) L Neutrophils (%) (Auto) 77.4 % (45.0-75.0) H Lymphocytes (%) (Auto) 10.8 % (20.0-45.0) L Monocytes (%) (Auto) 9.9 % (1.0-10.0) Eosinophils (%) (Auto) 1.1 % (0.0-3.0) Basophils (%) (Auto) 0.8 % (0.0-2.0) Erythrocyte Sedimentation Rate 121 MM/HR (0-15) H Sodium Level 135 MMOL/L (136-145) L Potassium Level 4.0 MMOL/L (3.5-5.1) Chloride Level 98 MMOL/L (98-107) Carbon Dioxide Level 28 MMOL/L (21-32) Anion Gap 9 mmol/L (5-15) Blood Urea Nitrogen 5 mg/dL (7-18) L Creatinine 0.5 MG/DL (0.55-1.30) L Estimat Glomerular Filtration Rate > 60 mL/min (>60) Glucose Level 126 MG/DL (74-106) H Calcium Level 8.1 MG/DL (8.5-10.1) L Total Bilirubin 0.4 MG/DL (0.2-1.0) Aspartate Amino Transf (AST/SGOT) 29 U/L (15-37) Alanine Aminotransferase (ALT/SGPT) 58 U/L (12-78) Alkaline Phosphatase 134 U/L (46-116) H Total Protein 6.5 G/DL (6.4-8.2) Albumin 2.3 G/DL (3.4-5.0) L Globulin 4.2 g/dL Albumin/Globulin Ratio 0.5 (1.0-2.7) L Plan Problems: (1) Tachycardia (2) Sepsis Assessment & Plan: 29-year-old male with leukocytosis anemia lactic acidosis. Patient admitted further care management identified to have significant secretions from tracheostomy trach collar with sutures in place causing distortion. Abdominal G-tube in place. Patient forming deep tissue injury. BMI 22 labs noted. Patient a phasic unable to respond to commands and in a vegetative state at this time. Patient with a UTI on antibiotics. Right PIC in place may need to be replaced. Turn every 2 hours offload pressure with air mattress and pillows. Trach sutures removed trach tie evaluated trach in place secretions suction. Continue with secretions chest x-ray reviewed no acute infiltrative process Leukocytosis trending down lactic acid is improving continue fluid resuscitation IV antibiotics improving labs improved cont current care trach care fevers resolved wbc resolved improved CT head noted neurosurg eval cxr improved fevers cont leukocytosis neuro input appreciate. possible infected collection transfer to neurosurgery hospital pending Thank you will follow with recommendations high fevers leukocytosis needs transfer Brain: Extensive right hemispheric parenchymal volume loss and edema. Increased hyperdense of the right frontal parenchyma. Hypodensities of the left frontal, parietal, and temporal regions which may be sequela of prior infarct. No hemorrhage. No significant white matter disease. Midline shift: Mild, 6 mm, right to left midline shift. Ventricles: Exvacuodilatation of the ventricles. Bones/joints: Postsurgical changes from extensive prior right craniotomy. Large extra-axial fluid collection extending beyond the calvarium in region of prior craniotomy. The fluid extends beyond the calvarial region by approximately 4.0 cm in axial dimension No acute fracture. Soft tissues: Unremarkable. Sinuses: Unremarkable as visualized. No acute sinusitis. Mastoid air cells: Unremarkable as visualized. No mastoid effusion. IMPRESSION: 1. Large extra-axial fluid collection of the right hemisphere extending beyond the region of large frontal craniotomy. There is mild right to left midline shift measuring approximately 6 mm. 2. Hyperdensity of the residual right parenchyma suggestive of parenchymal contusion. 3. Extensive right parenchymal volume loss. May be sequela of prior infarct versus postsurgical change. 4. Hyperdensities throughout the left cerebellum, suggestive of prior ischemic process. Artifacts: Blooming artifact is noted within the right peripheral residual parenchyma likely representing hemosiderin deposition. Brain: Extensive right hemispheric parenchymal volume loss and edema. Mild encephalomalacia of the left hemisphere with expansion of the CSF containing spaces. No hemorrhage. Midline shift: There is proximal is 7 mm of right to left midline shift. Ventricles: Unremarkable. No ventriculomegaly. Bones/joints: There is significant expansion of the CSF containing spaces of the right hemisphere with extension beyond the calvarium through a craniotomy defect measuring approximately 4.3 cm. Sinuses: Unremarkable as visualized. No acute sinusitis. Mastoid air cells: Unremarkable as visualized. No mastoid effusion. Orbits: Unremarkable as visualized. Other vasculature: Following demonstration of intravenous contrast, there is no evidence of abnormal enhancement. IMPRESSION: 1. No obvious hemorrhage or stroke. Artifact on DWI sequence partially limits evaluation. Otherwise, no significant interval change from recent CT. 2. Large extra-axial fluid collection pending through craniotomy defect. There is mild right to left midline shift measuring in proximal 7 mm. 3. Extensive right parenchymal volume loss. May be sequela of prior infarct versus postsurgical/post traumatic change. 4. Encephalization of the left hemisphere with expansion of CSF containing spaces. DAILY ESTIMATED NEEDS: Needs based on Pulmonary, 68kg 25-30 kcals/kg 1981-5950 total kcals 1.25-1.5 g protein/kg 85-102 g total protein 25-30 mL/kg 8568-3249 total fluid mLs NUTRITION DIAGNOSIS: Swallowing difficulty r/t TBI and resp distress, as evidenced by pt is vent dep via T-collar, PEG dep. CURRENT TF:Jevity 1.2 @70 ml x20 hrs ENTERAL NUTRITION RECOMMENDATIONS: Increase TF to goal of 75ml/hr x20 hrs to provide 1500ml, 1800 kcal, 83g pro, 1211ml free H2O - Rec to INCREASE TF by 5ml/hr to better meet est kcal and pro needs. - Flush per MD/ HOB over 30 degrees ADDITIONAL RECOMMENDATIONS: 1) Skin integrity: add CATALINA BID via PEG (added 5g pro to meet est pro needs) 2) Wound care eval 3) Per SNF: 5'5" and 150#, maintain calibrated bed scale wts Carl Hernandez Jun 13, 2020 11:34
--- NOTE | 2020-06-13 11:47 | Diagnostic Imaging Report ---
Indication: Shortness of breath Technique: One view of the chest Comparison: 06/05/2020 Findings: There are atelectatic changes at both lung bases. The heart size is normal. There is a tracheostomy. There is a right arm PICC again demonstrated. Findings are unchanged Impression: Unchanged, over one day, findings as above.
[2020-06-13 12:00] VITALS: BP 147/93
--- NOTE | 2020-06-13 12:49 | Nephrology Progress Note ---
Assessment/Plan Plan Sepsis - IV Abx. Hyponatremia Na corrected to 134. DC 3% NaCal. Uosm inappropriately high. CW SIADH! Subjective Subjective Obtunded Objective Objective Last 24 Hour Vital Signs Date Time Temp Pulse Resp B/P (MAP) Pulse Ox O2 Delivery O2 Flow Rate FiO2 06/13/20 12:00 99.3 101 22 147/93 (111) 100 06/13/20 11:39 101 06/13/20 09:03 100.8 06/13/20 09:00 Trach Collar 5.0 06/13/20 08:32 118 135/82 06/13/20 08:00 101.8 118 20 135/82 (99) 98 06/13/20 07:35 109 06/13/20 07:20 99 Cool Aerosol 5.0 28 06/13/20 05:07 106 159/86 06/13/20 04:08 159/86 06/13/20 04:00 106 06/13/20 04:00 99.0 105 22 159/86 (110) 99 06/13/20 01:00 99 Cool Aerosol 5.0 28 06/13/20 00:00 95 06/13/20 00:00 100.4 91 22 149/82 (104) 99 06/12/20 22:44 112 16 100 T-Piece 5.0 28 108 17 99 06/12/20 22:05 117 149/83 06/12/20 21:00 Trach Collar 2.0 06/12/20 20:59 99.8 06/12/20 20:29 117 149/83 06/12/20 20:00 116 06/12/20 20:00 100.6 117 22 149/83 (105) 98 06/12/20 19:49 100 Cool Aerosol 5.0 28 06/12/20 16:00 96 06/12/20 16:00 102.3 95 20 110/66 (81) 98 06/12/20 13:51 102.7 06/12/20 13:20 92 112/71 06/12/20 13:09 99 Cool Aerosol 5.0 28 Intake and Output 06/12/20 06/13/20 19:00 07:00 Intake Total 275 ml 1515.04 ml Output Total 3050 ml 1900 ml Balance -2775 ml -384.96 ml IV Total 275 ml 1425.04 ml Tube Feeding 90 ml Output Urine Total 3050 ml 1900 ml Laboratory Tests 06/12/20 13:45: Urine Osmolality 438 06/13/20 06:00: White Blood Count 10.5, Red Blood Count 2.99L, Hemoglobin 8.8L, Hematocrit 25.8L , Mean Corpuscular Volume 86, Mean Corpuscular Hemoglobin 29.5, Mean Corpuscular Hemoglobin Concent 34.3, Red Cell Distribution Width 14.3, Platelet Count 382, Mean Platelet Volume 4.9L, Neutrophils (%) (Auto) 77.4H, Lymphocytes (%) (Auto) 10.8L, Monocytes (%) (Auto) 9.9, Eosinophils (%) (Auto) 1.1, Basophils (%) (Auto) 0.8, Erythrocyte Sedimentation Rate 121H, Sodium Level 135L, Potassium Level 4.0, Chloride Level 98, Carbon Dioxide Level 28, Anion Gap 9, Blood Urea Nitrogen 5L, Creatinine 0.5L, Estimat Glomerular Filtration Rate > 60, Glucose Level 126H, Calcium Level 8.1L, Total Bilirubin 0.4, Aspartate Amino Transf (AST/SGOT) 29, Alanine Aminotransferase (ALT/SGPT) 58, Alkaline Phosphatase 134H , Total Protein 6.5, Albumin 2.3L, Globulin 4.2, Albumin/Globulin Ratio 0.5L Height (Feet): 5 Height (Inches): 10.00 Weight (Pounds): 160 Objective Head deformed post op CV RR Neck trach clean Lungs B ronchi Abd SNT. BS + E No CCE Valerio Hendrix MD Jun 13, 2020 12:49
--- NOTE | 2020-06-13 15:59 | NUR ---
CASE MANAGEMENT:REVIEW 06/13/20 SI: SEPSIS. SEIZURE. KLEBSIELLA PNA 100.8 106 22 147/93 100% ON TRACH COLLAR W/5L 28% FIO2 H/H-8.8/25.8 ESR+121 NA-122 IS: GENTAMICIN INH Q12 IV MEROPENEM Q8HRS DIFLUCAN GT Q8HRS IV VANCOMYCIN Q8HRS IVF@100/HR : TELEMETRY STATUS DCP: FROM [facility] PLAN: CHEST XRAY
[2020-06-13 16:00] VITALS: BP 158/89
--- NOTE | 2020-06-13 17:08 | Pulmonology Progress Note ---
Subjective ROS Limited/Unobtainable: Yes Constitutional: Reports: fever Gastrointestinal/Abdominal: Reports: diarrhea Allergies: Coded Allergies: No Known Allergies (Unverified , 05/30/20) Subjective improved hr and bp +fever low sodium improved CXR neg Objective Last 24 Hour Vital Signs Date Time Temp Pulse Resp B/P (MAP) Pulse Ox O2 Delivery O2 Flow Rate FiO2 06/13/20 16:00 100.9 113 22 158/89 (112) 100 06/13/20 13:03 101 147/93 06/13/20 13:00 99 Cool Aerosol 5.0 28 06/13/20 12:00 99.3 101 22 147/93 (111) 100 06/13/20 11:39 101 06/13/20 10:26 106 16 100 T-Piece 5.0 28 101 18 100 06/13/20 09:03 100.8 06/13/20 09:00 Trach Collar 5.0 06/13/20 08:32 118 135/82 06/13/20 08:00 101.8 118 20 135/82 (99) 98 06/13/20 07:35 109 06/13/20 07:20 99 Cool Aerosol 5.0 28 06/13/20 05:07 106 159/86 06/13/20 04:08 159/86 06/13/20 04:00 106 06/13/20 04:00 99.0 105 22 159/86 (110) 99 06/13/20 01:00 99 Cool Aerosol 5.0 28 06/13/20 00:00 95 06/13/20 00:00 100.4 91 22 149/82 (104) 99 06/12/20 22:44 112 16 100 T-Piece 5.0 28 108 17 99 06/12/20 22:05 117 149/83 06/12/20 21:00 Trach Collar 2.0 06/12/20 20:59 99.8 06/12/20 20:29 117 149/83 06/12/20 20:00 116 06/12/20 20:00 100.6 117 22 149/83 (105) 98 06/12/20 19:49 100 Cool Aerosol 5.0 28 Intake and Output 06/12/20 06/13/20 19:00 07:00 Intake Total 275 ml 1615.04 ml Output Total 3050 ml 1900 ml Balance -2775 ml -284.96 ml IV Total 275 ml 1525.04 ml Tube Feeding 90 ml Output Urine Total 3050 ml 1900 ml Objective WDWN bulging noted scalp clear breath sounds bilaterally without rhonchi or wheeze [id number] tachy without MRG NABS nontender GT no CCE nonfocal trach poor LOC Laboratory Tests 06/13/20 06:00: White Blood Count 10.5, Red Blood Count 2.99L, Hemoglobin 8.8L, Hematocrit 25.8L , Mean Corpuscular Volume 86, Mean Corpuscular Hemoglobin 29.5, Mean Corpuscular Hemoglobin Concent 34.3, Red Cell Distribution Width 14.3, Platelet Count 382, Mean Platelet Volume 4.9L, Neutrophils (%) (Auto) 77.4H, Lymphocytes (%) (Auto) 10.8L, Monocytes (%) (Auto) 9.9, Eosinophils (%) (Auto) 1.1, Basophils (%) (Auto) 0.8, Erythrocyte Sedimentation Rate 121H, Sodium Level 135L, Potassium Level 4.0, Chloride Level 98, Carbon Dioxide Level 28, Anion Gap 9, Blood Urea Nitrogen 5L, Creatinine 0.5L, Estimat Glomerular Filtration Rate > 60, Glucose Level 126H, Calcium Level 8.1L, Total Bilirubin 0.4, Aspartate Amino Transf (AST/SGOT) 29, Alanine Aminotransferase (ALT/SGPT) 58, Alkaline Phosphatase 134H , Total Protein 6.5, Albumin 2.3L, Globulin 4.2, Albumin/Globulin Ratio 0.5L Current Medications Medications (Trade) Dose Ordered Sig/Anuj Route PRN Reason Start Time Stop Time Status Last Admin Dose Admin Acetaminophen (Tylenol) 650 mg Q6H PRN ORAL Temp >100.5 05/30/20 18:45 06/29/20 18:44 06/13/20 08:33 Chlorhexidine Gluconate (Laura-Hex 2%) 1 applic DAILY@1999 TOPIC 06/01/20 20:00 08/30/20 19:59 06/12/20 20:31 Clonidine HCl (Catapres Tab) 0.1 mg Q4H PRN ORAL SBP above 150; DBP above 95 06/02/20 23:00 08/31/20 22:59 06/13/20 04:08 Diltiazem HCl (Cardizem Tab) 30 mg EVERY 8 HOURS GT 06/10/20 14:00 07/10/20 13:59 06/13/20 13:03 Enoxaparin Sodium (Lovenox) 80 mg EVERY 12 HOURS SUBQ 05/30/20 21:00 08/28/20 20:59 06/13/20 08:40 Famotidine (Pepcid) 20 mg DAILY GT 05/31/20 09:00 08/29/20 08:59 06/13/20 08:32 Fluconazole (Diflucan) 100 mg DAILY GT 06/10/20 11:03 06/17/20 11:02 06/13/20 08:32 Gentamicin Sulfate (Gentamicin vial) 300 mg Q12HR@,22 INH 06/12/20 22:00 06/19/20 21:59 06/13/20 10:16 Lacosamide (Vimpat) 50 mg BID ORAL 05/31/20 09:00 08/29/20 08:59 06/13/20 09:00 Lactobacillus Acidophilus (Culturelle) 1 tab DAILY GT 05/31/20 09:00 08/29/20 08:59 06/13/20 08:33 Meropenem 1 gm/ Sodium Chloride 55 ml @ 110 mls/hr Q8HR IVPB 06/12/20 15:00 06/17/20 14:59 06/13/20 13:09 Metoprolol Tartrate (Lopressor) 150 mg EVERY 12 HOURS ORAL 06/08/20 09:00 09/06/20 08:59 06/13/20 08:32 Sevelamer Carbonate (Renvela) 800 mg THREE TIMES A DAY GT 05/31/20 09:00 08/29/20 08:59 06/13/20 13:08 Sodium Chloride 1,000 ml @ 100 mls/hr Q10H IV 06/09/20 08:30 07/09/20 08:29 06/13/20 13:06 Sucralfate (Carafate) 1 gm BID ORAL 05/31/20 09:00 08/29/20 08:59 06/13/20 08:32 Thyroid ([place] Thyroid) 15 mg DAILY GT 05/31/20 09:00 06/30/20 08:59 06/13/20 08:32 Vancomycin HCl (Vanco pharmacy to dose) 1 ea DAILY PRN MISC Per rx protocol 06/07/20 11:00 07/07/20 10:59 Vancomycin/Sodium Chloride 250 ml @ 125 mls/hr Q8H IVPB 06/10/20 08:00 06/15/20 07:59 06/13/20 15:13 Assessment/Plan Assessment/Plan Impression: Sepsis Urinary Tract Infection TBI Seizures Hypothyroidism Sinus Tachycardia Hypertension abnormal MRI/ CT hyponatremia ?SIADH leukocytosis fever Plan: IV Antibiotics- Meropenema, flucon vanco IVF and demeclocyline O2 PRN TC PPX Monitor labs monitor vitals renal eval noted [facility] refused transfer update sister ID follow up repeat wbc- now elevated full dose lovenox cardizem to beta jocelyn for rate control fever work up impression, plan, and exam edited and reviewed in detail care discussed with Aime Browne MD Jun 13, 2020 17:08
--- NOTE | 2020-06-13 18:32 | NUR ---
NURSE NOTES: Received pt from KADEEM Shanks at 0730, pt is sleeping, pt has trach collar with 5lit O2, RN did suction frequently. pt has intact iv access LFA 22G SL and PICC HELIO is running well. pt is on continues heart monitoring. pt has g tube patent, feeding stopped 8am till 1200 as order. pt has Daniels cath in place is running well. Dr Emi Shaffer visited pt and is aware about fever, no new order to RN. Wond treatment done as order. All needs attended, bed is locked and is in the lowest position, call light within easy reach. will continue to monitor.
--- NOTE | 2020-06-13 19:40 | NUR ---
NURSE HAND-OFF REPORT: Important Events on Shift: Patient Status: Diet: Pending Orders: Pending Results/Labs: Pending MD notification: Latest Vital Signs: Temperature 100.0 , Pulse 113 , B/P 158 /89 , Respiratory Rate 22 , O2 SAT 98 , Trach Collar, O2 Flow Rate 5.0 . Vital Sign Comment: EKG Rhythm: Sinus Tachycardia Rhythm change?: N MD Notified?: N -DR.BALFE BO Response: No New Orders Received Latest Whitley Fall Score: 70 Fall Risk: High Risk Safety Measures: Call light Within Reach, Bed Alarm Zone 1, Side Rails Side Rails x3, Bed position Low and Locked. Fall Precautions: Yellow Socks Yellow Gown Door Sign Patient Fall Education Report given to . Pt is sleeping and stabel, no stress noted. Endorsed plan of care. Endorsed to suction pt.
--- NOTE | 2020-06-13 19:44 | NUR ---
NURSE NOTES: Received report from Markel QUAN.The patient is alert and oriented x 0. He is non-verbal and seem to be sleeping but was reportedly running a temp with present Temp at 100.4.The patient is on 100% Trach collar with 5 liters 28% Fi02 well tolerated.He will be suction PRN as indicated.The patient have a PICC line That is patent and asymptomatic. He was also noted with a Daniels catheter under gravity draining pale yellowish urine. The patient has a Gtube and is on 2 dennise @ 45 ml/hr with HOB at semi banegas position.The bed in low and locked level, siderails upx3 and call light within easy reach. will continue to monitor as indicated.
[2020-06-13 20:00] VITALS: BP_SYST 144; BP_SYST 169; BP_DIAS 102; BP_DIAS 87
--- NOTE | 2020-06-13 20:34 | Cardiology Progress Note ---
Subjective DATE OF SERVICE: Jun 13, 2020 Remains tachycardic with high-normal BP parameters; on metoprolol and diltiazem, with prn clonidine. On anti-microbials MRI brain confirms fluid collection with shift; post surgical changes Objective Last 24 Hour Vital Signs Date Time Temp Pulse Resp B/P (MAP) Pulse Ox O2 Delivery O2 Flow Rate FiO2 06/13/20 19:29 98 Cool Aerosol 5.0 28 06/13/20 17:50 100.0 06/13/20 16:00 100.9 113 22 158/89 (112) 100 06/13/20 15:33 114 06/13/20 13:03 101 147/93 06/13/20 13:00 99 Cool Aerosol 5.0 28 06/13/20 12:00 99.3 101 22 147/93 (111) 100 06/13/20 11:39 101 06/13/20 10:26 106 16 100 T-Piece 5.0 28 101 18 100 06/13/20 09:03 100.8 06/13/20 09:00 Trach Collar 5.0 06/13/20 08:32 118 135/82 06/13/20 08:00 101.8 118 20 135/82 (99) 98 06/13/20 07:35 109 06/13/20 07:20 99 Cool Aerosol 5.0 28 06/13/20 05:07 106 159/86 06/13/20 04:08 159/86 06/13/20 04:00 106 06/13/20 04:00 99.0 105 22 159/86 (110) 99 06/13/20 01:00 99 Cool Aerosol 5.0 28 06/13/20 00:00 95 06/13/20 00:00 100.4 91 22 149/82 (104) 99 06/12/20 22:44 112 16 100 T-Piece 5.0 28 108 17 99 06/12/20 22:05 117 149/83 06/12/20 21:00 Trach Collar 2.0 06/12/20 20:59 99.8 HEENT: Thin Trach secretions RHYTHM: ST LUNGS: lungs clear bilaterally CARDIAC: normal S1 and S2, rapid rate, tachycardia ABDOMEN: normal bowel sounds, non tender, no organomegaly, no mass EXTREMITIES: no calf tenderness, No edema Laboratory Tests Test 06/13/20 06:00 White Blood Count 10.5 K/UL (4.8-10.8) Red Blood Count 2.99 M/UL (4.70-6.10) L Hemoglobin 8.8 G/DL (14.2-18.0) L Hematocrit 25.8 % (42.0-52.0) L Mean Corpuscular Volume 86 FL (80-99) Mean Corpuscular Hemoglobin 29.5 PG (27.0-31.0) Mean Corpuscular Hemoglobin Concent 34.3 G/DL (32.0-36.0) Red Cell Distribution Width 14.3 % (11.6-14.8) Platelet Count 382 K/UL (150-450) Mean Platelet Volume 4.9 FL (6.5-10.1) L Neutrophils (%) (Auto) 77.4 % (45.0-75.0) H Lymphocytes (%) (Auto) 10.8 % (20.0-45.0) L Monocytes (%) (Auto) 9.9 % (1.0-10.0) Eosinophils (%) (Auto) 1.1 % (0.0-3.0) Basophils (%) (Auto) 0.8 % (0.0-2.0) Erythrocyte Sedimentation Rate 121 MM/HR (0-15) H Sodium Level 135 MMOL/L (136-145) L Potassium Level 4.0 MMOL/L (3.5-5.1) Chloride Level 98 MMOL/L (98-107) Carbon Dioxide Level 28 MMOL/L (21-32) Anion Gap 9 mmol/L (5-15) Blood Urea Nitrogen 5 mg/dL (7-18) L Creatinine 0.5 MG/DL (0.55-1.30) L Estimat Glomerular Filtration Rate > 60 mL/min (>60) Glucose Level 126 MG/DL (74-106) H Calcium Level 8.1 MG/DL (8.5-10.1) L Total Bilirubin 0.4 MG/DL (0.2-1.0) Aspartate Amino Transf (AST/SGOT) 29 U/L (15-37) Alanine Aminotransferase (ALT/SGPT) 58 U/L (12-78) Alkaline Phosphatase 134 U/L (46-116) H Total Protein 6.5 G/DL (6.4-8.2) Albumin 2.3 G/DL (3.4-5.0) L Globulin 4.2 g/dL Albumin/Globulin Ratio 0.5 (1.0-2.7) L Assessment/Plan Assessment/Plan Severe sepsis Sinus tachycardia due to autonomic dysfxn and infection (fever, etc) Hypertension/HHD Hx hypothyroidism Hyponatremia Toxic encephalopathy Respiratory Failure with trach Intracerebral fluid collection with midline shift IVF hydration cont'd. Antimicrobials Titrate antiHTN regimen - meds advanced Maintain beta jocelyn and titrate. DC diltiazem, and add topical clonidine. DVT prophyl Continue cardiac monitoring Trach care Possible transfer to higher level of care. Garcia Valverde MD Jun 13, 2020 20:34
[2020-06-13] MEDS: Dyna-Hex 2% Top Sol 2oz TOPIC SCH (21:03)
--- NOTE | 2020-06-13 21:30 | NUR ---
NURSE NOTES: Pt's temp elevated over 101, with notable diaphoresis. Tylenol PRN too early to be given, cooling measures done for relief, along with bed bath. Will reassess temp at later time.
--- NOTE | 2020-06-13 23:40 | NUR ---
NURSE NOTES: Clonidine patch not available in Pyxis, ER supply or [facility] overnight med supply. Discussed with [facility] pharmacist about need to postpone due to lack of available supply. Postponed to 06/14/2020 0900 when inpatient pharmacy opens.
[2020-06-14] VITALS: BP 158/91
--- NOTE | 2020-06-14 00:10 | NUR ---
NURSE NOTES: PRN Tylenol given at 2330 when available for fever relief. Pt's rectal temperature reassessed at midnight, reduced to 96.6 after cooling measures and PRN Tylenol. Will continue to monitor.
[2020-06-14] MEDS: VANCOMYCIN IVPB SCH ×4 (01:04→23:36)
[2020-06-14] MEDS: [UNRECOGNIZED DRUG - OTHER] IVPB SCH ×4 (01:04→23:36)
[2020-06-14 04:00] VITALS: BP 130/83
--- NOTE | 2020-06-14 04:30 | NUR ---
NURSE NOTES: Patient's temperature increased to 102.0, cooling measures done. Too early for Tylenol PRN, will give as soon as available for administration.
[2020-06-14] MEDS: Meropenem 1 GM in NS 55 ML IVPB SCH ×3 (05:24→21:41)
[2020-06-14 06:11] LABS: BASOPHILS % (AUTO) 0.7 % (0.0-2.0); EOSINOPHILS % (AUTO) 1.4 % (0.0-3.0); HEMATOCRIT 24.4 % (42.0-52.0); HEMOGLOBIN 8.6 G/DL (14.2-18.0); LYMPHOCYTES % (AUTO) 15.9 % (20.0-45.0); MEAN CORPUSCULAR VOLUME 85 FL (80-99); MONOCYTES % (AUTO) 6.8 % (1.0-10.0); NEUTROPHILS % (AUTO) 75.2 % (45.0-75.0); PLATELET COUNT 400 K/UL (150-450); RED BLOOD COUNT 2.89 M/UL (4.70-6.10); RED CELL DISTRIBUTION WIDTH 14.1 % (11.6-14.8); WHITE BLOOD COUNT 11.5 K/UL (4.8-10.8)
[2020-06-14 06:30] LABS: ALANINE AMINOTRANSFERASE 50 U/L (12-78); ALBUMIN 2.4 G/DL (3.4-5.0); ALBUMIN/GLOBULIN RATIO 0.6 (1.0-2.7); ALKALINE PHOSPHATASE 134 U/L (46-116); ANION GAP 7 mmol/L (5-15); ASPARTATE AMINO TRANSFERASE 21 U/L (15-37); BILIRUBIN,TOTAL 0.4 MG/DL (0.2-1.0); BLOOD UREA NITROGEN 7 mg/dL (7-18); CALCIUM 8.6 MG/DL (8.5-10.1); CARBON DIOXIDE 29 MMOL/L (21-32); CHLORIDE 97 MMOL/L (98-107); CREATININE 0.6 MG/DL (0.55-1.30); POTASSIUM 3.8 MMOL/L (3.5-5.1); SODIUM 133 MMOL/L (136-145)
--- NOTE | 2020-06-14 07:20 | NUR ---
NURSE HAND-OFF REPORT: Important Events on Shift: Patient had fevers during the night, highest at 102.0 - given Tylenol PRN and cooling measures. Patient Status: Stable Diet: Two Mikhail @ 45 for 20 hrs Pending Orders: n/a Pending Results/Labs: CBC, BMP Pending MD notification: n/a Latest Vital Signs: Temperature 101.3 , Pulse 128 , B/P 130 /83 , Respiratory Rate 24 , O2 SAT 99 , Trach Collar, O2 Flow Rate 5.0 . Vital Sign Comment: WNL EKG Rhythm: Sinus Tachycardia Rhythm change?: N MD Notified?: N -DR.BALFE BO Response: No New Orders Received Latest Whitley Fall Score: 70 Fall Risk: High Risk Safety Measures: Call light Within Reach, Bed Alarm Zone 1, Side Rails Side Rails x3, Bed position Low and Locked. Fall Precautions: Yes Yellow Socks Yellow Gown Door Sign Patient Fall Education Report given to KADEEM Mandel.
--- NOTE | 2020-06-14 07:25 | NUR ---
NURSE NOTES: RECEIVED PATIENT FROM [facility] IN BED. PATIENT IS AAO X0 RUNNING TEMPERATURE 105.6, ICE PACK PLACED UNDER THE ARMS, REPOSITIONED PATIENT. NOTED PATIENT HAS TRACH AT 5L 25% FIO2. PATIENT HAS DOUBLE LUMEN RIGHT ARM PICC LINE, RUNNING NS @ 100MLS/HR. BED IS ON LOWEST LEVEL WITH BEDSIDE RAILS UP X3. BRAKES ENGAGED FOR SAFETY. WILL CONTINUE WITH THE PLAN OF CARE.
--- NOTE | 2020-06-14 07:42 | Pulmonology Progress Note ---
Subjective ROS Limited/Unobtainable: Yes Constitutional: Reports: fever Gastrointestinal/Abdominal: Reports: diarrhea Allergies: Coded Allergies: No Known Allergies (Unverified , 05/30/20) Subjective recurrent high fever low sodium improved CXR neg Objective Last 24 Hour Vital Signs Date Time Temp Pulse Resp B/P (MAP) Pulse Ox O2 Delivery O2 Flow Rate FiO2 06/14/20 07:25 99 Cool Aerosol 5.0 28 06/14/20 05:54 101.3 06/14/20 04:00 110 06/14/20 04:00 102.0 128 24 130/83 (99) 99 06/14/20 01:56 99 Cool Aerosol 5.0 28 06/14/20 00:04 101.3 06/14/20 00:00 101.2 120 24 158/91 (113) 99 06/14/20 00:00 107 06/13/20 23:06 98 20 100 T-Piece 5.0 28 94 20 100 06/13/20 21:12 169/102 06/13/20 21:01 143 169/102 06/13/20 21:00 Trach Collar 5.0 06/13/20 20:00 134 06/13/20 20:00 96.6 143 30 169/102 (124) 97 06/13/20 20:00 101.7 139 20 144/87 (106) 99 06/13/20 19:29 98 Cool Aerosol 5.0 28 06/13/20 17:50 100.0 06/13/20 16:00 100.9 113 22 158/89 (112) 100 06/13/20 15:33 114 06/13/20 13:03 101 147/93 06/13/20 13:00 99 Cool Aerosol 5.0 28 06/13/20 12:00 99.3 101 22 147/93 (111) 100 06/13/20 11:39 101 06/13/20 10:26 106 16 100 T-Piece 5.0 28 101 18 100 06/13/20 09:03 100.8 06/13/20 09:00 Trach Collar 5.0 06/13/20 08:32 118 135/82 06/13/20 08:00 101.8 118 20 135/82 (99) 98 Intake and Output 06/13/20 06/14/20 19:00 07:00 Intake Total 1825 ml 1620 ml Output Total 2050 ml 1200 ml Balance -225 ml 420 ml Intake Free Water 25 ml 25 ml IV Total 1755 ml 1100 ml Tube Feeding 45 ml 495 ml Output Urine Total 2050 ml 1200 ml # Bowel Movements 1 1 Objective WDWN bulging noted scalp clear breath sounds bilaterally without rhonchi or wheeze [id number] tachy without MRG NABS nontender GT no CCE nonfocal trach poor LOC Laboratory Tests 06/14/20 05:48: White Blood Count 11.5H, Red Blood Count 2.89L, Hemoglobin 8.6L, Hematocrit 24.4L, Mean Corpuscular Volume 85, Mean Corpuscular Hemoglobin 30.0, Mean Corpuscular Hemoglobin Concent 35.5, Red Cell Distribution Width 14.1, Platelet Count 400, Mean Platelet Volume 4.7L, Neutrophils (%) (Auto) 75.2H, Lymphocytes (%) (Auto) 15.9L, Monocytes (%) (Auto) 6.8, Eosinophils (%) (Auto) 1.4, Basophils (%) (Auto) 0.7, Erythrocyte Sedimentation Rate [Pending], Sodium Level 133L, Potassium Level 3.8, Chloride Level 97L, Carbon Dioxide Level 29, Anion Gap 7, Blood Urea Nitrogen 7, Creatinine 0.6, Estimat Glomerular Filtration Rate > 60, Glucose Level 112H, Calcium Level 8.6, Total Bilirubin 0.4, Aspartate Amino Transf (AST/SGOT) 21, Alanine Aminotransferase (ALT/SGPT) 50, Alkaline Phosphatase 134H, C-Reactive Protein, Quantitative 1.6H, Total Protein 6.7, Albumin 2.4L, Globulin 4.3, Albumin/Globulin Ratio 0.6L Current Medications Medications (Trade) Dose Ordered Sig/Anuj Route PRN Reason Start Time Stop Time Status Last Admin Dose Admin Acetaminophen (Tylenol) 650 mg Q6H PRN ORAL Temp >100.5 05/30/20 18:45 06/29/20 18:44 06/14/20 05:24 Chlorhexidine Gluconate (Laura-Hex 2%) 1 applic DAILY@1999 TOPIC 06/01/20 20:00 08/30/20 19:59 06/13/20 21:03 Clonidine HCl (Catapres TTS-2) 1 patch QWEEK TDERMAL 06/14/20 09:00 09/11/20 21:59 Clonidine HCl (Catapres Tab) 0.1 mg Q4H PRN ORAL SBP above 150; DBP above 95 06/02/20 23:00 08/31/20 22:59 06/13/20 21:12 Enoxaparin Sodium (Lovenox) 80 mg EVERY 12 HOURS SUBQ 05/30/20 21:00 08/28/20 20:59 06/13/20 21:03 Famotidine (Pepcid) 20 mg DAILY GT 05/31/20 09:00 08/29/20 08:59 06/13/20 08:32 Fluconazole (Diflucan) 100 mg DAILY GT 06/10/20 11:03 06/17/20 11:02 06/13/20 08:32 Gentamicin Sulfate (Gentamicin vial) 300 mg Q12HR@,22 INH 06/12/20 22:00 06/19/20 21:59 06/13/20 23:02 Lacosamide (Vimpat) 50 mg BID ORAL 05/31/20 09:00 08/29/20 08:59 06/13/20 17:20 Lactobacillus Acidophilus (Culturelle) 1 tab DAILY GT 05/31/20 09:00 08/29/20 08:59 06/13/20 08:33 Meropenem 1 gm/ Sodium Chloride 55 ml @ 110 mls/hr Q8HR IVPB 06/12/20 15:00 06/17/20 14:59 06/14/20 05:24 Metoprolol Tartrate (Lopressor) 150 mg EVERY 12 HOURS ORAL 06/08/20 09:00 09/06/20 08:59 06/13/20 21:01 Sevelamer Carbonate (Renvela) 800 mg THREE TIMES A DAY GT 05/31/20 09:00 08/29/20 08:59 06/13/20 17:20 Sodium Chloride 1,000 ml @ 100 mls/hr Q10H IV 06/09/20 08:30 07/09/20 08:29 06/13/20 23:34 Sucralfate (Carafate) 1 gm BID ORAL 05/31/20 09:00 08/29/20 08:59 06/13/20 17:20 Thyroid (Henrietta Thyroid) 15 mg DAILY GT 05/31/20 09:00 06/30/20 08:59 06/13/20 08:32 Vancomycin HCl (Vanco pharmacy to dose) 1 ea DAILY PRN MISC Per rx protocol 06/07/20 11:00 07/07/20 10:59 Vancomycin/Sodium Chloride 250 ml @ 125 mls/hr Q8H IVPB 06/10/20 08:00 06/15/20 07:59 06/14/20 01:04 Assessment/Plan Assessment/Plan Impression: Sepsis Urinary Tract Infection TBI Seizures Hypothyroidism Sinus Tachycardia Hypertension abnormal MRI/ CT hyponatremia ?SIADH leukocytosis fever Plan: IV Antibiotics- Meropenema, flucon vanco inhaled colistin dc IVF continue demeclocyline O2 PRN TC PPX Monitor labs monitor vitals renal eval noted [facility] refused transfer update sister ID follow up repeat wbc- now elevated full dose lovenox cardizem and beta jocelyn for rate control fever work up impression, plan, and exam edited and reviewed in detail care discussed with Aime Browne MD Jun 14, 2020 07:42
[2020-06-14 08:00] VITALS: BP 166/100
[2020-06-14] MEDS: Renvela 800mg Pkt GT SCH ×3 (09:13→18:02)
[2020-06-14] MEDS: Lactobacillus-GG tablet GT SCH (09:13)
[2020-06-14] MEDS: Lacosamide 50mg tablet ORAL SCH ×2 (09:15→18:02)
[2020-06-14] MEDS: Fluconazole 100mg tab GT SCH (09:15)
[2020-06-14] MEDS: Metoprolol Tartrate 100mg tab ORAL SCH ×2 (09:17→20:17)
[2020-06-14] MEDS: Sucralfate 1gm tab ORAL SCH ×2 (09:17→18:02)
[2020-06-14] MEDS: Enoxaparin 80mg Inj SUBQ SCH ×2 (09:18→20:19)
[2020-06-14] MEDS: Gentamicin for inhalation INH SCH ×2 (10:40→22:42)
--- NOTE | 2020-06-14 11:05 | Surgery Progress Note ---
Surgery Progress Note Subjective Additional Comments febrile leukocytosis no n/v ill appearing on support Objective Last 24 Hour Vital Signs Date Time Temp Pulse Resp B/P (MAP) Pulse Ox O2 Delivery O2 Flow Rate FiO2 06/14/20 10:42 103 20 100 T-Piece 5.0 28 100 20 100 06/14/20 09:56 166/100 06/14/20 09:17 61 123/53 06/14/20 07:25 99 Cool Aerosol 5.0 28 06/14/20 05:54 101.3 06/14/20 04:00 110 06/14/20 04:00 102.0 128 24 130/83 (99) 99 06/14/20 01:56 99 Cool Aerosol 5.0 28 06/14/20 00:04 101.3 06/14/20 00:00 101.2 120 24 158/91 (113) 99 06/14/20 00:00 107 06/13/20 23:06 98 20 100 T-Piece 5.0 28 94 20 100 06/13/20 21:12 169/102 06/13/20 21:01 143 169/102 06/13/20 21:00 Trach Collar 5.0 06/13/20 20:00 134 06/13/20 20:00 96.6 143 30 169/102 (124) 97 06/13/20 20:00 101.7 139 20 144/87 (106) 99 06/13/20 19:29 98 Cool Aerosol 5.0 28 06/13/20 17:50 100.0 06/13/20 16:00 100.9 113 22 158/89 (112) 100 06/13/20 15:33 114 06/13/20 13:03 101 147/93 06/13/20 13:00 99 Cool Aerosol 5.0 28 06/13/20 12:00 99.3 101 22 147/93 (111) 100 06/13/20 11:39 101 I&O Intake and Output 06/13/20 06/14/20 19:00 07:00 Intake Total 1825 ml 1620 ml Output Total 2050 ml 1200 ml Balance -225 ml 420 ml Intake Free Water 25 ml 25 ml IV Total 1755 ml 1100 ml Tube Feeding 45 ml 495 ml Output Urine Total 2050 ml 1200 ml # Bowel Movements 1 1 Dressing: other Wound: other Cardiovascular: RSR Respiratory: decreased breath sounds Abdomen: soft, non-tender, present bowel sounds Extremities: no tenderness, no cyanosis Laboratory Tests Test 06/14/20 05:48 White Blood Count 11.5 K/UL (4.8-10.8) H Red Blood Count 2.89 M/UL (4.70-6.10) L Hemoglobin 8.6 G/DL (14.2-18.0) L Hematocrit 24.4 % (42.0-52.0) L Mean Corpuscular Volume 85 FL (80-99) Mean Corpuscular Hemoglobin 30.0 PG (27.0-31.0) Mean Corpuscular Hemoglobin Concent 35.5 G/DL (32.0-36.0) Red Cell Distribution Width 14.1 % (11.6-14.8) Platelet Count 400 K/UL (150-450) Mean Platelet Volume 4.7 FL (6.5-10.1) L Neutrophils (%) (Auto) 75.2 % (45.0-75.0) H Lymphocytes (%) (Auto) 15.9 % (20.0-45.0) L Monocytes (%) (Auto) 6.8 % (1.0-10.0) Eosinophils (%) (Auto) 1.4 % (0.0-3.0) Basophils (%) (Auto) 0.7 % (0.0-2.0) Erythrocyte Sedimentation Rate 121 MM/HR (0-15) H Sodium Level 133 MMOL/L (136-145) L Potassium Level 3.8 MMOL/L (3.5-5.1) Chloride Level 97 MMOL/L (98-107) L Carbon Dioxide Level 29 MMOL/L (21-32) Anion Gap 7 mmol/L (5-15) Blood Urea Nitrogen 7 mg/dL (7-18) Creatinine 0.6 MG/DL (0.55-1.30) Estimat Glomerular Filtration Rate > 60 mL/min (>60) Glucose Level 112 MG/DL (74-106) H Calcium Level 8.6 MG/DL (8.5-10.1) Total Bilirubin 0.4 MG/DL (0.2-1.0) Aspartate Amino Transf (AST/SGOT) 21 U/L (15-37) Alanine Aminotransferase (ALT/SGPT) 50 U/L (12-78) Alkaline Phosphatase 134 U/L (46-116) H C-Reactive Protein, Quantitative 1.6 mg/dL (0.00-0.90) H Total Protein 6.7 G/DL (6.4-8.2) Albumin 2.4 G/DL (3.4-5.0) L Globulin 4.3 g/dL Albumin/Globulin Ratio 0.6 (1.0-2.7) L Plan Problems: (1) Tachycardia (2) Sepsis Assessment & Plan: 29-year-old male with leukocytosis anemia lactic acidosis. Patient admitted further care management identified to have significant secretions from tracheostomy trach collar with sutures in place causing distortion. Abdominal G-tube in place. Patient forming deep tissue injury. BMI 22 labs noted. Patient a phasic unable to respond to commands and in a vegetative state at this time. Patient with a UTI on antibiotics. Right PIC in place may need to be replaced. Turn every 2 hours offload pressure with air mattress and pillows. Trach sutures removed trach tie evaluated trach in place secretions suction. Continue with secretions chest x-ray reviewed no acute infiltrative process Leukocytosis trending down lactic acid is improving continue fluid resuscitation IV antibiotics improving labs improved cont current care trach care fevers resolved wbc resolved improved CT head noted neurosurg eval cxr improved fevers cont leukocytosis neuro input appreciate. possible infected collection transfer to neurosurgery hospital pending Thank you will follow with recommendations high fevers leukocytosis needs transfer Brain: Extensive right hemispheric parenchymal volume loss and edema. Increased hyperdense of the right frontal parenchyma. Hypodensities of the left frontal, parietal, and temporal regions which may be sequela of prior infarct. No hemorrhage. No significant white matter disease. Midline shift: Mild, 6 mm, right to left midline shift. Ventricles: Exvacuodilatation of the ventricles. Bones/joints: Postsurgical changes from extensive prior right craniotomy. Large extra-axial fluid collection extending beyond the calvarium in region of prior craniotomy. The fluid extends beyond the calvarial region by approximately 4.0 cm in axial dimension No acute fracture. Soft tissues: Unremarkable. Sinuses: Unremarkable as visualized. No acute sinusitis. Mastoid air cells: Unremarkable as visualized. No mastoid effusion. IMPRESSION: 1. Large extra-axial fluid collection of the right hemisphere extending beyond the region of large frontal craniotomy. There is mild right to left midline shift measuring approximately 6 mm. 2. Hyperdensity of the residual right parenchyma suggestive of parenchymal contusion. 3. Extensive right parenchymal volume loss. May be sequela of prior infarct versus postsurgical change. 4. Hyperdensities throughout the left cerebellum, suggestive of prior ischemic process. Artifacts: Blooming artifact is noted within the right peripheral residual parenchyma likely representing hemosiderin deposition. Brain: Extensive right hemispheric parenchymal volume loss and edema. Mild encephalomalacia of the left hemisphere with expansion of the CSF containing spaces. No hemorrhage. Midline shift: There is proximal is 7 mm of right to left midline shift. Ventricles: Unremarkable. No ventriculomegaly. Bones/joints: There is significant expansion of the CSF containing spaces of the right hemisphere with extension beyond the calvarium through a craniotomy defect measuring approximately 4.3 cm. Sinuses: Unremarkable as visualized. No acute sinusitis. Mastoid air cells: Unremarkable as visualized. No mastoid effusion. Orbits: Unremarkable as visualized. Other vasculature: Following demonstration of intravenous contrast, there is no evidence of abnormal enhancement. IMPRESSION: 1. No obvious hemorrhage or stroke. Artifact on DWI sequence partially limits evaluation. Otherwise, no significant interval change from recent CT. 2. Large extra-axial fluid collection pending through craniotomy defect. There is mild right to left midline shift measuring in proximal 7 mm. 3. Extensive right parenchymal volume loss. May be sequela of prior infarct versus postsurgical/post traumatic change. 4. Encephalization of the left hemisphere with expansion of CSF containing spaces. DAILY ESTIMATED NEEDS: Needs based on Pulmonary, 68kg 25-30 kcals/kg 2615-4533 total kcals 1.25-1.5 g protein/kg 85-102 g total protein 25-30 mL/kg 3294-5024 total fluid mLs NUTRITION DIAGNOSIS: Swallowing difficulty r/t TBI and resp distress, as evidenced by pt is vent dep via T-collar, PEG dep. CURRENT TF:Jevity 1.2 @70 ml x20 hrs ENTERAL NUTRITION RECOMMENDATIONS: Increase TF to goal of 75ml/hr x20 hrs to provide 1500ml, 1800 kcal, 83g pro, 1211ml free H2O - Rec to INCREASE TF by 5ml/hr to better meet est kcal and pro needs. - Flush per MD/ HOB over 30 degrees ADDITIONAL RECOMMENDATIONS: 1) Skin integrity: add CATALINA BID via PEG (added 5g pro to meet est pro needs) 2) Wound care eval 3) Per SNF: 5'5" and 150#, maintain calibrated bed scale wts Carl Hernandez Jun 14, 2020 11:05
--- NOTE | 2020-06-14 11:14 | NUR ---
RD ASSESSMENT & RECOMMENDATIONS SEE CARE ACTIVITY FOR COMPLETE ASSESSMENT DAILY ESTIMATED NEEDS: Needs based on Pulmonary, 68kg 25-30 kcals/kg 4558-9336 total kcals 1.25-1.5 g protein/kg 85-102 g total protein 20-25 mL/kg 4614-7419 total fluid mLs NUTRITION DIAGNOSIS: Swallowing difficulty r/t TBI and resp distress, as evidenced by pt is vent dep via T-collar, PEG dep. CURRENT TF:2Cal @45ml x20 hrs + Prosource qdaily ENTERAL NUTRITION RECOMMENDATIONS: Maintain Two Mikhail HN @ 45ml/hr x 20 hrs + Prosource 1pkt QD to provide 900ml, 1800kcal, 75g prot+11g prot, 630ml free water - Maintain current TF TwoCal HN @45ml/hr x20 hrs, for less free fluid: consistent hyponatremia, Na now trending up, will provide 500ml less free water than current TF - Add Prosource 1pkt QD to meet protein needs - Flush per MD/ HOB over 30 degrees ADDITIONAL RECOMMENDATIONS: 1) Wound Care: add MVI x 1 and Vit C 250mg QD add CATALINA BID via PEG (also provides added 5g prot to meet est prot needs) 2) Per SNF: 5'5" and 150#, maintain calibrated bed scale wts 3) Check phos level: pt on Renvela TID, renal fxn wnl Phos wnl (4.3).
[2020-06-14 12:00] VITALS: BP 157/101
--- NOTE | 2020-06-14 13:24 | Infectious Diseases Prog Note ---
"Assessment/Plan Assessment/Plan antibiotics : vancomycin iv, meropenem, inhaled gentamicin, fluconazole A 1. fever COVID 19 negative 2. ? scabies s/p rx 3. leucocytosis 4. traumatic brain injury 5. seizures 6. brain abscess 7. aspiration pneumonia with klebsiella | pseudomonas 8. gram negative | fungal UTI P 1. continue iv vancomycin, meropenem, fluconazole 2. continue inhaled gentamicin 4 more days 3. will follow up cultures 4. transfer pending Subjective ROS Limited/Unobtainable: Yes Allergies: Coded Allergies: No Known Allergies (Unverified , 05/30/20) Objective Last 24 Hour Vital Signs Date Time Temp Pulse Resp B/P (MAP) Pulse Ox O2 Delivery O2 Flow Rate FiO2 06/14/20 12:00 100.8 106 22 157/101 (119) 100 06/14/20 12:00 106 06/14/20 10:42 103 20 100 T-Piece 5.0 28 100 20 100 06/14/20 09:56 166/100 06/14/20 09:17 61 123/53 06/14/20 09:00 Trach Collar 5.0 06/14/20 08:00 142 06/14/20 08:00 100.4 142 20 166/100 (122) 100 06/14/20 07:25 99 Cool Aerosol 5.0 28 06/14/20 05:54 101.3 06/14/20 04:00 110 06/14/20 04:00 102.0 128 24 130/83 (99) 99 06/14/20 01:56 99 Cool Aerosol 5.0 28 06/14/20 00:04 101.3 06/14/20 00:00 101.2 120 24 158/91 (113) 99 06/14/20 00:00 107 06/13/20 23:06 98 20 100 T-Piece 5.0 28 94 20 100 06/13/20 21:12 169/102 06/13/20 21:01 143 169/102 06/13/20 21:00 Trach Collar 5.0 06/13/20 20:00 134 06/13/20 20:00 96.6 143 30 169/102 (124) 97 06/13/20 20:00 101.7 139 20 144/87 (106) 99 06/13/20 19:29 98 Cool Aerosol 5.0 28 06/13/20 17:50 100.0 06/13/20 16:00 100.9 113 22 158/89 (112) 100 06/13/20 15:33 114 Height (Feet): 5 Height (Inches): 10.00 Weight (Pounds): 160 HEENT: status post trach, other - head swelling Respiratory/Chest: lungs clear Cardiovascular: normal rate, regular rhythm, no gallop/murmur Abdomen: soft, non tender, other - GT Extremities: no edema, other - right arm PICC Laboratory Tests Test 06/14/20 05:48 White Blood Count 11.5 K/UL (4.8-10.8) H Red Blood Count 2.89 M/UL (4.70-6.10) L Hemoglobin 8.6 G/DL (14.2-18.0) L Hematocrit 24.4 % (42.0-52.0) L Mean Corpuscular Volume 85 FL (80-99) Mean Corpuscular Hemoglobin 30.0 PG (27.0-31.0) Mean Corpuscular Hemoglobin Concent 35.5 G/DL (32.0-36.0) Red Cell Distribution Width 14.1 % (11.6-14.8) Platelet Count 400 K/UL (150-450) Mean Platelet Volume 4.7 FL (6.5-10.1) L Neutrophils (%) (Auto) 75.2 % (45.0-75.0) H Lymphocytes (%) (Auto) 15.9 % (20.0-45.0) L Monocytes (%) (Auto) 6.8 % (1.0-10.0) Eosinophils (%) (Auto) 1.4 % (0.0-3.0) Basophils (%) (Auto) 0.7 % (0.0-2.0) Erythrocyte Sedimentation Rate 121 MM/HR (0-15) H Sodium Level 133 MMOL/L (136-145) L Potassium Level 3.8 MMOL/L (3.5-5.1) Chloride Level 97 MMOL/L (98-107) L Carbon Dioxide Level 29 MMOL/L (21-32) Anion Gap 7 mmol/L (5-15) Blood Urea Nitrogen 7 mg/dL (7-18) Creatinine 0.6 MG/DL (0.55-1.30) Estimat Glomerular Filtration Rate > 60 mL/min (>60) Glucose Level 112 MG/DL (74-106) H Calcium Level 8.6 MG/DL (8.5-10.1) Total Bilirubin 0.4 MG/DL (0.2-1.0) Aspartate Amino Transf (AST/SGOT) 21 U/L (15-37) Alanine Aminotransferase (ALT/SGPT) 50 U/L (12-78) Alkaline Phosphatase 134 U/L (46-116) H C-Reactive Protein, Quantitative 1.6 mg/dL (0.00-0.90) H Total Protein 6.7 G/DL (6.4-8.2) Albumin 2.4 G/DL (3.4-5.0) L Globulin 4.3 g/dL Albumin/Globulin Ratio 0.6 (1.0-2.7) L Current Medications Medications (Trade) Dose Ordered Sig/Anuj Route PRN Reason Start Time Stop Time Status Last Admin Dose Admin Acetaminophen (Tylenol) 650 mg Q6H PRN ORAL Temp >100.5 05/30/20 18:45 06/29/20 18:44 06/14/20 05:24 Chlorhexidine Gluconate (Laura-Hex 2%) 1 applic DAILY@2000 TOPIC 06/01/20 20:00 08/30/20 19:59 06/13/20 21:03 Clonidine HCl (Catapres TTS-2) 1 patch QWEEK TDERMAL 06/14/20 09:00 09/11/20 21:59 06/14/20 09:56 Clonidine HCl (Catapres Tab) 0.1 mg Q4H PRN ORAL SBP above 150; DBP above 95 06/02/20 23:00 08/31/20 22:59 06/13/20 21:12 Enoxaparin Sodium (Lovenox) 80 mg EVERY 12 HOURS SUBQ 05/30/20 21:00 08/28/20 20:59 06/14/20 09:18 Famotidine (Pepcid) 20 mg DAILY GT 05/31/20 09:00 08/29/20 08:59 06/14/20 09:16 Fluconazole (Diflucan) 100 mg DAILY GT 06/10/20 11:03 06/17/20 11:02 06/14/20 09:15 Gentamicin Sulfate (Gentamicin vial) 300 mg Q12HR@10,22 INH 06/12/20 22:00 06/19/20 21:59 06/14/20 10:40 Lacosamide (Vimpat) 50 mg BID ORAL 05/31/20 09:00 08/29/20 08:59 06/14/20 09:15 Lactobacillus Acidophilus (Culturelle) 1 tab DAILY GT 05/31/20 09:00 08/29/20 08:59 06/14/20 09:13 Meropenem 1 gm/ Sodium Chloride 55 ml @ 110 mls/hr Q8HR IVPB 06/12/20 15:00 06/17/20 14:59 06/14/20 05:24 Metoprolol Tartrate (Lopressor) 150 mg EVERY 12 HOURS ORAL 06/08/20 09:00 09/06/20 08:59 06/14/20 09:17 Sevelamer Carbonate (Renvela) 800 mg THREE TIMES A DAY GT 05/31/20 09:00 08/29/20 08:59 06/14/20 09:13 Sucralfate (Carafate) 1 gm BID ORAL 05/31/20 09:00 08/29/20 08:59 06/14/20 09:17 Thyroid (Sneads Thyroid) 15 mg DAILY GT 05/31/20 09:00 06/30/20 08:59 06/14/20 09:15 Vancomycin HCl (Vanco pharmacy to dose) 1 ea DAILY PRN MISC Per rx protocol 06/07/20 11:00 07/07/20 10:59 Vancomycin/Sodium Chloride 250 ml @ 125 mls/hr Q8H IVPB 06/15/20 08:00 06/20/20 07:59 Vancomycin/Sodium Chloride 250 ml @ 125 mls/hr Q8H IVPB 06/10/20 08:00 06/15/20 07:59 06/14/20 09:20 Dl Mcgowan MD Jun 14, 2020 13:24"
--- NOTE | 2020-06-14 13:39 | Nephrology Progress Note ---
Assessment/Plan Plan Sepsis - IV Abx. Hyponatremia Na corrected to 133. DC 3% NaCal. Uosm inappropriately high. CW SIADH! Subjective Subjective Obtunded Objective Objective Last 24 Hour Vital Signs Date Time Temp Pulse Resp B/P (MAP) Pulse Ox O2 Delivery O2 Flow Rate FiO2 06/14/20 13:34 100 Cool Aerosol 5.0 28 06/14/20 12:00 100.8 106 22 157/101 (119) 100 06/14/20 12:00 106 06/14/20 10:42 103 20 100 T-Piece 5.0 28 100 20 100 06/14/20 09:56 166/100 06/14/20 09:17 61 123/53 06/14/20 09:00 Trach Collar 5.0 06/14/20 08:00 142 06/14/20 08:00 100.4 142 20 166/100 (122) 100 06/14/20 07:25 99 Cool Aerosol 5.0 28 06/14/20 05:54 101.3 06/14/20 04:00 110 06/14/20 04:00 102.0 128 24 130/83 (99) 99 06/14/20 01:56 99 Cool Aerosol 5.0 28 06/14/20 00:04 101.3 06/14/20 00:00 101.2 120 24 158/91 (113) 99 06/14/20 00:00 107 06/13/20 23:06 98 20 100 T-Piece 5.0 28 94 20 100 06/13/20 21:12 169/102 06/13/20 21:01 143 169/102 06/13/20 21:00 Trach Collar 5.0 06/13/20 20:00 134 06/13/20 20:00 96.6 143 30 169/102 (124) 97 06/13/20 20:00 101.7 139 20 144/87 (106) 99 06/13/20 19:29 98 Cool Aerosol 5.0 28 06/13/20 17:50 100.0 06/13/20 16:00 100.9 113 22 158/89 (112) 100 06/13/20 15:33 114 Intake and Output 06/13/20 06/14/20 19:00 07:00 Intake Total 1825 ml 1620 ml Output Total 2050 ml 1200 ml Balance -225 ml 420 ml Intake Free Water 25 ml 25 ml IV Total 1755 ml 1100 ml Tube Feeding 45 ml 495 ml Output Urine Total 2050 ml 1200 ml # Bowel Movements 1 1 Laboratory Tests 06/14/20 05:48: White Blood Count 11.5H, Red Blood Count 2.89L, Hemoglobin 8.6L, Hematocrit 24.4L, Mean Corpuscular Volume 85, Mean Corpuscular Hemoglobin 30.0, Mean Corpuscular Hemoglobin Concent 35.5, Red Cell Distribution Width 14.1, Platelet Count 400, Mean Platelet Volume 4.7L, Neutrophils (%) (Auto) 75.2H, Lymphocytes (%) (Auto) 15.9L, Monocytes (%) (Auto) 6.8, Eosinophils (%) (Auto) 1.4, Basophils (%) (Auto) 0.7, Erythrocyte Sedimentation Rate 121H, Sodium Level 133L , Potassium Level 3.8, Chloride Level 97L, Carbon Dioxide Level 29, Anion Gap 7, Blood Urea Nitrogen 7, Creatinine 0.6, Estimat Glomerular Filtration Rate > 60, Glucose Level 112H, Calcium Level 8.6, Total Bilirubin 0.4, Aspartate Amino Transf (AST/SGOT) 21, Alanine Aminotransferase (ALT/SGPT) 50, Alkaline Phosphatase 134H, C-Reactive Protein, Quantitative 1.6H, Total Protein 6.7, Albumin 2.4L, Globulin 4.3, Albumin/Globulin Ratio 0.6L Height (Feet): 5 Height (Inches): 10.00 Weight (Pounds): 160 Objective Head deformed post op CV RR Neck trach clean Lungs B dariel Rosales SNT. BS + E No CCE Valerio Hendrix MD Jun 14, 2020 13:39
--- NOTE | 2020-06-14 14:27 | NUR ---
CASE MANAGEMENT:REVIEW 06/14/20 SI: SEPSIS. SEIZURE. KLEBSIELLA PNA 102.0 142 20 166/100 100% ON TRACH COLLAR W/5L 28% FIO2 WBC+11.5 H/H-8.6/24.4 NA-133 IS: GENTAMICIN INH Q12 IV MEROPENEM Q8HRS DIFLUCAN GT Q8HRS IV VANCOMYCIN Q8HRS LOPRESSOR GT Q12 : TELEMETRY STATUS DCP: FROM [facility]
--- NOTE | 2020-06-14 14:30 | NUR ---
NURSE NOTES: DR ROSE IS AWARE OF LABS. NO NEW ORDER.
[2020-06-14 16:00] VITALS: BP 153/92
--- NOTE | 2020-06-14 19:00 | NUR ---
NURSE NOTES: RECEIVED REPORT FROM KADEEM MALDONADO. PATIENT IN BED, OBTUNDED, OPENS EYES TO TACTILE STIMULI, NON-VERBAL. NO S/SX OF PAIN OR DISCOMFORT NOTED. BREATHING IS EVEN AND UNLABORED ON COOL AEROSOL 5LPM/FIO2 28% VIA T-PIECE, NO S/SX OF DISTRESS- RR 20, SAO2 100%. SINUS TACHYCARDIA ON SOLAR TECHNICIAN, HR HOVERING BETWEEN 139-144. NOTED TO HAVE HELIO DOUBLE-LUMEN PICC LINE- DRESSING CLEAN, DRY AND INTACT. IV SITE ON LAC PATENT, INTACT, ASYMPTOMATIC, AND SALINE-LOCKED. MICHELLE CATHETER DRAINING WELL TO GRAVITY, URINE CLEAR AND YELLOW IN COLOR. GTF RUNNING PRESCRIBED- GT FLUSHED, PATENT, WITH 5ML OF RESIDUAL NOTED. RECTAL PROBE IN PLACE WITH TEMP READING 101.5F. FALL AND ASPIRATION PRECAUTIONS IN PLACE. CONTACT ISOLATION IMPLEMENTED. BED LOCKED AND IN LOWEST POSITION, SIDERAILS UP X 3. CALL LIGHT WITHIN REACH, WILL CONTINUE TO MONITOR PER POC. Addendum: 06/14/20 at 2032 by Kayleigh Mccarthy RN PADDED SIDERAILS FOR SEIZURE PRECAUTIONS Addendum: 06/14/20 at 2216 by Kayleigh Mccarthy RN *IV SITE LFA
--- NOTE | 2020-06-14 19:33 | NUR ---
NURSE HAND-OFF REPORT: Important Events on Shift:IV FLUID DC'D Patient Status: Diet: Pending Orders: Pending Results/Labs: Pending MD notification: Latest Vital Signs: Temperature 102.2 , Pulse 144 , B/P 153 /92 , Respiratory Rate 24 , O2 SAT 99 , Trach Collar, O2 Flow Rate 5.0 . Vital Sign Comment: EKG Rhythm: Sinus Tachycardia Rhythm change?: N MD Notified?: N -DR.BALFE BO Response: No New Orders Received Latest Whitley Fall Score: 70 Fall Risk: High Risk Safety Measures: Call light Within Reach, Bed Alarm Zone 1, Side Rails Side Rails x3, Bed position Low and Locked. Fall Precautions: Yellow Socks Yellow Gown Door Sign Patient Fall Education Report given to .
--- NOTE | 2020-06-14 19:49 | NUR ---
RESPIRATORY NOTE: Received pt on 28 % Cool Aerosol via T-Piece. Pt is trach-dependent w/ a cuffed, Shiley 8 tube. Cuff is currently deflated. Pt obtunded. B/S joseph. rhonchi, sxn moderate to large amounts of thick/thin/frothy, lee-pink secretions w/ occasional blood clots. [place] at bedside. Pt resting comfortably, in no apparent distress at this time. Will continue plan of care.
[2020-06-14 20:00] VITALS: BP 140/90
[2020-06-14] MEDS: Dyna-Hex 2% Top Sol 2oz TOPIC SCH (20:17)
--- NOTE | 2020-06-14 21:00 | NUR ---
NURSE NOTES: PATIENT NOTED TO HAVE RECTAL TEMP OF 101.1F- TYLENOL GIVEN ORDERED. RECTAL TEMP 30 MINUTES LATER 101.3F. COOLING MEASURES INITIATED- ICE PACKS PLACED. WILL RE-CHECK TEMPERATURE IN THIRTY MINUTES.
--- NOTE | 2020-06-14 21:48 | NUR ---
NURSE NOTES: RECTAL TEMP NOW 100.9F. WILL CONTINUE WITH COOLING MEASURES.
--- NOTE | 2020-06-14 23:59 | NUR ---
NURSE NOTES: RECTAL TEMP 101.7F. UNABLE TO ADMINISTER TYLENOL ORDERED- TOO SOON. COOLING MEASURES INITIATED- ICE PACKS PLACED. TEMPERATURE WENT DOWN TO 100.4F.
[2020-06-15] VITALS: BP 136/79
[2020-06-15 04:00] VITALS: BP 143/93
[2020-06-15] MEDS: Meropenem 1 GM in NS 55 ML IVPB SCH ×3 (05:35→21:04)
--- NOTE | 2020-06-15 06:00 | NUR ---
NURSE NOTES: WEIGHT RECORDED WITHOUT P200 MATTRESS (85KG-12.05KG=72.95KG).
--- NOTE | 2020-06-15 07:15 | NUR ---
NURSE HAND-OFF REPORT: Important Events on Shift: FEBRILE EPISODES DESPITE BEING GIVEN ANTIPYRETICS AND INITIATING COOLING MEASURES, HR IN 140s Patient Status: STABLE Diet: TWOCAL @ 45ML/HR X 20 HOURS (OFF [id number]) Pending Orders: N/A Pending Results/Labs:N/A Pending MD notification:N/A Latest Vital Signs: Temperature 99.7 , Pulse 116 , B/P 143 /93 , Respiratory Rate 26 , O2 SAT 99 , T-piece, O2 Flow Rate 5.0 . Vital Sign Comment: FEBRILE, TACHYCARDIC EKG Rhythm: Sinus Tachycardia Rhythm change?: N Notified?: N BERNARD BO Response: No New Orders Received Latest Whitley Fall Score: 70 Fall Risk: High Risk Safety Measures: Call light Within Reach, Bed Alarm Zone 1, Side Rails Side Rails x3, Bed position Low and Locked. Fall Precautions: Yellow Socks Yellow Gown Door Sign Patient Fall Education Report given to KADEEM JASSO.
--- NOTE | 2020-06-15 07:24 | NUR ---
NURSE NOTES: Received report from KADEEM Shin. Pt is A/O x0 and aphasic. Pt is on 5L oxygen per T-piece, 25% FiO2. No SOB or acute distress but suctioned pt with thick secretions. Pt has a HELIO PICC double lumen, with both port flushable but white cap is very obstructive. Pt also has a LFA 22G, patent with IVF running. Pt has GT feeding and running with no residual noted. Repositioning on left side and supine routinely to keep pressure off right side. Ice packs placed underneath both arms to subside temp of 100.1. Pt continues to have febrile episodes. Bed in lowest position, brakes engaged and bed alarm on. Call light placed within reach. Will continue plan of care.
--- NOTE | 2020-06-15 07:41 | NUR ---
CASE MANAGEMENT:REVIEW 06/15/20 SI: SEPSIS. SEIZURE. KLEBSIELLA PNA 101.7 124 26 143/93 99% ON TRACH COLLAR W/5L 28% FIO2 IS: GENTAMICIN INH Q12 IV MEROPENEM Q8HRS DIFLUCAN GT Q8HRS IV VANCOMYCIN Q8HRS LOPRESSOR 150MG GT Q12 LOVENOX SQ Q12 CLONIDINE PATCH Q WEEK : TELEMETRY STATUS DCP: FROM [facility] PLAN: MONITOR TEMP GAIN BETTER CONTROL OF HEART RATE CONTINUE 4 ANTIBIOTICS
[2020-06-15 08:00] VITALS: BP 122/93
[2020-06-15] MEDS: Lacosamide 50mg tablet ORAL SCH ×2 (08:53→17:06)
[2020-06-15] MEDS: Fluconazole 100mg tab GT SCH (08:53)
[2020-06-15] MEDS: Metoprolol Tartrate 100mg tab ORAL SCH ×2 (08:53→20:09)
[2020-06-15] MEDS: Sucralfate 1gm tab ORAL SCH ×2 (08:53→17:06)
[2020-06-15] MEDS: Renvela 800mg Pkt GT SCH ×3 (08:53→17:05)
[2020-06-15] MEDS: Lactobacillus-GG tablet GT SCH (08:53)
[2020-06-15] MEDS: VANCOMYCIN IVPB SCH ×3 (08:54→23:24)
[2020-06-15] MEDS: [UNRECOGNIZED DRUG - OTHER] IVPB SCH ×3 (08:54→23:24)
[2020-06-15] MEDS: Enoxaparin 80mg Inj SUBQ SCH ×2 (08:55→20:16)
[2020-06-15] MEDS: Gentamicin for inhalation INH SCH ×2 (09:31→21:18)
--- NOTE | 2020-06-15 10:11 | Pulmonology Progress Note ---
Subjective ROS Limited/Unobtainable: Yes Constitutional: Reports: fever Gastrointestinal/Abdominal: Reports: diarrhea Allergies: Coded Allergies: No Known Allergies (Unverified , 05/30/20) Subjective recurrent high fever- now better consultants noted CXR neg Objective Last 24 Hour Vital Signs Date Time Temp Pulse Resp B/P (MAP) Pulse Ox O2 Delivery O2 Flow Rate FiO2 06/15/20 09:31 108 22 100 T-Piece 5.0 28 103 18 100 06/15/20 08:53 108 122/93 06/15/20 08:14 T-piece 5.0 06/15/20 08:00 100.1 107 26 122/93 (103) 100 06/15/20 08:00 108 06/15/20 07:05 100 T-Piece 5.0 28 06/15/20 04:00 116 06/15/20 04:00 99.7 124 26 143/93 (110) 99 06/15/20 02:47 99.9 06/15/20 01:05 99 T-Piece 5.0 28 06/15/20 00:00 111 06/15/20 00:00 101.7 110 36 136/79 (98) 100 06/14/20 22:57 110 20 100 T-Piece 5.0 28 06/14/20 22:42 107 20 100 T-Piece 5.0 28 06/14/20 21:00 T-piece 5.0 06/14/20 20:48 101.3 06/14/20 20:17 139 140/90 06/14/20 20:00 140 06/14/20 20:00 101.1 139 30 140/90 (107) 100 06/14/20 19:46 100 T-Piece 5.0 28 06/14/20 16:00 102.2 144 24 153/92 (112) 99 06/14/20 16:00 144 06/14/20 13:34 100 Cool Aerosol 5.0 28 06/14/20 12:00 100.8 106 22 157/101 (119) 100 06/14/20 12:00 106 06/14/20 10:42 103 20 100 T-Piece 5.0 28 100 20 100 Intake and Output 06/14/20 06/15/20 19:00 07:00 Intake Total 45 ml 615 ml Output Total 1500 ml 1300 ml Balance -1455 ml -685 ml Intake Free Water 120 ml Tube Feeding 45 ml 495 ml Output Urine Total 1500 ml 1300 ml # Bowel Movements 1 Objective WDWN bulging noted scalp clear breath sounds bilaterally without rhonchi or wheeze [id number] tachy without MRG NABS nontender GT no CCE nonfocal trach poor LOC Current Medications Medications (Trade) Dose Ordered Sig/Anuj Route PRN Reason Start Time Stop Time Status Last Admin Dose Admin Acetaminophen (Tylenol) 650 mg Q6H PRN ORAL Temp >100.5 05/30/20 18:45 06/29/20 18:44 06/15/20 02:17 Chlorhexidine Gluconate (Laura-Hex 2%) 1 applic DAILY@1999 TOPIC 06/01/20 20:00 08/30/20 19:59 06/14/20 20:17 Clonidine HCl (Catapres TTS-2) 1 patch QWEEK TDERMAL 06/14/20 09:00 09/11/20 21:59 06/14/20 09:56 Clonidine HCl (Catapres Tab) 0.1 mg Q4H PRN ORAL SBP above 150; DBP above 95 06/02/20 23:00 08/31/20 22:59 06/13/20 21:12 Enoxaparin Sodium (Lovenox) 80 mg EVERY 12 HOURS SUBQ 05/30/20 21:00 08/28/20 20:59 06/15/20 08:55 Famotidine (Pepcid) 20 mg DAILY GT 05/31/20 09:00 08/29/20 08:59 06/15/20 08:53 Fluconazole (Diflucan) 100 mg DAILY GT 06/10/20 11:03 06/17/20 11:02 06/15/20 08:53 Gentamicin Sulfate (Gentamicin vial) 300 mg Q12HR@ INH 06/12/20 22:00 06/19/20 21:59 06/15/20 09:31 Lacosamide (Vimpat) 50 mg BID ORAL 05/31/20 09:00 08/29/20 08:59 06/15/20 08:53 Lactobacillus Acidophilus (Culturelle) 1 tab DAILY GT 05/31/20 09:00 08/29/20 08:59 06/15/20 08:53 Meropenem 1 gm/ Sodium Chloride 55 ml @ 110 mls/hr Q8HR IVPB 06/12/20 15:00 06/17/20 14:59 06/15/20 05:35 Metoprolol Tartrate (Lopressor) 150 mg EVERY 12 HOURS ORAL 06/08/20 09:00 09/06/20 08:59 06/15/20 08:53 Sevelamer Carbonate (Renvela) 800 mg THREE TIMES A DAY GT 05/31/20 09:00 08/29/20 08:59 06/15/20 08:53 Sucralfate (Carafate) 1 gm BID ORAL 05/31/20 09:00 08/29/20 08:59 06/15/20 08:53 Thyroid ([place] Thyroid) 15 mg DAILY GT 05/31/20 09:00 06/30/20 08:59 06/15/20 08:53 Vancomycin HCl (Vanco pharmacy to dose) 1 ea DAILY PRN MISC Per rx protocol 06/07/20 11:00 07/07/20 10:59 Vancomycin/Sodium Chloride 250 ml @ 125 mls/hr Q8H IVPB 06/15/20 08:00 06/20/20 07:59 06/15/20 08:54 Assessment/Plan Assessment/Plan Impression: Sepsis Urinary Tract Infection TBI Seizures Hypothyroidism Sinus Tachycardia Hypertension abnormal MRI/ CT hyponatremia ?SIADH leukocytosis fever Plan: IV Antibiotics- Meropenema, flucon vanco inhaled colistin continue demeclocyline O2 PRN TC PPX Monitor labs monitor vitals renal eval noted [facility] refused transfer update sister ID follow up repeat wbc- now elevated full dose lovenox cardizem and beta jocelyn for rate control fever work up and ID clearance impression, plan, and exam edited and reviewed in detail care discussed with Aime Browne MD Jun 15, 2020 10:11
--- NOTE | 2020-06-15 10:57 | Infectious Diseases Prog Note ---
"Assessment/Plan Assessment/Plan antibiotics : vancomycin iv, meropenem, inhaled gentamicin, fluconazole A 1. fever COVID 19 negative 2. ? scabies s/p rx 3. leucocytosis 4. traumatic brain injury 5. seizures 6. brain abscess 7. aspiration pneumonia with klebsiella | pseudomonas 8. gram negative | fungal UTI P 1. continue iv vancomycin, meropenem, fluconazole 2. continue inhaled gentamicin 3 more days 3. will follow up cultures Subjective ROS Limited/Unobtainable: Yes Allergies: Coded Allergies: No Known Allergies (Unverified , 05/30/20) Objective Last 24 Hour Vital Signs Date Time Temp Pulse Resp B/P (MAP) Pulse Ox O2 Delivery O2 Flow Rate FiO2 06/15/20 09:31 108 22 100 T-Piece 5.0 28 103 18 100 06/15/20 08:53 108 122/93 06/15/20 08:14 T-piece 5.0 06/15/20 08:00 100.1 107 26 122/93 (103) 100 06/15/20 08:00 108 06/15/20 07:05 100 T-Piece 5.0 28 06/15/20 04:00 116 06/15/20 04:00 99.7 124 26 143/93 (110) 99 06/15/20 02:47 99.9 06/15/20 01:05 99 T-Piece 5.0 06/15/20 00:00 111 06/15/20 00:00 101.7 110 36 136/79 (98) 100 06/14/20 22:57 110 20 100 T-Piece 5.0 06/14/20 22:42 107 20 100 T-Piece 5.0 06/14/20 21:00 T-piece 5.0 06/14/20 20:48 101.3 06/14/20 20:17 139 140/90 06/14/20 20:00 140 06/14/20 20:00 101.1 139 30 140/90 (107) 100 06/14/20 19:46 100 T-Piece 5.0 28 06/14/20 16:00 102.2 144 24 153/92 (112) 99 06/14/20 16:00 144 06/14/20 13:34 100 Cool Aerosol 5.0 28 06/14/20 12:00 100.8 106 22 157/101 (119) 100 06/14/20 12:00 106 Height (Feet): 5 Height (Inches): 10.00 Weight (Pounds): 160 HEENT: other - right head swelling Respiratory/Chest: crackles/rales Cardiovascular: normal rate, regular rhythm, no gallop/murmur Abdomen: soft, non tender, other - GT Extremities: no edema, other - right arm PICC Current Medications Medications (Trade) Dose Ordered Sig/Anuj Route PRN Reason Start Time Stop Time Status Last Admin Dose Admin Acetaminophen (Tylenol) 650 mg Q6H PRN ORAL Temp >100.5 05/30/20 18:45 06/29/20 18:44 06/15/20 02:17 Chlorhexidine Gluconate (Laura-Hex 2%) 1 applic DAILY@1999 TOPIC 06/01/20 20:00 08/30/20 19:59 06/14/20 20:17 Clonidine HCl (Catapres TTS-2) 1 patch QWEEK TDERMAL 06/14/20 09:00 09/11/20 21:59 06/14/20 09:56 Clonidine HCl (Catapres Tab) 0.1 mg Q4H PRN ORAL SBP above 150; DBP above 95 06/02/20 23:00 08/31/20 22:59 06/13/20 21:12 Enoxaparin Sodium (Lovenox) 80 mg EVERY 12 HOURS SUBQ 05/30/20 21:00 08/28/20 20:59 06/15/20 08:55 Famotidine (Pepcid) 20 mg DAILY GT 05/31/20 09:00 08/29/20 08:59 06/15/20 08:53 Fluconazole (Diflucan) 100 mg DAILY GT 06/10/20 11:03 06/17/20 11:02 06/15/20 08:53 Gentamicin Sulfate (Gentamicin vial) 300 mg Q12HR@ INH 06/12/20 22:00 06/19/20 21:59 06/15/20 09:31 Lacosamide (Vimpat) 50 mg BID ORAL 05/31/20 09:00 08/29/20 08:59 06/15/20 08:53 Lactobacillus Acidophilus (Culturelle) 1 tab DAILY GT 05/31/20 09:00 08/29/20 08:59 06/15/20 08:53 Meropenem 1 gm/ Sodium Chloride 55 ml @ 110 mls/hr Q8HR IVPB 06/12/20 15:00 06/17/20 14:59 06/15/20 05:35 Metoprolol Tartrate (Lopressor) 150 mg EVERY 12 HOURS ORAL 06/08/20 09:00 09/06/20 08:59 06/15/20 08:53 Sevelamer Carbonate (Renvela) 800 mg THREE TIMES A DAY GT 05/31/20 09:00 08/29/20 08:59 06/15/20 08:53 Sucralfate (Carafate) 1 gm BID ORAL 05/31/20 09:00 08/29/20 08:59 06/15/20 08:53 Thyroid ([place] Thyroid) 15 mg DAILY GT 05/31/20 09:00 06/30/20 08:59 06/15/20 08:53 Vancomycin HCl (Vanco pharmacy to dose) 1 ea DAILY PRN MISC Per rx protocol 06/07/20 11:00 07/07/20 10:59 Vancomycin/Sodium Chloride 250 ml @ 125 mls/hr Q8H IVPB 06/15/20 08:00 06/20/20 07:59 06/15/20 08:54 Dl Mcgowan MD Jun 15, 2020 10:57"
[2020-06-15 12:00] VITALS: BP 120/65
--- NOTE | 2020-06-15 13:10 | NUR ---
NURSES NOTES: Pt's temp is 101.2 and full bed bath given and ice packs placed underneath arm pits and behind the neck for cooling measures. Recheck temp and has subsided to 99.1
--- NOTE | 2020-06-15 14:41 | Nephrology Progress Note ---
Assessment/Plan Plan Sepsis - IV Abx. Hyponatremia Na corrected to 133. DC 3% NaCl. Na drifting down. Today 133 Uosm inappropriately high. CW SIADH! Subjective Subjective Obtunded Objective Objective Last 24 Hour Vital Signs Date Time Temp Pulse Resp B/P (MAP) Pulse Ox O2 Delivery O2 Flow Rate FiO2 06/15/20 13:09 100 T-Piece 5.0 28 06/15/20 12:00 89 06/15/20 12:00 99.5 93 28 120/65 (83) 98 06/15/20 09:31 108 22 100 T-Piece 5.0 28 103 18 100 06/15/20 08:53 108 122/93 06/15/20 08:14 T-piece 5.0 06/15/20 08:00 100.1 107 26 122/93 (103) 100 06/15/20 08:00 108 06/15/20 07:05 100 T-Piece 5.0 28 06/15/20 04:00 116 06/15/20 04:00 99.7 124 26 143/93 (110) 99 06/15/20 02:47 99.9 06/15/20 01:05 99 T-Piece 5.0 28 06/15/20 00:00 111 06/15/20 00:00 101.7 110 36 136/79 (98) 100 06/14/20 22:57 110 20 100 T-Piece 5.0 28 06/14/20 22:42 107 20 100 T-Piece 5.0 28 06/14/20 21:00 T-piece 5.0 06/14/20 20:48 101.3 06/14/20 20:17 139 140/90 06/14/20 20:00 140 06/14/20 20:00 101.1 139 30 140/90 (107) 100 06/14/20 19:46 100 T-Piece 5.0 28 06/14/20 16:00 102.2 144 24 153/92 (112) 99 06/14/20 16:00 144 Intake and Output 06/14/20 06/15/20 19:00 07:00 Intake Total 45 ml 615 ml Output Total 1500 ml 1300 ml Balance -1455 ml -685 ml Intake Free Water 120 ml Tube Feeding 45 ml 495 ml Output Urine Total 1500 ml 1300 ml # Bowel Movements 1 Height (Feet): 5 Height (Inches): 10.00 Weight (Pounds): 160 Objective Head deformed post op CV RR Neck trach clean Lungs B ronchi Abd SNT. BS + E No CCE Valerio Hendrix MD Jun 15, 2020 14:41
[2020-06-15 16:00] VITALS: BP 126/65
--- NOTE | 2020-06-15 16:51 | Surgery Progress Note ---
Surgery Progress Note Subjective Additional Comments ill appearing labs noted exam unchanged Objective Last 24 Hour Vital Signs Date Time Temp Pulse Resp B/P (MAP) Pulse Ox O2 Delivery O2 Flow Rate FiO2 06/15/20 16:00 97 06/15/20 16:00 99.3 102 24 126/65 (85) 98 06/15/20 13:09 100 T-Piece 5.0 28 06/15/20 12:00 89 06/15/20 12:00 99.5 93 28 120/65 (83) 98 06/15/20 09:31 108 22 100 T-Piece 5.0 28 103 18 100 06/15/20 08:53 108 122/93 06/15/20 08:14 T-piece 5.0 06/15/20 08:00 100.1 107 26 122/93 (103) 100 06/15/20 08:00 108 06/15/20 07:05 100 T-Piece 5.0 28 06/15/20 04:00 116 06/15/20 04:00 99.7 124 26 143/93 (110) 99 06/15/20 02:47 99.9 06/15/20 01:05 99 T-Piece 5.0 28 06/15/20 00:00 111 06/15/20 00:00 101.7 110 36 136/79 (98) 100 06/14/20 22:57 110 20 100 T-Piece 5.0 28 06/14/20 22:42 107 20 100 T-Piece 5.0 28 06/14/20 21:00 T-piece 5.0 06/14/20 20:48 101.3 06/14/20 20:17 139 140/90 06/14/20 20:00 140 06/14/20 20:00 101.1 139 30 140/90 (107) 100 06/14/20 19:46 100 T-Piece 5.0 28 I&O Intake and Output 06/14/20 06/15/20 19:00 07:00 Intake Total 45 ml 615 ml Output Total 1500 ml 1300 ml Balance -1455 ml -685 ml Intake Free Water 120 ml Tube Feeding 45 ml 495 ml Output Urine Total 1500 ml 1300 ml # Bowel Movements 1 Respiratory: decreased breath sounds Abdomen: soft, non-tender, present bowel sounds Extremities: no tenderness, no cyanosis Plan Problems: (1) Tachycardia (2) Sepsis Assessment & Plan: 29-year-old male with leukocytosis anemia lactic acidosis. Patient admitted further care management identified to have significant secretions from tracheostomy trach collar with sutures in place causing distortion. Abdominal G-tube in place. Patient forming deep tissue injury. B FL 22 labs noted. Patient a phasic unable to respond to commands and in a vegetative state at this time. Patient with a UTI on antibiotics. Right PIC in place may need to be replaced. Turn every 2 hours offload pressure with air mattress and pillows. Trach sutures removed trach tie evaluated trach in place secretions suction. Continue with secretions chest x-ray reviewed no acute infiltrative process Leukocytosis trending down lactic acid is improving continue fluid resuscitation IV antibiotics improving labs improved cont current care trach care fevers resolved wbc resolved improved CT head noted neurosurg eval cxr improved fevers cont leukocytosis neuro input appreciate. possible infected collection transfer to neurosurgery hospital pending Thank you will follow with recommendations high fevers leukocytosis needs transfer Brain: Extensive right hemispheric parenchymal volume loss and edema. Increased hyperdense of the right frontal parenchyma. Hypodensities of the left frontal, parietal, and temporal regions which may be sequela of prior infarct. No hemorrhage. No significant white matter disease. Midline shift: Mild, 6 mm, right to left midline shift. Ventricles: Exvacuodilatation of the ventricles. Bones/joints: Postsurgical changes from extensive prior right craniotomy. Large extra-axial fluid collection extending beyond the calvarium in region of prior craniotomy. The fluid extends beyond the calvarial region by approximately 4.0 cm in axial dimension No acute fracture. Soft tissues: Unremarkable. Sinuses: Unremarkable as visualized. No acute sinusitis. Mastoid air cells: Unremarkable as visualized. No mastoid effusion. IMPRESSION: 1. Large extra-axial fluid collection of the right hemisphere extending beyond the region of large frontal craniotomy. There is mild right to left midline shift measuring approximately 6 mm. 2. Hyperdensity of the residual right parenchyma suggestive of parenchymal contusion. 3. Extensive right parenchymal volume loss. May be sequela of prior infarct versus postsurgical change. 4. Hyperdensities throughout the left cerebellum, suggestive of prior ischemic process. Artifacts: Blooming artifact is noted within the right peripheral residual parenchyma likely representing hemosiderin deposition. Brain: Extensive right hemispheric parenchymal volume loss and edema. Mild encephalomalacia of the left hemisphere with expansion of the CSF containing spaces. No hemorrhage. Midline shift: There is proximal is 7 mm of right to left midline shift. Ventricles: Unremarkable. No ventriculomegaly. Bones/joints: There is significant expansion of the CSF containing spaces of the right hemisphere with extension beyond the calvarium through a craniotomy defect measuring approximately 4.3 cm. Sinuses: Unremarkable as visualized. No acute sinusitis. Mastoid air cells: Unremarkable as visualized. No mastoid effusion. Orbits: Unremarkable as visualized. Other vasculature: Following demonstration of intravenous contrast, there is no evidence of abnormal enhancement. IMPRESSION: 1. No obvious hemorrhage or stroke. Artifact on DWI sequence partially limits evaluation. Otherwise, no significant interval change from recent CT. 2. Large extra-axial fluid collection pending through craniotomy defect. There is mild right to left midline shift measuring in proximal 7 mm. 3. Extensive right parenchymal volume loss. May be sequela of prior infarct versus postsurgical/post traumatic change. 4. Encephalization of the left hemisphere with expansion of CSF containing spaces. DAILY ESTIMATED NEEDS: Needs based on Pulmonary, 68kg 25-30 kcals/kg 2179-1359 total kcals 1.25-1.5 g protein/kg 85-102 g total protein 25-30 mL/kg 9672-0353 total fluid mLs NUTRITION DIAGNOSIS: Swallowing difficulty r/t TBI and resp distress, as evidenced by pt is vent dep via T-collar, PEG dep. CURRENT TF:Jevity 1.2 @70 ml x20 hrs ENTERAL NUTRITION RECOMMENDATIONS: Increase TF to goal of 75ml/hr x20 hrs to provide 1500ml, 1800 kcal, 83g pro, 1211ml free H2O - Rec to INCREASE TF by 5ml/hr to better meet est kcal and pro needs. - Flush per MD/ HOB over 30 degrees ADDITIONAL RECOMMENDATIONS: 1) Skin integrity: add CATALINA BID via PEG (added 5g pro to meet est pro needs) 2) Wound care eval 3) Per SNF: 5'5" and 150#, maintain calibrated bed scale wts Carl Hernandez Jun 15, 2020 16:51
--- NOTE | 2020-06-15 19:19 | NUR ---
NURSE NOTES: Patient received from Malissa QUAN. Patient A&O x0 which is his baseline. PICC Line on Right upper arm double lumen with NS running KVO and a Left arm 20G patent and intact saline locked. ON T piece @ 5L FiO2 at 25% saturating well @ 96%. On GTube feeding Twocal @ 45mls/hr on for 20 hrs. Bed in lowest position and locked. Will continue plan of care.
--- NOTE | 2020-06-15 19:19 | NUR ---
NURSE HAND-OFF REPORT: Important Events on Shift: Temp continues to elevate highest was 101.2 Patient Status: Stable Diet: Gtube Pending Orders: Pending Results/Labs: Pending MD notification: Latest Vital Signs: Temperature 99.3 , Pulse 97 , B/P 126 /65 , Respiratory Rate 24 , O2 SAT 98 , T-piece, O2 Flow Rate 5.0 . Vital Sign Comment: EKG Rhythm: Sinus Tachycardia Rhythm change?: N MD Notified?: N -DR.BALFE BO Response: No New Orders Received Latest Whitley Fall Score: 70 Fall Risk: High Risk Safety Measures: Call light Within Reach, Bed Alarm Zone 1, Side Rails Side Rails x3, Bed position Low and Locked. Fall Precautions: Yellow Socks Yellow Gown Door Sign Patient Fall Education Report given to
[2020-06-15 20:00] VITALS: BP 111/62
[2020-06-15] MEDS: Dyna-Hex 2% Top Sol 2oz TOPIC SCH (20:10)
--- NOTE | 2020-06-15 20:41 | NUR ---
NURSE NOTES: Rectal temp of 100.1 Ice bags put on both axilla.
[2020-06-16] VITALS: BP 122/65
[2020-06-16 04:00] VITALS: BP 124/75
[2020-06-16] MEDS: Meropenem 1 GM in NS 55 ML IVPB SCH ×3 (05:09→22:13)
--- NOTE | 2020-06-16 07:21 | NUR ---
NURSE HAND-OFF REPORT: Important Events on Shift:[Temp of 100.1 ica packs given] Patient Status: [Stable] Diet: [Twocal @ 45cc/hr on for 20hrs off 8am-12pm] Pending Orders: [] Pending Results/Labs:[] Pending MD notification:[] Latest Vital Signs: Temperature 99.7 , Pulse 90 , B/P 124 /75 , Respiratory Rate 24 , O2 SAT 100 , T-piece, O2 Flow Rate 5.0 . Vital Sign Comment: [] EKG Rhythm: Sinus Rhythm Rhythm change?: N MD Notified?: N -DR.BALFE BO Response: No New Orders Received Latest Whitley Fall Score: 70 Fall Risk: High Risk Safety Measures: Call light Within Reach, Bed Alarm Zone 1, Side Rails Side Rails x3, Bed position Low and Locked. Fall Precautions: Yellow Socks Yellow Gown Door Sign Patient Fall Education Report given to [Markel RN].
--- NOTE | 2020-06-16 07:30 | NUR ---
NURSE NOTES: Received pt from KADEEM Felix, pt is sleeping, pt has trach collar with 5lit O2, RN did suction frequently. pt has intact iv access LFA 22G SL and PICC HELIO SL. pt is on continues heart monitoring. pt has g tube patent, feeding will stop 8am till 1200 as order. pt has Daniels cath in place is running well. All needs attended, bed is locked and is in the lowest position, call light within easy reach. will continue to monitor.
[2020-06-16 08:00] VITALS: BP 128/73
[2020-06-16] MEDS: [UNRECOGNIZED DRUG - OTHER] IVPB SCH (08:27)
[2020-06-16] MEDS: Sucralfate 1gm tab ORAL SCH ×2 (08:27→17:06)
[2020-06-16] MEDS: VANCOMYCIN IVPB SCH (08:27)
[2020-06-16] MEDS: Lactobacillus-GG tablet GT SCH (08:27)
[2020-06-16] MEDS: Fluconazole 100mg tab GT SCH (08:28)
[2020-06-16] MEDS: Metoprolol Tartrate 100mg tab ORAL SCH ×2 (08:28→20:11)
[2020-06-16] MEDS: Lacosamide 50mg tablet ORAL SCH ×2 (08:28→17:06)
[2020-06-16] MEDS: Renvela 800mg Pkt GT SCH ×3 (08:29→17:06)
[2020-06-16] MEDS: Enoxaparin 80mg Inj SUBQ SCH ×2 (08:30→20:34)
--- NOTE | 2020-06-16 09:26 | NUR ---
CASE MANAGEMENT:REVIEW 06/16/20 SI: SEPSIS. SEIZURE. KLEBSIELLA PNA 99.7 92 25 128/73 100% ON TRACH COLLAR W/5L 28% FIO2 IS: GENTAMICIN INH Q12 IV MEROPENEM Q8HRS DIFLUCAN GT Q8HRS IV VANCOMYCIN Q8HRS LOPRESSOR 150MG GT Q12 LOVENOX SQ Q12 CLONIDINE PATCH Q WEEK : TELEMETRY STATUS DCP: FROM [facility] PLAN: MONITOR TEMP CONTINUE 4 ANTIBIOTICS
[2020-06-16] MEDS: Gentamicin for inhalation INH SCH ×2 (10:28→21:09)
--- NOTE | 2020-06-16 10:31 | Infectious Diseases Prog Note ---
Assessment/Plan Assessment/Plan A; 1. Fever, 2. Traumatic brain injury. 3. Seizures. 4. Leukocytosis, improving 5. Possible scabies, treated 6. Anemia 7. Pneumonia with Pseudomonas & Klebsiella PLAN: 1. continue iv vancomycin, meropenem, fluconazole 2. continue inhaled gentamicin 3 more days 3. Will f/u cultures Subjective ROS Limited/Unobtainable: Yes Constitutional: Denies: fever Allergies: Coded Allergies: No Known Allergies (Unverified , 05/30/20) Objective Last 24 Hour Vital Signs Date Time Temp Pulse Resp B/P (MAP) Pulse Ox O2 Delivery O2 Flow Rate FiO2 06/16/20 08:28 92 128/73 06/16/20 08:00 99.7 92 25 128/73 (91) 100 06/16/20 07:48 89 06/16/20 07:20 100 T-Piece 5.0 28 06/16/20 04:00 99.7 90 24 124/75 (91) 100 06/16/20 04:00 95 06/16/20 01:08 100 T-Piece 5.0 28 06/16/20 00:00 99.7 87 24 122/65 (84) 98 06/16/20 00:00 87 06/15/20 21:30 84 20 100 T-Piece 5.0 28 81 20 99 06/15/20 21:00 T-piece 5.0 06/15/20 20:09 94 111/62 06/15/20 20:00 99.9 98 24 111/62 (78) 98 06/15/20 20:00 98 06/15/20 19:49 98 T-Piece 5.0 06/15/20 16:00 97 06/15/20 16:00 99.3 102 24 126/65 (85) 98 06/15/20 13:09 100 T-Piece 5.0 28 06/15/20 12:00 89 06/15/20 12:00 99.5 93 28 120/65 (83) 98 Height (Feet): 5 Height (Inches): 10.00 Weight (Pounds): 160 HEENT: status post trach Respiratory/Chest: other - few rhochi on T bar Cardiovascular: normal rate, other - PICC line Abdomen: soft, non tender, other - GT feeding Extremities: other - hands edema Neurologic/Psychiatric: aphasia Current Medications Medications (Trade) Dose Ordered Sig/Anuj Route PRN Reason Start Time Stop Time Status Last Admin Dose Admin Acetaminophen (Tylenol) 650 mg Q6H PRN ORAL Temp >100.5 05/30/20 18:45 06/29/20 18:44 06/15/20 02:17 Chlorhexidine Gluconate (Laura-Hex 2%) 1 applic DAILY@1999 TOPIC 06/01/20 20:00 08/30/20 19:59 06/15/20 20:10 Clonidine HCl (Catapres TTS-2) 1 patch QWEEK TDERMAL 06/14/20 09:00 09/11/20 21:59 06/14/20 09:56 Clonidine HCl (Catapres Tab) 0.1 mg Q4H PRN ORAL SBP above 150; DBP above 95 06/02/20 23:00 08/31/20 22:59 06/13/20 21:12 Enoxaparin Sodium (Lovenox) 80 mg EVERY 12 HOURS SUBQ 05/30/20 21:00 08/28/20 20:59 06/16/20 08:30 Famotidine (Pepcid) 20 mg DAILY GT 05/31/20 09:00 08/29/20 08:59 06/16/20 08:27 Fluconazole (Diflucan) 100 mg DAILY GT 06/10/20 11:03 06/21/20 11:02 06/16/20 08:28 Gentamicin Sulfate (Gentamicin vial) 300 mg Q12HR@10,22 INH 06/12/20 22:00 06/19/20 21:59 06/15/20 21:18 Lacosamide (Vimpat) 50 mg BID ORAL 05/31/20 09:00 08/29/20 08:59 06/16/20 08:28 Lactobacillus Acidophilus (Culturelle) 1 tab DAILY GT 05/31/20 09:00 08/29/20 08:59 06/16/20 08:27 Meropenem 1 gm/ Sodium Chloride 55 ml @ 110 mls/hr Q8HR IVPB 06/12/20 15:00 06/21/20 14:59 06/16/20 05:09 Metoprolol Tartrate (Lopressor) 150 mg EVERY 12 HOURS ORAL 06/08/20 09:00 09/06/20 08:59 06/16/20 08:28 Sevelamer Carbonate (Renvela) 800 mg THREE TIMES A DAY GT 05/31/20 09:00 08/29/20 08:59 06/16/20 08:29 Sucralfate (Carafate) 1 gm BID ORAL 05/31/20 09:00 08/29/20 08:59 06/16/20 08:27 Thyroid ([place] Thyroid) 15 mg DAILY GT 05/31/20 09:00 06/30/20 08:59 06/16/20 08:27 Vancomycin HCl (Vanco pharmacy to dose) 1 ea DAILY PRN MISC Per rx protocol 06/07/20 11:00 07/07/20 10:59 Vancomycin/Sodium Chloride 250 ml @ 125 mls/hr Q8H IVPB 06/15/20 08:00 06/20/20 07:59 06/16/20 08:27 Tomás Shaffer MD Jun 16, 2020 10:31
--- NOTE | 2020-06-16 11:25 | Pulmonology Progress Note ---
Subjective ROS Limited/Unobtainable: Yes Constitutional: Denies: fever Gastrointestinal/Abdominal: Reports: diarrhea Allergies: Coded Allergies: No Known Allergies (Unverified , 05/30/20) Subjective recurrent high fever- now better and low grade consultants noted CXR neg Objective Last 24 Hour Vital Signs Date Time Temp Pulse Resp B/P (MAP) Pulse Ox O2 Delivery O2 Flow Rate FiO2 06/16/20 08:28 92 128/73 06/16/20 08:00 99.7 92 25 128/73 (91) 100 06/16/20 07:48 89 06/16/20 07:20 100 T-Piece 5.0 28 06/16/20 04:00 99.7 90 24 124/75 (91) 100 06/16/20 04:00 95 06/16/20 01:08 100 T-Piece 5.0 28 06/16/20 00:00 99.7 87 24 122/65 (84) 98 06/16/20 00:00 87 06/15/20 21:30 84 20 100 T-Piece 5.0 28 81 20 99 06/15/20 21:00 T-piece 5.0 06/15/20 20:09 94 111/62 06/15/20 20:00 99.9 98 24 111/62 (78) 98 06/15/20 20:00 98 06/15/20 19:49 98 T-Piece 5.0 28 06/15/20 16:00 97 06/15/20 16:00 99.3 102 24 126/65 (85) 98 06/15/20 13:09 100 T-Piece 5.0 28 06/15/20 12:00 89 06/15/20 12:00 99.5 93 28 120/65 (83) 98 Intake and Output 06/15/20 06/16/20 19:00 07:00 Intake Total 415 ml 95 ml Output Total 600 ml 800 ml Balance -185 ml -705 ml Intake Free Water 100 ml 50 ml Tube Feeding 315 ml 45 ml Output Urine Total 600 ml 800 ml # Bowel Movements 3 1 Objective WDWN bulging noted scalp clear breath sounds bilaterally without rhonchi or wheeze [id number] tachy without MRG NABS nontender GT no CCE nonfocal trach poor LOC Current Medications Medications (Trade) Dose Ordered Sig/Anuj Route PRN Reason Start Time Stop Time Status Last Admin Dose Admin Acetaminophen (Tylenol) 650 mg Q6H PRN ORAL Temp >100.5 05/30/20 18:45 06/29/20 18:44 06/15/20 02:17 Chlorhexidine Gluconate (Laura-Hex 2%) 1 applic DAILY@2000 TOPIC 06/01/20 20:00 08/30/20 19:59 06/15/20 20:10 Clonidine HCl (Catapres TTS-2) 1 patch QWEEK TDERMAL 06/14/20 09:00 09/11/20 21:59 06/14/20 09:56 Clonidine HCl (Catapres Tab) 0.1 mg Q4H PRN ORAL SBP above 150; DBP above 95 06/02/20 23:00 08/31/20 22:59 06/13/20 21:12 Enoxaparin Sodium (Lovenox) 80 mg EVERY 12 HOURS SUBQ 05/30/20 21:00 08/28/20 20:59 06/16/20 08:30 Famotidine (Pepcid) 20 mg DAILY GT 05/31/20 09:00 08/29/20 08:59 06/16/20 08:27 Fluconazole (Diflucan) 100 mg DAILY GT 06/10/20 11:03 06/21/20 11:02 06/16/20 08:28 Gentamicin Sulfate (Gentamicin vial) 300 mg Q12HR@10,22 INH 06/12/20 22:00 06/19/20 21:59 06/16/20 10:28 Lacosamide (Vimpat) 50 mg BID ORAL 05/31/20 09:00 08/29/20 08:59 06/16/20 08:28 Lactobacillus Acidophilus (Culturelle) 1 tab DAILY GT 05/31/20 09:00 08/29/20 08:59 06/16/20 08:27 Meropenem 1 gm/ Sodium Chloride 55 ml @ 110 mls/hr Q8HR IVPB 06/12/20 15:00 06/21/20 14:59 06/16/20 05:09 Metoprolol Tartrate (Lopressor) 150 mg EVERY 12 HOURS ORAL 06/08/20 09:00 09/06/20 08:59 06/16/20 08:28 Sevelamer Carbonate (Renvela) 800 mg THREE TIMES A DAY GT 05/31/20 09:00 08/29/20 08:59 06/16/20 08:29 Sucralfate (Carafate) 1 gm BID ORAL 05/31/20 09:00 08/29/20 08:59 06/16/20 08:27 Thyroid ([place] Thyroid) 15 mg DAILY GT 05/31/20 09:00 06/30/20 08:59 06/16/20 08:27 Vancomycin HCl (Vanco pharmacy to dose) 1 ea DAILY PRN MISC Per rx protocol 06/07/20 11:00 07/07/20 10:59 Vancomycin/Sodium Chloride 250 ml @ 125 mls/hr Q8H IVPB 06/15/20 08:00 06/20/20 07:59 06/16/20 08:27 Assessment/Plan Assessment/Plan Impression: Sepsis Urinary Tract Infection TBI Seizures Hypothyroidism Sinus Tachycardia Hypertension abnormal MRI/ CT hyponatremia ?SIADH leukocytosis fever Plan: IV Antibiotics- Meropenema, flucon vanco inhaled colistin continue demeclocyline O2 PRN TC PPX Monitor labs monitor vitals renal eval noted [facility] refused transfer update sister ID follow up repeat wbc- now elevated full dose lovenox cardizem and beta jocelyn for rate control fever work up and ID clearance hope to dc in am if stable impression, plan, and exam edited and reviewed in detail care discussed with Aime Browne MD Jun 16, 2020 11:25
--- NOTE | 2020-06-16 11:37 | Surgery Progress Note ---
Surgery Progress Note Subjective Additional Comments febrile no n/v labs noted exam unchanged on support Objective Last 24 Hour Vital Signs Date Time Temp Pulse Resp B/P (MAP) Pulse Ox O2 Delivery O2 Flow Rate FiO2 06/16/20 09:00 T-piece 5.0 06/16/20 08:28 92 128/73 06/16/20 08:00 99.7 92 25 128/73 (91) 100 06/16/20 07:48 89 06/16/20 07:20 100 T-Piece 5.0 28 06/16/20 04:00 99.7 90 24 124/75 (91) 100 06/16/20 04:00 95 06/16/20 01:08 100 T-Piece 5.0 28 06/16/20 00:00 99.7 87 24 122/65 (84) 98 06/16/20 00:00 87 06/15/20 21:30 84 20 100 T-Piece 5.0 28 81 20 99 06/15/20 21:00 T-piece 5.0 06/15/20 20:09 94 111/62 06/15/20 20:00 99.9 98 24 111/62 (78) 98 06/15/20 20:00 98 06/15/20 19:49 98 T-Piece 5.0 28 06/15/20 16:00 97 06/15/20 16:00 99.3 102 24 126/65 (85) 98 06/15/20 13:09 100 T-Piece 5.0 28 06/15/20 12:00 89 06/15/20 12:00 99.5 93 28 120/65 (83) 98 I&O Intake and Output 06/15/20 06/16/20 19:00 07:00 Intake Total 415 ml 95 ml Output Total 600 ml 800 ml Balance -185 ml -705 ml Intake Free Water 100 ml 50 ml Tube Feeding 315 ml 45 ml Output Urine Total 600 ml 800 ml # Bowel Movements 3 1 Dressing: saturated Cardiovascular: RSR Respiratory: decreased breath sounds Abdomen: soft, non-tender, present bowel sounds Extremities: no tenderness, no cyanosis Plan Problems: (1) Tachycardia (2) Sepsis Assessment & Plan: 29-year-old male with leukocytosis anemia lactic acidosis. Patient admitted further care management identified to have significant secretions from tracheostomy trach collar with sutures in place causing distortion. Abdominal G-tube in place. Patient forming deep tissue injury. BMI 22 labs noted. Patient a phasic unable to respond to commands and in a vegetative state at this time. Patient with a UTI on antibiotics. Right PIC in place may need to be replaced. Turn every 2 hours offload pressure with air mattress and pillows. Trach sutures removed trach tie evaluated trach in place secretions suction. Continue with secretions chest x-ray reviewed no acute infiltrative process Leukocytosis trending down lactic acid is improving continue fluid resuscitation IV antibiotics improving labs improved cont current care trach care fevers resolved wbc resolved improved CT head noted neurosurg eval cxr improved fevers cont leukocytosis neuro input appreciate. possible infected collection transfer to neurosurgery hospital pending Thank you will follow with recommendations high fevers leukocytosis needs transfer Brain: Extensive right hemispheric parenchymal volume loss and edema. Increased hyperdense of the right frontal parenchyma. Hypodensities of the left frontal, parietal, and temporal regions which may be sequela of prior infarct. No hemorrhage. No significant white matter disease. Midline shift: Mild, 6 mm, right to left midline shift. Ventricles: Exvacuodilatation of the ventricles. Bones/joints: Postsurgical changes from extensive prior right craniotomy. Large extra-axial fluid collection extending beyond the calvarium in region of prior craniotomy. The fluid extends beyond the calvarial region by approximately 4.0 cm in axial dimension No acute fracture. Soft tissues: Unremarkable. Sinuses: Unremarkable as visualized. No acute sinusitis. Mastoid air cells: Unremarkable as visualized. No mastoid effusion. IMPRESSION: 1. Large extra-axial fluid collection of the right hemisphere extending beyond the region of large frontal craniotomy. There is mild right to left midline shift measuring approximately 6 mm. 2. Hyperdensity of the residual right parenchyma suggestive of parenchymal contusion. 3. Extensive right parenchymal volume loss. May be sequela of prior infarct versus postsurgical change. 4. Hyperdensities throughout the left cerebellum, suggestive of prior ischemic process. Artifacts: Blooming artifact is noted within the right peripheral residual parenchyma likely representing hemosiderin deposition. Brain: Extensive right hemispheric parenchymal volume loss and edema. Mild encephalomalacia of the left hemisphere with expansion of the CSF containing spaces. No hemorrhage. Midline shift: There is proximal is 7 mm of right to left midline shift. Ventricles: Unremarkable. No ventriculomegaly. Bones/joints: There is significant expansion of the CSF containing spaces of the right hemisphere with extension beyond the calvarium through a craniotomy defect measuring approximately 4.3 cm. Sinuses: Unremarkable as visualized. No acute sinusitis. Mastoid air cells: Unremarkable as visualized. No mastoid effusion. Orbits: Unremarkable as visualized. Other vasculature: Following demonstration of intravenous contrast, there is no evidence of abnormal enhancement. IMPRESSION: 1. No obvious hemorrhage or stroke. Artifact on DWI sequence partially limits evaluation. Otherwise, no significant interval change from recent CT. 2. Large extra-axial fluid collection pending through craniotomy defect. There is mild right to left midline shift measuring in proximal 7 mm. 3. Extensive right parenchymal volume loss. May be sequela of prior infarct versus postsurgical/post traumatic change. 4. Encephalization of the left hemisphere with expansion of CSF containing spaces. DAILY ESTIMATED NEEDS: Needs based on Pulmonary, 68kg 25-30 kcals/kg 3975-8355 total kcals 1.25-1.5 g protein/kg 85-102 g total protein 25-30 mL/kg 9353-4064 total fluid mLs NUTRITION DIAGNOSIS: Swallowing difficulty r/t TBI and resp distress, as evidenced by pt is vent dep via T-collar, PEG dep. CURRENT TF:Jevity 1.2 @70 ml x20 hrs ENTERAL NUTRITION RECOMMENDATIONS: Increase TF to goal of 75ml/hr x20 hrs to provide 1500ml, 1800 kcal, 83g pro, 1211ml free H2O - Rec to INCREASE TF by 5ml/hr to better meet est kcal and pro needs. - Flush per MD/ HOB over 30 degrees ADDITIONAL RECOMMENDATIONS: 1) Skin integrity: add CATALINA BID via PEG (added 5g pro to meet est pro needs) 2) Wound care eval 3) Per SNF: 5'5" and 150#, maintain calibrated bed scale wts Carl Hernandez Jun 16, 2020 11:37
[2020-06-16 12:00] VITALS: BP 142/81
[2020-06-16 16:00] VITALS: BP 127/76
--- NOTE | 2020-06-16 16:56 | Nephrology Progress Note ---
Assessment/Plan Plan Sepsis - IV Abx. Hyponatremia Na corrected to 133. DC 3% NaCl. Na drifting down. Today 133 Uosm inappropriately high. CW SIADH! Subjective Subjective Obtunded Objective Objective Last 24 Hour Vital Signs Date Time Temp Pulse Resp B/P (MAP) Pulse Ox O2 Delivery O2 Flow Rate FiO2 06/16/20 16:00 101.3 98 27 127/76 (93) 99 06/16/20 15:32 98 06/16/20 14:38 101.0 06/16/20 13:40 100 T-Piece 5.0 28 06/16/20 12:00 102.4 85 22 142/81 (101) 99 06/16/20 11:41 85 06/16/20 10:58 80 20 100 T-Piece 5.0 28 74 20 98 06/16/20 09:00 T-piece 5.0 06/16/20 08:28 92 128/73 06/16/20 08:00 99.7 92 25 128/73 (91) 100 06/16/20 07:48 89 06/16/20 07:20 100 T-Piece 5.0 28 06/16/20 04:00 99.7 90 24 124/75 (91) 100 06/16/20 04:00 95 06/16/20 01:08 100 T-Piece 5.0 28 06/16/20 00:00 99.7 87 24 122/65 (84) 98 06/16/20 00:00 87 06/15/20 21:30 84 20 100 T-Piece 5.0 28 81 20 99 06/15/20 21:00 T-piece 5.0 06/15/20 20:09 94 111/62 06/15/20 20:00 99.9 98 24 111/62 (78) 98 06/15/20 20:00 98 06/15/20 19:49 98 T-Piece 5.0 28 Intake and Output 06/15/20 06/16/20 19:00 07:00 Intake Total 415 ml 95 ml Output Total 600 ml 800 ml Balance -185 ml -705 ml Intake Free Water 100 ml 50 ml Tube Feeding 315 ml 45 ml Output Urine Total 600 ml 800 ml # Bowel Movements 3 1 Laboratory Tests 06/16/20 15:25: Vancomycin Level Trough 23.3H Height (Feet): 5 Height (Inches): 10.00 Weight (Pounds): 160 Objective Head deformed post op CV RR Neck trach clean Lungs B dariel Abd SNT. BS + E No CCE Valerio Hendrix MD Jun 16, 2020 16:56
--- NOTE | 2020-06-16 17:24 | NUR ---
NURSE NOTES: pt has fever, given pt bed bath and ice pack and Dr Emi Shaffer is aware, no new order received. wound treatment done as order and pt tolerated well. will continue to monitor.
--- NOTE | 2020-06-16 19:09 | NUR ---
NURSE HAND-OFF REPORT: Important Events on Shift: Patient Status: Diet: Pending Orders: Pending Results/Labs: Pending MD notification: Latest Vital Signs: Temperature 101.3 , Pulse 98 , B/P 127 /76 , Respiratory Rate 27 , O2 SAT 99 , T-piece, O2 Flow Rate 5.0 . Vital Sign Comment: EKG Rhythm: Sinus Rhythm Rhythm change?: N MD Notified?: N -DR.BALFE BO Response: No New Orders Received Latest Whit[place] Fall Score: 70 Fall Risk: High Risk Safety Measures: Call light Within Reach, Bed Alarm Zone 1, Side Rails Side Rails x3, Bed position Low and Locked. Fall Precautions: Yellow Socks Yellow Gown Door Sign Patient Fall Education Report given to . pt is sleeping and stable, no stress noted. Endorsed plan of care.
--- NOTE | 2020-06-16 19:15 | NUR ---
NURSE NOTES: Patient received from Markel QUAN. Patient on T piece @ 5L @ 25% FiO2 saturating well. A&O x O. On Gtube patent and intact feeding running Twocal @ 45cc/hr. PICC line patent and intact running NS TKO. IV site patent and intact also on Left forearm 20G SL. Noted to have fever today in morning shift. Daniels catheter draining well to gravity. Bed in lowest position and locked. Side rails up. Will continue plan of care.
[2020-06-16 20:00] VITALS: BP 125/75
[2020-06-16] MEDS: Dyna-Hex 2% Top Sol 2oz TOPIC SCH (20:08)
[2020-06-17] VITALS: BP_SYST 128; BP_SYST 143; BP_DIAS 48; BP_DIAS 75
[2020-06-17 04:00] VITALS: BP 131/86
[2020-06-17] MEDS: Meropenem 1 GM in NS 55 ML IVPB SCH ×3 (05:02→22:37)
--- NOTE | 2020-06-17 07:02 | NUR ---
NURSE HAND-OFF REPORT: Important Events on Shift:[Febrile] Patient Status: [] Diet: [Twocal @ 45cc/hr on for 20hrs off @ 8am-12pm] Pending Orders: [] Pending Results/Labs:[] Pending MD notification:[] Latest Vital Signs: Temperature 99.9 , Pulse 86 , B/P 131 /86 , Respiratory Rate 24 , O2 SAT 99 , T-piece, O2 Flow Rate 5.0 . Vital Sign Comment: [] EKG Rhythm: Sinus Rhythm Rhythm change?: N Notified?: N -DR.BALFE BO Response: No New Orders Received Latest [place] Fall Score: 70 Fall Risk: High Risk Safety Measures: Call light Within Reach, Bed Alarm Zone 1, Side Rails Side Rails x3, Bed position Low and Locked. Fall Precautions: Yellow Socks Yellow Gown Door Sign Patient Fall Education Report given to [Markel RN].
[2020-06-17 07:05] LABS: ANION GAP 7 mmol/L (5-15); BLOOD UREA NITROGEN 11 mg/dL (7-18); CALCIUM 9.1 MG/DL (8.5-10.1); CARBON DIOXIDE 31 MMOL/L (21-32); CHLORIDE 97 MMOL/L (98-107); CREATININE 0.7 MG/DL (0.55-1.30); POTASSIUM 4.6 MMOL/L (3.5-5.1); SODIUM 135 MMOL/L (136-145)
--- NOTE | 2020-06-17 07:21 | NUR ---
NURSE NOTES: Received pt from KADEEM Felix, pt is sleeping, pt has trach collar with 5lit O2, RN did suction. pt has intact iv access LFA 22G SL and PICC HELIO SL. pt is on continues heart monitoring. pt has g tube patent, feeding will stop 8am till 1200 as order. pt has Daniels cath in place is running well. All needs attended, bed is locked and is in the lowest position, call light within easy reach. will continue to monitor.
[2020-06-17 08:00] VITALS: BP 118/71
--- NOTE | 2020-06-17 08:34 | Pulmonology Progress Note ---
Subjective ROS Limited/Unobtainable: Yes Constitutional: Denies: fever Gastrointestinal/Abdominal: Reports: diarrhea Allergies: Coded Allergies: No Known Allergies (Unverified , 05/30/20) Subjective recurrent high fever- now better and low grade consultants noted CXR neg Objective Last 24 Hour Vital Signs Date Time Temp Pulse Resp B/P (MAP) Pulse Ox O2 Delivery O2 Flow Rate FiO2 06/17/20 08:00 98.7 95 21 118/71 (87) 100 06/17/20 07:25 100 T-Piece 5.0 28 06/17/20 04:00 89 06/17/20 04:00 99.9 86 24 131/86 (101) 99 06/17/20 00:59 100 T-Piece 5.0 28 06/17/20 00:00 89 06/17/20 00:00 100.5 117 24 128/75 (92) 99 06/16/20 21:09 88 20 100 T-Piece 5.0 28 89 20 100 06/16/20 21:00 T-piece 5.0 06/16/20 20:41 100.0 06/16/20 20:11 98 122/72 06/16/20 20:00 99 06/16/20 20:00 100.7 98 24 125/75 (92) 99 06/16/20 19:42 99 T-Piece 5.0 28 06/16/20 16:00 101.3 98 27 127/76 (93) 99 06/16/20 15:32 98 06/16/20 14:38 101.0 06/16/20 13:40 100 T-Piece 5.0 28 06/16/20 12:00 102.4 85 22 142/81 (101) 99 06/16/20 11:41 85 06/16/20 10:58 80 20 100 T-Piece 5.0 28 74 20 98 06/16/20 09:00 T-piece 5.0 Intake and Output 06/16/20 06/17/20 19:00 07:00 Intake Total 970.000 ml 95 ml Output Total 700 ml 2000 ml Balance 270.000 ml -1905 ml Intake Free Water 100 ml 50 ml IV Total 555.000 ml Tube Feeding 315 ml 45 ml Output Urine Total 700 ml 2000 ml # Bowel Movements 1 Objective WDWN bulging noted scalp clear breath sounds bilaterally without rhonchi or wheeze S1S2RR tachy without MRG NABS nontender GT no CCE nonfocal trach poor LOC Laboratory Tests 06/16/20 15:25: Vancomycin Level Trough 23.3H 06/17/20 06:32: Sodium Level 135L, Potassium Level 4.6, Chloride Level 97L, Carbon Dioxide Level 31, Anion Gap 7, Blood Urea Nitrogen 11, Creatinine 0.7, Estimat Glomerular Filtration Rate > 60, Glucose Level 125H, Calcium Level 9.1, Magnesium Level 2.2 Current Medications Medications (Trade) Dose Ordered Sig/Anuj Route PRN Reason Start Time Stop Time Status Last Admin Dose Admin Acetaminophen (Tylenol) 650 mg Q6H PRN ORAL Temp >100.5 05/30/20 18:45 06/29/20 18:44 06/16/20 20:11 Chlorhexidine Gluconate (Laura-Hex 2%) 1 applic DAILY@1999 TOPIC 06/01/20 20:00 08/30/20 19:59 06/16/20 20:08 Clonidine HCl (Catapres TTS-2) 1 patch QWEEK TDERMAL 06/14/20 09:00 09/11/20 21:59 06/14/20 09:56 Clonidine HCl (Catapres Tab) 0.1 mg Q4H PRN ORAL SBP above 150; DBP above 95 06/02/20 23:00 08/31/20 22:59 06/13/20 21:12 Enoxaparin Sodium (Lovenox) 80 mg EVERY 12 HOURS SUBQ 05/30/20 21:00 08/28/20 20:59 06/16/20 20:34 Famotidine (Pepcid) 20 mg DAILY GT 05/31/20 09:00 08/29/20 08:59 06/16/20 08:27 Fluconazole (Diflucan) 100 mg DAILY GT 06/10/20 11:03 06/21/20 11:02 06/16/20 08:28 Gentamicin Sulfate (Gentamicin vial) 300 mg Q12HR@ INH 06/12/20 22:00 06/19/20 21:59 06/16/20 21:09 Lacosamide (Vimpat) 50 mg BID ORAL 05/31/20 09:00 08/29/20 08:59 10/15/20 17:06 Lactobacillus Acidophilus (Culturelle) 1 tab DAILY GT 05/31/20 09:00 08/29/20 08:59 06/16/20 08:27 Meropenem 1 gm/ Sodium Chloride 55 ml @ 110 mls/hr Q8HR IVPB 06/12/20 15:00 06/21/20 14:59 06/17/20 05:02 Metoprolol Tartrate (Lopressor) 150 mg EVERY 12 HOURS ORAL 06/08/20 09:00 09/06/20 08:59 06/16/20 20:11 Sevelamer Carbonate (Renvela) 800 mg THREE TIMES A DAY GT 05/31/20 09:00 08/29/20 08:59 06/16/20 17:06 Sucralfate (Carafate) 1 gm BID ORAL 05/31/20 09:00 08/29/20 08:59 06/16/20 17:06 Thyroid ([place] Thyroid) 15 mg DAILY GT 05/31/20 09:00 06/30/20 08:59 06/16/20 08:27 Vancomycin HCl (Vanco pharmacy to dose) 1 ea DAILY PRN MISC Per rx protocol 06/07/20 11:00 07/07/20 10:59 Vancomycin HCl 1 gm/Sodium Chloride 250 ml @ 167.007 mls/hr Q8H IVPB 06/16/20 18:00 06/21/20 17:59 06/17/20 01:20 Assessment/Plan Assessment/Plan Impression: Sepsis Urinary Tract Infection TBI Seizures Hypothyroidism Sinus Tachycardia Hypertension abnormal MRI/ CT hyponatremia ?SIADH leukocytosis fever Plan: IV Antibiotics- Meropenema, flucon vanco inhaled colistin continue demeclocyline O2 PRN TC PPX Monitor labs monitor vitals renal eval noted [facility] refused transfer update sister ID follow up repeat wbc- now elevated full dose lovenox cardizem and beta jocelyn for rate control fever work up and ID clearance hope to dc in am if stable impression, plan, and exam edited and reviewed in detail care discussed with Aime Browne MD Jun 17, 2020 08:34
[2020-06-17] MEDS: Metoprolol Tartrate 100mg tab ORAL SCH ×2 (08:40→20:22)
[2020-06-17] MEDS: Enoxaparin 80mg Inj SUBQ SCH ×2 (08:40→20:47)
[2020-06-17] MEDS: Fluconazole 100mg tab GT SCH (08:40)
[2020-06-17] MEDS: Renvela 800mg Pkt GT SCH ×3 (08:40→17:03)
[2020-06-17] MEDS: Lactobacillus-GG tablet GT SCH (08:40)
[2020-06-17] MEDS: Sucralfate 1gm tab ORAL SCH ×2 (08:40→17:03)
[2020-06-17] MEDS: Lacosamide 50mg tablet ORAL SCH ×2 (08:41→17:03)
--- NOTE | 2020-06-17 10:35 | Infectious Diseases Prog Note ---
"Assessment/Plan Assessment/Plan antibiotics : vancomycin iv, meropenem, inhaled gentamicin, fluconazole A 1. fever COVID 19 negative 2. ? scabies s/p rx 3. leucocytosis improving 4. traumatic brain injury 5. seizures 6. brain abscess 7. aspiration pneumonia with klebsiella | pseudomonas 8. gram negative | fungal UTI s/p rx P 1. continue iv vancomycin, meropenem 2. d/c fluconazole 3. continue inhaled gentamicin 1 more day 4. will follow up cultures Subjective ROS Limited/Unobtainable: Yes Allergies: Coded Allergies: No Known Allergies (Unverified , 05/30/20) Objective Last 24 Hour Vital Signs Date Time Temp Pulse Resp B/P (MAP) Pulse Ox O2 Delivery O2 Flow Rate FiO2 06/17/20 09:00 T-piece 5.0 06/17/20 08:40 95 118/71 06/17/20 08:00 98.7 95 21 118/71 (87) 100 06/17/20 07:49 93 06/17/20 07:25 100 T-Piece 5.0 06/17/20 04:00 89 06/17/20 04:00 99.9 86 24 131/86 (101) 99 06/17/20 00:59 100 T-Piece 5.0 28 06/17/20 00:00 89 06/17/20 00:00 100.5 117 24 128/75 (92) 99 06/16/20 21:09 88 20 100 T-Piece 5.0 28 89 20 100 06/16/20 21:00 T-piece 5.0 06/16/20 20:41 100.0 06/16/20 20:11 98 122/72 06/16/20 20:00 99 06/16/20 20:00 100.7 98 24 125/75 (92) 99 06/16/20 19:42 99 T-Piece 5.0 28 06/16/20 16:00 101.3 98 27 127/76 (93) 99 06/16/20 15:32 98 06/16/20 14:38 101.0 06/16/20 13:40 100 T-Piece 5.0 28 06/16/20 12:00 102.4 85 22 142/81 (101) 99 06/16/20 11:41 85 06/16/20 10:58 80 20 100 T-Piece 5.0 28 74 20 98 Height (Feet): 5 Height (Inches): 10.00 Weight (Pounds): 160 HEENT: status post trach, other - head swelling Respiratory/Chest: lungs clear Cardiovascular: normal rate, regular rhythm, no gallop/murmur Abdomen: soft, non tender, other - GT Extremities: no edema, other - right arm PICC Laboratory Tests Test 06/16/20 15:25 06/17/20 06:32 Vancomycin Level Trough 23.3 ug/mL (5.0-12.0) H Sodium Level 135 MMOL/L (136-145) L Potassium Level 4.6 MMOL/L (3.5-5.1) Chloride Level 97 MMOL/L (98-107) L Carbon Dioxide Level 31 MMOL/L (21-32) Anion Gap 7 mmol/L (5-15) Blood Urea Nitrogen 11 mg/dL (7-18) Creatinine 0.7 MG/DL (0.55-1.30) Estimat Glomerular Filtration Rate > 60 mL/min (>60) Glucose Level 125 MG/DL (74-106) H Calcium Level 9.1 MG/DL (8.5-10.1) Magnesium Level 2.2 MG/DL (1.8-2.4) Current Medications Medications (Trade) Dose Ordered Sig/Anuj Route PRN Reason Start Time Stop Time Status Last Admin Dose Admin Acetaminophen (Tylenol) 650 mg Q6H PRN ORAL Temp >100.5 05/30/20 18:45 06/29/20 18:44 06/16/20 20:11 Chlorhexidine Gluconate (Laura-Hex 2%) 1 applic DAILY@1999 TOPIC 06/01/20 20:00 08/30/20 19:59 06/16/20 20:08 Clonidine HCl (Catapres TTS-2) 1 patch QWEEK TDERMAL 06/14/20 09:00 09/11/20 21:59 06/14/20 09:56 Clonidine HCl (Catapres Tab) 0.1 mg Q4H PRN ORAL SBP above 150; DBP above 95 06/02/20 23:00 08/31/20 22:59 06/13/20 21:12 Enoxaparin Sodium (Lovenox) 80 mg EVERY 12 HOURS SUBQ 05/30/20 21:00 08/28/20 20:59 06/17/20 08:40 Famotidine (Pepcid) 20 mg DAILY GT 05/31/20 09:00 08/29/20 08:59 06/17/20 08:40 Fluconazole (Diflucan) 100 mg DAILY GT 06/10/20 11:03 06/21/20 11:02 06/17/20 08:40 Gentamicin Sulfate (Gentamicin vial) 300 mg Q12HR@10,22 INH 06/12/20 22:00 06/19/20 21:59 06/16/20 21:09 Lacosamide (Vimpat) 50 mg BID ORAL 05/31/20 09:00 08/29/20 08:59 06/17/20 08:41 Lactobacillus Acidophilus (Culturelle) 1 tab DAILY GT 05/31/20 09:00 08/29/20 08:59 06/17/20 08:40 Meropenem 1 gm/ Sodium Chloride 55 ml @ 110 mls/hr Q8HR IVPB 06/12/20 15:00 06/21/20 14:59 06/17/20 05:02 Metoprolol Tartrate (Lopressor) 150 mg EVERY 12 HOURS ORAL 06/08/20 09:00 09/06/20 08:59 06/17/20 08:40 Sevelamer Carbonate (Renvela) 800 mg THREE TIMES A DAY GT 05/31/20 09:00 08/29/20 08:59 06/17/20 08:40 Sucralfate (Carafate) 1 gm BID ORAL 05/31/20 09:00 08/29/20 08:59 06/17/20 08:40 Thyroid ([place] Thyroid) 15 mg DAILY GT 05/31/20 09:00 06/30/20 08:59 06/17/20 08:40 Vancomycin HCl ([facility] pharmacy to dose) 1 ea DAILY PRN MISC Per rx protocol 06/07/20 11:00 07/07/20 10:59 Vancomycin HCl 1 gm/Sodium Chloride 250 ml @ 167.007 mls/hr Q8H IVPB 06/16/20 18:00 06/21/20 17:59 06/17/20 09:01 Dl Mcgowan MD Jun 17, 2020 10:35"
--- NOTE | 2020-06-17 10:36 | NUR ---
RD ASSESSMENT & RECOMMENDATIONS SEE CARE ACTIVITY FOR COMPLETE ASSESSMENT DAILY ESTIMATED NEEDS: Needs based on Pulmonary, 68kg 25-30 kcals/kg 8882-0669 total kcals 1.25-1.5 g protein/kg 85-102 g total protein 20-25 mL/kg 6476-2196 total fluid mLs NUTRITION DIAGNOSIS: Swallowing difficulty r/t TBI and resp distress, as evidenced by pt is vent dep via T-collar, PEG dep. CURRENT TF:2Cal @45ml x20 hrs + Prosource qdaily ENTERAL NUTRITION RECOMMENDATIONS: Maintain Two Mikhail HN @ 45ml/hr x 20 hrs + Prosource 1pkt QD to provide 900ml, 1800kcal, 75g prot+11g prot, 630ml free water - Maintain current TF TwoCal HN @45ml/hr x20 hrs, for less free fluid: consistent hyponatremia, Na now trending up, will provide 500ml less free water than current TF - Add Prosource 1pkt QD to meet protein needs - Flush per MD/ HOB over 30 degrees ADDITIONAL RECOMMENDATIONS: 1) Wound Care: add MVI x 1 and Vit C 250mg QD add CATALINA BID via PEG (also provides added 5g prot to meet est prot needs) 2) Per SNF: 5'5" and 150#, maintain calibrated bed scale wts 3) Check phos level: pt on Renvela TID, renal fxn wnl Phos wnl (4.3).
[2020-06-17] MEDS: Gentamicin for inhalation INH SCH ×2 (11:11→21:48)
[2020-06-17 11:37] VITALS: BP 119/71
--- NOTE | 2020-06-17 13:39 | Nephrology Progress Note ---
Assessment/Plan Plan Sepsis - IV Abx. Hyponatremia Na corrected to 133. DC 3% NaCl. Na stable @ 135. Uosm inappropriately high. CW SIADH! Subjective Subjective Obtunded Objective Objective Last 24 Hour Vital Signs Date Time Temp Pulse Resp B/P (MAP) Pulse Ox O2 Delivery O2 Flow Rate FiO2 06/17/20 13:00 100 T-Piece 5.0 28 06/17/20 11:37 99.3 87 22 119/71 (87) 100 06/17/20 11:36 80 06/17/20 11:31 88 20 100 T-Piece 5.0 28 88 20 100 06/17/20 09:00 T-piece 5.0 06/17/20 08:40 95 118/71 06/17/20 08:00 98.7 95 21 118/71 (87) 100 06/17/20 07:49 93 06/17/20 07:25 100 T-Piece 5.0 28 06/17/20 04:00 89 06/17/20 04:00 99.9 86 24 131/86 (101) 99 06/17/20 00:59 100 T-Piece 5.0 28 06/17/20 00:00 89 06/17/20 00:00 100.5 117 24 128/75 (92) 99 06/16/20 21:09 88 20 100 T-Piece 5.0 89 20 100 06/16/20 21:00 T-piece 5.0 06/16/20 20:41 100.0 06/16/20 20:11 98 122/72 06/16/20 20:00 99 06/16/20 20:00 100.7 98 24 125/75 (92) 99 06/16/20 19:42 99 T-Piece 5.0 28 06/16/20 16:00 101.3 98 27 127/76 (93) 99 06/16/20 15:32 98 06/16/20 14:38 101.0 06/16/20 13:40 100 T-Piece 5.0 28 Intake and Output 06/16/20 06/17/20 19:00 07:00 Intake Total 970.000 ml 95 ml Output Total 700 ml 2000 ml Balance 270.000 ml -1905 ml Intake Free Water 100 ml 50 ml IV Total 555.000 ml Tube Feeding 315 ml 45 ml Output Urine Total 700 ml 2000 ml # Bowel Movements 1 Laboratory Tests 06/16/20 15:25: Vancomycin Level Trough 23.3H 06/17/20 06:32: Sodium Level 135L, Potassium Level 4.6, Chloride Level 97L, Carbon Dioxide Level 31, Anion Gap 7, Blood Urea Nitrogen 11, Creatinine 0.7, Estimat Glomerular Filtration Rate > 60, Glucose Level 125H, Calcium Level 9.1, Magnesium Level 2.2 Height (Feet): 5 Height (Inches): 10.00 Weight (Pounds): 160 Objective Head deformed post op CV RR Neck trach clean Lungs B ronchi Abd SNT. BS + E No CCE Valerio Hendrix MD Jun 17, 2020 13:39
--- NOTE | 2020-06-17 13:45 | Surgery Progress Note ---
Surgery Progress Note Subjective Additional Comments ill appearing remains febrile wbc 11k non responsive Objective Last 24 Hour Vital Signs Date Time Temp Pulse Resp B/P (MAP) Pulse Ox O2 Delivery O2 Flow Rate FiO2 06/17/20 13:00 100 T-Piece 5.0 28 06/17/20 11:37 99.3 87 22 119/71 (87) 100 06/17/20 11:36 80 06/17/20 11:31 88 20 100 T-Piece 5.0 28 88 20 100 06/17/20 09:00 T-piece 5.0 06/17/20 08:40 95 118/71 06/17/20 08:00 98.7 95 21 118/71 (87) 100 06/17/20 07:49 93 06/17/20 07:25 100 T-Piece 5.0 28 06/17/20 04:00 89 06/17/20 04:00 99.9 86 24 131/86 (101) 99 06/17/20 00:59 100 T-Piece 5.0 28 06/17/20 00:00 89 06/17/20 00:00 100.5 117 24 128/75 (92) 99 06/16/20 21:09 88 20 100 T-Piece 5.0 89 20 100 06/16/20 21:00 T-piece 5.0 06/16/20 20:41 100.0 06/16/20 20:11 98 122/72 06/16/20 20:00 99 06/16/20 20:00 100.7 98 24 125/75 (92) 99 06/16/20 19:42 99 T-Piece 5.0 28 06/16/20 16:00 101.3 98 27 127/76 (93) 99 06/16/20 15:32 98 06/16/20 14:38 101.0 I&O Intake and Output 06/16/20 06/17/20 19:00 07:00 Intake Total 970.000 ml 95 ml Output Total 700 ml 2000 ml Balance 270.000 ml -1905 ml Intake Free Water 100 ml 50 ml IV Total 555.000 ml Tube Feeding 315 ml 45 ml Output Urine Total 700 ml 2000 ml # Bowel Movements 1 Dressing: saturated Cardiovascular: RSR Respiratory: decreased breath sounds Abdomen: soft, non-tender, present bowel sounds Extremities: no tenderness, no cyanosis Laboratory Tests Test 06/16/20 15:25 06/17/20 06:32 Vancomycin Level Trough 23.3 ug/mL (5.0-12.0) H Sodium Level 135 MMOL/L (136-145) L Potassium Level 4.6 MMOL/L (3.5-5.1) Chloride Level 97 MMOL/L (98-107) L Carbon Dioxide Level 31 MMOL/L (21-32) Anion Gap 7 mmol/L (5-15) Blood Urea Nitrogen 11 mg/dL (7-18) Creatinine 0.7 MG/DL (0.55-1.30) Estimat Glomerular Filtration Rate > 60 mL/min (>60) Glucose Level 125 MG/DL (74-106) H Calcium Level 9.1 MG/DL (8.5-10.1) Magnesium Level 2.2 MG/DL (1.8-2.4) Plan Problems: (1) Tachycardia (2) Sepsis Assessment & Plan: 29-year-old male with leukocytosis anemia lactic acidosis. Patient admitted further care management identified to have significant secretions from tracheostomy trach collar with sutures in place causing distortion. Abdominal G-tube in place. Patient forming deep tissue injury. BMI 22 labs noted. Patient a phasic unable to respond to commands and in a vegetative state at this time. Patient with a UTI on antibiotics. Right PIC in place may need to be replaced. Turn every 2 hours offload pressure with air mattress and pillows. Trach sutures removed trach tie evaluated trach in place secretions suction. Continue with secretions chest x-ray reviewed no acute infiltrative process Leukocytosis trending down lactic acid is improving continue fluid resuscitation IV antibiotics improving labs improved cont current care trach care fevers resolved wbc resolved improved CT head noted neurosurg eval cxr improved fevers cont leukocytosis neuro input appreciate. possible infected collection transfer to neurosurgery hospital pending Thank you will follow with recommendations high fevers leukocytosis needs transfer Brain: Extensive right hemispheric parenchymal volume loss and edema. Increased hyperdense of the right frontal parenchyma. Hypodensities of the left frontal, parietal, and temporal regions which may be sequela of prior infarct. No hemorrhage. No significant white matter disease. Midline shift: Mild, 6 mm, right to left midline shift. Ventricles: Exvacuodilatation of the ventricles. Bones/joints: Postsurgical changes from extensive prior right craniotomy. Large extra-axial fluid collection extending beyond the calvarium in region of prior craniotomy. The fluid extends beyond the calvarial region by approximately 4.0 cm in axial dimension No acute fracture. Soft tissues: Unremarkable. Sinuses: Unremarkable as visualized. No acute sinusitis. Mastoid air cells: Unremarkable as visualized. No mastoid effusion. IMPRESSION: 1. Large extra-axial fluid collection of the right hemisphere extending beyond the region of large frontal craniotomy. There is mild right to left midline shift measuring approximately 6 mm. 2. Hyperdensity of the residual right parenchyma suggestive of parenchymal contusion. 3. Extensive right parenchymal volume loss. May be sequela of prior infarct versus postsurgical change. 4. Hyperdensities throughout the left cerebellum, suggestive of prior ischemic process. Artifacts: Blooming artifact is noted within the right peripheral residual parenchyma likely representing hemosiderin deposition. Brain: Extensive right hemispheric parenchymal volume loss and edema. Mild encephalomalacia of the left hemisphere with expansion of the CSF containing spaces. No hemorrhage. Midline shift: There is proximal is 7 mm of right to left midline shift. Ventricles: Unremarkable. No ventriculomegaly. Bones/joints: There is significant expansion of the CSF containing spaces of the right hemisphere with extension beyond the calvarium through a craniotomy defect measuring approximately 4.3 cm. Sinuses: Unremarkable as visualized. No acute sinusitis. Mastoid air cells: Unremarkable as visualized. No mastoid effusion. Orbits: Unremarkable as visualized. Other vasculature: Following demonstration of intravenous contrast, there is no evidence of abnormal enhancement. IMPRESSION: 1. No obvious hemorrhage or stroke. Artifact on DWI sequence partially limits evaluation. Otherwise, no significant interval change from recent CT. 2. Large extra-axial fluid collection pending through craniotomy defect. There is mild right to left midline shift measuring in proximal 7 mm. 3. Extensive right parenchymal volume loss. May be sequela of prior infarct versus postsurgical/post traumatic change. 4. Encephalization of the left hemisphere with expansion of CSF containing spaces. DAILY ESTIMATED NEEDS: Needs based on Pulmonary, 68kg 25-30 kcals/kg 2691-5290 total kcals 1.25-1.5 g protein/kg 85-102 g total protein 25-30 mL/kg 0942-5521 total fluid mLs NUTRITION DIAGNOSIS: Swallowing difficulty r/t TBI and resp distress, as evidenced by pt is vent dep via T-collar, PEG dep. CURRENT TF:Jevity 1.2 @70 ml x20 hrs ENTERAL NUTRITION RECOMMENDATIONS: Increase TF to goal of 75ml/hr x20 hrs to provide 1500ml, 1800 kcal, 83g pro, 1211ml free H2O - Rec to INCREASE TF by 5ml/hr to better meet est kcal and pro needs. - Flush per MD/ HOB over 30 degrees ADDITIONAL RECOMMENDATIONS: 1) Skin integrity: add CATALINA BID via PEG (added 5g pro to meet est pro needs) 2) Wound care eval 3) Per SNF: 5'5" and 150#, maintain calibrated bed scale wts Carl Hernandez Jun 17, 2020 13:45
--- NOTE | 2020-06-17 14:37 | NUR ---
CASE MANAGEMENT:REVIEW 06/17/20 SI: SEPSIS. SEIZURE. KLEBSIELLA PNA 100.5 117 24 128/75 100% ON TRACH COLLAR W/5L 28% FIO2 GLUCOSE+125 IS: GENTAMICIN INH Q12 IV MEROPENEM Q8HRS DIFLUCAN GT Q8HRS IV VANCOMYCIN Q8HRS LOPRESSOR 150MG GT Q12 LOVENOX SQ Q12 CLONIDINE PATCH Q WEEK THROID GT QD CARAFATE GT BID VIMPAT GT BID : TELEMETRY STATUS DCP: FROM [facility]: MONITOR TEMP CONTINUE 4 ANTIBIOTICS
[2020-06-17 16:00] VITALS: BP 120/80
--- NOTE | 2020-06-17 19:10 | NUR ---
NURSE HAND-OFF REPORT: Important Events on Shift: Patient Status: Diet: Pending Orders: Pending Results/Labs: Pending MD notification: Latest Vital Signs: Temperature 98.2 , Pulse 67 , B/P 120 /80 , Respiratory Rate 21 , O2 SAT 100 , T-piece, O2 Flow Rate 5.0 . Vital Sign Comment: EKG Rhythm: Sinus Rhythm Rhythm change?: N MD Notified?: N -DR.BALFE BO Response: No New Orders Received Latest Whitley Fall Score: 70 Fall Risk: High Risk Safety Measures: Call light Within Reach, Bed Alarm Zone 1, Side Rails Side Rails x3, Bed position Low and Locked. Fall Precautions: Yellow Socks Yellow Gown Door Sign Patient Fall Education Report given to . Pt is stable, no stress noted. Endorsed plan of care.
--- NOTE | 2020-06-17 19:20 | NUR ---
NURSE NOTES: Patient received from Markel QUAN. Patient in bed semi fowlers. A&O x0. On T-piece @ 5L FIO2 25% saturating well. G tube feeding running twocal @ 45cc/hr running for 20hrs off at 8am-12pm. PICC line patent and intact on the right upper arm TKO. Daniels catheter patent and intact draining well to gravity. Bed in lowest position and locked. Side rails up. Will continue plan of care.
[2020-06-17 20:00] VITALS: BP 120/73
[2020-06-17] MEDS: Dyna-Hex 2% Top Sol 2oz TOPIC SCH (20:22)
[2020-06-17] MEDS: Vancomycin 1.25gm/NS Premix q24h IVPB SCH (23:13)
[2020-06-18] VITALS: BP 128/73
[2020-06-18 03:52] VITALS: BP 125/79
[2020-06-18] MEDS: Meropenem 1 GM in NS 55 ML IVPB SCH ×3 (05:05→21:25)
[2020-06-18] MEDS: Vancomycin 1.25gm/NS Premix q24h IVPB SCH ×3 (05:05→21:24)
[2020-06-18 05:24] LABS: EOSINOPHILS % (AUTO) 1.6 % (0.0-3.0); HEMATOCRIT 28.3 % (42.0-52.0); HEMOGLOBIN 9.7 G/DL (14.2-18.0); MEAN CORPUSCULAR VOLUME 85 FL (80-99); MONOCYTES % (AUTO) 8.3 % (1.0-10.0); NEUTROPHILS % (AUTO) 72.1 % (45.0-75.0); PLATELET COUNT 348 K/UL (150-450); RED BLOOD COUNT 3.33 M/UL (4.70-6.10); RED CELL DISTRIBUTION WIDTH 14.1 % (11.6-14.8); WHITE BLOOD COUNT 8.1 K/UL (4.8-10.8)
[2020-06-18 05:33] LABS: ALANINE AMINOTRANSFERASE 54 U/L (12-78); ALBUMIN 2.5 G/DL (3.4-5.0); ALBUMIN/GLOBULIN RATIO 0.6 (1.0-2.7); ALKALINE PHOSPHATASE 147 U/L (46-116); ANION GAP 5 mmol/L (5-15); ASPARTATE AMINO TRANSFERASE 22 U/L (15-37); BILIRUBIN,TOTAL 0.3 MG/DL (0.2-1.0); BLOOD UREA NITROGEN 11 mg/dL (7-18); CALCIUM 8.7 MG/DL (8.5-10.1); CARBON DIOXIDE 32 MMOL/L (21-32); CHLORIDE 97 MMOL/L (98-107); CREATININE 0.6 MG/DL (0.55-1.30); POTASSIUM 4.8 MMOL/L (3.5-5.1); SODIUM 133 MMOL/L (136-145)
--- NOTE | 2020-06-18 07:27 | NUR ---
NURSE HAND-OFF REPORT: Important Events on Shift:[Febrile] Patient Status: [] Diet: [Twocal @45cc/hr on for 20hrs off 8am-12pm] Pending Orders: [] Pending Results/Labs:[] Pending MD notification:[] Latest Vital Signs: Temperature 101.0 , Pulse 94 , B/P 125 /79 , Respiratory Rate 36 , O2 SAT 99 , T-piece, O2 Flow Rate 5.0 . Vital Sign Comment: [] EKG Rhythm: Sinus Rhythm Rhythm change?: N Notified?: N -DR.BALFE BO Response: No New Orders Received Latest Whitley Fall Score: 70 Fall Risk: High Risk Safety Measures: Call light Within Reach, Bed Alarm Zone 1, Side Rails Side Rails x3, Bed position Low and Locked. Fall Precautions: Yellow Socks Yellow Gown Door Sign Patient Fall Education Report given to [Chiara QUAN].
--- NOTE | 2020-06-18 07:30 | NUR ---
NURSE NOTES: AOx 0. repositioned pt. pt resting in bed no signs of cardiac or respiratory distress at this time, pt is on teletypesetter monitor. Bed is locked and in lowest position. call light is within reach. pt has a rectal monitor and it reads 98.9 now, no cooling blanket. Pt is on Gtube feeding will be stopped from 8-12. pt has multiple wounds will care will be done soon. Pt right side of head is swollen, will continue to monitor. Pt had a loose bm today.
[2020-06-18 08:00] VITALS: BP 137/84
--- NOTE | 2020-06-18 08:57 | Pulmonology Progress Note ---
Subjective ROS Limited/Unobtainable: Yes Constitutional: Denies: fever Gastrointestinal/Abdominal: Reports: diarrhea Allergies: Coded Allergies: No Known Allergies (Unverified , 05/30/20) Objective Last 24 Hour Vital Signs Date Time Temp Pulse Resp B/P (MAP) Pulse Ox O2 Delivery O2 Flow Rate FiO2 06/18/20 08:00 98.9 95 20 137/84 (101) 95 06/18/20 04:05 101.0 06/18/20 04:00 94 06/18/20 03:52 101.1 91 36 125/79 (94) 99 06/18/20 02:24 98 T-Piece 5.0 28 06/18/20 00:00 100.6 83 30 128/73 (91) 99 06/18/20 00:00 85 06/17/20 21:48 86 20 100 T-Piece 5.0 28 81 20 100 06/17/20 21:00 T-piece 5.0 06/17/20 20:59 101.2 06/17/20 20:22 94 120/73 06/17/20 20:12 97 T-Piece 5.0 28 06/17/20 20:00 101.8 94 36 120/73 (89) 99 06/17/20 20:00 96 06/17/20 16:00 98.2 67 21 120/80 (93) 100 06/17/20 15:47 88 06/17/20 13:00 100 T-Piece 5.0 28 06/17/20 11:37 99.3 87 22 119/71 (87) 100 06/17/20 11:36 80 06/17/20 11:31 88 20 100 T-Piece 5.0 28 88 20 100 06/17/20 09:00 T-piece 5.0 l Intake and Output 06/17/20 06/18/20 19:00 07:00 Intake Total 804.014 ml Output Total 1000 ml 1400 ml Balance -195.986 ml -1400 ml Intake Free Water 100 ml IV Total 389.014 ml Tube Feeding 315 ml Output Urine Total 1000 ml 1400 ml # Voids 1 # Bowel Movements 1 Laboratory Tests 06/17/20 16:50: Vancomycin Level Trough 11.0 06/18/20 04:55: White Blood Count 8.1, Red Blood Count 3.33L, Hemoglobin 9.7L, Hematocrit 28.3L, Mean Corpuscular Volume 85, Mean Corpuscular Hemoglobin 29.3, Mean Corpuscular Hemoglobin Concent 34.5, Red Cell Distribution Width 14.1, Platelet Count 348, Mean Platelet Volume 5.2L, Neutrophils (%) (Auto) 72.1, Lymphocytes (%) (Auto) 16.0L, Monocytes (%) (Auto) 8.3, Eosinophils (%) (Auto) 1.6, Basophils (%) (Auto) 2.0, Sodium Level 133L, Potassium Level 4.8, Chloride Level 97L, Carbon Dioxide Level 32, Anion Gap 5, Blood Urea Nitrogen 11, Creatinine 0.6, Estimat Glomerular Filtration Rate > 60, Glucose Level 137H, Calcium Level 8.7, Total Bilirubin 0.3, Aspartate Amino Transf (AST/SGOT) 22, Alanine Aminotransferase (ALT/SGPT) 54, Alkaline Phosphatase 147H, Total Protein 6.6, Albumin 2.5L, Globulin 4.1, Albumin/Globulin Ratio 0.6L Current Medications Medications (Trade) Dose Ordered Sig/Anuj Route PRN Reason Start Time Stop Time Status Last Admin Dose Admin Acetaminophen (Tylenol) 650 mg Q6H PRN ORAL Temp >100.5 05/30/20 18:45 06/29/20 18:44 06/18/20 03:35 Chlorhexidine Gluconate (Laura-Hex 2%) 1 applic DAILY@2000 TOPIC 06/01/20 20:00 08/30/20 19:59 06/17/20 20:22 Clonidine HCl (Catapres TTS-2) 1 patch QWEEK TDERMAL 06/14/20 09:00 09/11/20 21:59 06/14/20 09:56 Clonidine HCl (Catapres Tab) 0.1 mg Q4H PRN ORAL SBP above 150; DBP above 95 06/02/20 23:00 08/31/20 22:59 06/13/20 21:12 Enoxaparin Sodium (Lovenox) 80 mg EVERY 12 HOURS SUBQ 05/30/20 21:00 08/28/20 20:59 06/17/20 20:47 Famotidine (Pepcid) 20 mg DAILY GT 05/31/20 09:00 08/29/20 08:59 06/17/20 08:40 Gentamicin Sulfate (Gentamicin vial) 300 mg Q12HR@10,22 INH 06/12/20 22:00 06/19/20 21:59 06/17/20 21:48 Lacosamide (Vimpat) 50 mg BID ORAL 05/31/20 09:00 08/29/20 08:59 06/17/20 17:03 Lactobacillus Acidophilus (Culturelle) 1 tab DAILY GT 05/31/20 09:00 08/29/20 08:59 06/17/20 08:40 Meropenem 1 gm/ Sodium Chloride 55 ml @ 110 mls/hr Q8HR IVPB 06/12/20 15:00 06/21/20 14:59 06/18/20 05:05 Metoprolol Tartrate (Lopressor) 150 mg EVERY 12 HOURS ORAL 06/08/20 09:00 09/06/20 08:59 06/17/20 20:22 Sevelamer Carbonate (Renvela) 800 mg THREE TIMES A DAY GT 05/31/20 09:00 08/29/20 08:59 06/17/20 17:03 Sucralfate (Carafate) 1 gm BID ORAL 05/31/20 09:00 08/29/20 08:59 06/17/20 17:03 Thyroid ([place] Thyroid) 15 mg DAILY GT 05/31/20 09:00 06/30/20 08:59 06/17/20 08:40 Vancomycin HCl ([facility] pharmacy to dose) 1 ea DAILY PRN MISC Per rx protocol 06/07/20 11:00 07/07/20 10:59 Vancomycin/Sodium Chloride 275 ml @ 183.333 mls/hr Q8HR IVPB 06/17/20 22:00 06/22/20 21:59 06/18/20 05:05 Assessment/Plan Assessment/Plan Pulmonary Progress Note Subjective ROS Limited/Unobtainable: Yes Constitutional: Allergies: Coded Allergies: No Known Allergies (Unverified , 05/30/20) Subjective Consultatnts noted Objective Vital Signs noted Objective WDWN NAD clear breath sounds bilaterally without rhonchi or wheeze [id number] tachy without MRG NABS nontender GT no CCE nonfocal trach poor LOC = Laboratory Tests noted MRI: IMPRESSION: 1. No obvious hemorrhage or stroke. Artifact on DWI sequence partially limits evaluation. Otherwise, no significant interval change from recent CT. 2. Large extra-axial fluid collection pending through craniotomy defect. There is mild right to left midline shift measuring in proximal 7 mm. 3. Extensive right parenchymal volume loss. May be sequela of prior infarct versus postsurgical/post traumatic change. 4. Encephalization of the left hemisphere with expansion of CSF containing spaces. Assessment/Plan Impression: Sepsis Urinary Tract Infection TBI Seizures Hypothyroidism Sinus Tachycardia Hypertension abnormal MRI/ CT hyponatremia ?SIADH leukocytosis fever Plan: IV Antibiotics- Meropenema, flucon vanco inhaled colistin continue demeclocyline O2 PRN TC PPX Monitor labs monitor vitals renal eval noted [facility] refused transfer update sister ID follow up repeat wbc- now elevated full dose lovenox cardizem and beta jocelyn for rate control fever work up and ID clearance hope to dc in am if stable impression, plan, and exam edited and reviewed in detail care discussed with Garcia Hare MD Jun 18, 2020 08:57
[2020-06-18] MEDS: Metoprolol Tartrate 100mg tab ORAL SCH ×2 (09:50→21:00)
[2020-06-18] MEDS: Lacosamide 50mg tablet ORAL SCH ×2 (09:50→17:23)
[2020-06-18] MEDS: Sucralfate 1gm tab ORAL SCH ×2 (09:51→17:23)
[2020-06-18] MEDS: Lactobacillus-GG tablet GT SCH (09:52)
[2020-06-18] MEDS: Renvela 800mg Pkt GT SCH ×3 (09:52→17:23)
[2020-06-18] MEDS: Enoxaparin 80mg Inj SUBQ SCH ×2 (09:55→21:18)
[2020-06-18] MEDS: Gentamicin for inhalation INH SCH ×2 (10:14→22:54)
--- NOTE | 2020-06-18 11:12 | Surgery Progress Note ---
Surgery Progress Note Subjective Additional Comments fever persistent no transfer accepted no n/v labs noted Objective Last 24 Hour Vital Signs Date Time Temp Pulse Resp B/P (MAP) Pulse Ox O2 Delivery O2 Flow Rate FiO2 06/18/20 10:34 80 20 100 T-Piece 5.0 28 81 20 100 06/18/20 09:50 95 137/84 06/18/20 08:54 T-piece 5.0 06/18/20 08:00 98.9 95 20 137/84 (101) 95 06/18/20 07:20 100 T-Piece 5.0 28 06/18/20 04:05 101.0 06/18/20 04:00 94 06/18/20 03:52 101.1 91 36 125/79 (94) 99 06/18/20 02:24 98 T-Piece 5.0 28 06/18/20 00:00 100.6 83 30 128/73 (91) 99 06/18/20 00:00 85 06/17/20 21:48 86 20 100 T-Piece 5.0 28 81 20 100 06/17/20 21:00 T-piece 5.0 06/17/20 20:59 101.2 06/17/20 20:22 94 120/73 06/17/20 20:12 97 T-Piece 5.0 28 06/17/20 20:00 101.8 94 36 120/73 (89) 99 06/17/20 20:00 96 06/17/20 16:00 98.2 67 21 120/80 (93) 100 06/17/20 15:47 88 06/17/20 13:00 100 T-Piece 5.0 28 06/17/20 11:37 99.3 87 22 119/71 (87) 100 06/17/20 11:36 80 06/17/20 11:31 88 20 100 T-Piece 5.0 28 88 20 100 I&O Intake and Output 06/17/20 06/18/20 19:00 07:00 Intake Total 804.014 ml Output Total 1000 ml 1400 ml Balance -195.986 ml -1400 ml Intake Free Water 100 ml IV Total 389.014 ml Tube Feeding 315 ml Output Urine Total 1000 ml 1400 ml # Voids 1 # Bowel Movements 1 Dressing: saturated Cardiovascular: RSR Respiratory: decreased breath sounds Abdomen: soft, non-tender, present bowel sounds Extremities: no edema, no tenderness, no cyanosis Laboratory Tests Test 06/17/20 16:50 06/18/20 04:55 Vancomycin Level Trough 11.0 ug/mL (5.0-12.0) White Blood Count 8.1 K/UL (4.8-10.8) Red Blood Count 3.33 M/UL (4.70-6.10) L Hemoglobin 9.7 G/DL (14.2-18.0) L Hematocrit 28.3 % (42.0-52.0) L Mean Corpuscular Volume 85 FL (80-99) Mean Corpuscular Hemoglobin 29.3 PG (27.0-31.0) Mean Corpuscular Hemoglobin Concent 34.5 G/DL (32.0-36.0) Red Cell Distribution Width 14.1 % (11.6-14.8) Platelet Count 348 K/UL (150-450) Mean Platelet Volume 5.2 FL (6.5-10.1) L Neutrophils (%) (Auto) 72.1 % (45.0-75.0) Lymphocytes (%) (Auto) 16.0 % (20.0-45.0) L Monocytes (%) (Auto) 8.3 % (1.0-10.0) Eosinophils (%) (Auto) 1.6 % (0.0-3.0) Basophils (%) (Auto) 2.0 % (0.0-2.0) Sodium Level 133 MMOL/L (136-145) L Potassium Level 4.8 MMOL/L (3.5-5.1) Chloride Level 97 MMOL/L (98-107) L Carbon Dioxide Level 32 MMOL/L (21-32) Anion Gap 5 mmol/L (5-15) Blood Urea Nitrogen 11 mg/dL (7-18) Creatinine 0.6 MG/DL (0.55-1.30) Estimat Glomerular Filtration Rate > 60 mL/min (>60) Glucose Level 137 MG/DL (74-106) H Calcium Level 8.7 MG/DL (8.5-10.1) Total Bilirubin 0.3 MG/DL (0.2-1.0) Aspartate Amino Transf (AST/SGOT) 22 U/L (15-37) Alanine Aminotransferase (ALT/SGPT) 54 U/L (12-78) Alkaline Phosphatase 147 U/L (46-116) H Total Protein 6.6 G/DL (6.4-8.2) Albumin 2.5 G/DL (3.4-5.0) L Globulin 4.1 g/dL Albumin/Globulin Ratio 0.6 (1.0-2.7) L Plan Problems: (1) Tachycardia (2) Sepsis Assessment & Plan: 29-year-old male with leukocytosis anemia lactic acidosis. Patient admitted further care management identified to have significant secretions from tracheostomy trach collar with sutures in place causing distortion. Abdominal G-tube in place. Patient forming deep tissue injury. BMI 22 labs noted. Patient a phasic unable to respond to commands and in a vegetative state at this time. Patient with a UTI on antibiotics. Right PIC in place may need to be replaced. Turn every 2 hours offload pressure with air mattress and pillows. Trach sutures removed trach tie evaluated trach in place secretions suction. Continue with secretions chest x-ray reviewed no acute infiltrative process Leukocytosis trending down lactic acid is improving continue fluid resuscitation IV antibiotics improving labs improved cont current care trach care fevers resolved wbc resolved improved CT head noted neurosurg eval cxr improved fevers cont leukocytosis neuro input appreciate. possible infected collection transfer to neurosurgery hospital pending Thank you will follow with recommendations high fevers leukocytosis needs transfer Brain: Extensive right hemispheric parenchymal volume loss and edema. Increased hyperdense of the right frontal parenchyma. Hypodensities of the left frontal, parietal, and temporal regions which may be sequela of prior infarct. No hemorrhage. No significant white matter disease. Midline shift: Mild, 6 mm, right to left midline shift. Ventricles: Exvacuodilatation of the ventricles. Bones/joints: Postsurgical changes from extensive prior right craniotomy. Large extra-axial fluid collection extending beyond the calvarium in region of prior craniotomy. The fluid extends beyond the calvarial region by approximately 4.0 cm in axial dimension No acute fracture. Soft tissues: Unremarkable. Sinuses: Unremarkable as visualized. No acute sinusitis. Mastoid air cells: Unremarkable as visualized. No mastoid effusion. IMPRESSION: 1. Large extra-axial fluid collection of the right hemisphere extending beyond the region of large frontal craniotomy. There is mild right to left midline shift measuring approximately 6 mm. 2. Hyperdensity of the residual right parenchyma suggestive of parenchymal contusion. 3. Extensive right parenchymal volume loss. May be sequela of prior infarct versus postsurgical change. 4. Hyperdensities throughout the left cerebellum, suggestive of prior ischemic process. Artifacts: Blooming artifact is noted within the right peripheral residual parenchyma likely representing hemosiderin deposition. Brain: Extensive right hemispheric parenchymal volume loss and edema. Mild encephalomalacia of the left hemisphere with expansion of the CSF containing spaces. No hemorrhage. Midline shift: There is proximal is 7 mm of right to left midline shift. Ventricles: Unremarkable. No ventriculomegaly. Bones/joints: There is significant expansion of the CSF containing spaces of the right hemisphere with extension beyond the calvarium through a craniotomy defect measuring approximately 4.3 cm. Sinuses: Unremarkable as visualized. No acute sinusitis. Mastoid air cells: Unremarkable as visualized. No mastoid effusion. Orbits: Unremarkable as visualized. Other vasculature: Following demonstration of intravenous contrast, there is no evidence of abnormal enhancement. IMPRESSION: 1. No obvious hemorrhage or stroke. Artifact on DWI sequence partially limits evaluation. Otherwise, no significant interval change from recent CT. 2. Large extra-axial fluid collection pending through craniotomy defect. There is mild right to left midline shift measuring in proximal 7 mm. 3. Extensive right parenchymal volume loss. May be sequela of prior infarct versus postsurgical/post traumatic change. 4. Encephalization of the left hemisphere with expansion of CSF containing spaces. DAILY ESTIMATED NEEDS: Needs based on Pulmonary, 68kg 25-30 kcals/kg 6915-0311 total kcals 1.25-1.5 g protein/kg 85-102 g total protein 25-30 mL/kg 4973-2544 total fluid mLs NUTRITION DIAGNOSIS: Swallowing difficulty r/t TBI and resp distress, as evidenced by pt is vent dep via T-collar, PEG dep. CURRENT TF:Jevity 1.2 @70 ml x20 hrs ENTERAL NUTRITION RECOMMENDATIONS: Increase TF to goal of 75ml/hr x20 hrs to provide 1500ml, 1800 kcal, 83g pro, 1211ml free H2O - Rec to INCREASE TF by 5ml/hr to better meet est kcal and pro needs. - Flush per MD/ HOB over 30 degrees ADDITIONAL RECOMMENDATIONS: 1) Skin integrity: add CATALINA BID via PEG (added 5g pro to meet est pro needs) 2) Wound care eval 3) Per SNF: 5'5" and 150#, maintain calibrated bed scale wts Carl Hernandez Jun 18, 2020 11:12
[2020-06-18 12:00] VITALS: BP 121/75
--- NOTE | 2020-06-18 13:34 | Nephrology Progress Note ---
Assessment/Plan Plan Sepsis - IV Abx. Hyponatremia Na corrected to 133. DC 3% NaCl. Na stable @ 135. Uosm inappropriately high. CW SIADH! Subjective Subjective Obtunded Objective Objective Last 24 Hour Vital Signs Date Time Temp Pulse Resp B/P (MAP) Pulse Ox O2 Delivery O2 Flow Rate FiO2 06/18/20 12:00 78 06/18/20 10:34 80 20 100 T-Piece 5.0 28 81 20 100 06/18/20 09:50 95 137/84 06/18/20 08:54 T-piece 5.0 06/18/20 08:00 92 06/18/20 08:00 98.9 95 20 137/84 (101) 95 06/18/20 07:20 100 T-Piece 5.0 28 06/18/20 04:05 101.0 06/18/20 04:00 94 06/18/20 03:52 101.1 91 36 125/79 (94) 99 06/18/20 02:24 98 T-Piece 5.0 28 06/18/20 00:00 100.6 83 30 128/73 (91) 99 06/18/20 00:00 85 06/17/20 21:48 86 20 100 T-Piece 5.0 28 81 20 100 06/17/20 21:00 T-piece 5.0 06/17/20 20:59 101.2 06/17/20 20:22 94 120/73 06/17/20 20:12 97 T-Piece 5.0 28 06/17/20 20:00 101.8 94 36 120/73 (89) 99 06/17/20 20:00 96 06/17/20 16:00 98.2 67 21 120/80 (93) 100 06/17/20 15:47 88 Intake and Output 06/17/20 06/18/20 19:00 07:00 Intake Total 804.014 ml Output Total 1000 ml 1400 ml Balance -195.986 ml -1400 ml Intake Free Water 100 ml IV Total 389.014 ml Tube Feeding 315 ml Output Urine Total 1000 ml 1400 ml # Voids 1 # Bowel Movements 1 Laboratory Tests 06/17/20 16:50: Vancomycin Level Trough 11.0 06/18/20 04:55: White Blood Count 8.1, Red Blood Count 3.33L, Hemoglobin 9.7L, Hematocrit 28.3L, Mean Corpuscular Volume 85, Mean Corpuscular Hemoglobin 29.3, Mean Corpuscular Hemoglobin Concent 34.5, Red Cell Distribution Width 14.1, Platelet Count 348, Mean Platelet Volume 5.2L, Neutrophils (%) (Auto) 72.1, Lymphocytes (%) (Auto) 16.0L, Monocytes (%) (Auto) 8.3, Eosinophils (%) (Auto) 1.6, Basophils (%) (Auto) 2.0, Sodium Level 133L, Potassium Level 4.8, Chloride Level 97L, Carbon Dioxide Level 32, Anion Gap 5, Blood Urea Nitrogen 11, Creatinine 0.6, Estimat Glomerular Filtration Rate > 60, Glucose Level 137H, Calcium Level 8.7, Total Bilirubin 0.3, Aspartate Amino Transf (AST/SGOT) 22, Alanine Aminotransferase (ALT/SGPT) 54, Alkaline Phosphatase 147H, Total Protein 6.6, Albumin 2.5L, Globulin 4.1, Albumin/Globulin Ratio 0.6L Height (Feet): 5 Height (Inches): 10.00 Weight (Pounds): 160 Objective Head deformed post op CV RR Neck trach clean Lungs B ronchi Abd SNT. BS + E No CCE Valerio Hendrix MD Jun 18, 2020 13:34
--- NOTE | 2020-06-18 13:53 | NUR ---
NURSE NOTES: called central supply pt need coolling blanket, they do not have cooling blankets.
[2020-06-18 16:00] VITALS: BP 163/108
--- NOTE | 2020-06-18 19:15 | NUR ---
Report received from Chiara QUAN. Patient is in bed alert and oriented x0 opens eyes spontaneously and bedridden. Body temperature is 96.3. Cooling blanket on bed for cooling measures. HOB elevated for aspiration precautions. Bed at lowest position locked with side rails up. Call light with in reach. teletypesetter monitor intact and functioning. Will continue with plan of care.
--- NOTE | 2020-06-18 19:31 | NUR ---
NURSE HAND-OFF REPORT: Important Events on Shift: pt on cooling blanket highest T100.8 no fever right now, no seizures blood pressure slightly high bp med given. Patient Status: full Diet: Gtube Pending Orders: Pending Results/Labs: Pending MD notification: Latest Vital Signs: Temperature 97.2 , Pulse 114 , B/P 163 /108 , Respiratory Rate 24 , O2 SAT 100 , T-piece, O2 Flow Rate 5.0 . Vital Sign Comment: EKG Rhythm: Sinus Tachycardia Rhythm change?: N Notified?: N -DR.BALFE BO Response: No New Orders Received Latest Whitley Fall Score: 70 Fall Risk: High Risk Safety Measures: Call light Within Reach, Bed Alarm Zone 1, Side Rails Side Rails x3, Bed position Low and Locked. Fall Precautions: y Yellow Socks Yellow Gown Door Sign Patient Fall Education Report given to Merissa/ RN.
[2020-06-18 20:00] VITALS: BP 101/69
[2020-06-18] MEDS: Dyna-Hex 2% Top Sol 2oz TOPIC SCH (20:00)
[2020-06-19] VITALS: BP 101/60
[2020-06-19 04:00] VITALS: BP 110/70
[2020-06-19] MEDS: Meropenem 1 GM in NS 55 ML IVPB SCH ×3 (05:38→21:13)
[2020-06-19] MEDS: Vancomycin 1.25gm/NS Premix q24h IVPB SCH ×3 (05:38→22:23)
--- NOTE | 2020-06-19 07:31 | NUR ---
NURSE HAND-OFF REPORT: Important Events on Shift:[photos taken, had bowel movement ] Patient Status: [Stable] Diet: [GT] Pending Orders: [] Pending Results/Labs:[] Pending MD notification:[] Latest Vital Signs: Temperature 98.1 , Pulse 104 , B/P 110 /70 , Respiratory Rate 24 , O2 SAT 100 , T-piece, O2 Flow Rate 5.0 . Vital Sign Comment: [] EKG Rhythm: Sinus Tachycardia Rhythm change?: N MD Notified?: N -DR.BALFE BO Response: No New Orders Received Latest Whitley Fall Score: 70 Fall Risk: High Risk Safety Measures: Call light Within Reach, Bed Alarm Zone 1, Side Rails Side Rails x3, Bed position Low and Locked. Fall Precautions: Yellow Socks Yellow Gown Door Sign Patient Fall Education Report given to [KADEEM Guadarrama].
[2020-06-19 08:00] VITALS: BP 116/72
--- NOTE | 2020-06-19 08:02 | NUR ---
NURSE NOTES: pt. in bed AOx0, opens eyes but non verbal. pt on property assessment monitor no signs of cardiac or respiratory distress at this time. Bed is locked and in lowest position. Call light within reach. pt is on Gtube and is patent. Pt has a picc line, one lumen is not working and the other is hard to flush notified MD. Vasquez. pt on trach at 5L and 25 fio2. Will continue to monitor pt. Pt has no fever at this time, he is on a cooling blanket.
[2020-06-19] MEDS: Sucralfate 1gm tab ORAL SCH ×2 (09:26→17:19)
[2020-06-19] MEDS: Lactobacillus-GG tablet GT SCH (09:26)
[2020-06-19] MEDS: Metoprolol Tartrate 100mg tab ORAL SCH ×2 (09:27→20:34)
[2020-06-19] MEDS: Lacosamide 50mg tablet ORAL SCH ×2 (09:27→17:19)
[2020-06-19] MEDS: Renvela 800mg Pkt GT SCH ×4 (09:27→17:19)
[2020-06-19] MEDS: Enoxaparin 80mg Inj SUBQ SCH ×2 (09:29→20:35)
[2020-06-19] MEDS ORDERED: Sterile Water Irrig 1000ml IRRIG ONE (09:43)
--- NOTE | 2020-06-19 10:18 | Pulmonology Progress Note ---
Subjective ROS Limited/Unobtainable: Yes Constitutional: Denies: fever Gastrointestinal/Abdominal: Reports: diarrhea Allergies: Coded Allergies: No Known Allergies (Unverified , 05/30/20) Objective Last 24 Hour Vital Signs Date Time Temp Pulse Resp B/P (MAP) Pulse Ox O2 Delivery O2 Flow Rate FiO2 06/19/20 09:27 109 116/72 06/19/20 08:00 99.0 109 20 116/72 (87) 97 06/19/20 04:00 98.1 98 24 110/70 (83) 100 06/19/20 04:00 104 06/19/20 01:32 98 T-Piece 5.0 28 06/19/20 00:00 104 06/19/20 00:00 99.7 90 24 101/60 (74) 100 06/18/20 22:54 100 20 99 T-Piece 5.0 28 99 20 98 06/18/20 21:00 89 101/60 06/18/20 21:00 T-piece 5.0 06/18/20 20:00 92 06/18/20 20:00 97.8 89 24 101/69 (80) 98 06/18/20 19:53 100 T-Piece 5.0 28 06/18/20 17:22 163/108 06/18/20 16:10 97.2 06/18/20 16:00 97.9 95 24 163/108 (126) 100 06/18/20 16:00 114 06/18/20 13:30 100 T-Piece 5.0 28 06/18/20 12:00 99.4 81 22 121/75 (90) 100 06/18/20 12:00 78 06/18/20 10:34 80 20 100 T-Piece 5.0 28 81 20 100 Intake and Output 06/18/20 06/19/20 19:00 07:00 Output Total 1000 ml 800 ml Balance -1000 ml -800 ml Output Urine Total 1000 ml 800 ml # Bowel Movements 2 1 Laboratory Tests 06/18/20 21:00: Vancomycin Level Trough 22.0H Current Medications Medications (Trade) Dose Ordered Sig/Anuj Route PRN Reason Start Time Stop Time Status Last Admin Dose Admin Acetaminophen (Tylenol) 650 mg Q6H PRN ORAL Temp >100.5 05/30/20 18:45 06/29/20 18:44 06/18/20 15:40 Chlorhexidine Gluconate (Laura-Hex 2%) 1 applic DAILY@2000 TOPIC 06/01/20 20:00 08/30/20 19:59 06/18/20 20:00 Clonidine HCl (Catapres TTS-2) 1 patch QWEEK TDERMAL 06/14/20 09:00 09/11/20 21:59 06/14/20 09:56 Clonidine HCl (Catapres Tab) 0.1 mg Q4H PRN ORAL SBP above 150; DBP above 95 06/02/20 23:00 08/31/20 22:59 06/18/20 17:22 Enoxaparin Sodium (Lovenox) 80 mg EVERY 12 HOURS SUBQ 05/30/20 21:00 08/28/20 20:59 06/19/20 09:29 Famotidine (Pepcid) 20 mg DAILY GT 05/31/20 09:00 08/29/20 08:59 06/19/20 09:27 Gentamicin Sulfate (Gentamicin vial) 300 mg Q12HR@ INH 06/12/20 22:00 06/19/20 21:59 06/18/20 22:54 Lacosamide (Vimpat) 50 mg BID ORAL 05/31/20 09:00 08/29/20 08:59 06/19/20 09:27 Lactobacillus Acidophilus (Culturelle) 1 tab DAILY GT 05/31/20 09:00 08/29/20 08:59 06/19/20 09:26 Meropenem 1 gm/ Sodium Chloride 55 ml @ 110 mls/hr Q8HR IVPB 06/12/20 15:00 06/21/20 14:59 06/19/20 05:38 Metoprolol Tartrate (Lopressor) 150 mg EVERY 12 HOURS ORAL 06/08/20 09:00 09/06/20 08:59 06/19/20 09:27 Sevelamer Carbonate (Renvela) 800 mg THREE TIMES A DAY GT 05/31/20 09:00 08/29/20 08:59 06/19/20 09:27 Sucralfate (Carafate) 1 gm BID ORAL 05/31/20 09:00 08/29/20 08:59 06/19/20 09:26 Thyroid ([place] Thyroid) 15 mg DAILY GT 05/31/20 09:00 06/30/20 08:59 06/19/20 09:27 Vancomycin HCl (Vanco pharmacy to dose) 1 ea DAILY PRN MISC Per rx protocol 06/07/20 11:00 07/07/20 10:59 Vancomycin/Sodium Chloride 275 ml @ 183.333 mls/hr Q8HR IVPB 06/17/20 22:00 06/22/20 21:59 06/19/20 05:38 Assessment/Plan Assessment/Plan Pulmonary Progress Note Subjective ROS Limited/Unobtainable: Yes Constitutional: Allergies: Coded Allergies: No Known Allergies (Unverified , 05/30/20) Subjective Consultatnts noted Objective Vital Signs noted Objective WDWN NAD clear breath sounds bilaterally without rhonchi or wheeze [id number] tachy without MRG NABS nontender GT no CCE nonfocal trach poor LOC = Laboratory Tests noted MRI: IMPRESSION: 1. No obvious hemorrhage or stroke. Artifact on DWI sequence partially limits evaluation. Otherwise, no significant interval change from recent CT. 2. Large extra-axial fluid collection pending through craniotomy defect. There is mild right to left midline shift measuring in proximal 7 mm. 3. Extensive right parenchymal volume loss. May be sequela of prior infarct versus postsurgical/post traumatic change. 4. Encephalization of the left hemisphere with expansion of CSF containing spaces. Assessment/Plan Impression: Sepsis Urinary Tract Infection TBI Seizures Hypothyroidism Sinus Tachycardia Hypertension abnormal MRI/ CT hyponatremia ?SIADH leukocytosis fever Plan: IV Antibiotics- Meropenema, flucon vanco inhaled colistin continue demeclocyline O2 PRN TC PPX Monitor labs monitor vitals renal eval noted [facility] refused transfer update sister ID follow up repeat wbc- now elevated full dose lovenox cardizem and beta jocelyn for rate control fever work up and ID clearance hope to dc in am if stable impression, plan, and exam edited and reviewed in detail care discussed with Garcia Hare MD Jun 19, 2020 10:18
[2020-06-19] MEDS: Gentamicin for inhalation INH SCH (11:00)
[2020-06-19 12:00] VITALS: BP 129/89
[2020-06-19] MEDS ORDERED: Cathflo Alteplase 2mg Inj INJ SCH (12:15)
--- NOTE | 2020-06-19 12:55 | Nephrology Progress Note ---
Assessment/Plan Plan Sepsis - IV Abx. Hyponatremia Na corrected to 133. DC 3% NaCl. Na stable @ 135. Uosm inappropriately high. CW SIADH! Subjective Subjective Obtunded Objective Objective Last 24 Hour Vital Signs Date Time Temp Pulse Resp B/P (MAP) Pulse Ox O2 Delivery O2 Flow Rate FiO2 06/19/20 09:27 109 116/72 06/19/20 08:00 99.0 109 20 116/72 (87) 97 06/19/20 07:20 100 T-Piece 5.0 28 06/19/20 04:00 98.1 98 24 110/70 (83) 100 06/19/20 04:00 104 06/19/20 01:32 98 T-Piece 5.0 28 06/19/20 00:00 104 06/19/20 00:00 99.7 90 24 101/60 (74) 100 06/18/20 22:54 100 20 99 T-Piece 5.0 28 99 20 98 06/18/20 21:00 89 101/60 06/18/20 21:00 T-piece 5.0 06/18/20 20:00 92 06/18/20 20:00 97.8 89 24 101/69 (80) 98 06/18/20 19:53 100 T-Piece 5.0 28 06/18/20 17:22 163/108 06/18/20 16:10 97.2 06/18/20 16:00 97.9 95 24 163/108 (126) 100 06/18/20 16:00 114 06/18/20 13:30 100 T-Piece 5.0 28 Intake and Output 06/18/20 06/19/20 19:00 07:00 Output Total 1000 ml 800 ml Balance -1000 ml -800 ml Output Urine Total 1000 ml 800 ml # Bowel Movements 2 1 Laboratory Tests 06/18/20 21:00: Vancomycin Level Trough 22.0H Height (Feet): 5 Height (Inches): 10.00 Weight (Pounds): 160 Objective Head deformed post op CV RR Neck trach clean Lungs B ronchi Abd SNT. BS + E No CCE Valerio Hendrix MD Jun 19, 2020 12:55
--- NOTE | 2020-06-19 13:12 | Infectious Diseases Prog Note ---
Assessment/Plan Assessment/Plan A; 1. Fever, 2. Traumatic brain injury. 3. Seizures. 4. Leukocytosis, improving 5. Possible scabies, treated 6. Anemia 7. Pneumonia with Pseudomonas & Klebsiella PLAN: 1. continue iv vancomycin, meropenem, 2. Will f/u cultures Subjective ROS Limited/Unobtainable: Yes Constitutional: Denies: fever Allergies: Coded Allergies: No Known Allergies (Unverified , 05/30/20) Objective Last 24 Hour Vital Signs Date Time Temp Pulse Resp B/P (MAP) Pulse Ox O2 Delivery O2 Flow Rate FiO2 06/19/20 09:27 109 116/72 06/19/20 08:00 99.0 109 20 116/72 (87) 97 06/19/20 07:20 100 T-Piece 5.0 28 06/19/20 04:00 98.1 98 24 110/70 (83) 100 06/19/20 04:00 104 06/19/20 01:32 98 T-Piece 5.0 28 06/19/20 00:00 104 06/19/20 00:00 99.7 90 24 101/60 (74) 100 06/18/20 22:54 100 20 99 T-Piece 5.0 28 99 20 98 06/18/20 21:00 89 101/60 06/18/20 21:00 T-piece 5.0 06/18/20 20:00 92 06/18/20 20:00 97.8 89 24 101/69 (80) 98 06/18/20 19:53 100 T-Piece 5.0 28 06/18/20 17:22 163/108 06/18/20 16:10 97.2 06/18/20 16:00 97.9 95 24 163/108 (126) 100 06/18/20 16:00 114 06/18/20 13:30 100 T-Piece 5.0 28 Height (Feet): 5 Height (Inches): 10.00 Weight (Pounds): 160 HEENT: status post trach, other - s/p R craniotomy Respiratory/Chest: lungs clear, other - on Tbar Cardiovascular: tachycardia, other - Left arm PICC line Abdomen: soft, non tender, other - GT feeding Extremities: other - hands edema Neurologic/Psychiatric: unresponsiveness, aphasia Laboratory Tests Test 06/18/20 21:00 Vancomycin Level Trough 22.0 ug/mL (5.0-12.0) H Current Medications Medications (Trade) Dose Ordered Sig/Anuj Route PRN Reason Start Time Stop Time Status Last Admin Dose Admin Acetaminophen (Tylenol) 650 mg Q6H PRN ORAL Temp >100.5 05/30/20 18:45 06/29/20 18:44 06/18/20 15:40 Alteplase, Recombinant (Cathflo) 4 mg ONCE INJ 06/19/20 12:15 06/19/20 14:00 Chlorhexidine Gluconate (Laura-Hex 2%) 1 applic DAILY@1999 TOPIC 06/01/20 20:00 08/30/20 19:59 06/18/20 20:00 Clonidine HCl (Catapres TTS-2) 1 patch QWEEK TDERMAL 06/14/20 09:00 09/11/20 21:59 06/14/20 09:56 Clonidine HCl (Catapres Tab) 0.1 mg Q4H PRN ORAL SBP above 150; DBP above 95 06/02/20 23:00 08/31/20 22:59 06/18/20 17:22 Enoxaparin Sodium (Lovenox) 80 mg EVERY 12 HOURS SUBQ 05/30/20 21:00 08/28/20 20:59 06/19/20 09:29 Famotidine (Pepcid) 20 mg DAILY GT 05/31/20 09:00 08/29/20 08:59 06/19/20 09:27 Gentamicin Sulfate (Gentamicin vial) 300 mg Q12HR@ INH 06/12/20 22:00 06/19/20 21:59 06/19/20 11:00 Lacosamide (Vimpat) 50 mg BID ORAL 05/31/20 09:00 08/29/20 08:59 06/19/20 09:27 Lactobacillus Acidophilus (Culturelle) 1 tab DAILY GT 05/31/20 09:00 08/29/20 08:59 06/19/20 09:26 Meropenem 1 gm/ Sodium Chloride 55 ml @ 110 mls/hr Q8HR IVPB 06/12/20 15:00 06/21/20 14:59 06/19/20 05:38 Metoprolol Tartrate (Lopressor) 150 mg EVERY 12 HOURS ORAL 06/08/20 09:00 09/06/20 08:59 06/19/20 09:27 Sevelamer Carbonate (Renvela) 800 mg THREE TIMES A DAY GT 05/31/20 09:00 08/29/20 08:59 06/19/20 09:27 Sucralfate (Carafate) 1 gm BID ORAL 05/31/20 09:00 08/29/20 08:59 06/19/20 09:26 Thyroid ([place] Thyroid) 15 mg DAILY GT 05/31/20 09:00 06/30/20 08:59 06/19/20 09:27 Vancomycin HCl (Vanco pharmacy to dose) 1 ea DAILY PRN MISC Per rx protocol 06/07/20 11:00 07/07/20 10:59 Vancomycin/Sodium Chloride 275 ml @ 183.333 mls/hr Q8HR IVPB 06/17/20 22:00 06/22/20 21:59 06/19/20 05:38 Tomás Shaffer MD Jun 19, 2020 13:12
--- NOTE | 2020-06-19 14:24 | Surgery Progress Note ---
Surgery Progress Note Subjective Additional Comments fever curve improving on cooling measures labs noted stable no n/v Objective Last 24 Hour Vital Signs Date Time Temp Pulse Resp B/P (MAP) Pulse Ox O2 Delivery O2 Flow Rate FiO2 06/19/20 13:49 100 T-Piece 5.0 28 06/19/20 09:27 109 116/72 06/19/20 08:00 99.0 109 20 116/72 (87) 97 06/19/20 07:20 100 T-Piece 5.0 28 06/19/20 04:00 98.1 98 24 110/70 (83) 100 06/19/20 04:00 104 06/19/20 01:32 98 T-Piece 5.0 28 06/19/20 00:00 104 06/19/20 00:00 99.7 90 24 101/60 (74) 100 06/18/20 22:54 100 20 99 T-Piece 5.0 28 99 20 98 06/18/20 21:00 89 101/60 06/18/20 21:00 T-piece 5.0 06/18/20 20:00 92 06/18/20 20:00 97.8 89 24 101/69 (80) 98 06/18/20 19:53 100 T-Piece 5.0 28 06/18/20 17:22 163/108 06/18/20 16:10 97.2 06/18/20 16:00 97.9 95 24 163/108 (126) 100 06/18/20 16:00 114 I&O Intake and Output 06/18/20 06/19/20 19:00 07:00 Output Total 1000 ml 800 ml Balance -1000 ml -800 ml Output Urine Total 1000 ml 800 ml # Bowel Movements 2 1 Cardiovascular: RSR Respiratory: decreased breath sounds Abdomen: soft, non-tender, present bowel sounds Extremities: no tenderness, no cyanosis Laboratory Tests Test 06/18/20 21:00 Vancomycin Level Trough 22.0 ug/mL (5.0-12.0) H Plan Problems: (1) Tachycardia (2) Sepsis Assessment & Plan: 29-year-old male with leukocytosis anemia lactic acidosis. Patient admitted further care management identified to have significant secretions from tracheostomy trach collar with sutures in place causing distortion. Abdominal G-tube in place. Patient forming deep tissue injury. BMI 22 labs noted. Patient a phasic unable to respond to commands and in a vegetative state at this time. Patient with a UTI on antibiotics. Right PIC in place may need to be replaced. Turn every 2 hours offload pressure with air mattress and pillows. Trach sutures removed trach tie evaluated trach in place secretions suction. Continue with secretions chest x-ray reviewed no acute infiltrative process Leukocytosis trending down lactic acid is improving continue fluid resuscitation IV antibiotics improving labs improved cont current care trach care fevers resolved wbc resolved improved CT head noted neurosurg eval cxr improved fevers cont leukocytosis neuro input appreciate. possible infected collection transfer to neurosurgery hospital pending Thank you will follow with recommendations high fevers leukocytosis needs transfer Brain: Extensive right hemispheric parenchymal volume loss and edema. Increased hyperdense of the right frontal parenchyma. Hypodensities of the left frontal, parietal, and temporal regions which may be sequela of prior infarct. No hemorrhage. No significant white matter disease. Midline shift: Mild, 6 mm, right to left midline shift. Ventricles: Exvacuodilatation of the ventricles. Bones/joints: Postsurgical changes from extensive prior right craniotomy. Large extra-axial fluid collection extending beyond the calvarium in region of prior craniotomy. The fluid extends beyond the calvarial region by approximately 4.0 cm in axial dimension No acute fracture. Soft tissues: Unremarkable. Sinuses: Unremarkable as visualized. No acute sinusitis. Mastoid air cells: Unremarkable as visualized. No mastoid effusion. IMPRESSION: 1. Large extra-axial fluid collection of the right hemisphere extending beyond the region of large frontal craniotomy. There is mild right to left midline shift measuring approximately 6 mm. 2. Hyperdensity of the residual right parenchyma suggestive of parenchymal contusion. 3. Extensive right parenchymal volume loss. May be sequela of prior infarct versus postsurgical change. 4. Hyperdensities throughout the left cerebellum, suggestive of prior ischemic process. Artifacts: Blooming artifact is noted within the right peripheral residual parenchyma likely representing hemosiderin deposition. Brain: Extensive right hemispheric parenchymal volume loss and edema. Mild encephalomalacia of the left hemisphere with expansion of the CSF containing spaces. No hemorrhage. Midline shift: There is proximal is 7 mm of right to left midline shift. Ventricles: Unremarkable. No ventriculomegaly. Bones/joints: There is significant expansion of the CSF containing spaces of the right hemisphere with extension beyond the calvarium through a craniotomy defect measuring approximately 4.3 cm. Sinuses: Unremarkable as visualized. No acute sinusitis. Mastoid air cells: Unremarkable as visualized. No mastoid effusion. Orbits: Unremarkable as visualized. Other vasculature: Following demonstration of intravenous contrast, there is no evidence of abnormal enhancement. IMPRESSION: 1. No obvious hemorrhage or stroke. Artifact on DWI sequence partially limits evaluation. Otherwise, no significant interval change from recent CT. 2. Large extra-axial fluid collection pending through craniotomy defect. There is mild right to left midline shift measuring in proximal 7 mm. 3. Extensive right parenchymal volume loss. May be sequela of prior infarct versus postsurgical/post traumatic change. 4. Encephalization of the left hemisphere with expansion of CSF containing spaces. DAILY ESTIMATED NEEDS: Needs based on Pulmonary, 68kg 25-30 kcals/kg 6117-4526 total kcals 1.25-1.5 g protein/kg 85-102 g total protein 25-30 mL/kg 5271-9354 total fluid mLs NUTRITION DIAGNOSIS: Swallowing difficulty r/t TBI and resp distress, as evidenced by pt is vent dep via T-collar, PEG dep. CURRENT TF:Jevity 1.2 @70 ml x20 hrs ENTERAL NUTRITION RECOMMENDATIONS: Increase TF to goal of 75ml/hr x20 hrs to provide 1500ml, 1800 kcal, 83g pro, 1211ml free H2O - Rec to INCREASE TF by 5ml/hr to better meet est kcal and pro needs. - Flush per MD/ HOB over 30 degrees ADDITIONAL RECOMMENDATIONS: 1) Skin integrity: add CATALINA BID via PEG (added 5g pro to meet est pro needs) 2) Wound care eval 3) Per SNF: 5'5" and 150#, maintain calibrated bed scale wts Carl Hernandez Jun 19, 2020 14:24
[2020-06-19 16:00] VITALS: BP 104/55
--- NOTE | 2020-06-19 19:30 | NUR ---
NURSE NOTES: Received pt and report from KADEEM Guadarrama. Observed pt resting in bed with both eyes lightly open. Pt is A/Ox0. court monitor is in placed; pt is NSR. Pt has a HELIO PICC line double lumen; intact, asymptomatic, and patent. Pt is on oxygen 5L; 25% FiO2 per T-piece; sating at 100%. No SOB/acute distress noted. G-tube feeding of TwoCal running @ 45cc/hr; no residual noted. Aspiration precaution noted; HOB at 30 degrees and suction at bedside. Reposition pt every 2 hours on left side and supine only to ensure pressure is off on the right side of head. Pt is on TITI mattress and cooling blanket to keep pt to normal body temperature. Bed in the lowest position, locked and bed alarm on. Call light and bedside table is within reach. No signs/symptoms of acute distress noted. Will continue plan of care.
--- NOTE | 2020-06-19 19:34 | NUR ---
NURSE HAND-OFF REPORT: Important Events on Shift:pt in stable condition all day, pt will have stress test tomorrow he is aware he will be having stress test. Patient Status: Full code Diet: Pending Orders: Pending Results/Labs: Pending MD notification: Latest Vital Signs: Temperature 97.9 , Pulse 93 , B/P 104 /55 , Respiratory Rate 20 , O2 SAT 100 , T-piece, O2 Flow Rate 5.0 . Vital Sign Comment: EKG Rhythm: Sinus Rhythm Rhythm change?: N Notified?: N -DR.BALFE BO Response: No New Orders Received Latest Whitley Fall Score: 70 Fall Risk: High Risk Safety Measures: Call light Within Reach, Bed Alarm Zone 1, Side Rails Side Rails x3, Bed position Low and Locked. Fall Precautions: y Yellow Socks y Yellow Gown y Door Sign y Patient Fall Education y Report given to Brittany/ KADEEM. Addendum: 06/19/20 at 1937 by Chiara Parrish RN previous notes are for incorrect pt.
--- NOTE | 2020-06-19 19:37 | NUR ---
NURSE HAND-OFF REPORT: Important Events on Shift:pt opens eyes non verbal, head swollen, no fever today Patient Status: full Diet: gtube Pending Orders: Pending Results/Labs: Pending MD notification: Latest Vital Signs: Temperature 97.9 , Pulse 93 , B/P 104 /55 , Respiratory Rate 20 , O2 SAT 100 , T-piece, O2 Flow Rate 5.0 . Vital Sign Comment: EKG Rhythm: Sinus Rhythm Rhythm change?: N MD Notified?: N -DR.BALFE BO Response: No New Orders Received Latest Whitley Fall Score: 70 Fall Risk: High Risk Safety Measures: Call light Within Reach, Bed Alarm Zone 1, Side Rails Side Rails x3, Bed position Low and Locked. Fall Precautions: y Yellow Socks y Yellow Gown y Door Sign y Patient Fall Education Report given to Susan/RN.
[2020-06-19 20:00] VITALS: BP 134/89
[2020-06-19] MEDS: Dyna-Hex 2% Top Sol 2oz TOPIC SCH (20:32)
--- NOTE | 2020-06-19 23:25 | NUR ---
NURSE NOTES: Observed pt resting in bed with both eyes closed. No signs/symptoms of acute distress noted. No fever noted. Repositioned and suctioned pt. Will monitor pt closely.
[2020-06-20] VITALS: BP 144/97
[2020-06-20 04:00] VITALS: BP 145/97
[2020-06-20] MEDS: Meropenem 1 GM in NS 55 ML IVPB SCH ×2 (05:43→14:06)
[2020-06-20] MEDS: Vancomycin 1.25gm/NS Premix q24h IVPB SCH ×2 (06:25→14:06)
--- NOTE | 2020-06-20 07:18 | NUR ---
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 Patient Status: Stable Diet: TwoCal @45cc/hr. Pending Orders: N Pending Results/Labs: N Pending MD notification: N Latest Vital Signs: Temperature 98.1 , Pulse 104 , B/P 145 /97 , Respiratory Rate 24 , O2 SAT 100 , T-piece, O2 Flow Rate 5.0 . EKG Rhythm: Sinus Tachycardia Rhythm change?: Y Latest Whitley Fall Score: 70 Fall Risk: High Risk Safety Measures: Call light Within Reach, Bed Alarm Zone 1, Side Rails Side Rails x3, Bed position Low and Locked. Fall Precautions: Yellow Socks Yellow Gown Door Sign Patient Fall Education Report given to KADEEM Leonardo.
[2020-06-20 08:00] VITALS: BP 154/99
--- NOTE | 2020-06-20 08:08 | Pulmonology Progress Note ---
Subjective ROS Limited/Unobtainable: Yes Constitutional: Denies: fever Gastrointestinal/Abdominal: Reports: diarrhea Allergies: Coded Allergies: No Known Allergies (Unverified , 05/30/20) Subjective fevers resolved bp still elevated Objective Last 24 Hour Vital Signs Date Time Temp Pulse Resp B/P (MAP) Pulse Ox O2 Delivery O2 Flow Rate FiO2 06/20/20 04:00 98.1 102 24 145/97 (113) 100 06/20/20 04:00 104 06/20/20 01:30 100 T-Piece 5.0 28 06/20/20 00:00 99.3 86 20 144/97 (113) 100 06/20/20 00:00 86 06/19/20 21:00 T-piece 5.0 06/19/20 20:34 105 134/89 06/19/20 20:00 96 06/19/20 20:00 99.1 98 24 134/89 (104) 100 06/19/20 20:00 100 T-Piece 5.0 28 06/19/20 16:00 91 06/19/20 16:00 97.9 93 20 104/55 (71) 100 06/19/20 13:49 100 T-Piece 5.0 28 06/19/20 12:00 83 06/19/20 12:00 97.5 81 22 129/89 (102) 100 06/19/20 09:27 109 116/72 06/19/20 09:00 T-piece 5.0 Intake and Output 06/19/20 06/20/20 19:00 07:00 Intake Total 145 ml 595 ml Output Total 1200 ml 1600 ml Balance -1055 ml -1005 ml Intake Free Water 100 ml 100 ml Tube Feeding 45 ml 495 ml Output Urine Total 1200 ml 1600 ml # Voids 1 # Bowel Movements 1 1 Objective WDWN bulging noted scalp clear breath sounds bilaterally without rhonchi or wheeze [id number] tachy without MRG NABS nontender GT no CCE nonfocal trach poor LOC Current Medications Medications (Trade) Dose Ordered Sig/Anuj Route PRN Reason Start Time Stop Time Status Last Admin Dose Admin Acetaminophen (Tylenol) 650 mg Q6H PRN ORAL Temp >100.5 05/30/20 18:45 06/29/20 18:44 06/18/20 15:40 Chlorhexidine Gluconate (Laura-Hex 2%) 1 applic DAILY@2000 TOPIC 06/01/20 20:00 08/30/20 19:59 06/19/20 20:32 Clonidine HCl (Catapres TTS-2) 1 patch QWEEK TDERMAL 06/14/20 09:00 09/11/20 21:59 06/14/20 09:56 Clonidine HCl (Catapres Tab) 0.1 mg Q4H PRN ORAL SBP above 150; DBP above 95 06/02/20 23:00 08/31/20 22:59 06/18/20 17:22 Enoxaparin Sodium (Lovenox) 80 mg EVERY 12 HOURS SUBQ 05/30/20 21:00 08/28/20 20:59 06/19/20 20:35 Famotidine (Pepcid) 20 mg DAILY GT 05/31/20 09:00 08/29/20 08:59 06/19/20 09:27 Lacosamide (Vimpat) 50 mg BID ORAL 05/31/20 09:00 08/29/20 08:59 06/19/20 17:19 Lactobacillus Acidophilus (Culturelle) 1 tab DAILY GT 05/31/20 09:00 08/29/20 08:59 06/19/20 09:26 Meropenem 1 gm/ Sodium Chloride 55 ml @ 110 mls/hr Q8HR IVPB 06/12/20 15:00 06/21/20 14:59 06/20/20 05:43 Metoprolol Tartrate (Lopressor) 150 mg EVERY 12 HOURS ORAL 06/08/20 09:00 09/06/20 08:59 06/19/20 20:34 Sevelamer Carbonate (Renvela) 800 mg THREE TIMES A DAY GT 05/31/20 09:00 08/29/20 08:59 06/19/20 17:19 Sucralfate (Carafate) 1 gm BID ORAL 05/31/20 09:00 08/29/20 08:59 06/19/20 17:19 Thyroid ([place] Thyroid) 15 mg DAILY GT 05/31/20 09:00 06/30/20 08:59 06/19/20 09:27 Vancomycin HCl (Vanco pharmacy to dose) 1 ea DAILY PRN MISC Per rx protocol 06/07/20 11:00 07/07/20 10:59 Vancomycin/Sodium Chloride 275 ml @ 183.333 mls/hr Q8HR IVPB 06/17/20 22:00 06/22/20 21:59 06/20/20 06:25 Assessment/Plan Assessment/Plan Impression: Sepsis Urinary Tract Infection TBI Seizures Hypothyroidism Sinus Tachycardia Hypertension abnormal MRI/ CT hyponatremia ?SIADH leukocytosis fever Plan: IV Antibiotics noted continue demeclocyline O2 PRN TC PPX Monitor labs monitor vitals renal eval noted [facility] refused transfer update sister ID follow up repeat wbc- now elevated full dose lovenox beta jocelyn for rate control fever work up and ID clearance hope to dc to snf impression, plan, and exam edited and reviewed in detail care discussed with Aime Browne MD Jun 20, 2020 08:08
--- NOTE | 2020-06-20 08:32 | NUR ---
CASE MANAGEMENT:REVIEW 06/20/20 SI: SEPSIS. SEIZURE. KLEBSIELLA PNA 98.1 102 24 145/97 100% ON TRACH COLLAR W/5L 28% FIO2 H/H-9.7/28.3 NA-133 IS: IV MEROPENEM Q8HRS IV VANCOMYCIN Q8HRS LOPRESSOR 150MG GT Q12 LOVENOX SQ Q12 CLONIDINE PATCH Q WEEK THROID GT QD CARAFATE GT BID VIMPAT GT BID : TELEMETRY STATUS DCP: FROM [facility] PLAN: DISCHARGE PLANNING
--- NOTE | 2020-06-20 08:35 | NUR ---
DISCHARGE PLANNING DISCHARGE ORDER NOTED NEEDS CURRENT COVID SWAB TO RETURN TO SNF ~ ORDERED
[2020-06-20] MEDS: Lacosamide 50mg tablet ORAL SCH ×2 (08:54→17:16)
[2020-06-20] MEDS: Lactobacillus-GG tablet GT SCH (08:54)
[2020-06-20] MEDS: Metoprolol Tartrate 100mg tab ORAL SCH (08:54)
[2020-06-20] MEDS: Sucralfate 1gm tab ORAL SCH ×2 (08:54→17:16)
[2020-06-20] MEDS: Enoxaparin 80mg Inj SUBQ SCH (08:58)
--- NOTE | 2020-06-20 09:50 | NUR ---
NURSES NOTES: Changed wound dressing on the sacral DTI and followed orders as ordered.
--- NOTE | 2020-06-20 09:50 | NUR ---
NURSES NOTES: Received call that pt COVID swab came back negative.
--- NOTE | 2020-06-20 11:05 | NUR ---
RD ASSESSMENT & RECOMMENDATIONS SEE CARE ACTIVITY FOR COMPLETE ASSESSMENT DAILY ESTIMATED NEEDS: Needs based on Pulmonary, 68kg 25-30 kcals/kg 0594-7444 total kcals 1.25-1.5 g protein/kg 85-102 g total protein 20-25 mL/kg 8210-4475 total fluid mLs NUTRITION DIAGNOSIS: Swallowing difficulty r/t TBI and resp distress, as evidenced by pt is vent dep via T-collar, PEG dep. CURRENT TF:2Cal @45ml x20 hrs + Prosource qdaily ENTERAL NUTRITION RECOMMENDATIONS: Maintain Two Mikhail HN @ 45ml/hr x 20 hrs + Prosource 1pkt QD to provide 900ml, 1800kcal, 75g prot+11g prot, 630ml free water - Maintain current TF TwoCal HN @45ml/hr x20 hrs, for less free fluid than previous TF, pt w/ consistent hyponatremia. - Cont added Prosource 1pkt QD to meet protein needs - Flush per MD/ HOB over 30 degrees ADDITIONAL RECOMMENDATIONS: 1) Wound Care: add MVI x 1 and Vit C 250mg QD add CATALINA BID via PEG (also provides added 5g prot to meet est prot needs) 2) Per SNF: 5'5" and 150#, maintain calibrated bed scale wts 3) Check phos level: pt on Renvela TID, renal fxn wnl Phos wnl (4.3).
--- NOTE | 2020-06-20 11:10 | Infectious Diseases Prog Note ---
"Assessment/Plan Assessment/Plan antibiotics : vancomycin iv, meropenem A 1. fever improving COVID 19 negative 2. ? scabies s/p rx 3. leucocytosis improving 4. traumatic brain injury 5. seizures 6. brain abscess 7. aspiration pneumonia with klebsiella | pseudomonas 8. gram negative | fungal UTI s/p rx P 1. continue iv vancomycin, meropenem 2. will follow up cultures Subjective ROS Limited/Unobtainable: Yes Allergies: Coded Allergies: No Known Allergies (Unverified , 05/30/20) Objective Last 24 Hour Vital Signs Date Time Temp Pulse Resp B/P (MAP) Pulse Ox O2 Delivery O2 Flow Rate FiO2 06/20/20 09:00 T-piece 5.0 06/20/20 08:54 104 146/97 06/20/20 08:00 97.5 78 20 154/99 (117) 97 06/20/20 08:00 107 06/20/20 07:01 100 T-Piece 5.0 28 06/20/20 04:00 98.1 102 24 145/97 (113) 100 06/20/20 04:00 104 06/20/20 01:30 100 T-Piece 5.0 28 06/20/20 00:00 99.3 86 20 144/97 (113) 100 06/20/20 00:00 86 06/19/20 21:00 T-piece 5.0 06/19/20 20:34 105 134/89 06/19/20 20:00 96 06/19/20 20:00 99.1 98 24 134/89 (104) 100 06/19/20 20:00 100 T-Piece 5.0 28 06/19/20 16:00 91 06/19/20 16:00 97.9 93 20 104/55 (71) 100 06/19/20 13:49 100 T-Piece 5.0 28 06/19/20 12:00 83 06/19/20 12:00 97.5 81 22 129/89 (102) 100 Height (Feet): 5 Height (Inches): 10.00 Weight (Pounds): 160 HEENT: status post trach, other - right head swelling Respiratory/Chest: lungs clear Cardiovascular: normal rate, regular rhythm, no gallop/murmur Abdomen: soft, non tender, other - GT Extremities: no edema, other - right arm PICC Microbiology Date/Time Source Procedure Growth Status 06/20/20 08:45 Nasopharynx SARS-CoV-2 RdRp Gene Assay - Final Complete Current Medications Medications (Trade) Dose Ordered Sig/Anuj Route PRN Reason Start Time Stop Time Status Last Admin Dose Admin Acetaminophen (Tylenol) 650 mg Q6H PRN ORAL Temp >100.5 05/30/20 18:45 06/29/20 18:44 06/18/20 15:40 Chlorhexidine Gluconate (Laura-Hex 2%) 1 applic DAILY@2000 TOPIC 06/01/20 20:00 08/30/20 19:59 06/19/20 20:32 Clonidine HCl (Catapres TTS-2) 1 patch QWEEK TDERMAL 06/14/20 09:00 09/11/20 21:59 06/14/20 09:56 Clonidine HCl (Catapres Tab) 0.1 mg Q4H PRN ORAL SBP above 150; DBP above 95 06/02/20 23:00 08/31/20 22:59 06/18/20 17:22 Enoxaparin Sodium (Lovenox) 80 mg EVERY 12 HOURS SUBQ 05/30/20 21:00 08/28/20 20:59 06/20/20 08:58 Famotidine (Pepcid) 20 mg DAILY GT 05/31/20 09:00 08/29/20 08:59 06/20/20 08:54 Lacosamide (Vimpat) 50 mg BID ORAL 05/31/20 09:00 08/29/20 08:59 06/20/20 08:54 Lactobacillus Acidophilus (Culturelle) 1 tab DAILY GT 05/31/20 09:00 08/29/20 08:59 06/20/20 08:54 Meropenem 1 gm/ Sodium Chloride 55 ml @ 110 mls/hr Q8HR IVPB 06/12/20 15:00 06/25/20 14:59 06/20/20 05:43 Metoprolol Tartrate (Lopressor) 150 mg EVERY 12 HOURS ORAL 06/08/20 09:00 09/06/20 08:59 06/20/20 08:54 Sevelamer Carbonate (Renvela) 800 mg THREE TIMES A DAY GT 05/31/20 09:00 08/29/20 08:59 06/19/20 17:19 Sucralfate (Carafate) 1 gm BID ORAL 05/31/20 09:00 08/29/20 08:59 06/20/20 08:54 Thyroid ([place] Thyroid) 15 mg DAILY GT 05/31/20 09:00 06/30/20 08:59 06/20/20 08:54 Vancomycin HCl (Vanco pharmacy to dose) 1 ea DAILY PRN MISC Per rx protocol 06/07/20 11:00 07/07/20 10:59 Vancomycin/Sodium Chloride 275 ml @ 183.333 mls/hr Q8HR IVPB 06/17/20 22:00 06/22/20 21:59 06/20/20 06:25 Dl Mcgowan MD Jun 20, 2020 11:10"
[2020-06-20 12:00] VITALS: BP 129/90
--- NOTE | 2020-06-20 12:57 | Surgery Progress Note ---
Surgery Progress Note Subjective Additional Comments fevers resolved no n/v covid negative Objective Last 24 Hour Vital Signs Date Time Temp Pulse Resp B/P (MAP) Pulse Ox O2 Delivery O2 Flow Rate FiO2 06/20/20 12:43 99 T-Piece 5.0 28 06/20/20 12:00 97.1 76 20 129/90 (103) 100 06/20/20 12:00 79 06/20/20 09:00 T-piece 5.0 06/20/20 08:54 104 146/97 06/20/20 08:00 97.5 78 20 154/99 (117) 97 06/20/20 08:00 107 06/20/20 07:01 100 T-Piece 5.0 28 06/20/20 04:00 98.1 102 24 145/97 (113) 100 06/20/20 04:00 104 06/20/20 01:30 100 T-Piece 5.0 28 06/20/20 00:00 99.3 86 20 144/97 (113) 100 06/20/20 00:00 86 06/19/20 21:00 T-piece 5.0 06/19/20 20:34 105 134/89 06/19/20 20:00 96 06/19/20 20:00 99.1 98 24 134/89 (104) 100 06/19/20 20:00 100 T-Piece 5.0 28 06/19/20 16:00 91 06/19/20 16:00 97.9 93 20 104/55 (71) 100 06/19/20 13:49 100 T-Piece 5.0 28 I&O Intake and Output 06/19/20 06/20/20 18:59 06:59 Intake Total 740 ml Output Total 1200 ml 1600 ml Balance -1200 ml -860 ml Intake Free Water 200 ml Tube Feeding 540 ml Output Urine Total 1200 ml 1600 ml # Voids 1 # Bowel Movements 1 1 Dressing: other Wound: other Cardiovascular: RSR Respiratory: decreased breath sounds Abdomen: soft, non-tender, present bowel sounds Extremities: no tenderness, no cyanosis Plan Problems: (1) Tachycardia (2) Sepsis Assessment & Plan: 29-year-old male with leukocytosis anemia lactic acidosis. Patient admitted further care management identified to have significant secretions from tracheostomy trach collar with sutures in place causing distortion. Abdominal G-tube in place. Patient forming deep tissue injury. BMI 22 labs noted. Patient a phasic unable to respond to commands and in a vegetative state at this time. Patient with a UTI on antibiotics. Right PIC in place may need to be replaced. Turn every 2 hours offload pressure with air mattress and pillows. Trach sutures removed trach tie evaluated trach in place secretions suction. Continue with secretions chest x-ray reviewed no acute infiltrative process Leukocytosis trending down lactic acid is improving continue fluid resuscitation IV antibiotics improving labs improved cont current care trach care fevers resolved wbc resolved improved CT head noted neurosurg eval cxr improved fevers cont leukocytosis neuro input appreciate. possible infected collection transfer to neurosurgery hospital pending Thank you will follow with recommendations high fevers leukocytosis needs transfer Brain: Extensive right hemispheric parenchymal volume loss and edema. Increased hyperdense of the right frontal parenchyma. Hypodensities of the left frontal, parietal, and temporal regions which may be sequela of prior infarct. No hemorrhage. No significant white matter disease. Midline shift: Mild, 6 mm, right to left midline shift. Ventricles: Exvacuodilatation of the ventricles. Bones/joints: Postsurgical changes from extensive prior right craniotomy. Large extra-axial fluid collection extending beyond the calvarium in region of prior craniotomy. The fluid extends beyond the calvarial region by approximately 4.0 cm in axial dimension No acute fracture. Soft tissues: Unremarkable. Sinuses: Unremarkable as visualized. No acute sinusitis. Mastoid air cells: Unremarkable as visualized. No mastoid effusion. IMPRESSION: 1. Large extra-axial fluid collection of the right hemisphere extending beyond the region of large frontal craniotomy. There is mild right to left midline shift measuring approximately 6 mm. 2. Hyperdensity of the residual right parenchyma suggestive of parenchymal contusion. 3. Extensive right parenchymal volume loss. May be sequela of prior infarct versus postsurgical change. 4. Hyperdensities throughout the left cerebellum, suggestive of prior ischemic process. Artifacts: Blooming artifact is noted within the right peripheral residual parenchyma likely representing hemosiderin deposition. Brain: Extensive right hemispheric parenchymal volume loss and edema. Mild encephalomalacia of the left hemisphere with expansion of the CSF containing spaces. No hemorrhage. Midline shift: There is proximal is 7 mm of right to left midline shift. Ventricles: Unremarkable. No ventriculomegaly. Bones/joints: There is significant expansion of the CSF containing spaces of the right hemisphere with extension beyond the calvarium through a craniotomy defect measuring approximately 4.3 cm. Sinuses: Unremarkable as visualized. No acute sinusitis. Mastoid air cells: Unremarkable as visualized. No mastoid effusion. Orbits: Unremarkable as visualized. Other vasculature: Following demonstration of intravenous contrast, there is no evidence of abnormal enhancement. IMPRESSION: 1. No obvious hemorrhage or stroke. Artifact on DWI sequence partially limits evaluation. Otherwise, no significant interval change from recent CT. 2. Large extra-axial fluid collection pending through craniotomy defect. There is mild right to left midline shift measuring in proximal 7 mm. 3. Extensive right parenchymal volume loss. May be sequela of prior infarct versus postsurgical/post traumatic change. 4. Encephalization of the left hemisphere with expansion of CSF containing spaces. DAILY ESTIMATED NEEDS: Needs based on Pulmonary, 68kg 25-30 kcals/kg 9936-6437 total kcals 1.25-1.5 g protein/kg 85-102 g total protein 25-30 mL/kg 2047-3915 total fluid mLs NUTRITION DIAGNOSIS: Swallowing difficulty r/t TBI and resp distress, as evidenced by pt is vent dep via T-collar, PEG dep. CURRENT TF:Jevity 1.2 @70 ml x20 hrs ENTERAL NUTRITION RECOMMENDATIONS: Increase TF to goal of 75ml/hr x20 hrs to provide 1500ml, 1800 kcal, 83g pro, 1211ml free H2O - Rec to INCREASE TF by 5ml/hr to better meet est kcal and pro needs. - Flush per MD/ HOB over 30 degrees ADDITIONAL RECOMMENDATIONS: 1) Skin integrity: add CATALINA BID via PEG (added 5g pro to meet est pro needs) 2) Wound care eval 3) Per SNF: 5'5" and 150#, maintain calibrated bed scale wts Carl Hernandez Jun 20, 2020 12:57
--- NOTE | 2020-06-20 13:04 | Nephrology Progress Note ---
Assessment/Plan Plan Sepsis - IV Abx. Hyponatremia Na corrected to 133. DC 3% NaCl. Na stable @ 135. Uosm inappropriately high. CW SIADH! Subjective Subjective Obtunded Objective Objective Last 24 Hour Vital Signs Date Time Temp Pulse Resp B/P (MAP) Pulse Ox O2 Delivery O2 Flow Rate FiO2 06/20/20 12:43 99 T-Piece 5.0 28 06/20/20 12:00 97.1 76 20 129/90 (103) 100 06/20/20 12:00 79 06/20/20 09:00 T-piece 5.0 06/20/20 08:54 104 146/97 06/20/20 08:00 97.5 78 20 154/99 (117) 97 06/20/20 08:00 107 06/20/20 07:01 100 T-Piece 5.0 28 06/20/20 04:00 98.1 102 24 145/97 (113) 100 06/20/20 04:00 104 06/20/20 01:30 100 T-Piece 5.0 28 06/20/20 00:00 99.3 86 20 144/97 (113) 100 06/20/20 00:00 86 06/19/20 21:00 T-piece 5.0 06/19/20 20:34 105 134/89 06/19/20 20:00 96 06/19/20 20:00 99.1 98 24 134/89 (104) 100 06/19/20 20:00 100 T-Piece 5.0 28 06/19/20 16:00 91 06/19/20 16:00 97.9 93 20 104/55 (71) 100 06/19/20 13:49 100 T-Piece 5.0 28 Intake and Output 06/19/20 06/20/20 19:00 07:00 Intake Total 145 ml 595 ml Output Total 1200 ml 1600 ml Balance -1055 ml -1005 ml Intake Free Water 100 ml 100 ml Tube Feeding 45 ml 495 ml Output Urine Total 1200 ml 1600 ml # Voids 1 # Bowel Movements 1 1 Height (Feet): 5 Height (Inches): 10.00 Weight (Pounds): 160 Objective Head deformed post op CV RR Neck trach clean Lungs B ronchi Abd SNT. BS + E No CCE Valerio Hendrix MD Jun 20, 2020 13:04
--- NOTE | 2020-06-20 13:07 | NUR ---
RN FIELD CASE MANAGER NOTES PT ACCEPTED BACK TO [facility] CONV ROOM [address] [facility] TO TRANSPORT PT WITH AN ETA 1600. FAMILY AWARE OF DC STATUS.NURSE TO CALL REPORT PRIOR TO [phone] [facility] [phone] [facility] EXT [id number]
[2020-06-20] MEDS: Renvela 800mg Pkt GT SCH ×2 (14:05→17:16)
--- NOTE | 2020-06-20 15:43 | NUR ---
NURSE NOTES: report given to Mi at [facility]
[2020-06-20 16:00] VITALS: BP 126/85
--- NOTE | 2020-06-20 17:56 | NUR ---
NURSES NOTES: Report given to [facility] personal. Pt is stable and transferred via gurney. LUCERO Silverio also notified.
--- NOTE | 2020-06-21 07:53 | Discharge Summary ---
Discharge Summary Discharge Summary _ DATE OF ADMISSION: 05/30/2020 DATE OF DISCHARGE: 06/20/2020 DISCHARGED BY: Dr. Higgins REASON FOR ADMISSION: 29 years old male with past medical history of chronic respiratory doctors , tracheostomy care, status post traumatic brain injury, seizure disorder , encephalopathy, was sent for evaluation from the long-term facility due to tachycardia. Upon evaluation patient was found septic with leukocytosis 25.7. Lactic acid 2.4. Patient was tachycardic with heart rate of 120. No fevers. Troponin negative, pro BNP 74. EKG revealed sinus tachycardia, no acute ischemic changes. Chest x-ray revealed no acute cardiopulmonary pathology. BUN 32, creatinine 1.2. Sodium 131. D-dimer 2.43, ferritin 1470, LDH 289, CRP 4.4. Rapid COVID-19 testing in ER was negative. Urinalysis revealed moderate bacteria, no pyuria. In emergency department septic work-up initiated: patient received fluid ch allenge pancultured,, started on empiric antibiotic and admitted for further management. CONSULTANTS: natural resource specialist neurologist Dr. Kuhn ID specialist Dr. Mcgowan supervisor electric motor testing Dr. Hendrix [facility] COURSE: Patient admitted to monitored floor and started on IV fluids and broad-spectrum antibiotics. ID specialist followed. Venous duplex bilateral lower extremity revealed no evidence of acute DVT. Echocardiogram demonstrated preserved ejection fraction of 60 to 65% with mild left ventricular hypertrophy. No evidence of wall motion abnormality. Abdominal x-ray revealed gastrostomy tube in place, no acute process otherwise. CT of the head revealed large extra-axial fluid collection of the right hemisphere, extending beyond the region of the large frontal craniotomy; mild right to left midline shift measuring approximately 6 mm. Hyperdensity of the residual right parenchyma suggestive of parenchymal cont usion. MRI of the brain demonstrated no obvious hemorrhage or stroke. Large extra-axial fluid collection pending through craniotomy defect. There was mild right to left midline shift measuring i approximately 7 mm. Antibiotic provided as per ID specialist recommendation. Blood cultures were negative. Urine culture initially was negative. Stool for C. difficile was negative . Sputum culture revealed Klebsiella ESBL and Pseudomonas MDR. Repeated urine culture revealed growth of gram-negative rods and Marlin. Repeated blood culture r were negative Neurologist recommended neurosurgery evaluation, not available at this facility. Plan was initially to transfer patient to higher level of care with neurosurgery evaluation. Unable to arrange transfer at this time. Patient however responded to conservative management. Leukocytosis and fevers resolved. Seizure precaution maintained. Keppra continued. EEG revealed generalized cerebral dysfunction , compatible with significant generalized encephalopathy. Right greater than left hemispheric dysfunction Sinus tachycardia was most likely due to autonomic dysfunction and sepsis. Patient was on IV hydration . Heart rate stabilzied. Antihypertensive regimen was advanced to bring blood pressure under control . patient was maintained on beta-jocelyn and diltiazem was discontinued , topical clonidine added. DVT prophylaxis provided. Tracheostomy care and pulmonary toilet provided. Renal parameters and electrolytes were closely monitored, electrolytes corrected as needed , and nephrotoxic's were avoided. hyponatremia workup revealed inappropriately urine osmolality. Patient received 3% sodium chloride . Sodium stabilized prior to discharge. Initial hyponatremia was probably due to SIADH. BUN from 32 down to 11 and creatinine remained stable -0.6 upon discharge. Patient received treatment for scabies. Strict aspiration precaution maintained. Tube feeding continued via G-tube. Patient was able to tolerate tube feeding. Supportive care provided. Patient was stable for transfer to D long-term facility for further management. Continue antibiotic at the facility to complete the course as per ID recommendation. FINAL DIAGNOSES: Severe sepsis Brain abscess Aspiration pneumonia with Klebsiella/Pseudomonas Fungal , gram-negative UTI, status post treatment TBI Chronic respiratory failure with tracheostomy status Sinus tachycardia due to autonomic dysfunction and infection Toxic encephalopathy Hyponatremia likely due to SIADH Hypertension Seizure disorders Scabies ,status post treatment Dysphagia, feeding by G-tube Hypothyroidism DISCHARGE MEDICATIONS: See Medication Reconciliation list. DISCHARGE INSTRUCTIONS: Patient was discharged to the long-term facility. Follow up with medical doctor at the facility. I have been assigned to dictate discharge summary for this account. I was not involved in the patient's management. Dimple Brito NP Jun 21, 2020 07:53
== END 2020-06-20 17:45 | DRG 720 ==
LOC: EDBD 14:29 → EMR 14:51 → EDBEDREQ 14:53 → 2E 15:05 → EDBEDREQ 16:19
DX: A41.9 Sepsis, unspecified organism (principal); N39.0 Urinary tract infection, site not specified; S06.9X0S Unspecified intracranial injury without loss of consciousness, sequela; R40.2343 Coma scale, best motor response, flexion withdrawal, at hospital admission; R40.2123 Coma scale, eyes open, to pain, at hospital admission; R40.2213 Coma scale, best verbal response, none, at hospital admission; R65.20 Severe sepsis without septic shock; B49 Unspecified mycosis; G40.909 Epilepsy, unspecified, not intractable, without status epilepticus; E03.9 Hypothyroidism, unspecified; I11.9 Hypertensive heart disease without heart failure; R00.0 Tachycardia, unspecified; R40.3 Persistent vegetative state; Z93.0 Tracheostomy status; Z93.1 Gastrostomy status; L89.156 Pressure-induced deep tissue damage of sacral region; B86 Scabies; E22.2 Syndrome of inappropriate secretion of antidiuretic hormone; J96.10 Chronic respiratory failure, unspecified whether with hypoxia or hypercapnia; G92 Toxic encephalopathy; G06.0 Intracranial abscess and granuloma; Z20.828 Contact with and (suspected) exposure to other viral communicable diseases; J69.0 Pneumonitis due to inhalation of food and vomit; R13.10 Dysphagia, unspecified
CPT/HCPCS: 36415; 70450; 70553; 71045; 74018; 80048; 80053; 80202; 80299; 81003; 82150; 82607; 82728; 82803; 83605; 83615; 83690; 83735; 83880; 83921; 83935; 84100; 84443; 84484; 85007; 85025; 85379; 85610; 85651; 85730; 86140; 87040; 87070; 87081; 87086; 87181; 87205; 87324; 93005; 93306; 93970; 94640; 95819; 96361; 96365; 96368; 99291; A9585; J7030; U0002

== ENCOUNTER 2020-06-21 18:52 | Inpatient (IN) | payer MEDICAID ==
[~2020-06-21] VITALS: Ht 172.7 cm; Wt 70.0 kg
[~2020-06-21 18:52] MED LIST: ACIDOPHILUS1 EAC7 GT; ARMOUR THYROID30 MG GT; CARAFATE1 G1 GT; FAMOTIDINE20 MG GT; KEPPRA750 MG GT; KEPPRA750 MG ORAL; LEVOFLOXACIN750 MG GT; LISINOPRIL5 MG GT; LOVENOX10 M2 SUBQ; PROPRANOLOL HCL10 MG GT; RENAGEL800 MG GT; VIMPAT50 MG GT; levaquin
[2020-06-21] MEDS ORDERED: Sodium Chloride 2,200 ML IVLG ONE (19:00)
[2020-06-21] MEDS ORDERED: Acetaminophen 650 MG SUPP RECTAL ONE ×2 (19:00)
[2020-06-21] MEDS ORDERED: Vancomycin 1.5gm/NS Premix 275 ML IVPB ONE (19:00)
[2020-06-21] MEDS ORDERED: Cefepime HCl 2 GM in NS 110 ML IV ONE (19:00)
--- NOTE | 2020-06-21 19:02 | NUR ---
ED Nurse Note: Pt arrived with RA 26 due SOB and fever of 100.4. Pt was given tylenol from [facility] temp per ems went down to 99.8. Pt appears diaphoretic. pt is trached but not ventilated. pt is tachycardiac at 134-160
[2020-06-21 19:05] VITALS: BP 132/111
--- NOTE | 2020-06-21 19:06 | NUR ---
HAND-OFF: Report given to Gurvinder Smith.
--- NOTE | 2020-06-21 19:08 | Emergency Room Report ---
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 COVID-19 Screening: Negative COVID-19 COVID-19 Testing Source: nut former Patient History Limited by: medical condition - Trach Reviewed Nursing Documentation: PMH: Agreed; PSxH: Agreed Nursing Documentation-PMH Hx Hypertension: Yes Hx COPD: Yes Hx Cancer: No Hx Gastrointestinal Problems: Yes - G tube Hx Seizures: Yes Hx Head Trauma: Yes Hx Traumatic Brain Injury: Yes Review of Systems All Other Systems: limited - trach altered Physical Exam Vital Signs Date Time Temp Pulse Resp B/P (MAP) Pulse Ox O2 Delivery O2 Flow Rate FiO2 06/21/20 18:44 145 28 132/111 (118) 99 Endotracheal Tube 5.0 Sp02 EP Interpretation: reviewed General Appearance: moderate distress, Chronically Ill Head: other - craniotomy Eyes: bilateral eye PERRL, bilateral eye EOMI ENT: uvula midline, moist mucus membranes Neck: supple, thyroid normal, supple/symm/no masses, tracheotomy Respiratory: respiratory distress, accessory muscle use, rhonchi Cardiovascular #1: normal peripheral pulses, no edema, no gallop, no murmur, tachycardia Gastrointestinal: non tender, soft, no guarding, no rebound Musculoskeletal: normal inspection Neurologic: alert, oriented x3 Psychiatric: mood/affect normal Skin: no rash, warm/dry Procedures Critical Care Time Critical Care Time Given the critical condition in which the patient arrived, the patient was immediately assessed by myself and the nurse, and cardiac monitoring initiated due to the potential for rapid decompensation of the patient's clinical condition. During the course of the patient's stay, I spent a considerable amount of time at the bedside performing serial re-evaluations of the patient's hemodynamic and clinical status because of the recognized potential threat to life or limb in this condition. I then had a chance to review not only all of the available current laboratory and radiographic studies obtained today, but I also reviewed old records available to me at the time. Additionally, any ancillary information available including motor builder assembler records were reviewed. Sequential vital signs were obtained. Critical Care time of 33 minutes was performed exclusive of billable procedures. Medical Decision Making Diagnostic Impression: Primary Impression: Sepsis Qualified Codes: A41.9 - Sepsis, unspecified organism Additional Impression: UTI (urinary tract infection) Qualified Codes: N30.01 - Acute cystitis with hematuria ER Course 29-year-old male presents with tachycardia, tachypnea, differential diagnosis includes sepsis, UTI, pneumonia Chest x-ray negative, urine is positive for bacteria, will start patient on cefepime, vancomycin chest x-ray negative Patient resuscitated with 30 cc/kg of NS Reevaluation 9:33 PM patient's heart rate has improved respiratory rate has improved with fluid administration, antibiotics, respiratory rate decreased from 40-30 Patient acutely ill, repeat CT scan of the head shows improvement Additionally patient with trace subarachnoid and sylvian fissures unchanged from previous CT Spoke with [facility] no acute neurosurgical intervention indicated at this time Also called [facility] to find out his prior operative records they were unable to obtain his prior records unknown where patient received neurosu rgical intervention Patient will be readmitted to Dr. Higgins Laboratory Tests Test 06/21/20 19:00 06/21/20 19:25 06/21/20 20:49 White Blood Count 19.1 K/UL (4.8-10.8) H Red Blood Count 4.07 M/UL (4.70-6.10) L Hemoglobin 12.2 G/DL (14.2-18.0) L Hematocrit 37.2 % (42.0-52.0) L Mean Corpuscular Volume 92 FL (80-99) Mean Corpuscular Hemoglobin 30.1 PG (27.0-31.0) Mean Corpuscular Hemoglobin Concent 32.9 G/DL (32.0-36.0) Red Cell Distribution Width 15.9 % (11.6-14.8) H Platelet Count 602 K/UL (150-450) H Mean Platelet Volume 6.3 FL (6.5-10.1) L Neutrophils (%) (Auto) % (45.0-75.0) Lymphocytes (%) (Auto) % (20.0-45.0) Monocytes (%) (Auto) % (1.0-10.0) Eosinophils (%) (Auto) % (0.0-3.0) Basophils (%) (Auto) % (0.0-2.0) Differential Total Cells Counted 100 Neutrophils % (Manual) 91 % (45-75) H Lymphocytes % (Manual) 7 % (20-45) L Monocytes % (Manual) 1 % (1-10) Eosinophils % (Manual) 1 % (0-3) Basophils % (Manual) 0 % (0-2) Band Neutrophils 0 % (0-8) Platelet Estimate Increased H Platelet Morphology Normal Red Blood Cell Morphology Normal Prothrombin Time 12.7 SEC (9.30-11.50) H Prothrombin Time INR 1.2 (0.9-1.1) H Activated Partial Thromboplast Time 29 SEC (23-33) Urine Color Yellow Urine Appearance Slightly cloudy Urine pH 6.5 (4.5-8.0) Urine Specific [place] 1.010 (1.005-1.035) Urine Protein 2+ (NEGATIVE) H Urine Glucose (UA) Negative (NEGATIVE) Urine Ketones 1+ (NEGATIVE) H Urine Blood 2+ (NEGATIVE) H Urine Nitrite Negative (NEGATIVE) Urine Bilirubin Negative (NEGATIVE) Urine Urobilinogen 1 MG/DL (0.0-1.0) H Urine Leukocyte Esterase 2+ (NEGATIVE) H Urine RBC 2-4 /HPF (0 - 0) H Urine WBC 30-40 /HPF (0 - 0) H Urine Squamous Epithelial Cells Occasional /LPF Urine Bacteria Moderate /HPF (NONE) H Sodium Level 139 MMOL/L (136-145) Potassium Level 4.9 MMOL/L (3.5-5.1) Chloride Level 100 MMOL/L (98-107) Carbon Dioxide Level 32 MMOL/L (21-32) Anion Gap 7 mmol/L (5-15) Blood Urea Nitrogen 31 mg/dL (7-18) H Creatinine 1.2 MG/DL (0.55-1.30) Estimated Glomerular Filtration Rate > 60 mL/min (>60) Glucose Level 127 MG/DL (74-106) H Lactic Acid Level 2.30 mmol/L (0.4-2.0) H 1.40 mmol/L (0.66-2.22) Calcium Level 10.5 MG/DL (8.5-10.1) H Phosphorus Level 5.0 MG/DL (2.5-4.9) H Magnesium Level 2.6 MG/DL (1.8-2.4) H Total Bilirubin 0.4 MG/DL (0.2-1.0) Aspartate Amino Transferase (AST) 36 U/L (15-37) Alanine Aminotransferase (ALT) 106 U/L (12-78) H Alkaline Phosphatase 199 U/L (46-116) H Total Creatine Kinase 80 U/L (26-140) Creatine Kinase MB 0.5 NG/ML (0.0-3.6) Creatine Kinase MB Relative Index 0.6 Troponin I 0.000 ng/mL (0.000-0.056) Pro-B-Type Natriuretic Peptide 231 pg/mL (0-125) H Total Protein 8.0 G/DL (6.4-8.2) Albumin 3.3 G/DL (3.4-5.0) L Globulin 4.7 g/dL Albumin/Globulin Ratio 0.7 (1.0-2.7) L Lipase 95 U/L (73-393) Arterial Blood pH 7.488 (7.350-7.450) Arterial Blood Partial Pressure CO2 34.1 mmHg (35.0-45.0) L Arterial Blood Partial Pressure O2 162.6 mmHg (75.0-100.0) H Arterial Blood HCO3 25.3 mmol/L (22.0-26.0) Arterial Blood Oxygen Saturation 98.8 % (95-100) Arterial Blood Base Excess 2.3 (-2-2) H Seth Test Positive Microbiology Date/Time Source Procedure Growth Status 06/21/20 19:00 Nasopharynx SARS-CoV-2 RdRp Gene Assay - Final Complete EKG Diagnostic Results Troponin ordered: Yes When was troponin ordered?: Jun 21, 2020 - 1854 EKG Time: 18:49 EP Interpretation: Sinus tachycardia, rate 145, QTc 425, no acute ST lesions, left axis deviat Rhythm Strip Diag. Results Rhythm Strip Time: 19:08 EP Interpretation: yes Rate: 139 Rhythm: other - sinus tachycardia Chest X-Ray Diagnostic Results Chest X-Ray Diagnostic Results : Chest X-Ray Ordered: Yes # of Views/Limited/Complete: 1 View Indication: Shortness of Breath EP Interpretation: Yes Interpretation: no consolidation, no effusion, no pneumothorax, no acute cardiopulmonary disease Impression: No acute disease Electronically Signed by: Jeff Stark MD CT/MRI/US Diagnostic Results CT/MRI/US Diagnostic Results : Impression TECHNIQUE: Axial computed tomography images of the head/brain without intravenous contrast. CTDI is 53.4 mGy and DLP is 1179.1 mGy-cm. One or more of the following dose reduction techniques were used: automated exposure control, adjustment of the mA and/or kV according to patient size, use of iterative reconstruction technique. COMPARISON: 06/03/20 FINDINGS: Brain: Small right posterior parietal lobe new 1.1 hyperdensity axial series 7 image 15 could represent a small amount of parenchymal hemorrhage without significant mass effect. Previous study demonstrates 0.8 cm of right to left subfalcine herniation which has intervally resolved, potentially due to decreasing fluid volume in the right soft tissue flap. Large right hemispheric unchanged encephalomalacia with similar right sylvian fissure region subarachnoid hyperdensity, probably representing similar subarachnoid hemorrhage or calcification. Ventricles: Development of interval new hydrocephalus involving the bilateral and third ventricles. 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 No acute fracture. Soft tissues: Unremarkable. Sinuses: Unremarkable as visualized. No acute sinusitis. Mastoid air cells: Unremarkable as visualized. No mastoid effusion. Other findings: Decreased volume of hyperdense right medial posterior hypodense collection now 3.3 x 2.7cm previously 4.7 x 3.9cm of uncertain significance. Bitemporal distance 5.9 cm, previously 3.2 cm. Dilation of temporal horns. IMPRESSION: 1. Recommend neurosurgical consultation. 2. 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 3. Development of interval new hydrocephalus involving the bilateral and third ventricles. 4. Previous study demonstrates 0.8 cm of right to left subfalcine herniation which has intervally resolved, potentially due to decreasing fluid volume in the right soft tissue flap. 5. Small right posterior parietal lobe new 1.1 hyperdensity axial series 7 image 15 could represent a small amount of parenchymal hemorrhage without significant mass effect. 6. Large right hemispheric unchanged encephalomalacia with similar right sylvian fissure region subarachnoid hyperdensity, probably representing similar subarachnoid hemorrhage or calcification. 7. Decreased volume of hyperdense right medial posterior hypodense collection now 3.3 x 2.7cm previously 4.7 x 3.9cm of uncertain significance. <MYCVCSECTION> Communications: 06/21/20 20:48 Call Doctor Regarding Other, called Dr. Stark on 06/21 20:48 (-07:00) Dictated By: Indio Delgado MD Electronically Signed By:Indio Delgado MD Signed Date/Time06/21/202050 CC: Jeff Stark MD Last Vital Signs Date Time Temp Pulse Resp B/P (MAP) Pulse Ox O2 Delivery O2 Flow Rate FiO2 06/21/20 18:44 145 28 132/111 (118) 99 Endotracheal Tube 5.0 Disposition: ADMITTED INPATIENT Condition: Critical Evaluation Current Stage of Sepsis: Sepsis Possible Source: Genitourinary Focused Exam Allergies: Coded Allergies: No Known Allergies (Unverified , 05/30/20) Date Exam Occurred: Jun 21, 2020 Time Exam Occurred: 21:33 Vital Signs Last 24 Hour Vital Signs Date Time Temp Pulse Resp B/P (MAP) Pulse Ox O2 Delivery O2 Flow Rate FiO2 06/21/20 18:44 145 28 132/111 (118) 99 Endotracheal Tube 5.0 Respiratory Exam: Rhonchi Cardiovascular Exam: S1, S2 Capillary Refill: Less Than 2 Seconds Peripheral Pulse: Strong Pulse Location: Radial Skin Exam: Normal Turgor Jeff Stark MD Jun 21, 2020 19:08
--- NOTE | 2020-06-21 19:12 | NUR ---
ED Nurse Note: Right posterior soft, movable, fluid filled mass noted on pt head. Pt has history of lobotomy.
--- NOTE | 2020-06-21 19:15 | NUR ---
ED Nurse Note: Patient is tacchycardic and tachypnic. patient presents with a heart of 150 and a respiratory rate in the 50 per minute. patient is also febrile with a 103.4 rectal temp. patient does present with a picc line located on right upper bicep. patient was cleaned due to patient having 1 episode of diarrhea at time of arrival. all labs sent down. 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 will continue to monitor
[2020-06-21 19:36] LABS: HEMATOCRIT 37.2 % (42.0-52.0); HEMOGLOBIN 12.2 G/DL (14.2-18.0); MEAN CORPUSCULAR VOLUME 92 FL (80-99); PLATELET COUNT 602 K/UL (150-450); RED BLOOD COUNT 4.07 M/UL (4.70-6.10); RED CELL DISTRIBUTION WIDTH 15.9 % (11.6-14.8); WHITE BLOOD COUNT 19.1 K/UL (4.8-10.8)
[2020-06-21 19:42] LABS: INR 1.2 (0.9-1.1)
[2020-06-21 20:03] LABS: APPEARANCE,URINE SLIGHTLY CLOUDY; BILIRUBIN, URINE NEGATIVE (NEGATIVE); GLUCOSE, URINE (UA) NEGATIVE (NEGATIVE); KETONES,URINE 1+ (NEGATIVE); LEUKOCYTE ESTERASE ,URINE 2+ (NEGATIVE); NITRITE,URINE NEGATIVE (NEGATIVE); PH,URINE 6.5 (4.5-8.0); PROTEIN,URINE 2+ (NEGATIVE); UROBILINOGEN,URINE 1 MG/DL (0.0-1.0)
[2020-06-21 20:06] LABS: COLOR,URINE YELLOW
[2020-06-21 20:13] LABS: ANION GAP 7 mmol/L (5-15); BLOOD UREA NITROGEN 31 mg/dL (7-18); CALCIUM 10.5 MG/DL (8.5-10.1); CARBON DIOXIDE 32 MMOL/L (21-32); CHLORIDE 100 MMOL/L (98-107); CREATININE 1.2 MG/DL (0.55-1.30); POTASSIUM 4.9 MMOL/L (3.5-5.1); SODIUM 139 MMOL/L (136-145)
--- NOTE | 2020-06-21 20:18 | NUR ---
ED Nurse Note: Patient taken to CT in stable condition
[2020-06-21 20:26] LABS: ALANINE AMINOTRANSFERASE 106 U/L (12-78); ALBUMIN 3.3 G/DL (3.4-5.0); ALBUMIN/GLOBULIN RATIO 0.7 (1.0-2.7); ALKALINE PHOSPHATASE 199 U/L (46-116); ASPARTATE AMINO TRANSFERASE 36 U/L (15-37); BILIRUBIN,TOTAL 0.4 MG/DL (0.2-1.0); CREATINE KINASE 80 U/L (26-140)
[2020-06-21 20:28] LABS: CKMB 0.5 NG/ML (0.0-3.6)
--- NOTE | 2020-06-21 20:52 | Diagnostic Imaging Report ---
EXAM: CT Head Without Intravenous Contrast CLINICAL HISTORY: PAIN TECHNIQUE: Axial computed tomography images of the head/brain without intravenous contrast. CTDI is 53.4 mGy and DLP is 1179.1 mGy-cm. One or more of the following dose reduction techniques were used: automated exposure control, adjustment of the mA and/or kV according to patient size, use of iterative reconstruction technique. COMPARISON: 06/03/20 FINDINGS: Brain: Small right posterior parietal lobe new 1.1 hyperdensity axial series 7 image 15 could represent a small amount of parenchymal hemorrhage without significant mass effect. Previous study demonstrates 0.8 cm of right to left subfalcine herniation which has intervally resolved, potentially due to decreasing fluid volume in the right soft tissue flap. Large right hemispheric unchanged encephalomalacia with similar right sylvian fissure region subarachnoid hyperdensity, probably representing similar subarachnoid hemorrhage or calcification. Ventricles: Development of interval new hydrocephalus involving the bilateral and third ventricles. 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 No acute fracture. Soft tissues: Unremarkable. Sinuses: Unremarkable as visualized. No acute sinusitis. Mastoid air cells: Unremarkable as visualized. No mastoid effusion. Other findings: Decreased volume of hyperdense right medial posterior hypodense collection now 3.3 x 2.7cm previously 4.7 x 3.9cm of uncertain significance. Bitemporal distance 5.9 cm, previously 3.2 cm. Dilation of temporal horns. IMPRESSION: 1. Recommend neurosurgical consultation. 2. 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 3. Development of interval new hydrocephalus involving the bilateral and third ventricles. 4. Previous study demonstrates 0.8 cm of right to left subfalcine herniation which has intervally resolved, potentially due to decreasing fluid volume in the right soft tissue flap. 5. Small right posterior parietal lobe new 1.1 hyperdensity axial series 7 image 15 could represent a small amount of parenchymal hemorrhage without significant mass effect. 6. Large right hemispheric unchanged encephalomalacia with similar right sylvian fissure region subarachnoid hyperdensity, probably representing similar subarachnoid hemorrhage or calcification. 7. Decreased volume of hyperdense right medial posterior hypodense collection now 3.3 x 2.7cm previously 4.7 x 3.9cm of uncertain significance. <MYCVCSECTION> Communications: 06/21/20 20:48 Call Doctor Regarding Other, called Dr. Stark on 06/21 20:48 (-07:00)
[2020-06-21 21:17] VITALS: BP 110/71
--- NOTE | 2020-06-21 21:17 | NUR ---
ED Nurse Note: Rectal temp 99.3 F
--- NOTE | 2020-06-21 21:47 | NUR ---
ED Nurse Note: Report given to KADEEM Waldrop.
--- NOTE | 2020-06-21 22:10 | NUR ---
TRANSFER TO FLOOR: Patient transferred to SDU as ordered, per ERMD. Report given to KADEEM Waldrop. 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 Patient accompanied by 2 RNs.
--- NOTE | 2020-06-21 22:30 | NUR ---
NURSE NOTES: Report received from KADEEM Olivas. Pt LOIS vera direct to room 236-2 from ED. Pt appears obtunded, with decerebrate extremities, and pupils unresponsive to light upon neuro assessment. Observed with alterations on right parietal lobe secondary to hx of lobectomy and craniotomy. Tachycardic on 5-lead residential monitor. Afebrile Pt observed with HELIO PICC. G-tube site patent and intact. Daniels draining well to gravity with dark chelsea colored urine. Skin tear observed on left knee. Bed kept in lowest and locked position. Bed alarm on. Will continue monitoring.
[2020-06-22] VITALS: BP 140/77
--- NOTE | 2020-06-22 00:19 | NUR ---
NURSE NOTES: Have attempted to contact MD for admission orders x3. Will initiate chain of command and contact RN rides supervisor. Pt in stable condition.
--- NOTE | 2020-06-22 01:05 | NUR ---
NURSE NOTES: Awaiting call back from MD or certified ophthalmic medical technician with admission orders for pt. Will continue to monitor.
--- NOTE | 2020-06-22 02:00 | NUR ---
NURSE NOTES: New orders from Dr. Higgins. Will carry out and endorse.
[2020-06-22] MEDS ORDERED: TYLENOL325 M1 GT (03:01)
[2020-06-22] MEDS ORDERED: FLORASTOR250 MG GT (03:01)
[2020-06-22] MEDS ORDERED: ACETAMINOP160 MG/5 M GT (03:01)
[2020-06-22] MEDS ORDERED: COMBIVENT RESPIM4 GM IH (03:01)
[2020-06-22] MEDS ORDERED: TYLENOL EXTRA500 MG GT (03:07)
[2020-06-22] MEDS ORDERED: TYLENOL325 MG GT (03:07)
[2020-06-22] MEDS ORDERED: VITAMIN C500 MG/11 GT (03:12)
[2020-06-22] MEDS ORDERED: MULTI-DELYN237 ML GT (03:12)
[2020-06-22] MEDS ORDERED: ZINC SULFATE220 M1 GT (03:12)
[2020-06-22 04:00] VITALS: BP 143/84
[2020-06-22] MEDS ORDERED: Acetaminophen 650mg/20.3ml GT PRN (04:00)
[2020-06-22 05:59] LABS: BASOPHILS % (AUTO) 0.4 % (0.0-2.0); EOSINOPHILS % (AUTO) 1.4 % (0.0-3.0); HEMATOCRIT 32.7 % (42.0-52.0); HEMOGLOBIN 10.6 G/DL (14.2-18.0); LYMPHOCYTES % (AUTO) 15.8 % (20.0-45.0); MEAN CORPUSCULAR VOLUME 94 FL (80-99); MONOCYTES % (AUTO) 6.1 % (1.0-10.0); NEUTROPHILS % (AUTO) 76.3 % (45.0-75.0); PLATELET COUNT 398 K/UL (150-450); RED BLOOD COUNT 3.49 M/UL (4.70-6.10); RED CELL DISTRIBUTION WIDTH 15.8 % (11.6-14.8); WHITE BLOOD COUNT 11.2 K/UL (4.8-10.8)
[2020-06-22] MEDS ORDERED: Piperacillin/Tazobactam 3.375 GM in NS 110 ML IVPB SCH (06:00)
[2020-06-22 06:29] LABS: ANION GAP 9 mmol/L (5-15); BLOOD UREA NITROGEN 23 mg/dL (7-18); CALCIUM 9.2 MG/DL (8.5-10.1); CARBON DIOXIDE 28 MMOL/L (21-32); CHLORIDE 103 MMOL/L (98-107); CREATININE 0.7 MG/DL (0.55-1.30); POTASSIUM 3.8 MMOL/L (3.5-5.1); SODIUM 140 MMOL/L (136-145)
--- NOTE | 2020-06-22 06:48 | NUR ---
NURSE NOTES: Notified MD in regards to fluid-filled/soft mass on right parietal lobe. Asked if he wants to add neurosurgical consult on case. Pt in stable condition. Will monitor.
--- NOTE | 2020-06-22 07:01 | NUR ---
NURSE NOTES: Pollution Control TechnicianCornelia, at bedside. Fervently believes [place] at 75 is excessive for patient needs. Per RD, she will reassess and recommend to MD.
--- NOTE | 2020-06-22 07:10 | NUR ---
NURSE NOTES: Received report from Erika QUAN staff of mine shifter. Received patient with HOB 45 degree, obtunded, on Tpiece shiley #8, receiving FIO2 @28 % , saturating @100%. Rendered trach care and oral hygiene, noted of large amount of secretions during suctioning. Patient with gtube in place, patent, intact and flushed well. No residual noted. Current off, will resume @ 10am as per MD order. With morales catheter, draining well via gravity with color chelsea urine. Picc line on R upper arm, intact and patent. Full body assessment done, incontinent of loose BM, rendered total nursing care. Keep clean and dry as possible to provide comfort and prevent skin breakdown. Repositioned to the Left side and will continue to reposition q2H. Safety measures in place and call light within reach. Will continue to monitor.
--- NOTE | 2020-06-22 07:49 | NUR ---
NURSE HAND-OFF REPORT: Important Events on Shift: N/A Patient Status: Stable Diet: 2cal Pending Orders: N Pending Results/Labs: N Pending MD notification: N Latest Vital Signs: Temperature 98.8 , Pulse 119 , B/P 143 /84 , Respiratory Rate 20 , O2 SAT 100 , T-piece, O2 Flow Rate 5.0 . Vital Sign Comment: WNL - Afebrile EKG Rhythm: Sinus Tachycardia Rhythm change?: N MD Notified?: N - MD Response: Latest Whitley Fall Score: 70 Fall Risk: High Risk Safety Measures: Call light Within Reach, Bed Alarm Zone 1, Side Rails Side Rails x3, Bed position Low and Locked. Fall Precautions: Yellow Socks Yellow Gown Door Sign Patient Fall Education Report given to KADEEM Ronquillo.
[2020-06-22 08:00] VITALS: BP 143/82
--- NOTE | 2020-06-22 08:54 | NUR ---
RD ASSESSMENT & RECOMMENDATIONS SEE CARE ACTIVITY FOR COMPLETE ASSESSMENT DAILY ESTIMATED NEEDS: Needs based on Pulmonary, Wound, SIADH, sepsis/ 69kg 25-30 kcals/kg 0561-7792 total kcals 1.25-2 g protein/kg 86-138 g total protein 20-25 mL/kg 3688-6724 total fluid mLs NUTRITION DIAGNOSIS: Swallowing difficulty r/t TBI and resp distress, as evidenced by pt is vent dep via T-collar, PEG dep. CURRENT TF:2Cal @ 75ml x20 hrs ENTERAL NUTRITION RECOMMENDATIONS: Two Mikhail HN @ LOWERED RATE OF 50ml/hr x 20 hrs to provide 1000ml, 2000kcal, 84g prot, 700ml free water - Maintain Two Mikhail HN given h/o consistent hyponatremia and SIADH per Nephro MD last adm. - LOWER goal rate to 50ml/hr x 20 hrs not to exceed est needs - Add Prosource 1pkt QD to meet protein needs - Flush per MD/ HOB over 30 degrees ADDITIONAL RECOMMENDATIONS: 1) Wound Care: add Vit C 250mg QD add CATALINA BID via PEG (also provides added 5g prot to meet est prot needs) 2) Per SNF: ht=65"/ maintain calibrated bedscale wt 3) Monitor Na: h/o consistently low Na last adm (121-135), now wnl -> monitor need to continue current concentrated 2.0 TF formula
[2020-06-22] MEDS ORDERED: Levofloxacin 750mg tab ORAL SCH (09:00)
[2020-06-22] MEDS ORDERED: Renvela 800mg Pkt GT SCH (09:00)
[2020-06-22] MEDS ORDERED: Levofloxacin 750mg tab GT SCH (09:00)
[2020-06-22] MEDS: Lisinopril 2.5mg tab GT SCH ×2 (09:08→20:52)
[2020-06-22] MEDS: Propranolol 10mg tab GT SCH ×2 (09:08→20:51)
[2020-06-22] MEDS: Renvela 800mg Pkt GT SCH ×3 (09:08→18:16)
[2020-06-22] MEDS: Lacosamide 50mg tablet ORAL SCH ×2 (09:09→20:51)
[2020-06-22] MEDS: levETIRAcetam 500mg/5ml Liquid GT SCH ×2 (09:09→20:51)
[2020-06-22] MEDS: Heparin 5000 units/ml inj SUBQ SCH ×2 (09:10→20:50)
--- NOTE | 2020-06-22 11:06 | Infectious Diseases Prog Note ---
Assessment/Plan Assessment/Plan antibiotics : zosyn, levoquin A 1. brain abscess 2. traumatic brain injury 3. respiratory failure 4. seizures P 1. d.c zosyn, levoquin 2. start iv vancomycin, cefepime, flagyl 3. will follow up cultures Subjective ROS Limited/Unobtainable: Yes Allergies: Coded Allergies: No Known Allergies (Unverified , 05/30/20) Objective Last 24 Hour Vital Signs Date Time Temp Pulse Resp B/P (MAP) Pulse Ox O2 Delivery O2 Flow Rate FiO2 06/22/20 09:08 120 143/82 06/22/20 09:08 143/82 06/22/20 08:00 5.0 28 06/22/20 08:00 98.1 120 20 143/82 (102) 100 06/22/20 07:39 120 06/22/20 07:00 100 T-Piece 6.0 28 06/22/20 04:18 5.0 28 06/22/20 04:00 T-piece 5.0 06/22/20 04:00 98.8 119 20 143/84 (103) 100 06/22/20 04:00 116 06/22/20 00:51 99 T-Piece 5.0 28 06/22/20 00:04 5.0 28 06/22/20 00:00 98.8 115 18 140/77 (98) 100 06/22/20 00:00 5.0 28 06/22/20 00:00 T-piece 5.0 06/21/20 23:55 T-Piece 5.0 06/21/20 23:42 112 06/21/20 22:49 99 T-Piece 5.0 28 06/21/20 22:40 112 06/21/20 22:10 99.4 115 28 110/71 100 T-piece 15.0 28 06/21/20 21:17 99.4 117 28 110/71 100 T-piece 15.0 06/21/20 19:34 99 Cool Aerosol 5.0 28 06/21/20 19:05 145 28 Endotracheal Tube 5.0 06/21/20 19:05 99.8 145 28 132/111 99 Endotracheal Tube 5.0 06/21/20 18:44 145 28 132/111 (118) 99 Endotracheal Tube 5.0 Height (Feet): 5 Height (Inches): 8.00 Weight (Pounds): 160 HEENT: status post trach, other - right head swelling Respiratory/Chest: lungs clear Cardiovascular: normal rate, regular rhythm, no gallop/murmur Abdomen: soft, non tender, other - GT Extremities: no edema, other - right arm PICC Microbiology Date/Time Source Procedure Growth Status 06/21/20 19:00 Rectum Received 06/21/20 19:00 Urine,Clean Catch Urine Culture - Preliminary NO GROWTH Resulted 06/21/20 19:00 Nasopharynx SARS-CoV-2 RdRp Gene Assay - Final Complete Laboratory Tests Test 06/21/20 19:00 06/21/20 19:25 06/21/20 20:49 06/22/20 03:54 White Blood Count 19.1 K/UL (4.8-10.8) H 11.2 K/UL (4.8-10.8) H Red Blood Count 4.07 M/UL (4.70-6.10) L 3.49 M/UL (4.70-6.10) L Hemoglobin 12.2 G/DL (14.2-18.0) L 10.6 G/DL (14.2-18.0) L Hematocrit 37.2 % (42.0-52.0) L 32.7 % (42.0-52.0) L Mean Corpuscular Volume 92 FL (80-99) 94 FL (80-99) Mean Corpuscular Hemoglobin 30.1 PG (27.0-31.0) 30.4 PG (27.0-31.0) Mean Corpuscular Hemoglobin Concent 32.9 G/DL (32.0-36.0) 32.5 G/DL (32.0-36.0) Red Cell Distribution Width 15.9 % (11.6-14.8) H 15.8 % (11.6-14.8) H Platelet Count 602 K/UL (150-450) H 398 K/UL (150-450) Mean Platelet Volume 6.3 FL (6.5-10.1) L 6.5 FL (6.5-10.1) Neutrophils (%) (Auto) % (45.0-75.0) 76.3 % (45.0-75.0) H Lymphocytes (%) (Auto) % (20.0-45.0) 15.8 % (20.0-45.0) L Monocytes (%) (Auto) % (1.0-10.0) 6.1 % (1.0-10.0) Eosinophils (%) (Auto) % (0.0-3.0) 1.4 % (0.0-3.0) Basophils (%) (Auto) % (0.0-2.0) 0.4 % (0.0-2.0) Differential Total Cells Counted 100 Neutrophils % (Manual) 91 % (45-75) H Lymphocytes % (Manual) 7 % (20-45) L Monocytes % (Manual) 1 % (1-10) Eosinophils % (Manual) 1 % (0-3) Basophils % (Manual) 0 % (0-2) Band Neutrophils 0 % (0-8) Platelet Estimate Increased H Platelet Morphology Normal Red Blood Cell Morphology Normal Prothrombin Time 12.7 SEC (9.30-11.50) H Prothromb Time International Ratio 1.2 (0.9-1.1) H Activated Partial Thromboplast Time 29 SEC (23-33) Urine Color Yellow Urine Appearance Slightly cloudy Urine pH 6.5 (4.5-8.0) Urine Specific Canones 1.010 (1.005-1.035) Urine Protein 2+ (NEGATIVE) H Urine Glucose (UA) Negative (NEGATIVE) Urine Ketones 1+ (NEGATIVE) H Urine Blood 2+ (NEGATIVE) H Urine Nitrite Negative (NEGATIVE) Urine Bilirubin Negative (NEGATIVE) Urine Urobilinogen 1 MG/DL (0.0-1.0) H Urine Leukocyte Esterase 2+ (NEGATIVE) H Urine RBC 2-4 /HPF (0 - 0) H Urine WBC 30-40 /HPF (0 - 0) H Urine Squamous Epithelial Cells Occasional /LPF Urine Bacteria Moderate /HPF (NONE) H Sodium Level 139 MMOL/L (136-145) 140 MMOL/L (136-145) Potassium Level 4.9 MMOL/L (3.5-5.1) 3.8 MMOL/L (3.5-5.1) Chloride Level 100 MMOL/L (98-107) 103 MMOL/L (98-107) Carbon Dioxide Level 32 MMOL/L (21-32) 28 MMOL/L (21-32) Anion Gap 7 mmol/L (5-15) 9 mmol/L (5-15) Blood Urea Nitrogen 31 mg/dL (7-18) H 23 mg/dL (7-18) H Creatinine 1.2 MG/DL (0.55-1.30) 0.7 MG/DL (0.55-1.30) Estimat Glomerular Filtration Rate > 60 mL/min (>60) > 60 mL/min (>60) Glucose Level 127 MG/DL (74-106) H 126 MG/DL (74-106) H Lactic Acid Level 2.30 mmol/L (0.4-2.0) H 1.40 mmol/L (0.66-2.22) Calcium Level 10.5 MG/DL (8.5-10.1) H 9.2 MG/DL (8.5-10.1) Phosphorus Level 5.0 MG/DL (2.5-4.9) H Magnesium Level 2.6 MG/DL (1.8-2.4) H Total Bilirubin 0.4 MG/DL (0.2-1.0) Aspartate Amino Transf (AST/SGOT) 36 U/L (15-37) Alanine Aminotransferase (ALT/SGPT) 106 U/L (12-78) H Alkaline Phosphatase 199 U/L (46-116) H Total Creatine Kinase 80 U/L (26-140) Creatine Kinase MB 0.5 NG/ML (0.0-3.6) Creatine Kinase MB Relative Index 0.6 Troponin I 0.000 ng/mL (0.000-0.056) Pro-B-Type Natriuretic Peptide 231 pg/mL (0-125) H Total Protein 8.0 G/DL (6.4-8.2) Albumin 3.3 G/DL (3.4-5.0) L Globulin 4.7 g/dL Albumin/Globulin Ratio 0.7 (1.0-2.7) L Lipase 95 U/L (73-393) Arterial Blood pH 7.488 (7.350-7.450) Arterial Blood Partial Pressure CO2 34.1 mmHg (35.0-45.0) L Arterial Blood Partial Pressure O2 162.6 mmHg (75.0-100.0) H Arterial Blood HCO3 25.3 mmol/L (22.0-26.0) Arterial Blood Oxygen Saturation 98.8 % (95-100) Arterial Blood Base Excess 2.3 (-2-2) H Seth Test Positive Current Medications Medications (Trade) Dose Ordered Sig/Anuj Route PRN Reason Start Time Stop Time Status Last Admin Dose Admin Acetaminophen (Tylenol) 650 mg Q4H PRN GT Temp >100.5 06/22/20 04:00 07/22/20 03:59 Al Hydroxide/Mg Hydroxide (Mylanta) 30 ml Q4H PRN GT Per rx protocol 06/22/20 01:30 07/22/20 01:29 Heparin Sodium (Porcine) (Heparin 5000 units/ml) 5,000 units EVERY 12 HOURS SUBQ 06/22/20 09:00 08/06/20 08:59 06/22/20 09:10 Lacosamide (Vimpat) 50 mg Q12HR ORAL 06/22/20 09:00 09/20/20 08:59 06/22/20 09:09 Lansoprazole (Prevacid) 30 mg DAILY GT 06/22/20 09:00 07/22/20 08:59 06/22/20 09:08 Levetiracetam (Keppra) 750 mg Q12HR GT 06/22/20 09:00 07/22/20 08:59 06/22/20 09:09 Levofloxacin (Levaquin) 750 mg DAILY GT 06/22/20 09:00 06/29/20 08:59 06/22/20 09:09 Lisinopril (ZestriL) 5 mg BID@0900,2100 GT 06/22/20 09:00 07/22/20 08:59 06/22/20 09:08 Piperacillin Sod/ Tazobactam Sod 3.375 gm/Sodium Chloride 110 ml @ 27.5 mls/hr Q8HR IVPB 06/22/20 06:00 06/29/20 05:59 06/22/20 05:21 Propranolol HCl (Inderal) 10 mg BID@0900,2100 GT 06/22/20 09:00 07/22/20 08:59 06/22/20 09:08 Sevelamer Carbonate (Renvela) 800 mg THREE TIMES A DAY GT 06/22/20 09:00 09/20/20 08:59 06/22/20 09:08 Sodium Chloride 1,000 ml @ 100 mls/hr Q10H IV 06/22/20 02:00 07/22/20 01:59 06/22/20 02:40 Thyroid (Carey Thyroid) 30 mg DAILY GT 06/22/20 09:00 07/22/20 08:59 06/22/20 09:08 Dl Mcgowan MD Jun 22, 2020 11:06
--- NOTE | 2020-06-22 12:06 | NUR ---
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 99.8 HR 145 RR 28 B/P 132/111 T-BAR FIO2 28% WBC 19.1 IS: VANCO IV IV BOLUS NS X 2 LITERS TYLENOL GT ADMITTED TO STEP DOWN STEP DOWN STATUS DCP RETURN TO [facility]
[2020-06-22 12:18] VITALS: BP 145/93
--- NOTE | 2020-06-22 12:47 | Diagnostic Imaging Report ---
Indication: Shortness of breath Technique: XRAY Chest 1v Comparison: 06/13/2020 Findings: Tracheostomy tube and right arm PICC line remain in place. Heart size is stable. Very mild streaky opacities noted at the bases. No dense consolidation. No pleural effusion or pneumothorax. Osseous structures demonstrate no acute abnormality. Some densities project over the right shoulder, likely external to the patient. Correlate with physical exam. IMPRESSION: Very mild streaky basilar opacities, favored to represent subsegmental atelectasis. Tracheostomy tube and PICC line remain in place
[2020-06-22] MEDS: Cefepime HCl 2 GM in D5W 55 ML IVPB SCH (13:29)
[2020-06-22] MEDS: metroNIDAZOLE 500mg tab GT SCH ×2 (13:51→22:27)
[2020-06-22 16:00] VITALS: BP 156/94
--- NOTE | 2020-06-22 16:25 | NUR ---
NURSE NOTES: placed a telephone call to Dr Valverde's office , and spoke with [facility] director of community education to inform Dr Valverde regarding patient HR 150-155, per Ondina Valverde stated that He is coming to see the patient. Will continue to monitor patient until MD comes.
--- NOTE | 2020-06-22 18:05 | NUR ---
NURSE NOTES: Dr Valverde came by to see the patient and reviewed heart rhythm on classroom monitor. Per Md , patient is tachycardic due to sepsis. No new order as of this time. Will continue to monitor
--- NOTE | 2020-06-22 19:23 | NUR ---
NURSE HAND-OFF REPORT: Important Events on Shift: Hr 140-155, Dr Valverde made aware and notified. Patient Status: Stable Diet: TwoCal @50cc/hr Pending Orders: Pending Results/Labs: Pending MD notification: Latest Vital Signs: Temperature 99.2 , Pulse 131 , B/P 156 /94 , Respiratory Rate 32 , O2 SAT 98 , T-piece, O2 Flow Rate 6.0 . Vital Sign Comment:Stable EKG Rhythm: Sinus Tachycardia Rhythm change?: N MD Notified?: N - MD Response: Latest Whitley Fall Score: 70 Fall Risk: High Risk Safety Measures: Call light Within Reach, Bed Alarm Zone 2, Side Rails Side Rails x3, Bed position Low and Locked. Fall Precautions: Yellow Socks Yellow Gown Door Sign Patient Fall Education Report given to Princess QUAN.
--- NOTE | 2020-06-22 19:50 | NUR ---
NURSE NOTES: Received report from Oz/Harrison, RNs. Pt is resting in bed, obtunded, and not in acute distress. Sinus Tachy @ 130 on the monitor worker. On T-piece, Shiley 8, FiO2 40% and saturating 100%. G-tube is intact and patent, running Two Mikhail @ 50cc/hr. PICC @ right upper arm is intact and patent running NS 100cc/hr. Daniels catheter is patent and draining yellowish urine. Side-rails are padded, bed is in lowest position, bed alarms on, call light is within reached, and head of bed is elevated. Will closely monitor the pt. Will continue with the plan of care.
[2020-06-22 20:00] VITALS: BP 121/67
--- NOTE | 2020-06-22 20:02 | NUR ---
Dr. Baker is aware of the lab results. G-tube site is not leaking at this time. Addendum: 06/22/20 at 2006 by Suzan Guadalupe RN RN Disregard this notes. Wrong patient.
--- NOTE | 2020-06-22 20:45 | History and Physical Report ---
DATE OF ADMISSION: 06/21/2020 REASON FOR ADMISSION: Tachycardia. HISTORY OF PRESENT ILLNESS: This is a 29-year-old male who was just discharged from the medical center. The patient was found to be severely tachycardic at the half-way with heart rate up to 160 and patient was sent back by 911. The patient has had a prolonged hospital course previously and was stabilized and sent back to the half-way. PAST MEDICAL HISTORY: Notable for history of sepsis, history of traumatic brain injury, chronic respiratory failure, toxic metabolic encephalopathy, hyponatremia, hypertension, seizure disorders, history of dysphagia, G-tube, hypothyroidism. MEDICATIONS: Reviewed. ALLERGIES: Reviewed. PHYSICAL EXAMINATION: GENERAL: An ill-appearing male with a large bulge, which has been chronic VITAL SIGNS: Reviewed. The patient's heart rate is 116. HEENT: Negative. NECK: Supple. LUNGS: Overall clear. CARDIAC: Tachycardic. ABDOMEN: Soft. G-tube in place. EXTREMITIES: No cyanosis or clubbing. NEUROLOGIC: Patient is fully responsive at this time. LABORATORY DATA: Otherwise reviewed. White count 11, previously 19, hemoglobin 10. Chemistries noted. BUN 23 and creatinine 0.7. Liver enzymes elevated. IMPRESSION: Recurrent tachycardia, prior traumatic brain injury, concern for sepsis, seizures per history, chronic encephalopathy, chronic debility, trach G-tube, thyroid disease. RECOMMENDATION: IV antibiotics, IV hydration, feedings, aspiration precautions. Patient was not deemed to be neurosurgical candidate per discussion with the ER physician as well with prior discussion with the neurosurgeon over at [facility]. At present, we will treat conservatively. Prognosis for recovery is poor at this time. Aime Higgins M.D. DR: JONATHAN JOB#: [id number] CC: NADEEM
[2020-06-22] MEDS ORDERED: Tubing IV Secondary IV ONE (21:10)
--- NOTE | 2020-06-22 21:54 | NUR ---
NURSE NOTES: Full physical assessment done. Medications were given, tolerated well. Pt is not in acute distress. Sinus tachy on the cardiac nurse specialist. O2 saturation 100%. Pt is turned and reposition. Will continue to monitor pt.
[2020-06-23] VITALS: BP 123/69
--- NOTE | 2020-06-23 | NUR ---
NURSE NOTES: Seen pt in semi- banegas's position. With T-piece connected and intact. Pt tolerating well o2 sa- 100%. Bed bath given. PICC line dressing done. Noted to have bowel movement brown in color. Gtube is intact and patent,. No residual noted. No pain noted. Pt noted to have upper bilateral extrimities with decebrate. Suctioned secretion. Sponge bath given. Bed in lowest position., call light within reach.
[2020-06-23] MEDS: Cefepime HCl 2 GM in D5W 55 ML IVPB SCH ×2 (01:38→13:16)
--- NOTE | 2020-06-23 05:00 | NUR ---
Cleaned the patient after a large bowel movement of brownish soft to watery stool. Turned and repositioned. Pt is not in distress. Will continue to monitor pt.
[2020-06-23] MEDS: metroNIDAZOLE 500mg tab GT SCH ×3 (05:33→21:20)
--- NOTE | 2020-06-23 06:04 | NUR ---
NURSE NOTES: Seen pt in bed. Lying comfortably with no signs of pain. Noted 1x BM brown in color. Not in respiratory distress.
--- NOTE | 2020-06-23 07:15 | NUR ---
NURSE NOTES: Report given by /Suzan Rn's. Received patient sleeping comfortably with HOB elevated 45 degree. Obtunded, with trach tpiece shiley #8, Fio2 28%- 5L. Saturating 100%. Gtube intact, patent no residual noted. Feeding is off @6 am will resume at 10am. Picc line on R uppearm, patent and intact, running Ns 0.9% @ 100cc/hr infusing well, no signs of infiltration noted. Daniels catheter intact and patent draining chelsea urine via gravity. Rendered trach and oral care, noted moderate beige color secretions. Repositioned patient and will continue to do so q2h to provide comfort and prevent skin breakdown. Safety measures in place, call light within reach. In no apparent distress noted at this time, will continue to monitor.
--- NOTE | 2020-06-23 07:22 | NUR ---
NURSE HAND-OFF REPORT: Important Events on Shift:none Patient Status: stable, full code Diet: Two Mikhail 50cc/hr Pending Orders: none Pending Results/Labs:none Pending MD notification:none Latest Vital Signs: Temperature 98.1 , Pulse 112 , B/P 123 /69 , Respiratory Rate 19 , O2 SAT 98 , T-piece, O2 Flow Rate 5.0 . Vital Sign Comment: stable EKG Rhythm: Sinus Tachycardia Rhythm change?: N MD Notified?: N - MD Response: Latest Whitley Fall Score: 70 Fall Risk: High Risk Safety Measures: Call light Within Reach, Bed Alarm Zone 2, Side Rails Side Rails x3, Bed position Low and Locked. Fall Precautions: Yellow Socks Yellow Gown Door Sign Patient Fall Education Report given to Oz/Harrison, RNs
[2020-06-23 07:36] VITALS: BP 138/83
--- NOTE | 2020-06-23 08:00 | NUR ---
NURSE NOTES: Full body assessment completed. Will continue to monitor.
--- NOTE | 2020-06-23 08:48 | NUR ---
NURSE NOTES: Called out patient wound care nurse to notify consult,patient placed on overlay mattress
[2020-06-23] MEDS: Lacosamide 50mg tablet ORAL SCH ×2 (09:00→20:33)
[2020-06-23] MEDS: Renvela 800mg Pkt GT SCH ×3 (09:00→17:13)
[2020-06-23] MEDS: Lisinopril 2.5mg tab GT SCH ×2 (09:01→20:32)
[2020-06-23] MEDS: levETIRAcetam 500mg/5ml Liquid GT SCH ×2 (09:01→20:33)
[2020-06-23] MEDS: Propranolol 10mg tab GT SCH ×2 (09:02→20:32)
[2020-06-23] MEDS: Heparin 5000 units/ml inj SUBQ SCH ×2 (09:03→20:34)
--- NOTE | 2020-06-23 09:45 | General Progress Note ---
Subjective Allergies: Coded Allergies: No Known Allergies (Unverified , 05/30/20) Subjective care noted withdrawn labs and vitals noted Objective Last 24 Hour Vital Signs Date Time Temp Pulse Resp B/P (MAP) Pulse Ox O2 Delivery O2 Flow Rate FiO2 06/23/20 09:02 111 138/83 06/23/20 09:01 138/83 06/23/20 08:00 5.0 28 06/23/20 08:00 T-piece 5.0 06/23/20 07:50 100 T-Piece 6.0 28 06/23/20 07:50 111 06/23/20 07:36 95.6 112 20 138/83 (101) 100 06/23/20 04:00 T-piece 5.0 06/23/20 04:00 5.0 28 06/23/20 04:00 112 06/23/20 01:45 98 T-Piece 6.0 28 06/23/20 00:00 98.1 106 19 123/69 (87) 99 06/23/20 00:00 109 06/23/20 00:00 T-piece 5.0 06/22/20 21:51 140 06/22/20 20:52 121/67 06/22/20 20:51 133 121/67 06/22/20 20:00 98.1 133 20 121/67 (85) 98 06/22/20 20:00 T-piece 5.0 06/22/20 20:00 5.0 28 06/22/20 19:11 98 T-Piece 6.0 28 06/22/20 16:00 99.2 156 32 156/94 (114) 97 06/22/20 16:00 131 06/22/20 16:00 T-piece 5.0 06/22/20 16:00 5.0 28 06/22/20 13:50 97 T-Piece 6.0 28 06/22/20 12:18 98.2 116 19 145/93 (110) 100 06/22/20 12:00 5.0 28 06/22/20 12:00 109 06/22/20 12:00 T-piece 5.0 Intake and Output 06/22/20 06/23/20 19:00 07:00 Intake Total 1755 ml 2448.021 ml Output Total 700 ml 650 ml Balance 1055 ml 1798.021 ml Intake Free Water 350 ml 20 ml IV Total 905 ml 1878.021 ml Tube Feeding 500 ml 550 ml Output Urine Total 700 ml 650 ml # Bowel Movements 3 4 Height (Feet): 5 Height (Inches): 8.00 Weight (Pounds): 160 Objective WDWN trach clear breath sounds bilaterally without rhonchi or wheeze S1S2RR tachy without MRG NABS nontender GT no CCE nonfocal poorly responsive Assessment/Plan Assessment/Plan: IMPRESSION: Recurrent tachycardia, prior traumatic brain injury, concern for sepsis, seizures per history, chronic encephalopathy, chronic debility, trach G-tube, thyroid disease. RECOMMENDATION: IV antibiotics, IV hydration, feedings, aspiration precautions. Patient was not deemed to be neurosurgical candidate per discussion with the ER physician as well with prior discussion with the neurosurgeon over at [facility]. At present, we will treat conservatively. Prognosis for recovery is poor at this time. Aime Higgins MD Jun 23, 2020 09:45
[2020-06-23 12:00] VITALS: BP 132/92
[2020-06-23] MEDS ORDERED: Tubing IV Secondary IV ONE (12:06)
--- NOTE | 2020-06-23 12:34 | NUR ---
NURSE NOTES: Seen by wound care nurse with recommendations,they spoke to RN Oz-primary nurse,ordered overlay mattress
--- NOTE | 2020-06-23 13:09 | NUR ---
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 97.1 HR 112 RR 20 B/P 132/92 T BAR FIO2 28% IS: VANCO IV CEFEPIME IV FLAGYL GT IVF NS @100ML/HR HEPARIN SUBC. STEP DOWN STATUS
[2020-06-23] MEDS: Vancomycin 1.25gm/NS Premix IVPB SCH ×2 (15:17→21:20)
[2020-06-23 15:29] VITALS: BP 135/81
--- NOTE | 2020-06-23 16:28 | NUR ---
NURSE NOTES:WOUND ASSESSMENT PATIENT NON-RESPONSIVE. WITH TRACHEOSTOMY. LEFT KNEE- 3X2X.2CM SKIN ABRASION. PINK GRANULATION TISSUE DRAINING SMALL AMOUNT SEROSANGUINEOUS DRAINAGE. RECOMMEND-CLEAN WITH SALINE. APPLY XEROFORM GAUZE AND COVER WITH OPTIFOAM DRESSING . REPLACE EVERY OTHER DAY. RIGHT KNEE- RECENTLY HEALED ABRASIONS PINK SKIN. RECOMMEND- CLEAN AREA AND COVER WITH OPTIFOAM DRESSINGS. REPLACE EVERY 3 DAYS AND OR PRN. RIGHT POSTERIOR HEAD- NOTED HEALED SURGICAL INCISION EXTENDING TO BEHIND THE RIGHT EAR. SMALL AREA CLOSEST TO THE EAR IS OPEN. MEASURES 1.5X0.5XO.2CM. DRAINING SMALL AMOUNT SERO-SANGUINEOUS DRAINAGE. WOUND BED PINK GRANULATION TISSUE 70% WITH 30% YELLOW SLOUGH NOTED. RECOMMEND-CLEAN AREA WITH SALINE. APPLY XEROFORM GAUZE AND COVER WITH OPTIFOAM DRESSING.REPLACE DRESSING DAILY. LALM OVERLAY ALREADY IN PLACE. CONTINUE WITH ALL WOUND PREVENTION PROTOCOLS REPOSITION AT LEAST EVERY 2 HOURS OR NEEDED OFF-LOAD HEELS WITH PILLOWS
--- NOTE | 2020-06-23 19:31 | NUR ---
NURSE HAND-OFF REPORT: Important Events on Shift:NONE Patient Status: Stable Diet: Two Mikhail @50cc/hr Pending Orders: Pending Results/Labs: Pending MD notification: Latest Vital Signs: Temperature 98.1 , Pulse 98 , B/P 135 /81 , Respiratory Rate 19 , O2 SAT 100 , T-piece, O2 Flow Rate 5.0 . Vital Sign Comment: Stable EKG Rhythm: Sinus Rhythm Rhythm change?: N MD Notified?: N - MD Response: Latest Whitley Fall Score: 70 Fall Risk: High Risk Safety Measures: Call light Within Reach, Bed Alarm Zone 2, Side Rails Side Rails x3, Bed position Low and Locked. Fall Precautions: Yellow Socks Yellow Gown Door Sign Patient Fall Education Report given to Anjelica QUAN.
--- NOTE | 2020-06-23 19:32 | NUR ---
NURSE NOTES: received pt from Oz QUAN., pt is awake and obtunded at this time. ekg monitor tech shows pt is on ST (110s). pt is in T-piece no SOB noted, O2sat is at 100%. pt Gtube site intact, clean, and patent. morales cath noted, draining well with gravity, no bleeding noted. alternated skin noted dressing sites are dry, clean, and intact. seizure precaution implemented, side rails are all padded. right upper arm PICC line dressing site intact, clean, patent. call light within reach. bed at the lowest position, alarmed, and locked. will continue to monitor pt with plan of care.
--- NOTE | 2020-06-23 19:52 | NUR ---
NURSE NOTES: notified to Dr. Higgins regarding new head CT scan result. will wait for call back.
[2020-06-23 20:00] VITALS: BP 134/87
[2020-06-23] MEDS ORDERED: Dyna-Hex 2% Top Sol 2oz TOPIC SCH (20:00)
--- NOTE | 2020-06-23 20:22 | NUR ---
NURSE NOTES: per Dr. Higgins, no new order regarding head CT scan. noted and will continue to monitor pt closely. call light within reach.
[2020-06-24] MEDS: Cefepime HCl 2 GM in D5W 55 ML IVPB SCH ×3 (01:03→14:18)
--- NOTE | 2020-06-24 02:00 | NUR ---
NURSE NOTES: cleaned pt, oral care given, Repositioned Q2hrs. no SOB noted, O2sat is at 99%. call light within reach. will continue to monitor pt closely.
[2020-06-24] MEDS: Vancomycin 1.25gm/NS Premix IVPB SCH ×2 (05:15→14:19)
[2020-06-24] MEDS: metroNIDAZOLE 500mg tab GT SCH ×2 (05:15→14:06)
--- NOTE | 2020-06-24 07:06 | NUR ---
NURSE NOTES: left voice mail to Dr. Mcgowan regarding positive VRE Rectum. will wait for call back.
--- NOTE | 2020-06-24 07:07 | NUR ---
NURSE HAND-OFF REPORT: Important Events on Shift:VRE Rectum Patient Status: stable Diet: 2cal @ 50cc/hr Pending Orders: n/a Pending Results/Labs:n.a Pending MD notification:Dr. Mcgowan regarding VRE rectum Latest Vital Signs: Temperature 97.7 , Pulse 102 , B/P 134 /87 , Respiratory Rate 22 , O2 SAT 100 , T-piece, O2 Flow Rate 5.0 . Vital Sign Comment: stable EKG Rhythm: Sinus Tachycardia Rhythm change?: N MD Notified?: N - MD Response: Latest Whitley Fall Score: 70 Fall Risk: High Risk Safety Measures: Call light Within Reach, Bed Alarm Zone 2, Side Rails Side Rails x3, Bed position Low and Locked. Fall Precautions: Yellow Socks Yellow Gown Door Sign Patient Fall Education Report given to Palma JACOBO,
--- NOTE | 2020-06-24 07:08 | NUR ---
NURSE NOTES: endorsed sodium 133 to AM nurse to follow up with
--- NOTE | 2020-06-24 07:10 | NUR ---
NURSE NOTES: Received patient from KADEEM Peterson. Pt obtunded upon assessment. Pupils sluggish. Unable to make needs known. 5-lead EKG shows SR at 92 bpm. On t-piece with 28% fiO2 5L O2 saturating 99% IV on HELIO PICC patent running NS at 100cc. Pt on feeding TwoCal at 50 cc x 20. 0 residual noted. Pt condom catheter observed to be draining well to gravity. Bed placed in lowest and locked position. Bed alarm on. Will continue to monitor.
[2020-06-24 08:00] VITALS: BP 147/92
[2020-06-24] MEDS: levETIRAcetam 500mg/5ml Liquid GT SCH (08:50)
[2020-06-24] MEDS: Renvela 800mg Pkt GT SCH ×3 (08:50→17:46)
[2020-06-24] MEDS: Lacosamide 50mg tablet ORAL SCH (08:51)
[2020-06-24] MEDS: Lisinopril 2.5mg tab GT SCH (08:51)
[2020-06-24] MEDS: Propranolol 10mg tab GT SCH (08:51)
--- NOTE | 2020-06-24 08:54 | General Progress Note ---
Subjective Allergies: Coded Allergies: No Known Allergies (Unverified , 05/30/20) Subjective care noted withdrawn labs and vitals noted Objective Last 24 Hour Vital Signs Date Time Temp Pulse Resp B/P (MAP) Pulse Ox O2 Delivery O2 Flow Rate FiO2 06/24/20 08:00 98.2 100 20 147/92 (110) 99 06/24/20 08:00 T-piece 5.0 06/24/20 08:00 5.0 28 06/24/20 07:05 99 T-Piece 6.0 28 06/24/20 04:00 T-piece 5.0 06/24/20 03:43 102 06/24/20 01:08 100 T-Piece 6.0 28 06/24/20 00:00 T-piece 5.0 06/24/20 00:00 108 06/24/20 00:00 5.0 28 06/23/20 20:32 109 134/87 06/23/20 20:32 134/87 06/23/20 20:00 T-piece 5.0 06/23/20 20:00 100 T-Piece 6.0 28 06/23/20 20:00 97.7 109 22 134/87 (103) 100 06/23/20 20:00 5.0 28 06/23/20 19:37 110 06/23/20 16:00 5.0 28 06/23/20 16:00 T-piece 5.0 06/23/20 15:29 98.1 98 19 135/81 (99) 100 06/23/20 15:24 97 06/23/20 13:26 100 T-Piece 6.0 28 06/23/20 12:00 93 06/23/20 12:00 97.1 104 20 132/92 (105) 100 06/23/20 12:00 5.0 28 06/23/20 12:00 T-piece 5.0 06/23/20 09:02 111 138/83 06/23/20 09:01 138/83 Intake and Output 06/23/20 06/24/20 19:00 07:00 Intake Total 1868.333 ml 2384.9996 ml Output Total 900 ml 1100 ml Balance 968.333 ml 1284.9996 ml Intake Free Water 230 ml 25 ml IV Total 1138.333 ml 1809.9996 ml Tube Feeding 500 ml 550 ml Output Urine Total 900 ml 1100 ml # Bowel Movements 3 1 Laboratory Tests 06/23/20 13:10: Vancomycin Level Trough 12.4H Height (Feet): 5 Height (Inches): 8.00 Weight (Pounds): 160 Objective WDWN trach clear breath sounds bilaterally without rhonchi or wheeze [id number] tachy without MRG NABS nontender GT no CCE nonfocal poorly responsive Assessment/Plan Assessment/Plan: IMPRESSION: Recurrent tachycardia, prior traumatic brain injury, concern for sepsis, seizures per history, chronic encephalopathy, chronic debility, trach G-tube, thyroid disease. RECOMMENDATION: IV antibiotics, IV hydration, feedings, aspiration precautions. Patient was not deemed to be neurosurgical candidate per discussion with the ER physician as well with prior discussion with the neurosurgeon over at [facility]. At present, we will treat conservatively. Prognosis for recovery is poor at this time. Aime Higgins MD Jun 24, 2020 08:54
[2020-06-24] MEDS: Heparin 5000 units/ml inj SUBQ SCH (08:55)
--- NOTE | 2020-06-24 09:06 | NUR ---
CASE MANAGEMENT: REVIEW 06/24/2020 SI:SEPSIS. VS: T 98.2 HR 101 RR 20 B/P 147/92 SATS 99% ON TPIECE LABS: NO TODAY IS:NS @ 100 ML/HR LISINOPRIL GT BID INDERAL GT BID CEFEPIME IV Q12H KEPPRA GT Q12H FLAGYL GT Q8H VIMPAT PO Q12H VANCO IV Q8H SDU DCP: WESTERN CONV PLAN OF CARE: IV antibiotics, IV hydration, feedings, aspiration precautions
--- NOTE | 2020-06-24 10:26 | NUR ---
RD ASSESSMENT & RECOMMENDATIONS SEE CARE ACTIVITY FOR COMPLETE ASSESSMENT DAILY ESTIMATED NEEDS: Needs based on Pulmonary, Wound, SIADH, sepsis/ 69kg 25-30 kcals/kg 1953-2450 total kcals 1.25-2 g protein/kg 86-138 g total protein 20-25 mL/kg 7118-6001 total fluid mLs NUTRITION DIAGNOSIS: Swallowing difficulty r/t TBI and resp distress, as evidenced by pt is vent dep via T-collar, PEG dep. CURRENT TF:2Cal @ 75ml x20 hrs ENTERAL NUTRITION RECOMMENDATIONS: Two Mikhail HN @ 50ml/hr x 20 hrs to provide 1000ml, 2000kcal, 84g prot, 700ml free water - Maintain Two Mikhail HN given h/o consistent hyponatremia and SIADH per Nephro MD last adm. - LOWER goal rate to 50ml/hr x 20 hrs not to exceed est needs - Add Prosource 1pkt QD to meet protein needs - Flush per MD/ HOB over 30 degrees ADDITIONAL RECOMMENDATIONS: 1) Wound Care: add Vit C 250mg QD add CATALINA BID via PEG (also provides added 5g prot to meet est prot needs) 2) Per SNF: ht=65"/ maintain calibrated bedscale wt 3) Monitor Na: h/o consistently low Na last adm (121-135), now wnl -> monitor need to continue current concentrated 2.0 TF formula
--- NOTE | 2020-06-24 10:38 | Infectious Diseases Prog Note ---
Assessment/Plan Assessment/Plan antibiotics : vancomycin iv, cefepime, flagyl A 1. brain abscess 2. traumatic brain injury 3. respiratory failure 4. seizures P 1. continue iv vancomycin, cefepime, flagyl 2. will follow up cultures Subjective ROS Limited/Unobtainable: Yes Allergies: Coded Allergies: No Known Allergies (Unverified , 05/30/20) Objective Last 24 Hour Vital Signs Date Time Temp Pulse Resp B/P (MAP) Pulse Ox O2 Delivery O2 Flow Rate FiO2 06/24/20 08:51 101 147/92 06/24/20 08:51 147/92 06/24/20 08:00 98.2 100 20 147/92 (110) 99 06/24/20 08:00 T-piece 5.0 06/24/20 08:00 5.0 28 06/24/20 08:00 99 06/24/20 07:05 99 T-Piece 6.0 28 06/24/20 04:00 T-piece 5.0 06/24/20 03:43 102 06/24/20 01:08 100 T-Piece 6.0 28 06/24/20 00:00 T-piece 5.0 06/24/20 00:00 108 06/24/20 00:00 5.0 28 06/23/20 20:32 109 134/87 06/23/20 20:32 134/87 06/23/20 20:00 T-piece 5.0 06/23/20 20:00 100 T-Piece 6.0 28 06/23/20 20:00 97.7 109 22 134/87 (103) 100 06/23/20 20:00 5.0 28 06/23/20 19:37 110 06/23/20 16:00 5.0 28 06/23/20 16:00 T-piece 5.0 06/23/20 15:29 98.1 98 19 135/81 (99) 100 06/23/20 15:24 97 06/23/20 13:26 100 T-Piece 6.0 28 06/23/20 12:00 93 06/23/20 12:00 97.1 104 20 132/92 (105) 100 06/23/20 12:00 5.0 28 06/23/20 12:00 T-piece 5.0 Height (Feet): 5 Height (Inches): 8.00 Weight (Pounds): 160 HEENT: status post trach, other - right head swelling Respiratory/Chest: lungs clear Cardiovascular: normal rate, regular rhythm, no gallop/murmur Abdomen: soft, non tender, other - GT Extremities: no edema, other - right arm PICC Microbiology Date/Time Source Procedure Growth Status 06/21/20 19:00 Rectum - Final NO CARBAPENEM-RESISTANT ENTEROBACTERI... Complete 06/21/20 19:00 Rectum VRE Culture - Final Enterococcus Faecium - Vre Complete 06/21/20 19:00 Urine,Clean Catch Urine Culture - Final NO GROWTH AFTER 48 HOURS Complete 06/21/20 19:00 Nasal Nares MRSA Culture - Final NO METHICILLIN RESISTANT STAPH AUREUS... Complete 06/21/20 19:00 Nasopharynx SARS-CoV-2 RdRp Gene Assay - Final Complete 06/21/20 19:00 Blood Blood Culture - Preliminary NO GROWTH AFTER 48 HOURS Resulted 06/21/20 18:45 Blood Blood Culture - Preliminary NO GROWTH AFTER 48 HOURS Resulted Laboratory Tests Test 06/23/20 13:10 Vancomycin Level Trough 12.4 ug/mL (5.0-12.0) H Current Medications Medications (Trade) Dose Ordered Sig/Anuj Route PRN Reason Start Time Stop Time Status Last Admin Dose Admin Acetaminophen (Tylenol) 650 mg Q4H PRN GT Temp >100.5 06/22/20 04:00 07/22/20 03:59 Al Hydroxide/Mg Hydroxide (Mylanta) 30 ml Q4H PRN GT Per rx protocol 06/22/20 01:30 07/22/20 01:29 Cefepime HCl 2 gm/ Dextrose 55 ml @ 110 mls/hr Q12H IVPB 06/22/20 13:00 06/29/20 12:59 06/24/20 01:03 Chlorhexidine Gluconate (Laura-Hex 2%) 1 applic DAILY@2000 TOPIC 06/23/20 20:00 09/21/20 19:59 06/23/20 20:32 Heparin Sodium (Porcine) (Heparin 5000 units/ml) 5,000 units EVERY 12 HOURS SUBQ 06/22/20 09:00 08/06/20 08:59 06/24/20 08:55 Lacosamide (Vimpat) 50 mg Q12HR ORAL 06/22/20 09:00 09/20/20 08:59 06/24/20 08:51 Lansoprazole (Prevacid) 30 mg DAILY GT 06/22/20 09:00 07/22/20 08:59 06/24/20 08:50 Levetiracetam (Keppra) 750 mg Q12HR GT 06/22/20 09:00 07/22/20 08:59 06/24/20 08:50 Lisinopril (ZestriL) 5 mg BID@0900,2100 GT 06/22/20 09:00 07/22/20 08:59 06/24/20 08:51 Metronidazole (Flagyl) 500 mg Q8HR GT 06/22/20 14:00 06/29/20 13:59 06/24/20 05:15 Propranolol HCl (Inderal) 10 mg BID@0900,2100 GT 06/22/20 09:00 07/22/20 08:59 06/24/20 08:51 Sevelamer Carbonate (Renvela) 800 mg THREE TIMES A DAY GT 06/22/20 09:00 09/20/20 08:59 06/24/20 08:50 Sodium Chloride 1,000 ml @ 100 mls/hr Q10H IV 06/22/20 02:00 07/22/20 01:59 06/24/20 04:44 Thyroid ([place] Thyroid) 30 mg DAILY GT 06/22/20 09:00 07/22/20 08:59 06/24/20 08:51 Vancomycin HCl (Vanco pharmacy to dose) 1 ea DAILY PRN MISC Per rx protocol 06/22/20 11:15 07/22/20 11:14 Vancomycin/Sodium Chloride 275 ml @ 183.333 mls/hr Q8HR IVPB 06/23/20 15:00 06/28/20 14:59 06/24/20 05:15 Dl Mcgowan MD Jun 24, 2020 10:38
--- NOTE | 2020-06-24 10:52 | NUR ---
NURSE NOTES: Dr. Mcgowan at bedside to assess pt. No new orders endorsed.
[2020-06-24 12:00] VITALS: BP 144/93
--- NOTE | 2020-06-24 13:36 | NUR ---
DISCHARGE PLANNING: NOTE CLINICALS FAXED TO [facility] DC ORDER RECEIVED BED ASSIGNMENT IS PENDING
--- NOTE | 2020-06-24 13:46 | NUR ---
DISCHARGE DISPOSITION: PLEASE READ PATIENT TO BE DISCHARGED TO [facility] [place] [address] [facility] ROOM PENDING T: [phone]>> CALL FOR REPORT [facility] W/ RT ON WILL CALL PENDING BED ASSIGNMENT TRANSFER PACKET TO BE DELIVERED S/W MOTHER ALESIA BENSON SHE IS AGREEABLE TO TRANSFER DR MARTIN TO DECIDE ANTIBX Addendum: 06/24/20 at 1514 by Millie Dela Cruz CM PATIENT IS ACCEPTED TO ROOM 208C [facility] ETA 1630
[2020-06-24 16:00] VITALS: BP 141/88
--- NOTE | 2020-06-24 17:36 | NUR ---
NURSE NOTES: Report given to KADEEM Stark at [facility]. Pt will be discharged direct to room 208 Bed C via [facility] with RT. Mother, Michelle Moss, aware. Pt in stable condition. Vitals WNL.
--- NOTE | 2020-06-24 19:18 | NUR ---
NURSE HAND-OFF REPORT: Important Events on Shift: Plan for Discharge to [facility] [place]. Patient Status: Stable Diet: TwoCal Pending Orders: N Pending Results/Labs: N Pending MD notification: N Latest Vital Signs: Temperature 98.1 , Pulse 102 , B/P 141 /88 , Respiratory Rate 20 , O2 SAT 100 , T-piece, O2 Flow Rate 6.0 . Vital Sign Comment: WNL EKG Rhythm: Sinus Tachycardia Rhythm change?: N MD Notified?: N - MD Response: Latest Whitley Fall Score: 70 Fall Risk: High Risk Safety Measures: Call light Within Reach, Bed Alarm Zone 1, Side Rails Side Rails x3, Bed position Low and Locked. Fall Precautions: Yellow Socks Yellow Gown Door Sign Patient Fall Education Report given to KADEEM Becker. Addendum: 06/24/20 at 1920 by Erika Varner RN Report given to KADEEM Heredia.
--- NOTE | 2020-06-24 19:23 | NUR ---
NURSE NOTES: Received report from KADEEM Waldrop. Pt is resting comfortably in bed, obtunded, no grimacing noted. Sinus Tachy on the elevator installer apprentice. Tolerating T-piece setting of 5L O2, 28% FiO2 and saturating 98-99%. Tolerating GT feeding of Two Mikhail @ 50cc/hr x 20hrs. Vital signs are stable. Daniels catheter is patent and intact. PICC in R UA is intact and patent and running NS 100cc/hr. Bed is locked and in lowest position, bed alarm on, call light within reach and HOB elevated at all times. Pt is awaiting d/c to [facility]. Will continue to monitor pt.
--- NOTE | 2020-06-24 20:10 | NUR ---
NURSE NOTES: Pt was nut picker by ambulance for transport to [facility]. Gave report to ambulance personel. Pt will be in [id number], Report was given to Mi. Vital Signs were stable. BP 142/91, HR 105, T 98.1, O2 100%. Pt was not in distress. PICC line in R UA is intact and patent, GT was patent, Daniels Catheter was intact and patent and draining yellowish urine. Tolerating T-piece 5L O2, FiO2 28%.
[2020-06-24] MEDS ORDERED: Vancomycin 1.5 GM in NS 275 ML IVPB SCH (22:00)
[2020-06-25] MEDS ORDERED: Vancomycin 1.25gm Premix q24h IVPB SCH (14:00)
--- NOTE | 2020-06-26 12:31 | Discharge Summary ---
Discharge Summary Discharge Summary _ DATE OF ADMISSION: 06/21/2020 DATE OF DISCHARGE: 06/24/2020 DISCHARGED BY: Dr. Davida Higgins CONSULTANTS: Dr. Dl Mcgowan BRIEF HOSPITAL COURSE: Patient is a 29-year-old male who was just [facility] from the Medical Center. He was found to be severely tachycardic at the group home with a heart rate up to 160. The patient was sent by 911. Patient had a prolonged hospital course due to sepsis and was stabilized and was discharged back to the group home. Upon evaluation at the ED, pulse rate was 145. Blood work showed leukocytosis with WBC elevated to 19. Hemoglobin and hematocrit were stable. Chest x-ray negative. Urine was positive for bacteria. He was started on cefepime and vancomycin. 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 There was development of interval new hydrocephalus involving the bilateral and third ventricles. Small right posterior parietal lobe new hyperdensity possible small amount of hemorrhage. Large right hemispheric unchanged encephalomalacia. There was decreased volume of hyperdense right medial posterior hypodense collection. Patient was recommended neurosurgical consultation. Patient was referred to [facility] and there was no acute neurosurgical intervention indicated at this time. Patient was admitted for further evaluation of recurrent tachycardia. He was given IV hydration. He was placed on isolation precautions. Patient is not a neurosurgical candidate per ED physician conversation with neurosurgeon at [facility]. Patient was advised to be treated conservatively. Prognosis for recovery is poor. Patient is poorly responsive. ID specialist was consulted. Zosyn and Levaquin were discontinued. Patient was given IV vancomycin, cefepime and Flagyl for brain abscess. Blood culture did not isolate any growth. Urine culture with no growth. Patient was discharged back to group home. FINAL DIAGNOSES: Recurrent tachycardia Prior traumatic brain injury Brain abscess Concern for sepsis Seizure per history Chronic encephalopathy Chronic debility with trach and G-tube Thyroid disease DISPOSITION: Patient was discharged back to group home. I have been assigned to complete a discharge summary on this account, I was not involved with the patient's management.--MIKAEL Fox Jacqueline Robles NP Jun 26, 2020 12:31
== END 2020-06-24 21:00 | DRG 720 ==
LOC: EDBD 18:52 → EMR 19:34 → 2W 19:50 → EDBEDREQSVC 20:18 → EDBEDREQ 20:29 → 2W 21:44
DX: A41.9 Sepsis, unspecified organism (principal); R40.2312 Coma scale, best motor response, none, at arrival to emergency department; R40.2112 Coma scale, eyes open, never, at arrival to emergency department; R40.2222 Coma scale, best verbal response, incomprehensible words, at arrival to emergency department; G06.0 Intracranial abscess and granuloma; G93.49 Other encephalopathy; N30.01 Acute cystitis with hematuria; I10 Essential (primary) hypertension; J44.9 Chronic obstructive pulmonary disease, unspecified; S06.9X9S Unspecified intracranial injury with loss of consciousness of unspecified duration, sequela; Z87.820 Personal history of traumatic brain injury; Z43.1 Encounter for attention to gastrostomy; Z43.0 Encounter for attention to tracheostomy; J96.10 Chronic respiratory failure, unspecified whether with hypoxia or hypercapnia; R56.9 Unspecified convulsions; G91.8 Other hydrocephalus; E07.9 Disorder of thyroid, unspecified
CPT/HCPCS: 36415; 70450; 71045; 80048; 80053; 80202; 81003; 82550; 82553; 82803; 83605; 83690; 83735; 83880; 84100; 84484; 85007; 85025; 85610; 85730; 87040; 87081; 87086; 93005; 96365; 96366; 96368; 99291; J7030; U0002